=== PATIENT | female | born 1955 | race Caucasian/White ===

== ENCOUNTER → 2020-08-18 09:52 | Outpatient (BNVA) | payer MEDICARE, MEDICAID, OTHER, SELFPAY | PROVIDERS: PCP Internal Medicine; Referring Provider Internal Medicine; Visit Provider Internal Medicine Pulmonary Disease | DX: J45.50 Severe persistent asthma, uncomplicated (principal); J30.89 Other allergic rhinitis; Z79.899 Other long term (current) drug therapy | CPT/HCPCS: 99213; 99214 ==

== ENCOUNTER 2020-08-29 09:04 | Outpatient (REF) | payer MEDICARE, MEDICAID, SELFPAY ==
[2020-08-30 10:03] LABS: BV Int Neg Control Negative (Negative); BV Int Pos Control Positive (Positive)
== END 2020-08-29 09:05 | disposition home or self-care (01) ==
LOC: HO.LAB 09:04
PROVIDERS: PCP Internal Medicine; Visit Provider Advanced Practice Midwife
DX: Z12.4 Encounter for screening for malignant neoplasm of cervix (principal); L90.0 Lichen sclerosus et atrophicus; N95.2 Postmenopausal atrophic vaginitis; N64.9 Disorder of breast, unspecified
CPT/HCPCS: 87480; 87510; 87660; 99214

== ENCOUNTER 2020-09-05 07:42 | Outpatient (REF) | payer MEDICARE, MEDICAID, SELFPAY | END 2020-09-05 07:43 | disposition home or self-care (01) | LOC: HO.MDS 07:42 | PROVIDERS: PCP Internal Medicine; Visit Provider Internal Medicine Pulmonary Disease | DX: J45.909 Unspecified asthma, uncomplicated (principal) | CPT/HCPCS: 96372 ==

== ENCOUNTER 2020-11-15 10:37 | Emergency (ER) | payer MEDICARE, SELFPAY ==
[2020-11-15 10:47] VITALS: BP 171/80; PULSE 85; RESP 16; TEMP 36.9; O2SAT 97; BMI 29.2
--- NOTE | 2020-11-15 11:03 | XR_ITS ---
EXAMINATION: XR CHEST CLINICAL INFORMATION: Cough COMPARISON: Chest radiographs 09/07/2019, 06/26/2019 TECHNIQUE: Portable upright AP view of the chest was obtained. FINDINGS: The lungs are clear. There is no lobar or segmental airspace consolidation or groundglass opacity. The costophrenic sulci are well-defined. The heart is within normal size. The vascularity is normal. The hilar and mediastinal contours and bony structures are unremarkable. XR/XR chest 1V IMPRESSION: Unremarkable examination.
--- NOTE | 2020-11-15 11:06 | ED_ITS ---
HPI - URI/Sore Throat General Chief Complaint: Headache Stated Complaint: headache and coughing,dizzy,back pain Time Seen by Provider: 11/15/20 11:05 Source: patient Mode of arrival: ambulatory Limitations: no limitations History of Present Illness MD elicited complaint: fever, cough and other (body aches, wheezing) Pertinent past history: asthma Onset (ago): day(s) (3) Consistency: constant Severity: moderate Able to tolerate fluids by mouth: Yes Exacerbating factors: nothing Relieving factors: nothing Associated symptoms: chills, myalgias, nasal congestion, cough and shortness of breath Treatments prior to arrival: other (has been using her inhaler) Related Data Home Medications Medication Instructions Recorded Confirmed alprazolam 0.25 mg tablet [id number]? mg PO DAILY PRN 08/08/20 benralizumab 30 mg/mL subcutaneous mg SUBCUT 08/08/20 syringe fexofenadine 180 mg tablet 180 mg PO DAILY 08/08/20 lisinopril 10 mg tablet 10 mg PO DAILY 08/08/20 lisinopril 5 mg tablet 10 mg PO DAILY 08/08/20 rosuvastatin 10 mg tablet 10 mg PO BEDTIME 08/08/20 topiramate 25 mg tablet 25 mg PO DAILY 08/08/20 venlafaxine 75 mg capsule,extended 75 mg PO DAILY 08/08/20 release 24 hr Previous Rx's Medication Instructions Recorded clobetasol 0.05 % topical ointment 1 applic TOPICAL DAILY #30 g 08/29/20 amoxicillin-pot clavulanate 1 tab PO BID #14 tab 11/15/20 [Augmentin] prednisone 40 mg PO DAILY 5 Days #10 tab 11/15/20 Allergies Allergy/AdvReac Type Severity Reaction Status Date / Time pneumococcal vaccine Allergy Severe SWELLING, Verified 08/18/20 10:07 [PNEUMOCOCCAL VACCINE] rash atorvastatin [From LIPITOR] Allergy Intermediate LIP Verified 08/18/20 10:07 SWELLING, hives, lip swelling dupilumab [Dupixent] Allergy Unknown PUGH Verified 08/18/20 10:07 fluticasone [Advair Diskus] Allergy Unknown unknown Verified 08/18/20 10:07 Iodinated Contrast Media Allergy Unknown unknown Verified 08/18/20 10:07 metoprolol Allergy Unknown hives Verified 08/18/20 10:07 morphine Allergy Unknown RASH Verified 08/18/20 10:07 salmeterol [Advair Diskus] Allergy Unknown unknown Verified 08/18/20 10:07 verapamil Allergy Unknown Unknown Verified 08/18/20 10:07 Review of Systems 2 Review of Systems: Constitutional : No Fever, pos Chills ENT/Mouth : No sore throat, pos Rhinorrhea, No Swallowing Difficulty Eyes: No Eye Pain, No Swelling, No Redness Cardiovascular : No Chest Pain, positive SOB, No Orthopnea, no Edema Respiratory : pos Cough, No Sputum, pos Wheezing, positive dyspnea Gastrointestinal : No Nausea, No Vomiting, No Diarrhea, No abdominal Pain, No Hematochezia, No Melena Genitourinary : No Dysuria, No Urinary Frequency, No Hematuria Musculoskeletal : No joint pain, pos Myalgias Skin : No Skin Lesions, No rash Neuro : pos Weakness, No Numbness, No Dizziness, No Headache Psych : No Anxiety/Panic, No Depression Heme/Lymph: No Bruising, No Lymphadenopathy Endocrine : No Polyuria, No Polydipsia All other systems reviewed and are negative [facility] Past Medical History Attestation statement: The following information was validated with the patient. Medical History Lichen sclerosus Severe persistent allergic asthma Surgical History (Updated 08/08/20 @ 10:29 by Angely Saldaña) History of cardiac cath Family History Family History (Updated 08/29/20 @ 09:37 by Deonna Jaramillo CNM) Mother No problems noted. Sister No problems noted. Father No problems noted. Sister No problems noted. Social History Social History Smoking Status: Never smoker Advance Directives: No Advance Directives Information Provided: No Physical Exam Vital Signs: Vital Signs: Last Vital Signs Temp 98.4 F 11/15/20 10:47 Pulse 68 11/15/20 13:18 Resp 18 11/15/20 13:01 BP 165/73 H 11/15/20 13:01 Pulse Ox 99 11/15/20 13:01 Body Mass Index 29.2 Appearance: Alert. Oriented X3. No acute distress. Eyes: Pupils equal, round and reactive to light. ENT: Pharynx normal. Neck: Normal inspection. Neck supple. CVS: Normal heart rate and rhythm. Pulses normal. Respiratory: No respiratory distress. Breath sounds decreased with wheezes noted Abdomen: Soft and non-tender. Skin: Skin warm and dry. Normal skin color. Normal skin turgor. Extremities: No lower extremity edema. No calf ttp Neuro: Oriented X 3. No motor deficit. No sensory deficit. Course Course Course Narrative: patient feels better she is 100% on RA, wants to go home MDM - URI/Sore Throat MDM Narrative Medical decision making narrative: 65 yo female not toxic, no resp distress here with URI symptoms body aches at this time will need INH, CXR, COVID swab, start on oral steroids - dispo per results and improvement Lab Data Labs: Lab Results 11/15/20 Range/Units 11:14 Coronavirus (PCR) NEGATIVE (Negative) Influenza Type A (PCR) NEGATIVE (Negative) Influenza Type B (PCR) NEGATIVE (Negative) RSV RNA Qual (PCR) NEGATIVE (Negative) Discharge Plan Discharge Clinical Impression: Bronchitis Patient Disposition: Home, Self-Care Instructions: Acute Bronchitis (ED) Additional Instructions: return to ED for any worsening symptoms or concerns Prescriptions: New prednisone 20 mg tablet 40 mg PO DAILY 5 Days Qty: 10 RF: 0 amoxicillin-pot clavulanate [Augmentin] 875-125 mg tablet 1 tab PO BID Qty: 14 RF: 0 No Action clobetasol [Temovate] 0.05 % ointment 1 applic topical DAILY Qty: 30 RF: 1 Referrals: Po,Lakia Hurd MD [Primary Care Provider] - 2 days (if not better) Print Language: Tuvaluan
[2020-11-15] MEDS: predniSONE 20 MG TABLET 60 MG PO (11:15)
--- NOTE | 2020-11-15 11:20 | PC.NURSE ---
medicated and resp panel obtained and sent. no acute resp distress noted
[2020-11-15] MEDS: Albuterol Sulfate 90 MCG 8 GM INHALER 4 PUFF INHALE (11:39)
[2020-11-15 11:40] VITALS: PULSE 63; O2SAT 99
[2020-11-15 12:29] LABS: Influenza A PCR NEGATIVE (Negative); Influenza B PCR NEGATIVE (Negative); Resp Syncy Virus RNA Qual PCR NEGATIVE (Negative); SARS COV2 PCR INHOUSE NEGATIVE (Negative)
[2020-11-15 13:01] VITALS: BP 165/73; PULSE 63; RESP 18; O2SAT 99
[2020-11-15] MEDS: Albuterol Sulfate (0.083%) 2.5 MG/3 ML VIAL.NEB 5 MG INHALE (13:17)
[2020-11-15 13:18] VITALS: PULSE 68; O2SAT 99
== END 2020-11-15 14:14 | disposition home or self-care (01) ==
PROVIDERS: Emergency Provider Emergency Medicine; PCP Internal Medicine
DX: J20.9 Acute bronchitis, unspecified (principal); Z20.828 Contact with and (suspected) exposure to other viral communicable diseases
CPT/HCPCS: 0241U; 36415; 71045; 94640; 99283; 99284

== ENCOUNTER 2020-11-21 12:14 | Outpatient (REF) | payer MEDICARE, SELFPAY | END 2020-11-21 12:15 | disposition home or self-care (01) | LOC: HO.MDS 12:14 | PROVIDERS: PCP Internal Medicine; Visit Provider Internal Medicine Pulmonary Disease | DX: J45.50 Severe persistent asthma, uncomplicated (principal) | CPT/HCPCS: 96372; J0517 ==

== ENCOUNTER → 2020-11-23 12:37 | Outpatient (BNVA) | payer MEDICARE, MEDICAID, SELFPAY | PROVIDERS: PCP Internal Medicine; Visit Provider Internal Medicine Pulmonary Disease | DX: J45.50 Severe persistent asthma, uncomplicated (principal); J30.89 Other allergic rhinitis | CPT/HCPCS: 99212 ==

== ENCOUNTER → 2020-12-14 10:39 | Outpatient (BNVA) | payer MEDICARE, MEDICAID, SELFPAY | PROVIDERS: PCP Internal Medicine; Visit Provider Internal Medicine Pulmonary Disease | DX: J45.50 Severe persistent asthma, uncomplicated (principal); J30.89 Other allergic rhinitis | CPT/HCPCS: 99212 ==

== ENCOUNTER → 2021-01-02 14:33 | Outpatient (BNVA) | payer MEDICARE, SELFPAY | PROVIDERS: PCP Internal Medicine; Visit Provider Internal Medicine | DX: Z76.89 Persons encountering health services in other specified circumstances (principal) | CPT/HCPCS: Q3014 ==

== ENCOUNTER 2021-01-16 11:36 | Outpatient (REF) | payer MEDICARE, MEDICAID, SELFPAY | END 2021-01-16 11:37 | disposition home or self-care (01) | LOC: HO.MDS 11:36 | PROVIDERS: PCP Internal Medicine; Visit Provider Internal Medicine Pulmonary Disease | DX: J45.50 Severe persistent asthma, uncomplicated (principal) | CPT/HCPCS: 96372; J0517 ==

== ENCOUNTER → 2021-01-31 10:51 | Outpatient (BNVA) | payer MEDICARE, MEDICAID, SELFPAY | PROVIDERS: PCP Internal Medicine; Visit Provider Internal Medicine Pulmonary Disease | DX: J45.50 Severe persistent asthma, uncomplicated (principal); J30.89 Other allergic rhinitis; Z79.899 Other long term (current) drug therapy | CPT/HCPCS: 99212 ==

== ENCOUNTER 2021-03-03 11:02 | Outpatient (REF) | payer MEDICARE, MEDICAID, SELFPAY ==
[2021-03-03 11:33] LABS: COVID-19 Test Negative (Negative); IDNOW Serial# 55D5AD1C
== END 2021-03-03 11:03 | disposition home or self-care (01) ==
LOC: HO.LAB 11:02
PROVIDERS: Visit Provider Internal Medicine
DX: Z20.822 Contact with and (suspected) exposure to COVID-19 (principal)
CPT/HCPCS: 36415; 87635; C9803

== ENCOUNTER 2021-03-13 08:29 | Outpatient (REF) | payer MEDICARE, SELFPAY | END 2021-03-13 08:30 | disposition home or self-care (01) | LOC: HO.MDS 08:29 | PROVIDERS: PCP Internal Medicine; Visit Provider Internal Medicine Pulmonary Disease | DX: J45.50 Severe persistent asthma, uncomplicated (principal) | CPT/HCPCS: J0517 ==

== ENCOUNTER 2021-03-13 15:42 | Outpatient (REF) | payer MEDICARE, MEDICAID, SELFPAY ==
--- NOTE | ~2021-03-13 | US_ITS ---
EXAMINATION: US VENOUS ULTRASOUND WITH DOPPLER LOWER EXTREMITY, BILATERAL CLINICAL INFORMATION: Bilateral leg pain COMPARISON: Previous right lower extremity ultrasound September 2019 and left lower extremity venous ultrasound December 2018 TECHNIQUE: Ultrasound of the deep veins is performed from the hip to the calf with compression sonography and color and pulse Doppler assessment. Spectral analysis with color-flow imaging is performed. FINDINGS: RIGHT: There is normal venous compression and respiratory variation and augmented flow. The visualized common femoral vein, superficial femoral vein, profunda femoral vein, popliteal vein, and the trifurcation region shows no evidence of deep venous thrombosis. There is a small 2.7 x 0.5 x 1.6 cm right popliteal fossa cyst. This is similar to previous exam. LEFT: There is normal venous compression and respiratory variation and augmented flow. The visualized common femoral vein, superficial femoral vein, profunda femoral vein, popliteal vein, and the trifurcation region shows no evidence of deep venous thrombosis. There is no left popliteal fossa cyst. The left greater saphenous vein appears occluded in the proximal thigh. This extends 1.6 cm from the saphenofemoral junction. US/US venous duplex LE BI IMPRESSION: No evidence of DVT. Small right Smith's cyst.
== END 2021-03-13 15:43 | disposition home or self-care (01) ==
LOC: HO.US 15:42
PROVIDERS: PCP Internal Medicine; Visit Provider Internal Medicine
DX: M79.604 Pain in right leg (principal); M79.605 Pain in left leg; M79.89 Other specified soft tissue disorders
CPT/HCPCS: 93970; 96372

== ENCOUNTER → 2021-04-06 10:53 | Outpatient (BNVA) | payer MEDICARE, SELFPAY | PROVIDERS: PCP Internal Medicine; Visit Provider Internal Medicine Pulmonary Disease | DX: J45.50 Severe persistent asthma, uncomplicated (principal); J30.89 Other allergic rhinitis | CPT/HCPCS: 99212 ==

== ENCOUNTER 2021-05-08 08:47 | Outpatient (REF) | payer MEDICARE, MEDICAID, SELFPAY ==
--- NOTE | ~2021-05-08 | XR_ITS ---
EXAMINATION: XR KNEE, RIGHT CLINICAL INFORMATION: Right knee pain. COMPARISON: None TECHNIQUE: Four views of the right knee. FINDINGS: Mild medial femoral-tibial and patellofemoral degenerative joint changes are seen. There is no acute fracture or dislocation. No significant joint effusion is seen. The soft tissues are unremarkable. XR/XR knee RT 3V IMPRESSION: Mild degenerative joint changes suggesting osteoarthritis.
== END 2021-05-08 08:48 | disposition home or self-care (01) ==
LOC: HO.XRAY 08:47
PROVIDERS: PCP Internal Medicine; Referring Provider Physician Assistant; Visit Provider Internal Medicine Pulmonary Disease
DX: M17.11 Unilateral primary osteoarthritis, right knee (principal); J45.50 Severe persistent asthma, uncomplicated
CPT/HCPCS: 73562; 96372

== ENCOUNTER → 2021-06-01 12:53 | Outpatient (BNVA) | payer MEDICARE, MEDICAID, SELFPAY | PROVIDERS: PCP Internal Medicine; Visit Provider Orthopaedic Surgery | DX: M17.11 Unilateral primary osteoarthritis, right knee (principal); I10 Essential (primary) hypertension; E78.00 Pure hypercholesterolemia, unspecified; E55.9 Vitamin D deficiency, unspecified; M81.0 Age-related osteoporosis without current pathological fracture; Z88.7 Allergy status to serum and vaccine; Z88.8 Allergy status to other drugs, medicaments and biological substances; Z91.041 Radiographic dye allergy status | CPT/HCPCS: 20610; 99212; J1100 ==

== ENCOUNTER 2021-06-19 07:49 | Outpatient (REF) | payer MEDICARE, MEDICAID, SELFPAY ==
[2021-06-19 08:34] LABS: Alanine Aminotransferase 17 U/L (0-31); Albumin Level 4.2 g/dL (3.5-5.0); Alkaline Phosphatase 75 U/L (39-117); Anion Gap 11 (12-20); Aspartate Amino Transferase 18 U/L (5-31); Bilirubin Total 0.7 mg/dL (0.0-1.0); Blood Urea Nitrogen 18 mg/dL (9-16); Calcium 9.4 mg/dL (8.4-10.2); Carbon Dioxide 25 mmol/L (22-29); Chloride 108 mmol/L (96-108); Estimated Glomerular Filt Rate > 60; Glucose Fasting 92 mg/dL (60-99); Potassium 4.4 mmol/L (3.3-5.1); Sodium 140 mmol/L (135-145); Total Protein 7.5 g/dL (6.5-8.0)
== END 2021-06-19 07:50 | disposition home or self-care (01) ==
LOC: HO.LAB 07:49
PROVIDERS: Absent Provider Nurse Practitioner Family; PCP Internal Medicine; Visit Provider Internal Medicine
DX: Z13.1 Encounter for screening for diabetes mellitus (principal)
CPT/HCPCS: 36415; 80053

== ENCOUNTER 2021-06-30 11:35 | Outpatient (REF) | payer MEDICARE, MEDICAID, SELFPAY | END 2021-06-30 11:36 | disposition home or self-care (01) | LOC: HO.MDS 11:35 | PROVIDERS: PCP Internal Medicine; Visit Provider Internal Medicine Pulmonary Disease | DX: J45.50 Severe persistent asthma, uncomplicated (principal) | CPT/HCPCS: 96372; J0517 ==

== ENCOUNTER → 2021-07-11 08:54 | Outpatient (BNVA) | payer MEDICARE, MEDICAID, SELFPAY | PROVIDERS: PCP Internal Medicine; Visit Provider Internal Medicine Pulmonary Disease | DX: J45.50 Severe persistent asthma, uncomplicated (principal); J30.89 Other allergic rhinitis | CPT/HCPCS: 99212 ==

== ENCOUNTER 2021-07-13 10:39 | Outpatient (REF) | payer MEDICARE, MEDICAID, SELFPAY ==
--- NOTE | ~2021-07-13 | MM_ITS ---
EXAMINATION: MM SCREENING DIGITAL BREAST TOMOSYNTHESIS, BILATERAL CLINICAL INFORMATION: Screening. Asymptomatic. The lifetime risk of breast cancer based on the Tyrer-Cuzick Model is 8%. COMPARISON: Mammography: 07/12/2020, 09/12/2018, 07/27/2017 TECHNIQUE: Digital breast tomosynthesis is performed in both the craniocaudal and mediolateral oblique views along with computer-aided detection (CAD). Synthesized 2D images are generated from the tomosynthesis. FINDINGS: There are scattered areas of fibroglandular density (ACR BI-RADS breast composition Category b). There are no significant masses, abnormal calcifications, or other abnormalities. Parenchymal pattern is similar to prior studies. There is small stable nodular densities posterior medial left breast and posterior outer right breast similar to prior exams. No developing density. No significant changes. MM/MM tomosynthesis screening BI IMPRESSION: No mammographic evidence of malignancy. ASSESSMENT: BI-RADS 2: Benign RECOMMENDATION: Routine annual mammography screening. This patient's information was entered into a reminder system with a target due date for their next mammogram.
--- NOTE | ~2021-07-13 | MM_ITS ---
EXAMINATION: BONE DENSITOMETRY CLINICAL INDICATION: Asymptomatic menopausal state. COMPARISON: Previous BD dated 03/23/2019 and baseline BD dated 10/10/2007. TECHNIQUE: Using a [employer] DXA System (software version: 13.1) manufactured by [employer], dual-energy x-ray absorptiometry was performed of the lumbar spine and left hip. The images are of good technical quality. Summary results are attached. FINDINGS: AP SPINE L1-L4: Current: BMD 0.793 g/cm2, Z-score -1.9, T-score -3.2, osteoporosis, 8.9% decrease from previous, 4.7% decrease from baseline (<5% change is not significant). Prior: BMD 0.870 g/cm2. Baseline: BMD 0.832 g/cm2. LEFT FEMUR, NECK: Current: BMD 1.001 g/cm2, Z-score 1.1, T-score -0.3, normal. Prior: BMD 0.988 g/cm2. Baseline: BMD 1.028 g/cm2. LEFT FEMUR, TOTAL: Current: BMD 1.050 g/cm2, Z-score 1.4, T-score 0.3, normal, 2.7% decrease from previous, 2.3% decrease from baseline (<5% change is not significant). Prior: BMD 1.079 g/cm2. Baseline: BMD 1.075 g/cm2. IDENTIFIED RISK FACTORS: Osteoporosis, low calcium intake. Early menopause, secondary osteoporosis, glucocorticoids (chronic). HISTORY OF FRACTURE: None listed. MEDICATIONS: Calcium supplements or multivitamin, vitamin D. MM/XR DEXA axial skeleton IMPRESSION: 1. DIAGNOSIS: Osteoporosis based on the lowest T-score value of -3.2 in the lumbar spine applying World Health Organization criteria. 2. 10-YEAR FRACTURE RISK PREDICTION, FRAX: According to the guidelines, FRAX calculation should only be performed on patients in the osteopenia bone density category. Therefore, FRAX was not performed on this patient. 3. Treatment Recommendations: NOF guidelines recommend consideration for treatment in postmenopausal women and men age 50 and older presenting with the following: -A hip or vertebral (clinical or morphometric) fracture. -T-score less than or equal to -2.5 at the femoral neck or spine after appropriate evaluation to exclude secondary causes. -Low bone mass at the hip or spine and a 10-year fracture probability by FRAX of greater than or equal to 3% for hip fracture or greater than or equal to 20% for major osteoporotic fracture based on the [place] adapted WHO algorithm. 4. Other Recommendations: All treatment decisions require clinical judgment and consideration of individual patient factors, including patient preferences, comorbidities, previous drug use, risk factors not captured in the FRAX model (e.g. frailty, falls, vitamin D deficiency, increased bone turnover, interval significant decline in bone density) and possible under or overestimation of fracture risk by FRAX. Additional medical evaluation for secondary cause of low bone mineral density may be appropriate. FUTURE SCAN RECOMMENDATION: People with diagnosed cases of osteoporosis or at high risk for fracture should have regular bone mineral density tests. For patients eligible for Medicare, routine testing is allowed once every 2 years. The testing frequency can be increased to one year for patients who have rapidly progressing disease, those who are receiving or discontinuing medical therapy to restore bone mass, or have additional risk factors.
== END 2021-07-13 10:40 | disposition home or self-care (01) ==
LOC: HO.MAMMO 10:39
PROVIDERS: PCP Internal Medicine; Visit Provider Nurse Practitioner Family
DX: Z12.31 Encounter for screening mammogram for malignant neoplasm of breast (principal); Z13.820 Encounter for screening for osteoporosis; M81.0 Age-related osteoporosis without current pathological fracture; E27.49 Other adrenocortical insufficiency; Z78.0 Asymptomatic menopausal state; Z79.899 Other long term (current) drug therapy
CPT/HCPCS: 77063; 77067; 77080

== ENCOUNTER 2021-08-03 06:52 | Emergency (ER) | payer MEDICARE, MEDICAID, SELFPAY ==
--- NOTE | ~2021-08-03 | XR_ITS ---
EXAMINATION: XR CHEST CLINICAL INFORMATION: Dyspnea. COMPARISON: None TECHNIQUE: Frontal view of the chest was obtained. FINDINGS: No significant abnormality is noted involving the heart, lungs, mediastinum, bony thorax or soft tissues. XR/XR chest 1V IMPRESSION: Unremarkable chest examination.
[2021-08-03 07:12] VITALS: BP 166/95; PULSE 106; RESP 18; TEMP 36.9; O2SAT 97; BMI 29.4
--- NOTE | 2021-08-03 07:20 | ED_ITS ---
HPI - Asthma General Chief Complaint: Dyspnea Stated Complaint: ASTHMA DIFF BREATHING Time Seen by Provider: 08/03/21 07:18 Source: patient Mode of arrival: ambulatory Limitations: no limitations History of Present Illness MD complaint: asthma attack , shortness of breath and wheezing Onset (ago): day(s) (2) Severity: moderate Context: none known Associated symptoms: dry cough and other (sore throat) Asthma History: childhood onset Treatments Prior to Arrival: inhaled bronchodilator Related Data Current Asthma Therapy: inhaled bronchodilator Home Medications Medication Instructions Recorded Confirmed budesonide-formoterol HFA 160 INHALATION BID g 12/22/20 06/14/21 mcg-4.5 mcg/actuation aerosol inhaler ipratropium 0.5 mg-albuterol 3 mg 3 ml INHALATION Q6H PRN 12/22/20 06/14/21 (2.5 mg base)/3 mL nebulization soln Previous Rx's Medication Instructions Recorded benralizumab 30 mg/mL subcutaneous 30 mg SUBCUT Q8W #1 ml 01/09/21 syringe rosuvastatin 10 mg tablet 10 mg PO DAILY #90 tab 02/09/21 lisinopril 10 mg tablet 10 mg PO DAILY 90 Days #90 tab 03/23/21 diclofenac sodium 75 mg 75 mg PO BID 10 Days #20 tab 05/08/21 tablet,delayed release umeclidinium 62.5 mcg/actuation 1 inh INHALATION DAILY 30 Days #30 05/09/21 blister powder for inhalation ea (Incruse Ellipta) fexofenadine 180 mg tablet 180 mg PO DAILY #30 tab 07/21/21 azithromycin 250 mg tablet See Rx Instructions .ROUTE 08/03/21 .COMPLEX #6 tab benzonatate 100 mg capsule 100 mg PO BID PRN #10 cap 08/03/21 (Tessalon Perlarlene) prednisone 20 mg tablet 40 mg PO DAILY 5 Days #10 tab 08/03/21 Allergies Allergy/AdvReac Type Severity Reaction Status Date / Time pneumococcal vaccine Allergy Severe SWELLING, Verified 08/03/21 07:11 [PNEUMOCOCCAL VACCINE] rash atorvastatin [From LIPITOR] Allergy Intermediate LIP Verified 08/03/21 07:11 SWELLING, hives, lip swelling dupilumab [Dupixent] Allergy Unknown PUGH Verified 08/03/21 07:11 fluticasone [Advair Diskus] Allergy Unknown unknown Verified 08/03/21 07:11 Iodinated Contrast Media Allergy Unknown unknown Verified 08/03/21 07:11 metoprolol Allergy Unknown hives Verified 08/03/21 07:11 morphine Allergy Unknown RASH Verified 08/03/21 07:11 salmeterol [Advair Diskus] Allergy Unknown unknown Verified 08/03/21 07:11 verapamil Allergy Unknown Unknown Verified 08/03/21 07:11 Review of Systems Review of Systems: Constitutional : No Fever, No Chills ENT/Mouth : No Hoarseness, No sore throat, No Rhinorrhea Eyes: No Redness, No Discharge, No Vision Changes Cardiovascular : No Chest Pain, positive SOB, positive Dyspnea on Exertion, No Edema Respiratory : positive Cough, No Sputum, positive Wheezing, Gastrointestinal : No Nausea, No Vomiting, No Diarrhea, No abdominal Pain Genitourinary : No Dysuria, No Hematuria Musculoskeletal : No joint pain, No Myalgias Skin : No rash Neuro : No Weakness, No Numbness, No Headache Psych : No anxiety, depression Heme/Lymph: No Bruising, No Bleeding Endocrine : No Polyuria, No Polydipsia All other systems reviewed and are negative [facility] Past Medical History Attestation statement: The following information was validated with the patient. Medical History Allergic rhinitis Allergic rhinitis Anxiety Bronchitis Hypercholesterolemia Hypertension Lichen sclerosus Migraine Osteoarthritis, knee Osteoporosis Post-menopausal Screening for diabetes mellitus Severe persistent allergic asthma Urinary incontinence Vitamin D deficiency Surgical History History of cardiac cath Family History Family History Mother No problems noted. Sister No problems noted. Father No problems noted. Sister No problems noted. 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 Oriented X3. No acute distress. Eyes: Pupils equal, round and reactive to light. ENT: Pharynx normal. Neck: Normal inspection. Neck supple. CVS: Normal heart rate and rhythm. Pulses normal. Respiratory: No respiratory distress. Breath sounds diffuse expiratory wheezes Abdomen: Soft and nontender. Skin: Skin warm and dry. Normal skin color. Normal skin turgor. Extremities: No lower extremity edema. No calf ttp Neuro: Oriented X 3. No motor deficit. No sensory deficit. Course Course Course Narrative: no swelling in throat moderate erythema will DC home on steroids and antibiotics MDM - Asthma MDM Narrative Medical decision making narrative: 66 yo female with asthma, HTN, chronic bronchitis comes in with c/o wheezing and cough for 2 days - at this time labs, CXR< COVID swab, 5mg albuterol, IV steroids and IV magnesium - suspect asthma exacerbation. Dispo per results and improvement Lab Data Result diagrams: 08/03/21 08:36 08/03/21 08:36 Labs: Lab Results 08/03/21 08/03/21 08/03/21 Range/Units 07:27 07:27 08:36 WBC 10.2 (4.8-10.8) X10*3/uL RBC 4.78 (4.20-5.50) X10*6/uL Hgb 14.0 (12.0-16.0) g/dl Hct 42.6 (37-47) % MCV 89.1 (80-98) fL MCH 29.3 (27.0-33.0) pg MCHC 32.9 (31.0-35.0) g/dl RDW 13.2 (11.0-16.0) % Plt Count 239 (160-400) X10*3/uL MPV 11.0 (9.4-12.3) fL Immature Gran % (Auto) 0.2 (0.0-0.4) % Neut % (Auto) 72.5 (45-73) % Lymph % (Auto) 21.1 (20-40) % [place] % (Auto) 6.0 (2-11) % Eos % (Auto) 0.0 (0-4) % Baso % (Auto) 0.2 (0-2) % Lymph # (Auto) 2.2 (1.2-4.9) X10*3/uL [place] # (Auto) 0.6 (0.1-1.2) X10*3/uL Eos # (Auto) 0.0 (0.0-0.4) X10*3/uL Baso # (Auto) 0.0 (0.0-0.2) X10*3/uL Abs Immat Gran (auto) 0.02 (0.00-0.03) X10*3/uL Absolute Neuts (auto) 7.4 (2.0-8.3) X10*3/uL Absolute Nucleated RBC 0.000 (0.0-0.012) X10*3/uL Nucleated RBC % (auto) 0.0 (0.0-0.2) /100WBC Sodium (135-145) mmol/L Potassium (3.3-5.1) mmol/L Chloride (96-108) mmol/L Carbon Dioxide (22-29) mmol/L Anion Gap (12-20) BUN (9-16) mg/dL Creatinine (0.5-1.4) mg/dL Estim Creat Clear Calc Estimated GFR Random Glucose (60-115) mg/dL Calcium (8.4-10.2) mg/dL Total Bilirubin (0.0-1.0) mg/dL Direct Bilirubin (0.0-0.5) mg/dL AST (5-31) U/L ALT (0-31) U/L Alkaline Phosphatase (39-117) U/L Total Protein (6.5-8.0) g/dL Albumin (3.5-5.0) g/dL Lipase (8-78) U/L COVID-19 (CLAUDIO) Negative (Negative) COVID-19 Clin Com See Note S. pyogenes GrpA ANGELIQUE Negative (Negative) 08/03/21 Range/Units 08:36 WBC (4.8-10.8) X10*3/uL RBC (4.20-5.50) X10*6/uL Hgb (12.0-16.0) g/dl Hct (37-47) % MCV (80-98) fL MCH (27.0-33.0) pg MCHC (31.0-35.0) g/dl RDW (11.0-16.0) % Plt Count (160-400) X10*3/uL MPV (9.4-12.3) fL Immature Gran % (Auto) (0.0-0.4) % Neut % (Auto) (45-73) % Lymph % (Auto) (20-40) % [place] % (Auto) (2-11) % Eos % (Auto) (0-4) % Baso % (Auto) (0-2) % Lymph # (Auto) (1.2-4.9) X10*3/uL [place] # (Auto) (0.1-1.2) X10*3/uL Eos # (Auto) (0.0-0.4) X10*3/uL Baso # (Auto) (0.0-0.2) X10*3/uL Abs Immat Gran (auto) (0.00-0.03) X10*3/uL Absolute Neuts (auto) (2.0-8.3) X10*3/uL Absolute Nucleated RBC (0.0-0.012) X10*3/uL Nucleated RBC % (auto) (0.0-0.2) /100WBC Sodium 141 (135-145) mmol/L Potassium 4.3 (3.3-5.1) mmol/L Chloride 109 H (96-108) mmol/L Carbon Dioxide 25 (22-29) mmol/L Anion Gap 11 L (12-20) BUN 12 (9-16) mg/dL Creatinine 0.73 (0.5-1.4) mg/dL Estim Creat Clear Calc 70.9 Estimated GFR > 60 Random Glucose 100 (60-115) mg/dL Calcium 9.7 (8.4-10.2) mg/dL Total Bilirubin 0.5 (0.0-1.0) mg/dL Direct Bilirubin 0.2 (0.0-0.5) mg/dL AST 18 (5-31) U/L ALT 19 (0-31) U/L Alkaline Phosphatase 76 (39-117) U/L Total Protein 7.4 (6.5-8.0) g/dL Albumin 4.2 (3.5-5.0) g/dL Lipase 21 (8-78) U/L COVID-19 (CLAUDIO) (Negative) COVID-19 Clin Com S. pyogenes GrpA ANGELIQUE (Negative) Discharge Plan Discharge Clinical Impression: Bronchitis Asthma with exacerbation Qualifiers: Asthma severity: moderate Asthma persistence: persistent Qualified Code(s): J45.41 - Moderate persistent asthma with (acute) exacerbation Patient Disposition: Home, Self-Care Instructions: Asthma (ED), Acute Bronchitis (ED) Additional Instructions: return to ED for any worsening symptoms or concerns COVID AND STREP NEGATIVE Prescriptions: New prednisone 20 mg tablet 40 mg PO DAILY 5 Days Qty: 10 RF: 0 azithromycin 250 mg tablet See Rx Instructions .ROUTE .COMPLEX Qty: 6 RF: 0 benzonatate [Tessalon Perles] 100 mg capsule 100 mg PO BID PRN (Reason: cough) Qty: 10 RF: 0 No Action benralizumab 30 mg/mL syringe 30 mg subcut Q8W Qty: 1 RF: 12 rosuvastatin 10 mg tablet 10 mg PO DAILY Qty: 90 RF: 2 lisinopril 10 mg tablet 10 mg PO DAILY 90 Days Qty: 90 RF: 1 Incruse Ellipta 62.5 mcg/actuation blister with device 1 inh inhalation DAILY 30 Days Qty: 30 RF: 6 fexofenadine 180 mg tablet 180 mg PO DAILY Qty: 30 RF: 3 ipratropium-albuterol 0.5 mg-3 mg(2.5 mg base)/3 mL solution for nebulization 3 ml inhalation Q6H PRNRF: 0 diclofenac sodium 75 mg tablet,delayed release (DR/EC) 75 mg PO BID 10 Days Qty: 20 RF: 0 budesonide-formoterol 160-4.5 mcg/actuation HFA aerosol inhaler inhalation BID RF: 0 Referrals: Po,Lakia Hurd MD [Primary Care Provider] - 2 days (if not better)
[2021-08-03 07:50] LABS: IDNOW Serial# 9DD0AD1C; Strep A Nucleic Acid Negative (Negative)
[2021-08-03 07:58] LABS: COVID-19 Test Negative (Negative)
[2021-08-03] MEDS: Albuterol Sulfate (0.083%) 2.5 MG/3 ML VIAL.NEB 5 MG INHALE (08:21)
[2021-08-03 08:24] VITALS: PULSE 67; O2SAT 100
[2021-08-03 08:46] LABS: MANUAL DIFF FLAG NO
[2021-08-03 08:49] LABS: Basophils Percent Auto 0.2 % (0-2); Hematocrit 42.6 % (37-47); Imm Gran Abs Auto 0.02 X10*3/uL (0.00-0.03); Imm Gran Pct Auto 0.2 % (0.0-0.4); Lymphocytes Absolute Auto 2.2 X10*3/uL (1.2-4.9); Lymphocytes Percent Auto 21.1 % (20-40); Mean Corpuscular HGB Conc 32.9 g/dl (31.0-35.0); Mean Corpuscular Hemoglobin 29.3 pg (27.0-33.0); Mean Corpuscular Volume 89.1 fL (80-98); Monocytes Absolute Auto 0.6 X10*3/uL (0.1-1.2); Neutrophils Absolute Auto 7.4 X10*3/uL (2.0-8.3); Neutrophils Percent Auto 72.5 % (45-73); Platelet Count 239 X10*3/uL (160-400); Red Blood Count 4.78 X10*6/uL (4.20-5.50); Red Cell Distribution Width 13.2 % (11.0-16.0); White Blood Count 10.2 X10*3/uL (4.8-10.8)
[2021-08-03 09:03] LABS: Alanine Aminotransferase 19 U/L (0-31); Albumin Level 4.2 g/dL (3.5-5.0); Alkaline Phosphatase 76 U/L (39-117); Anion Gap 11 (12-20); Aspartate Amino Transferase 18 U/L (5-31); Bilirubin Direct 0.2 mg/dL (0.0-0.5); Bilirubin Total 0.5 mg/dL (0.0-1.0); Blood Urea Nitrogen 12 mg/dL (9-16); Calcium 9.7 mg/dL (8.4-10.2); Carbon Dioxide 25 mmol/L (22-29); Chloride 109 mmol/L (96-108); Creatinine Clr Calc Pharmacy 70.9; Estimated Glomerular Filt Rate > 60; Glucose Random 100 mg/dL (60-115); Lipase 21 U/L (8-78); Potassium 4.3 mmol/L (3.3-5.1); Sodium 141 mmol/L (135-145); Total Protein 7.4 g/dL (6.5-8.0)
[2021-08-03] MEDS: Benzonatate 100 MG CAPSULE 200 MG PO (09:05)
[2021-08-03] MEDS: methylPREDNISolone Sod Succ 125 MG/2 ML VIAL IVPUSH (09:06)
[2021-08-03] MEDS: Magnesium Sulfate/H2O 2 GM/50 ML PIGGYBACK IV (09:06)
[2021-08-03 09:36] VITALS: BP 165/78; PULSE 84; RESP 19; TEMP 36.2; O2SAT 95
[2021-08-03] MEDS: Albuterol Sulfate (0.083%) 2.5 MG/3 ML VIAL.NEB INHALE (10:15)
[2021-08-03 10:17] VITALS: PULSE 86; O2SAT 95
== END 2021-08-03 10:34 | disposition home or self-care (01) ==
PROVIDERS: Emergency Provider Emergency Medicine; PCP Internal Medicine
DX: J40 Bronchitis, not specified as acute or chronic (principal); J45.41 Moderate persistent asthma with (acute) exacerbation; R06.00 Dyspnea, unspecified; Z20.822 Contact with and (suspected) exposure to COVID-19; Z79.899 Other long term (current) drug therapy
CPT/HCPCS: 36415; 71045; 80048; 80076; 83690; 85025; 87635; 87651; 94640; 94644; 96365; 96366; 96375; 99284; J2930; J3475

== ENCOUNTER → 2021-08-24 08:51 | Outpatient (BNVA) | payer MEDICARE, MEDICAID, SELFPAY | PROVIDERS: PCP Internal Medicine; Visit Provider Internal Medicine Pulmonary Disease | DX: J45.50 Severe persistent asthma, uncomplicated (principal); J30.89 Other allergic rhinitis; J45.901 Unspecified asthma with (acute) exacerbation | CPT/HCPCS: 99212 ==

== ENCOUNTER 2021-08-28 13:08 | Outpatient (REF) | payer MEDICARE, OTHER, SELFPAY ==
[2021-08-30 18:16] LABS: HPV mRNA E6/E7 rflx Not Detected (Not Detected)
== END 2021-08-28 13:09 | disposition home or self-care (01) ==
LOC: HO.LAB 13:08
PROVIDERS: PCP Internal Medicine; Visit Provider Advanced Practice Midwife
DX: Z01.411 Encounter for gynecological examination (general) (routine) with abnormal findings (principal); Z11.51 Encounter for screening for human papillomavirus (HPV); L90.0 Lichen sclerosus et atrophicus; N95.2 Postmenopausal atrophic vaginitis
CPT/HCPCS: 87624; 88142

== ENCOUNTER 2021-09-20 07:38 | Outpatient (REF) | payer MEDICARE, OTHER, SELFPAY ==
[2021-09-20 08:23] LABS: MANUAL DIFF FLAG NO
[2021-09-20 08:29] LABS: Hematocrit 41.7 % (37.0-47.0); Hemoglobin 13.4 g/dl (12.0-16.0); Imm Gran Abs Auto 0.02 X10*3/uL (0.00-0.03); Imm Gran Pct Auto 0.3 % (0.0-0.4); Lymphocytes Absolute Auto 1.5 X10*3/uL (1.2-4.9); Lymphocytes Percent Auto 25.3 % (20-40); Mean Corpuscular HGB Conc 32.1 g/dl (31.0-35.0); Mean Corpuscular Hemoglobin 28.6 pg (27.0-33.0); Mean Corpuscular Volume 89.1 fL (80.0-98.0); Mean Platelet Volume 11.1 fL (9.4-12.3); Monocytes Absolute Auto 0.5 X10*3/uL (0.1-1.2); Monocytes Percent Auto 8.3 % (2-11); Neutrophils Absolute Auto 3.8 x10*3/uL (2.0-8.3); Neutrophils Percent Auto 66.1 % (45-73); Platelet Count 238 X10*3/uL (160-400); Red Blood Count 4.68 X10*6/uL (4.20-5.50); Red Cell Distribution Width 13.2 % (11.0-16.0); White Blood Count 5.8 X10*3/uL (4.8-10.8)
[2021-09-20 09:03] LABS: Alanine Aminotransferase 16 U/L (0-31); Albumin Level 3.9 g/dL (3.5-5.0); Alkaline Phosphatase 71 U/L (39-117); Anion Gap 9 (12-20); Aspartate Amino Transferase 17 U/L (5-31); Bilirubin Total 0.5 mg/dL (0.0-1.0); Blood Urea Nitrogen 14 mg/dL (9-16); Calcium 9.1 mg/dL (8.4-10.2); Carbon Dioxide 28 mmol/L (22-29); Chloride 107 mmol/L (96-108); Cholesterol 200 mg/dL; Estimated Glomerular Filt Rate > 60; Glucose Random 89 mg/dL (60-115); HDL Cholesterol 49 mg/dL; LDL Cholesterol Calculated 125 mg/dl; Potassium 4.3 mmol/L (3.3-5.1); Sodium 140 mmol/L (135-145); Total Protein 6.9 g/dL (6.5-8.0); Triglycerides 130 mg/dL
[2021-09-20 09:20] LABS: Free T4 (Free Thyroxine) 1.04 ng/dL (0.71-1.85); Thyroid Stimulating Hormone 1.55 uIU/mL (0.32-4.0); Vitamin D 25-OH Total 18.5 ng/mL (>30)
[2021-09-20 09:35] LABS: Folate 16.5 ng/mL (> or = 4.0); Vitamin B12 393 pg/mL (200-900)
== END 2021-09-20 07:39 | disposition home or self-care (01) ==
LOC: HO.LAB 07:38
PROVIDERS: PCP Internal Medicine; Visit Provider Internal Medicine
DX: E78.00 Pure hypercholesterolemia, unspecified (principal); I10 Essential (primary) hypertension
CPT/HCPCS: 36415; 80053; 80061; 82306; 82607; 82746; 84439; 84443; 85025

== ENCOUNTER → 2021-09-21 09:28 | Outpatient (BNVA) | payer MEDICARE, OTHER, SELFPAY | PROVIDERS: PCP Internal Medicine; Visit Provider Internal Medicine Pulmonary Disease | DX: J45.50 Severe persistent asthma, uncomplicated (principal); J30.89 Other allergic rhinitis; K21.9 Gastro-esophageal reflux disease without esophagitis | CPT/HCPCS: 99212 ==

== ENCOUNTER 2021-10-13 09:26 | Outpatient (REF) | payer MEDICARE, OTHER, SELFPAY | END 2021-10-13 09:27 | disposition home or self-care (01) | LOC: HO.MDS 09:26 | PROVIDERS: Visit Provider Internal Medicine Pulmonary Disease | DX: J45.50 Severe persistent asthma, uncomplicated (principal) | CPT/HCPCS: 96372; J0517 ==

== ENCOUNTER → 2021-10-25 10:31 | Outpatient (BNVA) | payer MEDICARE, OTHER, SELFPAY | PROVIDERS: PCP Internal Medicine; Visit Provider Internal Medicine Pulmonary Disease | DX: J45.50 Severe persistent asthma, uncomplicated (principal); J30.89 Other allergic rhinitis | CPT/HCPCS: 99212 ==

== ENCOUNTER 2021-12-08 08:51 | Outpatient (REF) | payer MEDICARE, OTHER, SELFPAY | END 2021-12-08 08:52 | disposition home or self-care (01) | LOC: HO.MDS 08:51 | PROVIDERS: Visit Provider Internal Medicine Pulmonary Disease | DX: J45.50 Severe persistent asthma, uncomplicated (principal) | CPT/HCPCS: 96372 ==

== ENCOUNTER 2022-02-02 09:33 | Outpatient (REF) | payer MEDICARE, OTHER, SELFPAY | END 2022-02-02 09:34 | disposition home or self-care (01) | LOC: HO.MDS 09:33 | PROVIDERS: Visit Provider Internal Medicine Pulmonary Disease | DX: J45.50 Severe persistent asthma, uncomplicated (principal) | CPT/HCPCS: 96372; J0517 ==

== ENCOUNTER 2022-02-05 08:33 | Emergency (ER) | payer MEDICARE, OTHER, SELFPAY ==
--- NOTE | ~2022-02-05 | XR_ITS ---
EXAMINATION: XR CHEST CLINICAL INFORMATION: Chest pain COMPARISON: None TECHNIQUE: Frontal view of the chest was obtained. FINDINGS: No significant abnormality is noted involving the heart, lungs, mediastinum, bony thorax or soft tissues. XR/XR chest 1V IMPRESSION: Unremarkable chest examination.
--- NOTE | 2022-02-05 08:44 | ECG_ITS ---
Test Reason : chest pain Blood Pressure : / mmHG Vent. Rate : 070 BPM Atrial Rate : 070 BPM P-R Int : 120 ms QRS Dur : 086 ms QT Int : 408 ms P-R-T Axes : 053 022 044 degrees QTc Int : 440 ms Normal sinus rhythm Normal EKG When compared with ECG of 07-SEP-2019 10:51, No significant change was found Referred By: Generic ED Physician Electronically Signed By:KAMILA OLIVARES
--- NOTE | 2022-02-05 08:54 | ED_ITS ---
HPI - Chest Pain General Chief Complaint: Chest Pain Stated Complaint: chest pain Time Seen by Provider: 02/05/22 08:54 Source: patient Mode of arrival: ambulatory Limitations: no limitations History of Present Illness MD complaint: chest pain Onset (ago): hour(s) (5 am ) Timing of current episode: now resolved and other (lasted 5 minutes) Prior episodes: Yes (last week happened) Onset: during rest Pain location: substernal Pain radiation: back and neck Severity: moderate Quality: sharp Relieving factors: nothing Exacerbating factors: nothing Context: recent illness (had allergic reaction to area on R knee - topical medications) Associated symptoms: dyspnea Treatment prior to arrival: none Related Data Home Medications Medication Instructions Recorded Confirmed ipratropium 0.5 mg-albuterol 3 mg 3 ml INHALATION Q6H PRN 01/29/22 01/29/22 (2.5 mg base)/3 mL nebulization soln Previous Rx's Medication Instructions Recorded rosuvastatin 10 mg tablet 10 mg PO DAILY #90 tab 02/09/21 lisinopril 10 mg tablet 10 mg PO DAILY 90 Days #90 tab 08/23/21 trazodone 50 mg tablet 50 mg PO BEDTIME PRN #90 tab 11/02/21 fexofenadine 180 mg tablet 180 mg PO DAILY #30 tab 11/21/21 omeprazole 40 mg capsule,delayed 40 mg PO DAILY 90 Days #90 cap 01/10/22 release Incruse Ellipta 62.5 mcg/actuation 1 inh INHALATION DAILY #30 ea NS 01/15/22 powder for inhalation (umeclidinium) benralizumab 30 mg/mL subcutaneous 30 mg SUBCUT Q8W #1 ml 01/19/22 syringe albuterol sulfate 90 mcg/actuation 2 puff INHALATION Q6H PRN #8.5 g 01/29/22 aerosol inhaler (ProAir HFA) amoxicillin 500 mg-potassium 1 tab PO BID 7 Days #14 tab 01/29/22 clavulanate 125 mg tablet (Augmentin) triamcinolone acetonide 0.5 % 1 appl TOPICAL BID 14 Days #45 g 01/30/22 topical cream lisinopril 10 mg tablet 15 mg PO DAILY #14 tab 02/05/22 Allergies Allergy/AdvReac Type Severity Reaction Status Date / Time pneumococcal vaccine Allergy Severe SWELLING, Verified 01/29/22 15:10 [PNEUMOCOCCAL VACCINE] rash atorvastatin [From LIPITOR] Allergy Intermediate LIP Verified 01/29/22 15:10 SWELLING, hives, lip swelling dupilumab [Dupixent] Allergy Unknown PUGH Verified 01/29/22 15:10 fluticasone [Advair Diskus] Allergy Unknown unknown Verified 01/29/22 15:10 Iodinated Contrast Media Allergy Unknown unknown Verified 01/29/22 15:10 metoprolol Allergy Unknown hives Verified 01/29/22 15:10 morphine Allergy Unknown RASH Verified 01/29/22 15:10 salmeterol [Advair Diskus] Allergy Unknown unknown Verified 01/29/22 15:10 verapamil Allergy Unknown Unknown Verified 01/29/22 15:10 Review of Systems Review of Systems: Constitutional : No Weight loss, No Fever, No Chills ENT/Mouth : No sore throat, No Rhinorrhea Eyes: No Eye Pain, No Swelling Cardiovascular : pos Chest Pain, pos SOB, no Dyspnea on Exertion, No Orthopnea, No Edema, No Palpitations Respiratory : No Cough, No Sputum Gastrointestinal : no Nausea, No Vomiting, No Diarrhea, No abdominal Pain, No Hematochezia, No Melena Genitourinary : No Dysuria, No Urinary Frequency Musculoskeletal : No joint pain, No Myalgias, No Joint Swelling Skin : No Skin Lesions, No rash Neuro : No Weakness, No Numbness, No Dizziness, No Headache Psych : No Anxiety/Panic, No Depression Heme/Lymph: No Bruising, No Lymphadenopathy Endocrine : No Polyuria, No Polydipsia All other systems reviewed and are negative [facility] Past Medical History Attestation statement: The following information was validated with the patient. Medical History Allergic rhinitis Allergic rhinitis Anxiety Bronchitis Hypercholesterolemia Hypertension Lichen sclerosus Migraine Osteoarthritis, knee Osteoporosis Post-menopausal Severe persistent allergic asthma Urinary incontinence Vitamin D deficiency Surgical History History of cardiac cath Family History Family History Mother No problems noted. Sister No problems noted. Father No problems noted. Sister No problems noted. 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 Oriented X3. No acute distress. Eyes: Pupils equal, round and reactive to light. ENT: Pharynx normal. Neck: Normal inspection. Neck supple. CVS: Normal heart rate and rhythm. Pulses normal. Respiratory: No respiratory distress. Breath sounds normal. Abdomen: Soft and non-tender. Skin: Skin warm and dry. Normal skin color. Normal skin turgor. area on R inner knee faint pink patch no warmth noted Extremities: No lower extremity edema. Neuro: Oriented X 3. No motor deficit. No sensory deficit. Course Course Course Narrative: BP up , repeat heart markers negative, nonischemic EKG anxious ativan PO ordered BP R arm 160/93 L arm 162/97 BP 157/82 notes dizziness when she wakes in the AM BP 150/160s mostly here I do not suspect HTN emergency can be DC but discussed checking BP in AM after waking (once out of bed if BP remains high > 150s) will start on additional low dose BP medications MDM - Chest Pain MDM Narrative Medical decision making narrative: 66 yo female with hx of HTN, HLD, anxiety, asthma comes in with c/o sharp chest pain with radiation to neck and back when getting ready for work this AM around 5. Lasted about 5 minutes. She had the same thing last week. She is a little anxious. Has normal distal pulses. Just treated for R knee allergic reaction - the leg is not swollen/no calf pain - hypoxia/tachycardia and the pain was not pleuritic low prob of PE will send off ddimer. She has normal distal pulses and pain has resolved dissection seems unlikely. Will obtain troponin x 2 - she is currently asymptomatic at this time. Lab Data Result diagrams: 02/05/22 09:26 02/05/22 10:05 Labs: Lab Results 02/05/22 02/05/22 02/05/22 Range/Units 09:26 09:26 09:26 WBC 5.5 (4.8-10.8) X10*3/uL RBC 4.87 (4.20-5.50) X10*6/uL Hgb 14.1 (12.0-16.0) g/dl Hct 41.6 (37.0-47.0) % MCV 85.4 (80.0-98.0) fL MCH 29.0 (27.0-33.0) pg MCHC 33.9 (31.0-35.0) g/dl RDW 12.8 (11.0-16.0) % Plt Count 222 (160-400) X10*3/uL MPV 11.1 (9.4-12.3) fL Immature Gran % (Auto) 0.2 (0.0-0.4) % Neut % (Auto) 63.0 (45-73) % Lymph % (Auto) 29.1 (20-40) % Chambers % (Auto) 7.5 (2-11) % Eos % (Auto) 0.0 (0-4) % Baso % (Auto) 0.2 (0-2) % Lymph # (Auto) 1.6 (1.2-4.9) X10*3/uL Chambers # (Auto) 0.4 (0.1-1.2) X10*3/uL Eos # (Auto) 0.0 (0.0-0.4) X10*3/uL Baso # (Auto) 0.0 (0.0-0.2) X10*3/uL Abs Immat Gran (auto) 0.01 (0.00-0.03) X10*3/uL Absolute Neuts (auto) 3.5 (2.0-8.3) x10*3/uL Absolute Nucleated RBC 0.000 (0.0-0.012) X10*3/uL Nucleated RBC % (auto) 0.0 (0.0-0.2) /100WBC D-Dimer High Sensitivty < 150 NG/ML Sodium (135-145) mmol/L Potassium (3.3-5.1) mmol/L Chloride (96-108) mmol/L Carbon Dioxide (22-29) mmol/L Anion Gap (12-20) BUN (9-16) mg/dL Creatinine (0.5-1.4) mg/dL Estim Creat Clear Calc Estimated GFR Random Glucose (60-115) mg/dL Calcium (8.4-10.2) mg/dL Magnesium (1.6-2.6) mg/dL Total Bilirubin (0.0-1.0) mg/dL Direct Bilirubin (0.0-0.5) mg/dL AST (5-31) U/L ALT (0-31) U/L Alkaline Phosphatase (39-117) U/L Troponin I High Sens 3.9 (<3.5-17.0) ng/L Total Protein (6.5-8.0) g/dL Albumin (3.5-5.0) g/dL Lipase (8-78) U/L 02/05/22 02/05/22 Range/Units 10:05 11:33 WBC (4.8-10.8) X10*3/uL RBC (4.20-5.50) X10*6/uL Hgb (12.0-16.0) g/dl Hct (37.0-47.0) % MCV (80.0-98.0) fL MCH (27.0-33.0) pg MCHC (31.0-35.0) g/dl RDW (11.0-16.0) % Plt Count (160-400) X10*3/uL MPV (9.4-12.3) fL Immature Gran % (Auto) (0.0-0.4) % Neut % (Auto) (45-73) % Lymph % (Auto) (20-40) % Chambers % (Auto) (2-11) % Eos % (Auto) (0-4) % Baso % (Auto) (0-2) % Lymph # (Auto) (1.2-4.9) X10*3/uL Chambers # (Auto) (0.1-1.2) X10*3/uL Eos # (Auto) (0.0-0.4) X10*3/uL Baso # (Auto) (0.0-0.2) X10*3/uL Abs Immat Gran (auto) (0.00-0.03) X10*3/uL Absolute Neuts (auto) (2.0-8.3) x10*3/uL Absolute Nucleated RBC (0.0-0.012) X10*3/uL Nucleated RBC % (auto) (0.0-0.2) /100WBC D-Dimer High Sensitivty NG/ML Sodium 141 (135-145) mmol/L Potassium 3.9 (3.3-5.1) mmol/L Chloride 108 (96-108) mmol/L Carbon Dioxide 27 (22-29) mmol/L Anion Gap 10 L (12-20) BUN 16 (9-16) mg/dL Creatinine 0.72 (0.5-1.4) mg/dL Estim Creat Clear Calc 73.9 Estimated GFR > 60 Random Glucose 92 (60-115) mg/dL Calcium 9.3 (8.4-10.2) mg/dL Magnesium 1.9 (1.6-2.6) mg/dL Total Bilirubin 0.6 (0.0-1.0) mg/dL Direct Bilirubin 0.2 (0.0-0.5) mg/dL AST 18 (5-31) U/L ALT 19 (0-31) U/L Alkaline Phosphatase 70 (39-117) U/L Troponin I High Sens 4.0 (<3.5-17.0) ng/L Total Protein 7.0 (6.5-8.0) g/dL Albumin 3.9 (3.5-5.0) g/dL Lipase 23 (8-78) U/L ECG Data ECG #1: Attestation: I personally reviewed and interpreted this ECG as follows: ECG interpretation date: 02/05/22 ECG interpretation time: 08:57 Interpretation: Rate: 70 Rhythm: NSR Dexter: normal Normal P waves. Normal SUREKHA. Normal QRS complex. ST T wave : normal no RADHA qTC: normal prior studies: no acute ischemia The study has been interpreted contemporaneously by me. Scores Heart Score History: -0- slightly suspicious ECG: -0- normal Age: -2- > or = 65 Risk factory: -1- 1 or 2 risk factors Troponin: -0- < or = normal limit Score: 3 Risk: 1.7% Discharge Plan Discharge Clinical Impression: Chest pain Qualifiers: Chest pain type: precordial pain Qualified Code(s): R07.2 - Precordial pain Hypertension Qualifiers: Hypertension type: unspecified Qualified Code(s): I10 - Essential (primary) hypertension Patient Disposition: Home, Self-Care Instructions: Chest Pain (ED), Hypertension (ED) Additional Instructions: return to ED for any worsening symptoms or concerns check blood pressure in morning prior to medications, check it after waking up and walking around please keep track. Take your blood pressure medication. RECHECK in the afternoon if your blood pressure readings remain high > 150/80 consistently for 3 days in the afternoon (2pm) and you have symptoms such as headache or dizziness. Start new blood pressure medication. Do not start BP medication unless your afternoon BP readings are high > 150/80 for 3 days. Prescriptions: New lisinopril 10 mg tablet 15 mg PO DAILY Qty: 14 0RF No Action rosuvastatin 10 mg tablet 10 mg PO DAILY Qty: 90 2RF lisinopril 10 mg tablet 10 mg PO DAILY 90 Days Qty: 90 2RF trazodone 50 mg tablet 50 mg PO BEDTIME PRN (Reason: for insomnia) Qty: 90 1RF fexofenadine 180 mg tablet 180 mg PO DAILY Qty: 30 3RF omeprazole 40 mg capsule,delayed release(DR/EC) 40 mg PO DAILY 90 Days Qty: 90 3RF Incruse Ellipta 62.5 mcg/actuation blister with device 1 inh inhalation DAILY Qty: 30 6RF benralizumab 30 mg/mL syringe 30 mg subcut Q8W Qty: 1 11RF triamcinolone acetonide 0.5 % cream 1 appl topical BID 14 Days Qty: 45 0RF amoxicillin-pot clavulanate [Augmentin] 500-125 mg tablet 1 tab PO BID 7 Days Qty: 14 0RF ipratropium-albuterol 0.5 mg-3 mg(2.5 mg base)/3 mL solution for nebulization 3 ml inhalation Q6H PRN0RF albuterol sulfate [ProAir HFA] 90 mcg/actuation HFA aerosol inhaler 2 puff inhalation Q6H PRN (Reason: shortness of breath or wheezing) Qty: 8.5 0RF Referrals: Po,Lorenver O, MD [Primary Care Provider] - 2 days (follow up with stress test as outpatient please speak to your doctor)
[2022-02-05 09:00] VITALS: BP 158/76; PULSE 74; RESP 16; TEMP 36.6; O2SAT 96; BMI 31.1
[2022-02-05 09:33] LABS: MANUAL DIFF FLAG NO
--- NOTE | 2022-02-05 09:33 | PC.NURSE ---
Pt comes in with c/o CP which began at 0530 this morning that radiated to jaw and LUE, pain was described as sharp and radiating. Pain has since subsided. Pt is A&Ox3, NSR on monitor, LCA, denies N/V/D SOB or fevers at this time, states her mouth feels weird at this time, face is slightly slushed and pt is HTN at this time which is new to her. IV established, labs drawn, EKG completed. Awaiting CXR at this time. Call rincon within reach. Will continue to monitor.
[2022-02-05 09:36] LABS: Basophils Percent Auto 0.2 % (0-2); Hematocrit 41.6 % (37.0-47.0); Hemoglobin 14.1 g/dl (12.0-16.0); Imm Gran Abs Auto 0.01 X10*3/uL (0.00-0.03); Imm Gran Pct Auto 0.2 % (0.0-0.4); Lymphocytes Absolute Auto 1.6 X10*3/uL (1.2-4.9); Lymphocytes Percent Auto 29.1 % (20-40); Mean Corpuscular HGB Conc 33.9 g/dl (31.0-35.0); Mean Corpuscular Volume 85.4 fL (80.0-98.0); Mean Platelet Volume 11.1 fL (9.4-12.3); Monocytes Absolute Auto 0.4 X10*3/uL (0.1-1.2); Monocytes Percent Auto 7.5 % (2-11); Neutrophils Absolute Auto 3.5 x10*3/uL (2.0-8.3); Platelet Count 222 X10*3/uL (160-400); Red Blood Count 4.87 X10*6/uL (4.20-5.50); Red Cell Distribution Width 12.8 % (11.0-16.0); White Blood Count 5.5 X10*3/uL (4.8-10.8)
[2022-02-05 09:43] LABS: D Dimer High Sensitivity < 150 NG/ML
[2022-02-05 09:58] LABS: Troponin-I High Sensitivity 3.9 ng/L (<3.5-17.0)
[2022-02-05 10:31] LABS: Alanine Aminotransferase 19 U/L (0-31); Albumin Level 3.9 g/dL (3.5-5.0); Alkaline Phosphatase 70 U/L (39-117); Anion Gap 10 (12-20); Aspartate Amino Transferase 18 U/L (5-31); Bilirubin Direct 0.2 mg/dL (0.0-0.5); Bilirubin Total 0.6 mg/dL (0.0-1.0); Blood Urea Nitrogen 16 mg/dL (9-16); Calcium 9.3 mg/dL (8.4-10.2); Chloride 108 mmol/L (96-108); Creatinine Clr Calc Pharmacy 73.9; Estimated Glomerular Filt Rate > 60; Glucose Random 92 mg/dL (60-115); Lipase 23 U/L (8-78); Magnesium 1.9 mg/dL (1.6-2.6); Potassium 3.9 mmol/L (3.3-5.1); Sodium 141 mmol/L (135-145)
[2022-02-05 10:32] LABS: Carbon Dioxide 27 mmol/L (22-29)
[2022-02-05 11:47] VITALS: BP 181/98; PULSE 64; RESP 16; O2SAT 100
[2022-02-05] MEDS: LORazepam 1 MG TABLET PO (12:39)
[2022-02-05 13:14] VITALS: BP 157/82
[2022-02-05 13:22] VITALS: BP 151/77; PULSE 76; RESP 18; O2SAT 99
[2022-02-05 13:42] VITALS: BP 147/77
== END 2022-02-05 13:44 | disposition home or self-care (01) ==
PROVIDERS: Emergency Provider Emergency Medicine; PCP Internal Medicine
DX: R07.2 Precordial pain (principal); I10 Essential (primary) hypertension; R06.02 Shortness of breath; E78.5 Hyperlipidemia, unspecified; Z79.02 Long term (current) use of antithrombotics/antiplatelets; Z79.899 Other long term (current) drug therapy
CPT/HCPCS: 36415; 71045; 80048; 80076; 83690; 83735; 84484; 85025; 85379; 93005; 99283; 99284; 99285

== ENCOUNTER → 2022-02-28 10:37 | Outpatient (BNVA) | payer MEDICARE, OTHER, SELFPAY | PROVIDERS: PCP Internal Medicine; Visit Provider Internal Medicine Pulmonary Disease | DX: J45.50 Severe persistent asthma, uncomplicated (principal); J30.89 Other allergic rhinitis | CPT/HCPCS: 99212 ==

== ENCOUNTER 2022-03-26 10:46 | Outpatient (REF) | payer MEDICARE, OTHER, SELFPAY ==
--- NOTE | ~2022-03-26 | US_ITS ---
EXAMINATION: US extremity nonvascular dial CLINICAL INFORMATION: Reason for Exam RUE POST/SUP area lumpy mass 5x3 cm ? lipoma COMPARISON: None. TECHNIQUE: Dynamic, real-time grayscale and color Doppler sonographic evaluation of the posterior right upper arm was performed FINDINGS: On the images submitted for review, there is a circumscribed, wider than tall, fat echotexture mass measuring at least 7.1 x 6.8 x 3.6 cm, however, it is difficult to precisely measure due to its large size and because it tends to blend into the surrounding tissues . No internal blood flow. US/US extremity nonvascular dial IMPRESSION: Palpable lump along the posterior right upper arm appears to correspond to a fatty mass, possibly a lipoma. Consider MRI without and with contrast to confirm.
== END 2022-03-26 10:47 | disposition home or self-care (01) ==
LOC: HO.HMGCX 10:46
PROVIDERS: PCP Internal Medicine; Visit Provider Internal Medicine
DX: R22.30 Localized swelling, mass and lump, unspecified upper limb (principal)
CPT/HCPCS: 76882

== ENCOUNTER 2022-03-30 08:33 | Outpatient (REF) | payer MEDICARE, OTHER, SELFPAY | END 2022-03-30 08:34 | disposition home or self-care (01) | LOC: HO.MDS 08:33 | PROVIDERS: Visit Provider Internal Medicine Pulmonary Disease | DX: J45.50 Severe persistent asthma, uncomplicated (principal) | CPT/HCPCS: 96372; J0517 ==

== ENCOUNTER 2022-05-25 08:20 | Outpatient (REF) | payer MEDICARE, OTHER, SELFPAY ==
[2022-05-25 08:52] LABS: COVID-19 Test Negative (Negative)
== END 2022-05-25 08:21 | disposition home or self-care (01) ==
LOC: HO.LAB 08:20
PROVIDERS: Visit Provider Internal Medicine
DX: Z20.822 Contact with and (suspected) exposure to COVID-19 (principal)
CPT/HCPCS: 87635; C9803

== ENCOUNTER → 2022-05-28 10:02 | Outpatient (BNVA) | payer MEDICARE, OTHER, SELFPAY | PROVIDERS: PCP Internal Medicine; Visit Provider Internal Medicine Pulmonary Disease | DX: J45.50 Severe persistent asthma, uncomplicated (principal); J30.89 Other allergic rhinitis; U07.1 COVID-19; Z79.899 Other long term (current) drug therapy | CPT/HCPCS: Q3014 ==

== ENCOUNTER 2022-06-18 15:28 | Outpatient (REF) | payer MEDICARE, OTHER, MEDICAID, SELFPAY | END 2022-06-18 15:29 | disposition home or self-care (01) | LOC: HO.MDS 15:28 | PROVIDERS: Visit Provider Internal Medicine Pulmonary Disease | DX: J45.50 Severe persistent asthma, uncomplicated (principal) | CPT/HCPCS: 96372; J0517 ==

== ENCOUNTER 2022-07-13 07:03 | Outpatient (REF) | payer MEDICARE, OTHER, SELFPAY ==
[2022-07-13 07:11] LABS: MANUAL DIFF FLAG NO
[2022-07-13 07:36] LABS: Hematocrit 43.2 % (37.0-47.0); Hemoglobin 14.1 g/dl (12.0-16.0); Imm Gran Abs Auto 0.02 X10*3/uL (0.00-0.03); Imm Gran Pct Auto 0.3 % (0.0-0.4); Lymphocytes Absolute Auto 2.3 X10*3/uL (1.2-4.9); Lymphocytes Percent Auto 32.9 % (20-40); Mean Corpuscular HGB Conc 32.6 g/dl (31.0-35.0); Mean Corpuscular Hemoglobin 28.3 pg (27.0-33.0); Mean Corpuscular Volume 86.6 fL (80.0-98.0); Mean Platelet Volume 11.3 fL (9.4-12.3); Monocytes Absolute Auto 0.7 X10*3/uL (0.1-1.2); Monocytes Percent Auto 9.5 % (2-11); Neutrophils Percent Auto 57.3 % (45-73); Platelet Count 262 X10*3/uL (160-400); Red Blood Count 4.99 X10*6/uL (4.20-5.50); Red Cell Distribution Width 13.3 % (11.0-16.0)
[2022-07-13 07:52] LABS: Alanine Aminotransferase 20 U/L (0-31); Albumin Level 4.1 g/dL (3.5-5.0); Alkaline Phosphatase 80 U/L (39-117); Anion Gap 15 (12-20); Aspartate Amino Transferase 20 U/L (5-31); Bilirubin Total 0.4 mg/dL (0.0-1.0); Blood Urea Nitrogen 20 mg/dL (9-16); Calcium 9.4 mg/dL (8.4-10.2); Carbon Dioxide 23 mmol/L (22-29); Chloride 105 mmol/L (96-108); Cholesterol 204 mg/dL; Estimated Glomerular Filt Rate > 60; Glucose Random 99 mg/dL (60-115); HDL Cholesterol 47 mg/dL; LDL Cholesterol Calculated 130 mg/dl; Potassium 4.4 mmol/L (3.3-5.1); Sodium 139 mmol/L (135-145); Total Protein 7.5 g/dL (6.5-8.0); Triglycerides 138 mg/dL
[2022-07-13 08:27] LABS: Folate 15.4 ng/mL (> or = 4.0); Vitamin B12 336 pg/mL (200-900)
[2022-07-13 08:50] LABS: Free T4 (Free Thyroxine) 0.99 ng/dL (0.71-1.85); Thyroid Stimulating Hormone 1.81 uIU/mL (0.32-4.0); Vitamin D 25-OH Total 29.9 ng/mL (>30)
== END 2022-07-13 07:04 | disposition home or self-care (01) ==
LOC: HO.LAB 07:03
PROVIDERS: PCP Internal Medicine; Visit Provider Internal Medicine
DX: E78.00 Pure hypercholesterolemia, unspecified (principal)
CPT/HCPCS: 36415; 80053; 80061; 82306; 82607; 82746; 84439; 84443; 85025

== ENCOUNTER 2022-08-13 09:15 | Outpatient (REF) | payer MEDICARE, OTHER, SELFPAY | END 2022-08-13 09:16 | disposition home or self-care (01) | LOC: HO.MDS 09:15 | PROVIDERS: Visit Provider Internal Medicine Pulmonary Disease | DX: J45.50 Severe persistent asthma, uncomplicated (principal) | CPT/HCPCS: 96372; J0517 ==

== ENCOUNTER 2022-08-18 07:29 | Outpatient (REF) | payer MEDICARE, OTHER, SELFPAY ==
--- NOTE | ~2022-08-18 | MM_ITS ---
EXAMINATION: MM SCREENING DIGITAL BREAST TOMOSYNTHESIS, BILATERAL CLINICAL INFORMATION: Screening. Asymptomatic. The lifetime risk of breast cancer based on the Tyrer-Cuzick Model is 3%. COMPARISON: Mammography: 07/13/2021, 07/12/2020, 09/12/2018 TECHNIQUE: Digital breast tomosynthesis is performed in both the craniocaudal and mediolateral oblique views along with computer-aided detection (CAD). Synthesized 2D images are generated from the tomosynthesis. FINDINGS: There are scattered areas of fibroglandular density (ACR BI-RADS breast composition Category b). Parenchymal pattern is similar to prior studies. No developing density or interval mass or architectural abnormality. No abnormal calcifications. Low right axillary tail nodes stable. The axilla and skin contours are unremarkable. MM/MM tomosynthesis screening BI IMPRESSION: No significant changes from prior exam. ASSESSMENT: BI-RADS 1: Negative RECOMMENDATION: Routine annual mammography screening. This patient's information was entered into a reminder system with a target due date for their next mammogram.
== END 2022-08-18 07:30 | disposition home or self-care (01) ==
LOC: HO.MAMMO 07:29
PROVIDERS: PCP Internal Medicine; Visit Provider Internal Medicine
DX: Z12.31 Encounter for screening mammogram for malignant neoplasm of breast (principal)
CPT/HCPCS: 77063; 77067

== ENCOUNTER → 2022-09-18 09:47 | Outpatient (BNVA) | payer MEDICARE, OTHER, SELFPAY | PROVIDERS: PCP Internal Medicine; Visit Provider Internal Medicine Pulmonary Disease | DX: J45.50 Severe persistent asthma, uncomplicated (principal); J30.89 Other allergic rhinitis | CPT/HCPCS: 99212 ==

== ENCOUNTER 2022-10-08 08:53 | Outpatient (REF) | payer MEDICARE, MEDICAID, SELFPAY | END 2022-10-08 08:54 | disposition home or self-care (01) | LOC: HO.MDS 08:53 | PROVIDERS: Visit Provider Internal Medicine Pulmonary Disease | DX: J45.50 Severe persistent asthma, uncomplicated (principal) | CPT/HCPCS: 96372 ==

== ENCOUNTER → 2022-11-16 09:47 | Outpatient (BNVA) | payer MEDICARE, MEDICAID, SELFPAY | PROVIDERS: PCP Internal Medicine; Visit Provider Advanced Practice Midwife | DX: Z13.89 Encounter for screening for other disorder (principal) ==

== ENCOUNTER 2022-12-03 08:51 | Outpatient (REF) | payer MEDICARE, OTHER, SELFPAY | END 2022-12-03 08:52 | disposition home or self-care (01) | LOC: HO.MDS 08:51 | PROVIDERS: Visit Provider Internal Medicine Pulmonary Disease | DX: J45.50 Severe persistent asthma, uncomplicated (principal) | CPT/HCPCS: 96372 ==

== ENCOUNTER 2022-12-10 10:26 | Outpatient (REF) | payer MEDICARE, OTHER, SELFPAY ==
--- NOTE | ~2022-12-10 | XR_ITS ---
EXAMINATION: XR RIBS, LEFT CLINICAL INFORMATION: Chest pain COMPARISON: None TECHNIQUE: 3 views of the left ribs were obtained. A marker is placed along the left lower lateral rib where patient has pain. Chest one view FINDINGS: CHEST: Lungs are clear. No consolidation, pneumothorax, or pleural effusion. The cardiomediastinal silhouette and pulmonary vasculature are normal. LEFT RIBS: Multiple views of left ribs reveal no visible acute fracture or bony abnormality. The soft tissues are normal. XR/XR ribs LT min 3V w CXR1V IMPRESSION: Unremarkable chest examination.
== END 2022-12-10 10:27 | disposition home or self-care (01) ==
LOC: HO.XRAY 10:26
PROVIDERS: PCP Internal Medicine; Visit Provider Internal Medicine
DX: R07.9 Chest pain, unspecified (principal)
CPT/HCPCS: 71101

== ENCOUNTER 2023-02-06 09:19 | Outpatient (REF) | payer MEDICARE, SELFPAY | END 2023-02-06 09:20 | disposition home or self-care (01) | LOC: HO.MDS 09:19 | PROVIDERS: Visit Provider Internal Medicine Pulmonary Disease | DX: J45.50 Severe persistent asthma, uncomplicated (principal) | CPT/HCPCS: 96372 ==

== ENCOUNTER → 2023-03-20 09:30 | Outpatient (BNVA) | payer MEDICARE, SELFPAY | PROVIDERS: PCP Internal Medicine; Visit Provider Internal Medicine Pulmonary Disease | DX: J45.50 Severe persistent asthma, uncomplicated (principal); J30.89 Other allergic rhinitis | CPT/HCPCS: 99212 ==

== ENCOUNTER 2023-04-23 09:06 | Outpatient (REF) | payer MEDICARE, SELFPAY | END 2023-04-23 09:07 | disposition home or self-care (01) | LOC: HO.MDS 09:06 | PROVIDERS: Visit Provider Internal Medicine Pulmonary Disease | DX: J45.50 Severe persistent asthma, uncomplicated (principal) | CPT/HCPCS: 96372 ==

== ENCOUNTER 2023-05-13 09:02 | Emergency (ER) | payer MEDICARE, OTHER, SELFPAY ==
[2023-05-13 09:10] VITALS: BP 179/87; PULSE 91; RESP 20; TEMP 36.9; O2SAT 97; BMI 30.5
--- NOTE | 2023-05-13 10:36 | PC.NURSE ---
PT IS A/O X 4 C/O SOB/COUGHING THIS AM. LUNGS VERY TIGHT WITH SLIGHT EXP/AUDIBLE WHEEZING. PT SPEAKS IN FULL SENTENCES.
[2023-05-13 10:46] VITALS: BP 155/93; PULSE 101; RESP 26; TEMP 37; O2SAT 96
[2023-05-13 10:48] VITALS: PULSE 82; RESP 18; O2SAT 97
--- NOTE | 2023-05-13 10:56 | ED.SOB ---
HPI - SOB/Dyspnea General Chief Complaint: Dyspnea Stated Complaint: Wheezing Etc Time Seen by Provider: 05/13/23 09:59 Source: patient Mode of arrival: ambulatory Limitations: no limitations History of Present Illness HPI Narrative: 67-year-old female who presents emergency department for evaluation of shortness of breath and dry cough. Patient states she has had a nonproductive cough for 2 days. The patient had pulmonary rehab therapy today. After that her pain she felt short of breath. She used her albuterol inhaler with only minimal relief for symptoms the 1st came to the emergency department. On presentation in the emergency department the patient he was found to dyspneic with significant wheezing and diminished breath sounds. Patient was brought back into a room and was evaluated by me. The patient's lung exam revealed diffuse wheezing with decreased breath sounds on the left compared to the right. She was ordered to get an albuterol nebulizer 2.5 mg and the DuoNeb nebulizer. He is also ordered to get Solu-Medrol 125 mg IV. She denied fever, chills, rhinorrhea, sore throat, nausea, vomiting, diarrhea, frequency, urgency or dysuria. Related Data Previous Rx's Medication Instructions Recorded epinephrine 0.3 mg/0.3 mL 0.3 mg (0.3 mL) IM Q4H PRN 05/08/22 injection, auto-injector (EpiPen anaphylaxis #2 ea 2-Masoud) lisinopril 10 mg tablet 10 mg PO DAILY 90 days #90 tabs 05/10/22 rosuvastatin 10 mg tablet 10 mg PO DAILY #90 tabs 05/11/22 ipratropium 0.5 mg-albuterol 3 mg 3 ml inhalation Q6H PRN shortness 05/28/22 (2.5 mg base)/3 mL nebulization of breath or wheezing 30 days #270 soln mL Incruse Ellipta 62.5 mcg/actuation 1 inh inhalation DAILY #30 ea 09/04/22 powder for inhalation (umeclidinium) mepolizumab 100 mg/mL subcutaneous 100 mg subcut Q4W #1 mL 03/26/23 syringe albuterol sulfate 90 mcg/actuation 2 puff inhalation Q6H PRN for 03/28/23 aerosol inhaler wheezing #17 ea cyclobenzaprine 10 mg tablet 10 mg PO TID PRN muscle spasm #30 04/15/23 tabs meloxicam 7.5 mg tablet 7.5 mg PO DAILY #20 tabs 04/15/23 fexofenadine 180 mg tablet 180 mg PO DAILY #90 tabs 04/30/23 benzonatate 100 mg capsule 200 mg PO TID PRN cough #20 caps 05/13/23 prednisone 20 mg tablet 60 mg PO DAILY 5 days #15 tabs 05/13/23 Allergies Allergy/AdvReac Type Severity Reaction Status Date / Time pneumococcal vaccine Allergy Severe SWELLING, Verified 04/10/23 15:12 [PNEUMOCOCCAL VACCINE] rash atorvastatin [From LIPITOR] Allergy Intermediate LIP Verified 04/10/23 15:12 SWELLING, hives, lip swelling dupilumab [Dupixent] Allergy Unknown PUGH Verified 04/10/23 15:12 fluticasone [Advair Diskus] Allergy Unknown unknown Verified 04/10/23 15:12 Iodinated Contrast Media Allergy Unknown unknown Verified 04/10/23 15:12 metoprolol Allergy Unknown hives Verified 04/10/23 15:12 morphine Allergy Unknown RASH Verified 04/10/23 15:12 salmeterol [Advair Diskus] Allergy Unknown unknown Verified 04/10/23 15:12 verapamil Allergy Unknown Unknown Verified 04/10/23 15:12 Review of Systems Review of Systems: Yes all other systems are reviewed and are negative [facility] Past Medical History [facility] Narrative: Social history: She denies tobacco, alcohol and drug use. Medical History Acute asthma exacerbation Adult general medical exam Allergic rhinitis Allergic rhinitis Anxiety Asthma exacerbation Atrophic vaginitis Back pain Bronchitis Cellulitis, leg Colon cancer screening Facial dermatitis Hypercholesterolemia Hypertension Lichen sclerosus Mass of arm Migraine Osteoarthritis, knee Osteoporosis Overweight (BMI 25.0-29.9) Post-menopausal Screening for diabetes mellitus Severe persistent allergic asthma Urinary incontinence Vitamin D deficiency Surgical History History of cardiac cath Family History Family History Mother No problems noted. Sister No problems noted. Father No problems noted. Sister No problems noted. Social History Social History Household Members: Spouse Housing: House Alcohol intake: never Patient Tobacco Use Status: Never used Tobacco Smoked in Last 30 Days: No e-Cigarette/Vaping Use: Never Used Second Hand Smoke Exposure: No Use of substances other than those prescribed or required for medical reasons: No Advance Directives: No Advance Directives Information Provided: No service: No Current occupational status: unemployed Current occupation: Lt handed Cognitive needs: No Hearing needs: No Vision needs: Yes Physical Exam Vital Signs: Vital Signs: Last Vital Signs Temp 98.2 F 05/13/23 12:34 Pulse 92 05/13/23 12:34 Resp 15 05/13/23 12:34 BP 143/92 H 05/13/23 12:34 Pulse Ox 98 05/13/23 12:34 O2 Del Method Room Air 05/13/23 12:34 BMI result Body Mass Index 30.5 Const: Other: Awake, alert, female patient, she appears to be dyspnea, she is speaking in 1-2 word sentences HEENT: Head: Yes normal to inspection, Yes normocephalic and Yes atraumatic Ears: external ears normal General nose exam: Normal external nose present Face and sinus: Yes normal facial exam Mouth: Normal oral and palatal mucosa present Throat: Yes posterior oropharynx normal Eyes: General: appearance normal, both eyes and all related structures Neck: Neck: Yes normal visual inspection, Yes no lymphadenopathy, Yes trachea midline and Yes supple Chest: Chest palpation & inspection: normal inspection of the chest and normal palpation of entire chest wall Resp: Other: Patient appears to be dyspnea, breath sounds are diminished at the bases left greater than right, she has diffuse wheezing and rhonchi with no rales Cardio: Rate: regular rate Rhythm: regular rhythm Heart sounds: S1 normal heart sound present, S2 normal heart sound present and no murmurs GI: Inspection: Yes normal to inspection Palpation (GI): Soft to palpation, nontender and no guarding Auscultation: normal bowel sounds : General: Yes no CVA tenderness Back/Spine/Pelvis: Back: no CVA tenderness Skin: General skin exam: no rashes or lesions noted Neuro: Cognition (Neuro): normal cognition Motor exam (neuro): 5/5 motor strength present throughout Extrem: General: Yes normal to inspection Psych: Appearance: grossly normal Speech and movement: Normal speech and movement present Affect: normal affect Attitude: cooperative Medications Administered Discontinued Medications Generic Name Dose Route Start Last Admin Trade Name Sofy PRN Reason Stop Dose Admin Albuterol Sulfate 2.5 mg 05/13/23 10:43 05/13/23 10:48 Albuterol Sulfate (0.083%) 2.5 Mg/3 Ml Vial.Neb INHALE 05/13/23 10:44 2.5 mg ONCE ONE Administration Albuterol/Ipratropium 3 ml 05/13/23 10:43 05/13/23 10:48 Albuterol/Iprat 2.5/0.5mg 3 Ml Ampul.Neb INHALE 05/13/23 10:44 3 ml ONCE ONE Administration Benzonatate 200 mg 05/13/23 11:37 05/13/23 11:45 Benzonatate 100 Mg Capsule PO 05/13/23 11:38 200 mg ONCE ONE Administration Methylprednisolone Sodium Succinate 125 mg 05/13/23 10:56 05/13/23 11:45 Methylprednisolone Sod Succ 125 Mg/2 Ml Vial IVPUSH 05/13/23 10:57 125 mg ONCE ONE Administration Medical Decision Making Medical Decision Making MDM Narrative: 67-year-old female with a history of asthma, GERD, anxiety, hypertension and hyperlipidemia who presents emergency department for evaluation of a non productive cough for 2 days and shortness of breath that developed after she had pulmonary therapy today. On presentation the patient appear to be dyspneic. Her lung exam revealed diminished breath sounds at the bases left greater than right and she had diffuse wheezing and rhonchi. Patient was ordered to get albuterol nebulizer 2.5 mg followed by a DuoNeb nebulizer. I also ordered Solu-Medrol 125 mg IV. The following tests were ordered: CBC, CMP, urinalysis, chest x-ray 1348: Patient's laboratory evaluation was unremarkable which is reassuring. Patient's chest x-ray revealed no evidence for pneumonia which is again reassuring. The patient feels significantly better after the above treatment. Re-evaluation of her lung exam reveals good inspiratory and expiratory flow with no wheezing or rhonchi. Patient was given a prescription for prednisone 60 mg once a day for 5 days and Tessalon Perles 200 mg, 1 pill 3 times a day as needed for cough. She was given printed and verbal instructions discharged home. Differential Diagnosis Differential Diagnoses: The differential diagnosis associated with the presentation includes Differential diagnosis includes but is not limited to asthma exacerbation, pneumonia, pneumothorax, URI, bronchitis Admission/Observation Consideration of admission/observation: Escalation of care including admission/observation considered Lab Data My interpretation of patient's laboratory evaluation is as follows: CBC and CMP were normal. COVID-19 was negative. Urinalysis was negative. 05/13/23 10:07 05/13/23 10:07 Labs: Lab Results 05/13/23 05/13/23 05/13/23 Range/Units 10:07 10:07 10:07 WBC 6.0 (4.8-10.8) X10*3/uL RBC 5.07 (4.20-5.50) X10*6/uL Hgb 14.2 (12.0-16.0) g/dl Hct 43.3 (37.0-47.0) % MCV 85.4 (80.0-98.0) fL MCH 28.0 (27.0-33.0) pg MCHC 32.8 (31.0-35.0) g/dl RDW 13.2 (11.0-16.0) % Plt Count 239 (160-400) X10*3/uL MPV 10.7 (9.4-12.3) fL Immature Gran % (Auto) (0.0-0.4) % Neut % (Auto) (45-73) % Lymph % (Auto) (20-40) % [place] % (Auto) (2-11) % Eos % (Auto) (0-4) % Baso % (Auto) (0-2) % Lymph # (Auto) (1.2-4.9) X10*3/uL [place] # (Auto) (0.1-1.2) X10*3/uL Eos # (Auto) (0.0-0.4) X10*3/uL Baso # (Auto) (0.0-0.2) X10*3/uL Abs Immat Gran (auto) (0.00-0.03) X10*3/uL Absolute Neuts (auto) (2.0-8.3) x10*3/uL Absolute Nucleated RBC 0.000 (0.0-0.012) X10*3/uL Nucleated RBC % (auto) 0.0 (0.0-0.2) /100WBC PT (10.0-13.1) SEC INR (0.9-1.1) APTT (26.0-36.4) SEC Sodium 139 (135-145) mmol/L Potassium 4.0 (3.3-5.1) mmol/L Chloride 107 (96-108) mmol/L Carbon Dioxide 23 (22-29) mmol/L Anion Gap 13 (12-20) BUN 15 (9-16) mg/dL Creatinine 0.77 (0.5-1.4) mg/dL Estim Creat Clear Calc 67.5 Estimated GFR > 60 Random Glucose 99 (60-115) mg/dL Calcium 10.0 D (8.4-10.2) mg/dL Total Bilirubin (0.0-1.0) mg/dL AST (5-31) U/L ALT (0-31) U/L Alkaline Phosphatase (39-117) U/L Total Protein (6.5-8.0) g/dL Albumin (3.5-5.0) g/dL Urine Color Urine Appearance Urine pH (5.0-9.0) Ur Specific Flora (1.005-1.025) Urine Protein (Neg-Trace) mg/dL Urine Glucose (UA) (Negative) mg/dL Urine Ketones (Negative) mg/dL Urine Blood (Negative) Urine Nitrite (Negative) Ur Leukocyte Esterase (Negative) Urine RBC (0-2) /HPF Urine WBC (0-5) /HPF Ur Squamous Epith Cells (0-2) /HPF Urine Bacteria (None Seen) Hyaline Casts (0-2) /LPF COVID-19 (CLAUDIO) (Negative) COVID-19 Clin Com Influenza Type A (PCR) NEGATIVE (Negative) Influenza Type B (PCR) NEGATIVE (Negative) RSV RNA Qual (PCR) NEGATIVE (Negative) SARS-CoV-2 RNA (RT-PCR) NEGATIVE (Negative) 05/13/23 05/13/23 05/13/23 Range/Units 11:34 11:34 11:34 WBC 7.8 (4.8-10.8) X10*3/uL RBC 5.14 (4.20-5.50) X10*6/uL Hgb 14.7 (12.0-16.0) g/dl Hct 44.4 (37.0-47.0) % MCV 86.4 (80.0-98.0) fL MCH 28.6 (27.0-33.0) pg MCHC 33.1 (31.0-35.0) g/dl RDW 13.2 (11.0-16.0) % Plt Count 234 (160-400) X10*3/uL MPV 11.0 (9.4-12.3) fL Immature Gran % (Auto) 0.5 H (0.0-0.4) % Neut % (Auto) 57.7 (45-73) % Lymph % (Auto) 35.2 (20-40) % [place] % (Auto) 6.5 (2-11) % Eos % (Auto) 0.0 (0-4) % Baso % (Auto) 0.1 (0-2) % Lymph # (Auto) 2.8 (1.2-4.9) X10*3/uL [place] # (Auto) 0.5 (0.1-1.2) X10*3/uL Eos # (Auto) 0.0 (0.0-0.4) X10*3/uL Baso # (Auto) 0.0 (0.0-0.2) X10*3/uL Abs Immat Gran (auto) 0.04 H (0.00-0.03) X10*3/uL Absolute Neuts (auto) 4.5 (2.0-8.3) x10*3/uL Absolute Nucleated RBC 0.000 (0.0-0.012) X10*3/uL Nucleated RBC % (auto) 0.0 (0.0-0.2) /100WBC PT 11.1 (10.0-13.1) SEC INR 1.0 (0.9-1.1) APTT 27.0 (26.0-36.4) SEC Sodium 141 (135-145) mmol/L Potassium 3.7 (3.3-5.1) mmol/L Chloride 106 (96-108) mmol/L Carbon Dioxide 24 (22-29) mmol/L Anion Gap 15 (12-20) BUN 15 (9-16) mg/dL Creatinine 0.78 (0.5-1.4) mg/dL Estim Creat Clear Calc 66.6 Estimated GFR > 60 Random Glucose 103 (60-115) mg/dL Calcium 9.8 (8.4-10.2) mg/dL Total Bilirubin 0.5 (0.0-1.0) mg/dL AST 23 (5-31) U/L ALT 29 (0-31) U/L Alkaline Phosphatase 75 (39-117) U/L Total Protein 8.1 H (6.5-8.0) g/dL Albumin 3.7 (3.5-5.0) g/dL Urine Color Urine Appearance Urine pH (5.0-9.0) Ur Specific Flora (1.005-1.025) Urine Protein (Neg-Trace) mg/dL Urine Glucose (UA) (Negative) mg/dL Urine Ketones (Negative) mg/dL Urine Blood (Negative) Urine Nitrite (Negative) Ur Leukocyte Esterase (Negative) Urine RBC (0-2) /HPF Urine WBC (0-5) /HPF Ur Squamous Epith Cells (0-2) /HPF Urine Bacteria (None Seen) Hyaline Casts (0-2) /LPF COVID-19 ([facility]) (Negative) COVID-19 Clin Com Influenza Type A (PCR) (Negative) Influenza Type B (PCR) (Negative) RSV RNA Qual (PCR) (Negative) SARS-CoV-2 RNA (RT-PCR) (Negative) 05/13/23 05/13/23 Range/Units 12:07 12:07 WBC (4.8-10.8) X10*3/uL RBC (4.20-5.50) X10*6/uL Hgb (12.0-16.0) g/dl Hct (37.0-47.0) % MCV (80.0-98.0) fL MCH (27.0-33.0) pg MCHC (31.0-35.0) g/dl RDW (11.0-16.0) % Plt Count (160-400) X10*3/uL MPV (9.4-12.3) fL Immature Gran % (Auto) (0.0-0.4) % Neut % (Auto) (45-73) % Lymph % (Auto) (20-40) % [place] % (Auto) (2-11) % Eos % (Auto) (0-4) % Baso % (Auto) (0-2) % Lymph # (Auto) (1.2-4.9) X10*3/uL [place] # (Auto) (0.1-1.2) X10*3/uL Eos # (Auto) (0.0-0.4) X10*3/uL Baso # (Auto) (0.0-0.2) X10*3/uL Abs Immat Gran (auto) (0.00-0.03) X10*3/uL Absolute Neuts (auto) (2.0-8.3) x10*3/uL Absolute Nucleated RBC (0.0-0.012) X10*3/uL Nucleated RBC % (auto) (0.0-0.2) /100WBC PT (10.0-13.1) SEC INR (0.9-1.1) APTT (26.0-36.4) SEC Sodium (135-145) mmol/L Potassium (3.3-5.1) mmol/L Chloride (96-108) mmol/L Carbon Dioxide (22-29) mmol/L Anion Gap (12-20) BUN (9-16) mg/dL Creatinine (0.5-1.4) mg/dL Estim Creat Clear Calc Estimated GFR Random Glucose (60-115) mg/dL Calcium (8.4-10.2) mg/dL Total Bilirubin (0.0-1.0) mg/dL AST (5-31) U/L ALT (0-31) U/L Alkaline Phosphatase (39-117) U/L Total Protein (6.5-8.0) g/dL Albumin (3.5-5.0) g/dL Urine Color Yellow Urine Appearance Clear Urine pH 5.5 (5.0-9.0) Ur Specific Flora <= 1.005 (1.005-1.025) Urine Protein Negative (Neg-Trace) mg/dL Urine Glucose (UA) Negative (Negative) mg/dL Urine Ketones Negative (Negative) mg/dL Urine Blood Negative (Negative) Urine Nitrite Negative (Negative) Ur Leukocyte Esterase Trace H (Negative) Urine RBC 0-2 (0-2) /HPF Urine WBC 0-5 (0-5) /HPF Ur Squamous Epith Cells 0-2 (0-2) /HPF Urine Bacteria None Seen (None Seen) Hyaline Casts 0-2 (0-2) /LPF COVID-19 ([facility]) Negative (Negative) COVID-19 Clin Com See Note Influenza Type A (PCR) (Negative) Influenza Type B (PCR) (Negative) RSV RNA Qual (PCR) (Negative) SARS-CoV-2 RNA (RT-PCR) (Negative) Radiology Impression Discussion of test interpretation with radiology: I have reviewed the radiologist's reading. Radiologist Impression: XR chest 1V IMPRESSION: No acute cardiopulmonary process. Dictated By:Nimesh Chavez MD Chronic Conditions Patient?s care impacted by: Diabetes, Hypertension and Other (Hyperlipidemia, asthma) Critical Care Time Critical Care Time Critical Care Time: Yes Total Critical Care Time: 30 Attestation: Critical Care: The patient was critically ill with a high probability of imminent or life threatening deterioration. I spent greater than 30 minutes of discontinuous time evaluating the patient,delivering critical care at the bedside, discussing and evaluating pertinent data with consultants. Critical care time does not include time spent performing separately billable procedures or teaching. Total time spent performing critical care was 30 minutes. Discharge Plan Discharge Clinical Impression: Asthma exacerbation Qualifiers: Asthma severity: moderate Asthma persistence: unspecified Qualified Code(s): J45.901 - Unspecified asthma with (acute) exacerbation Cough Qualifiers: Cough type: acute Qualified Code(s): R05.1 - Acute cough Patient Disposition: Home, Self-Care Instructions: Asthma (ED) Additional Instructions: Your laboratory evaluation was normal. Your urinalysis was negative, you do not have a urinary tract infection. The chest x-ray was normal with no evidence for pneumonia. Your symptoms are consistent with an asthma attack. Take prednisone 20 mg pills, 3 pills once a day for 5 days. While you are taking prednisone, do not take any NSAIDs (Motrin, Advil, ibuprofen, Aleve, naproxen). Use your albuterol inhaler 2 puffs every 4-6 hours as needed for shortness of breath and wheezing. Take Tessalon Perles, 200 mg pills, 1 pill every 6 hours as needed for cough. Follow-up with your doctor in 2 days. Please return to the emergency department if your symptoms get worse or if you develop any symptoms that are concerning to you. Prescriptions: New prednisone 20 mg tablet 60 mg PO DAILY 5 Days Qty: 15 0RF benzonatate 100 mg capsule 200 mg PO TID PRN (Reason: cough) Qty: 20 0RF No Action lisinopril 10 mg tablet 10 mg PO DAILY 90 Days Qty: 90 2RF rosuvastatin 10 mg tablet 10 mg PO DAILY Qty: 90 3RF Incruse Ellipta 62.5 mcg/actuation blister with device 1 inh inhalation DAILY Qty: 30 6RF mepolizumab 100 mg/mL syringe 100 mg subcut Q4W Qty: 1 11RF albuterol sulfate 90 mcg/actuation HFA aerosol inhaler 2 puff inhalation Q6H PRN (Reason: for wheezing) Qty: 17 0RF meloxicam 7.5 mg tablet 7.5 mg PO DAILY Qty: 20 0RF cyclobenzaprine 10 mg tablet 10 mg PO TID PRN (Reason: muscle spasm) Qty: 30 0RF fexofenadine 180 mg tablet 180 mg PO DAILY Qty: 90 1RF epinephrine [EpiPen 2-Masoud] 0.3 mg/0.3 mL auto-injector 0.3 mg IM Q4H PRN (Reason: anaphylaxis) Qty: 2 0RF ipratropium-albuterol 0.5 mg-3 mg(2.5 mg base)/3 mL solution for nebulization 3 ml inhalation Q6H PRN (Reason: shortness of breath or wheezing) 30 Days Qty: 270 6RF
[2023-05-13 12:01] LABS: Anion Gap 15 (12-20); Blood Urea Nitrogen 15 mg/dL (9-16); Carbon Dioxide 24 mmol/L (22-29); Chloride 106 mmol/L (96-108); Potassium 3.7 mmol/L (3.3-5.1); Sodium 141 mmol/L (135-145)
[2023-05-13 12:02] LABS: Alanine Aminotransferase 29 U/L (0-31); Albumin Level 3.7 g/dL (3.5-5.0); Alkaline Phosphatase 75 U/L (39-117); Aspartate Amino Transferase 23 U/L (5-31); Bilirubin Total 0.5 mg/dL (0.0-1.0); Calcium 9.8 mg/dL (8.4-10.2); Creatinine Clr Calc Pharmacy 66.6; Estimated Glomerular Filt Rate > 60; Glucose Random 103 mg/dL (60-115); Total Protein 8.1 g/dL (6.5-8.0)
[2023-05-13 12:34] VITALS: BP 143/92; PULSE 92; RESP 15; TEMP 36.8; O2SAT 98
== END 2023-05-13 13:53 | disposition home or self-care (01) ==
PROVIDERS: Emergency Provider Emergency Medicine Emergency Medical Services; PCP Internal Medicine
DX: J45.901 Unspecified asthma with (acute) exacerbation (principal); R05.1 Acute cough; R06.02 Shortness of breath; Z20.822 Contact with and (suspected) exposure to COVID-19; Z20.828 Contact with and (suspected) exposure to other viral communicable diseases
CPT/HCPCS: 0241U; 71045; 80048; 80053; 81001; 85025; 85027; 85610; 85730; 87635; 93005; 94640; 96374; 99284; 99285; J2930

== ENCOUNTER 2023-05-21 08:08 | Outpatient (AMB) | payer MEDICARE, SELFPAY ==
[2023-05-21 08:09] VITALS: BP 124/80; PULSE 79; O2SAT 98; BMI 31.0
--- NOTE | 2023-05-21 08:09 | A.OFFVIS_ITS ---
Intake Vital Signs 05/21/23 08:09 Height 5 ft 2 in Weight 169 lb 12.095 oz BMI 31.0 BP 124/80 Pulse 79 Pulse Oximetry (%) 98 Intake Visit Reasons: asthma Intake Note: pt is here to follow up after starting injections, she will be going for her second injections today Allergies pneumococcal vaccine [PNEUMOCOCCAL VACCINE] Allergy (Severe, Verified 05/21/23 08:11) SWELLING, rash atorvastatin [From LIPITOR] Allergy (Intermediate, Verified 05/21/23 08:11) LIP SWELLING, hives, lip swelling dupilumab [Dupixent] Allergy (Unknown, Verified 05/21/23 08:11) PUGH fluticasone [Advair Diskus] Allergy (Unknown, Verified 05/21/23 08:11) unknown Iodinated Contrast Media Allergy (Unknown, Verified 05/21/23 08:11) unknown metoprolol Allergy (Unknown, Verified 05/21/23 08:11) hives morphine Allergy (Unknown, Verified 05/21/23 08:11) RASH salmeterol [Advair Diskus] Allergy (Unknown, Verified 05/21/23 08:11) unknown verapamil Allergy (Unknown, Verified 05/21/23 08:11) Unknown HPI asthma HPI Details 67-year-old lady, lifetime nonsmoker, followed for severe persistent asthma with significant allergic component. Patient continues on her current regimen of Symbicort, Spiriva, Singulair, albuterol MDI, duo nebs, and Nucala. Patient with recent exacerbation evaluated emergency room, treated with a course of prednisone, now back to baseline. She has started in pulmonary rehab. Patient also complaining of difficulty with enunciating words and is interested in ENT evaluation. [facility] Medical History Acute asthma exacerbation Adult general medical exam Allergic rhinitis Allergic rhinitis Anxiety Asthma exacerbation Atrophic vaginitis Back pain Bronchitis Cellulitis, leg Colon cancer screening Facial dermatitis Hypercholesterolemia Hypertension Lichen sclerosus Mass of arm Migraine Osteoarthritis, knee Osteoporosis Overweight (BMI 25.0-29.9) Post-menopausal Screening for diabetes mellitus Severe persistent allergic asthma Urinary incontinence Vitamin D deficiency Surgical History History of cardiac cath Family History Mother No problems noted. Sister No problems noted. Father No problems noted. Sister No problems noted. Social History Household Members: Spouse Housing: House Alcohol intake: never Patient Tobacco Use Status: Never used Tobacco e-Cigarette/Vaping Use: Never Used Second Hand Smoke Exposure: No service: No Current occupational status: unemployed Current occupation: Lt handed Cognitive needs: No Hearing needs: No Vision needs: No Female Reproductive History Menstrual Age of Menarche: 13 Review of Systems Const Denies daytime sleepiness, Denies excessive sweating, Denies fatigue, Denies fever(s), Denies lethargy, Denies malaise, Denies night sweats, Denies snoring and Denies weight loss Eyes Denies blurry vision and Denies itchy eyes ENT Denies nasal congestion, Denies post nasal drip, Denies sinus pain, Denies sinus pressure and Denies other ( Thrush) Card Denies chest pain, Denies pedal edema, Denies dyspnea, Denies orthopnea and Denies paroxysmal nocturnal dyspnea Resp Denies cough, Denies hemoptysis, Denies excessive phlegm production, Denies dyspnea, Denies snoring and Denies wheezing GI Denies abdominal pain and Denies heartburn Musc Denies myalgias, Denies arthralgias and Denies joint swelling Skin/Breast Denies rash Neuro Denies memory loss and Denies seizure-like activity Psych Denies abnormal sleep pattern, Denies anxiety and Denies memory loss Endo Denies excessive sweating, Denies fatigue and Denies heat intolerance Jose G/Lymph Denies easy bruising Aller/Immun Denies itchy eyes, Denies seasonal rhinorrhea and Denies wheezing Physical Exam Vital Signs: Last Vital Signs Pulse 79 05/21/23 08:09 BP 124/80 05/21/23 08:09 Pulse Ox 98 05/21/23 08:09 BMI result Body Mass Index 31.0 Const General: no acute distress and alert Nutritional Appearance: not obese Orientation/consciousness: Other orientation findings ( oriented) HEENT Head: Yes atraumatic Eyes General: appearance normal, both eyes and all related structures Sclerae: sclerae normal EOM: EOMs intact bilaterally Neck Neck: Yes supple Lymphatic: no lymphadenopathy noted Resp Effort & Inspection: normal respiratory effort and no use of accessory muscles Auscultation: clear to auscultation bilaterally Cardio Rate: regular rate Rhythm: regular rhythm Heart sounds: no gallops, no murmurs and no rubs Skin General skin exam: other ( warm) Extrem General: No clubbing, No cyanosis and No edema Assessment & Plan Assessment & Plan (1) Severe persistent allergic asthma: Code(s): J45.50 - Severe persistent asthma, uncomplicated Plan: Baseline controlled on Nucala, Spiriva, Symbicort, nebs, and albuterol MDI. Continue current regimen. Continue pulmonary rehab. (2) Environmental and seasonal allergies: Code(s): J30.89 - Other allergic rhinitis Plan: Improved control Nucala. Continue current regimen. Medications: Refilled epinephrine (EpiPen 2-Masoud) 0.3 mg (0.3 mL) IM Q4H PRN 2 ea 1RF anaphylaxis Coding Level of Care Code Est Pt Level 4 (31236) Diagnoses Severe persistent allergic asthma J45.50 Environmental and seasonal allergies J30.89
== END 2023-05-21 08:45 | disposition home or self-care (01) ==
PROVIDERS: PCP Internal Medicine; Visit Provider Internal Medicine Pulmonary Disease
DX: J45.50 Severe persistent asthma, uncomplicated (principal)
CPT/HCPCS: 99214

== ENCOUNTER 2023-05-21 08:55 | Outpatient (REF) | payer MEDICARE, OTHER, SELFPAY | END 2023-05-21 08:56 | disposition home or self-care (01) | LOC: HO.MDS 08:55 | PROVIDERS: Visit Provider Internal Medicine Pulmonary Disease | DX: J45.50 Severe persistent asthma, uncomplicated (principal) | CPT/HCPCS: 96372; 99212 ==

== ENCOUNTER 2023-06-03 12:14 | Outpatient (AMB) | payer MEDICARE, SELFPAY ==
[2023-06-03 12:12] VITALS: BMI 30.3
--- NOTE | 2023-06-03 13:29 | MHC.OFFWIV ---
Intake Vital Signs 06/03/23 13:33 BP 122/80 Blood Pressure Location Lt brachial Position Sitting Pulse 76 Pulse Source Pulse Oximeter Temp 98.2 F Temp Source Oral Pulse Oximetry (%) 98 Oxygen Delivery Method Room Air Intake Visit Reasons: EP Chest pain/tightness sob/pain in back Intake Note: Pt is here today c/o chest tightness, SOB had to use neb twice last night started yesterday Patient Tobacco Use Status: Never used Tobacco Allergies pneumococcal vaccine [PNEUMOCOCCAL VACCINE] Allergy (Severe, Verified 06/03/23 13:30) SWELLING, rash atorvastatin [From LIPITOR] Allergy (Intermediate, Verified 06/03/23 13:30) LIP SWELLING, hives, lip swelling dupilumab [Dupixent] Allergy (Unknown, Verified 06/03/23 13:30) PUGH fluticasone [Advair Diskus] Allergy (Unknown, Verified 06/03/23 13:30) unknown Iodinated Contrast Media Allergy (Unknown, Verified 06/03/23 13:30) unknown metoprolol Allergy (Unknown, Verified 06/03/23 13:30) hives morphine Allergy (Unknown, Verified 06/03/23 13:30) RASH salmeterol [Advair Diskus] Allergy (Unknown, Verified 06/03/23 13:30) unknown verapamil Allergy (Unknown, Verified 06/03/23 13:30) Unknown HPI HPI Comments History of Present Illness Details 67-year-old female presents with left-sided chest pain that worsens with exertion. Stated that she was in the pool on Saturday, was walking around with a group of people for exercise class, and she had to be pulled out the of her chest pain, shortness of breath and diaphoresis. She states the chest pain is still there, and worsens with exertion. [facility] Medical History Acute asthma exacerbation Adult general medical exam Allergic rhinitis Allergic rhinitis Anxiety Asthma exacerbation Atrophic vaginitis Back pain Bronchitis Cellulitis, leg Colon cancer screening Facial dermatitis Hypercholesterolemia Hypertension Lichen sclerosus Mass of arm Migraine Osteoarthritis, knee Osteoporosis Overweight (BMI 25.0-29.9) Post-menopausal Screening for diabetes mellitus Severe persistent allergic asthma Urinary incontinence Vitamin D deficiency Surgical History History of cardiac cath Family History Mother No problems noted. Sister No problems noted. Father No problems noted. Sister No problems noted. Social History Household Members: Spouse Housing: House Alcohol intake: never Patient Tobacco Use Status: Never used Tobacco e-Cigarette/Vaping Use: Never Used Second Hand Smoke Exposure: No service: No Current occupational status: unemployed Current occupation: Lt handed Cognitive needs: No Hearing needs: No Vision needs: No Female Reproductive History Menstrual Age of Menarche: 13 Review of Systems Const Details: Constitutional: No Fever, No Chills Cardiovascular: Positive left-sided Chest Pain, positive SOB Respiratory: No Cough, No Dyspnea Gastrointestinal: No Nausea, No Vomiting, No Diarrhea, No abdominal Pain Genitourinary: No Dysuria, No Hematuria Musculoskeletal: No joint pain, No Myalgias, No Joint Swelling Skin: No Skin lacerations, No rash Neuro: No Weakness, No Numbness, No Paresthesias, No Loss of Consciousness, No Dizziness, No Headache Psych: Positive Anxiety/Panic, No Depression All systems reviewed & are unremarkable except as noted in HPI and below Physical Exam Vital Signs: Last Vital Signs Temp 98.2 F 06/03/23 13:33 Pulse 76 06/03/23 13:33 BP 122/80 06/03/23 13:33 Pulse Ox 98 06/03/23 13:33 Oxygen Delivery Method Room Air 06/03/23 13:33 Appearance: Alert. Oriented X3. No acute distress. Eyes: Pupils equal, round and reactive to light. Neck: Normal inspection. Neck supple. CVS: Normal heart rate and rhythm. Pulses normal. Respiratory: No respiratory distress. Breath sounds normal. Skin: Skin warm and dry. Normal skin color. Normal skin turgor. Extremities: No lower extremity edema. Gait balance to coordinated. Neuro: No motor deficit. No sensory deficit. Cranial nerves 2-12 intact. Assessment & Plan Assessment & Plan (1) Left-sided chest pain: Code(s): R07.9 - Chest pain, unspecified Plan 67-year-old female presents with left-sided chest pain that started several days ago, stated that she was in the pool doing activities yesterday, was walking, had shortness of breath, chest pain and diaphoresis need to be pulled out pool. Considering patient's symptoms have been ongoing for the past few days, they are highly suspicious and need an ACS workup. Detailed discussion with patient regarding need for high level of care, patient would like to present to the emergency department. She requested [facility], this BEER [employer]ER called provider to provider report to the ED triage provider. Patient verbalized understanding of discharge instructions. Verbalized understandings of signs and symptoms indicating need for emergent intervention. Patient Instructions: You presented to urgent care for left-sided chest pain. Please present to the emergency department for evaluation. Coding Level of Care Code Est Pt Level 3 (22773) Diagnoses Left-sided chest pain R07.9
[2023-06-03 13:33] VITALS: BP 122/80; PULSE 76; TEMP 36.8; O2SAT 98
== END 2023-06-03 13:50 | disposition home or self-care (01) ==
PROVIDERS: PCP Internal Medicine; Visit Provider Nurse Practitioner Family
DX: R07.9 Chest pain, unspecified (principal)
CPT/HCPCS: 99213

== ENCOUNTER 2023-06-03 14:07 | Emergency (ER) | payer MEDICARE, OTHER, SELFPAY ==
--- NOTE | ~2023-06-03 | XR_ITS ---
EXAMINATION: XR CHEST CLINICAL INFORMATION: Pain COMPARISON: Portable chest [id number] TECHNIQUE: 2 views of the chest were obtained. FINDINGS: The is a horizontal discontinuous linear, perhaps tubular focus, projects over the left chest. The lungs are well expanded and clear. No focal consolidation, interstitial pulmonary edema or pneumothorax. There is mild enlargement of the cardiac silhouette. No pleural effusion. No acute osseous abnormality. XR/XR chest 2V IMPRESSION: 1. No acute pulmonary disease. 2. Mild enlargement of the cardiac silhouette.
[2023-06-03 12:12] VITALS: BMI 30.3
--- NOTE | 2023-06-03 14:09 | ECG_ITS ---
Test Reason : PAIN Blood Pressure : / mmHG Vent. Rate : 073 BPM Atrial Rate : 073 BPM P-R Int : 134 ms QRS Dur : 090 ms QT Int : 376 ms P-R-T Axes : 049 022 032 degrees QTc Int : 414 ms Normal sinus rhythm Possible Left atrial enlargement Borderline ECG When compared with ECG of 13-MAY-2023 09:48, No significant change was found Referred By: Dillan Villanueva Electronically Signed By:JOSE EDUARDO GUERRERO MD
[2023-06-03 14:26] VITALS: BP 156/90; PULSE 86; RESP 18; TEMP 36.2; O2SAT 96; BMI 31.1
--- NOTE | 2023-06-03 14:27 | ED.GENADULT ---
HPI - General Adult General Chief complaint: Chest Pain Stated complaint: Chest pain/Back pain Related Data Previous Rx's Medication Instructions Recorded lisinopril 10 mg tablet 10 mg PO DAILY 90 days #90 tabs 05/10/22 ipratropium 0.5 mg-albuterol 3 mg 3 ml inhalation Q6H PRN shortness 05/28/22 (2.5 mg base)/3 mL nebulization of breath or wheezing 30 days #270 soln mL Incruse Ellipta 62.5 mcg/actuation 1 inh inhalation DAILY #30 ea 09/04/22 powder for inhalation (umeclidinium) mepolizumab 100 mg/mL subcutaneous 100 mg subcut Q4W #1 mL 03/26/23 syringe albuterol sulfate 90 mcg/actuation 2 puff inhalation Q6H PRN for 03/28/23 aerosol inhaler wheezing #17 ea fexofenadine 180 mg tablet 180 mg PO DAILY #90 tabs 04/30/23 epinephrine 0.3 mg/0.3 mL 0.3 mg (0.3 mL) IM Q4H PRN 05/21/23 injection, auto-injector (EpiPen anaphylaxis #2 ea 2-Masoud) rosuvastatin 10 mg tablet 10 mg PO DAILY #90 tabs 05/22/23 meloxicam 7.5 mg tablet 7.5 mg PO DAILY #30 tabs 07/16/23 nitrofurantoin 100 mg PO BID UTI 5 days #10 caps 07/30/23 monohydrate/macrocrystals 100 mg capsule (Macrobid) Allergies Allergy/AdvReac Type Severity Reaction Status Date / Time pneumococcal vaccine Allergy Severe SWELLING, Verified 07/30/23 08:00 [PNEUMOCOCCAL VACCINE] rash atorvastatin [From LIPITOR] Allergy Intermediate LIP Verified 07/30/23 08:00 SWELLING, hives, lip swelling dupilumab [Dupixent] Allergy Unknown PUGH Verified 07/30/23 08:00 fluticasone [Advair Diskus] Allergy Unknown unknown Verified 07/30/23 08:00 Iodinated Contrast Media Allergy Unknown unknown Verified 07/30/23 08:00 metoprolol Allergy Unknown hives Verified 07/30/23 08:00 morphine Allergy Unknown RASH Verified 07/30/23 08:00 salmeterol [Advair Diskus] Allergy Unknown unknown Verified 07/30/23 08:00 verapamil Allergy Unknown Unknown Verified 07/30/23 08:00 [facility] Past Medical History Medical History (Updated 08/10/23 @ 12:08 by Dillan Villanueva) Dysuria Asthma exacerbation Back pain Colon cancer screening Facial dermatitis Mass of arm Cellulitis, leg Overweight (BMI 25.0-29.9) Acute asthma exacerbation Adult general medical exam Post-menopausal Screening for diabetes mellitus Bronchitis Allergic rhinitis Allergic rhinitis Hypercholesterolemia Hypertension Urinary incontinence Vitamin D deficiency Migraine Anxiety Osteoporosis Osteoarthritis, knee Lichen sclerosus Atrophic vaginitis Severe persistent allergic asthma Surgical History History of cardiac cath Family History Family History Mother No problems noted. Sister No problems noted. Father No problems noted. Sister No problems noted. Social History Social History (Updated 07/16/23 @ 09:27 by Lakia Whalen MD) Household Members: Spouse Housing: House Alcohol intake: never Patient Tobacco Use Status: Never used Tobacco e-Cigarette/Vaping Use: Never Used Second Hand Smoke Exposure: No service: No Current occupational status: unemployed Current occupation: Lt handed Cognitive needs: No Hearing needs: No Vision needs: No Physical Exam ED Vital Signs: BMI result Body Mass Index 31.1 Course Course Course Narrative: RME- 67-year-old female with past medical history significant for anxiety, obesity, there, hyperlipidemia hypertension presents for evaluation of chest pain. His symptoms started yesterday while she was walking around in a shallow end of a pool. EKG was done already. Plan for labs, chest x-ray Medical Decision Making Lab Data 06/03/23 14:46 06/03/23 14:46 Labs: Lab Results 06/03/23 Range/Units 14:46 WBC 6.0 (4.8-10.8) X10*3/uL RBC 4.98 (4.20-5.50) X10*6/uL Hgb 14.1 (12.0-16.0) g/dl Hct 43.0 (37.0-47.0) % MCV 86.3 (80.0-98.0) fL MCH 28.3 (27.0-33.0) pg MCHC 32.8 (31.0-35.0) g/dl RDW 13.4 (11.0-16.0) % Plt Count 240 (160-400) X10*3/uL MPV 11.0 (9.4-12.3) fL Immature Gran % (Auto) 0.2 (0.0-0.4) % Neut % (Auto) 65.7 (45-73) % Lymph % (Auto) 26.9 (20-40) % Green % (Auto) 7.2 (2-11) % Eos % (Auto) 0.0 (0-4) % Baso % (Auto) 0.0 (0-2) % Lymph # (Auto) 1.6 (1.2-4.9) X10*3/uL Green # (Auto) 0.4 (0.1-1.2) X10*3/uL Eos # (Auto) 0.0 (0.0-0.4) X10*3/uL Baso # (Auto) 0.0 (0.0-0.2) X10*3/uL Abs Immat Gran (auto) 0.01 (0.00-0.03) X10*3/uL Absolute Neuts (auto) 3.9 (2.0-8.3) x10*3/uL Absolute Nucleated RBC 0.000 (0.0-0.012) X10*3/uL Nucleated RBC % (auto) 0.0 (0.0-0.2) /100WBC Sodium 141 (135-145) mmol/L Potassium 3.9 (3.3-5.1) mmol/L Chloride 108 (96-108) mmol/L Carbon Dioxide 28 (22-29) mmol/L Anion Gap 9 L (12-20) BUN 16 (9-16) mg/dL Creatinine 0.81 (0.5-1.4) mg/dL Estim Creat Clear Calc 64.8 Estimated GFR > 60 Random Glucose 91 (60-115) mg/dL Calcium 10.3 H (8.4-10.2) mg/dL Total Bilirubin 0.6 (0.0-1.0) mg/dL AST 18 (5-31) U/L ALT 19 (0-31) U/L Alkaline Phosphatase 70 (39-117) U/L Troponin I High Sens 2.8 (<3.5-17.0) ng/L B-Natriuretic Peptide < 10 (<100) pg/mL Total Protein 7.9 (6.5-8.0) g/dL Albumin 4.4 (3.5-5.0) g/dL Lipase 19 (8-78) U/L Discharge Plan Discharge Clinical Impression: Chest pain Patient Disposition: Elopement Prescriptions: No Action lisinopril 10 mg tablet 10 mg PO DAILY 90 Days Qty: 90 2RF Incruse Ellipta 62.5 mcg/actuation blister with device 1 inh inhalation DAILY Qty: 30 6RF mepolizumab 100 mg/mL syringe 100 mg subcut Q4W Qty: 1 11RF albuterol sulfate 90 mcg/actuation HFA aerosol inhaler 2 puff inhalation Q6H PRN (Reason: for wheezing) Qty: 17 0RF fexofenadine 180 mg tablet 180 mg PO DAILY Qty: 90 1RF rosuvastatin 10 mg tablet 10 mg PO DAILY Qty: 90 3RF meloxicam 7.5 mg tablet 7.5 mg PO DAILY Qty: 30 0RF ipratropium-albuterol 0.5 mg-3 mg(2.5 mg base)/3 mL solution for nebulization 3 ml inhalation Q6H PRN (Reason: shortness of breath or wheezing) 30 Days Qty: 270 6RF nitrofurantoin monohyd/m-cryst [Macrobid] 100 mg capsule 100 mg PO BID 5 Days Qty: 10 0RF Rx Instructions: must administer with a meal/food epinephrine [EpiPen 2-Masoud] 0.3 mg/0.3 mL auto-injector 0.3 mg IM Q4H PRN (Reason: anaphylaxis) Qty: 2 1RF Interventions: ED Discharge Assessment Last Done: 06/03/23 19:28 Discharge Date/Time: 06/03/23 19:28
[2023-06-03 14:51] LABS: Hemoglobin 14.1 g/dl (12.0-16.0); Imm Gran Abs Auto 0.01 X10*3/uL (0.00-0.03); Imm Gran Pct Auto 0.2 % (0.0-0.4); Lymphocytes Absolute Auto 1.6 X10*3/uL (1.2-4.9); Lymphocytes Percent Auto 26.9 % (20-40); MANUAL DIFF FLAG NO; Mean Corpuscular HGB Conc 32.8 g/dl (31.0-35.0); Mean Corpuscular Hemoglobin 28.3 pg (27.0-33.0); Mean Corpuscular Volume 86.3 fL (80.0-98.0); Monocytes Absolute Auto 0.4 X10*3/uL (0.1-1.2); Monocytes Percent Auto 7.2 % (2-11); Neutrophils Absolute Auto 3.9 x10*3/uL (2.0-8.3); Neutrophils Percent Auto 65.7 % (45-73); Platelet Count 240 X10*3/uL (160-400); Red Blood Count 4.98 X10*6/uL (4.20-5.50); Red Cell Distribution Width 13.4 % (11.0-16.0)
[2023-06-03 15:07] LABS: Alanine Aminotransferase 19 U/L (0-31); Albumin Level 4.4 g/dL (3.5-5.0); Alkaline Phosphatase 70 U/L (39-117); Anion Gap 9 (12-20); Aspartate Amino Transferase 18 U/L (5-31); Bilirubin Total 0.6 mg/dL (0.0-1.0); Blood Urea Nitrogen 16 mg/dL (9-16); Calcium 10.3 mg/dL (8.4-10.2); Carbon Dioxide 28 mmol/L (22-29); Chloride 108 mmol/L (96-108); Creatinine Clr Calc Pharmacy 64.8; Estimated Glomerular Filt Rate > 60; Glucose Random 91 mg/dL (60-115); Lipase 19 U/L (8-78); Potassium 3.9 mmol/L (3.3-5.1); Sodium 141 mmol/L (135-145); Total Protein 7.9 g/dL (6.5-8.0)
[2023-06-03 15:15] LABS: Troponin-I High Sensitivity 2.8 ng/L (<3.5-17.0)
[2023-06-03 17:22] LABS: B Type Natriuretic Peptide < 10 pg/mL (<100)
== END 2023-06-03 19:28 | disposition left against medical advice (07) ==
LOC: HO.ED 19:21
PROVIDERS: Physician Assistant; Emergency Provider Emergency Medicine; PCP Internal Medicine
DX: R07.9 Chest pain, unspecified (principal); I10 Essential (primary) hypertension; E78.00 Pure hypercholesterolemia, unspecified; Z79.899 Other long term (current) drug therapy
CPT/HCPCS: 36415; 71046; 80053; 83690; 83880; 84484; 85025; 93005; 99283

== ENCOUNTER → 2023-06-03 14:09 | Outpatient (BNV) | payer MEDICARE, SELFPAY ==
[2023-06-03 12:12] VITALS: BMI 30.3
== END ==
PROVIDERS: PCP Internal Medicine; Visit Provider Internal Medicine Cardiovascular Disease
DX: R52 Pain, unspecified (principal)
CPT/HCPCS: 93010

== ENCOUNTER 2023-06-17 10:15 | Outpatient (REF) | payer MEDICARE, OTHER, SELFPAY | END 2023-06-17 10:16 | disposition home or self-care (01) | LOC: HO.MDS 10:15 | PROVIDERS: Visit Provider Internal Medicine Pulmonary Disease | DX: J45.50 Severe persistent asthma, uncomplicated (principal) | CPT/HCPCS: 96372; J2182 ==

== ENCOUNTER 2023-07-13 07:27 | Outpatient (REF) | payer MEDICARE, SELFPAY ==
[2023-07-13 07:53] LABS: MANUAL DIFF FLAG NO
[2023-07-13 08:28] LABS: Basophils Percent Auto 0.5 % (0-2); Eosinophils Percent Auto 0.5 % (0-4); Hematocrit 42.3 % (37.0-47.0); Hemoglobin 13.7 g/dl (12.0-16.0); Imm Gran Abs Auto 0.02 X10*3/uL (0.00-0.03); Imm Gran Pct Auto 0.4 % (0.0-0.4); Lymphocytes Absolute Auto 1.6 X10*3/uL (1.2-4.9); Lymphocytes Percent Auto 28.7 % (20-40); Mean Corpuscular HGB Conc 32.4 g/dl (31.0-35.0); Mean Corpuscular Hemoglobin 28.7 pg (27.0-33.0); Mean Corpuscular Volume 88.7 fL (80.0-98.0); Mean Platelet Volume 11.7 fL (9.4-12.3); Monocytes Absolute Auto 0.4 X10*3/uL (0.1-1.2); Monocytes Percent Auto 6.7 % (2-11); Neutrophils Absolute Auto 3.6 x10*3/uL (2.0-8.3); Neutrophils Percent Auto 63.2 % (45-73); Platelet Count 242 X10*3/uL (160-400); Red Blood Count 4.77 X10*6/uL (4.20-5.50); Red Cell Distribution Width 13.2 % (11.0-16.0); White Blood Count 5.7 X10*3/uL (4.8-10.8)
[2023-07-13 09:13] LABS: Alanine Aminotransferase 16 U/L (0-31); Alkaline Phosphatase 70 U/L (39-117); Anion Gap 13 (12-20); Aspartate Amino Transferase 17 U/L (5-31); Bilirubin Total 0.5 mg/dL (0.0-1.0); Blood Urea Nitrogen 16 mg/dL (9-16); Calcium 9.7 mg/dL (8.4-10.2); Carbon Dioxide 23 mmol/L (22-29); Chloride 106 mmol/L (96-108); Cholesterol 213 mg/dL (<200); Estimated Glomerular Filt Rate > 60; Glucose Random 92 mg/dL (60-115); HDL Cholesterol 46 mg/dL (>40); LDL Cholesterol Calculated 136 mg/dL (<100); Potassium 4.3 mmol/L (3.3-5.1); Sodium 138 mmol/L (135-145); Total Protein 7.2 g/dL (6.5-8.0); Triglycerides 155 mg/dL (<150)
[2023-07-13 09:43] LABS: Vitamin B12 421 pg/mL (200-900)
[2023-07-13 10:38] LABS: Vitamin D 25-OH Total 39.9 ng/mL (>30)
[2023-07-13 14:02] LABS: Free T4 (Free Thyroxine) 0.93 ng/dL (0.71-1.85)
== END 2023-07-13 07:28 | disposition home or self-care (01) ==
LOC: HO.LAB 07:27
PROVIDERS: Nurse Practitioner Family; PCP Internal Medicine; Visit Provider Internal Medicine
DX: Z13.0 Encounter for screening for diseases of the blood and blood-forming organs and certain disorders involving the immune mechanism (principal); E78.00 Pure hypercholesterolemia, unspecified; M81.0 Age-related osteoporosis without current pathological fracture
CPT/HCPCS: 36415; 80053; 80061; 82306; 82607; 82746; 84439; 84443; 85025

== ENCOUNTER 2023-07-16 08:49 | Outpatient (AMB) | payer MEDICARE, MEDICAID, SELFPAY ==
[2023-07-16 09:01] VITALS: BP 164/88; PULSE 78; O2SAT 98; BMI 30.5
--- NOTE | 2023-07-16 09:01 | MHC.PC.OV ---
Vital Signs 07/16/23 09:01 Height 5 ft 2 in Weight 167 lb BMI 30.5 BP 164/88 H Blood Pressure Location Lt brachial Position Sitting Pulse 78 Pulse Source Pulse Oximeter Pulse Oximetry (%) 98 Oxygen Delivery Method Room Air Intake Visit Reasons: PE Allergies pneumococcal vaccine [PNEUMOCOCCAL VACCINE] Allergy (Severe, Verified 07/16/23 09:01) SWELLING, rash atorvastatin [From LIPITOR] Allergy (Intermediate, Verified 07/16/23 09:01) LIP SWELLING, hives, lip swelling dupilumab [Dupixent] Allergy (Unknown, Verified 07/16/23 09:01) PUGH fluticasone [Advair Diskus] Allergy (Unknown, Verified 07/16/23 09:01) unknown Iodinated Contrast Media Allergy (Unknown, Verified 07/16/23 09:01) unknown metoprolol Allergy (Unknown, Verified 07/16/23 09:01) hives morphine Allergy (Unknown, Verified 07/16/23 09:01) RASH salmeterol [Advair Diskus] Allergy (Unknown, Verified 07/16/23 09:01) unknown verapamil Allergy (Unknown, Verified 07/16/23 09:01) Unknown Medication List - Last Reconciled 07/16/23 by Lakia Whalen MD albuterol sulfate 90 mcg/actuation 2 puffs inhalation Q6H PRN epinephrine (EpiPen 2-Masoud) 0.3 mg (0.3 mL) IM Q4H PRN fexofenadine 180 mg PO DAILY Incruse Ellipta 62.5 mcg/actuation (umeclidinium) 1 inh inhalation DAILY NS ipratropium-albuterol 0.5 mg-3 mg(2.5 mg base)/3 mL 3 mL inhalation Q6H PRN 30 days lisinopril 10 mg PO DAILY 90 days mepolizumab 100 mg subcut Q4W rosuvastatin 10 mg PO DAILY Tobacco use date assessed: 12/10/22 Fall risk assessment: No Falls in past year Last assessed Fall Risk: 07/16/23 Dental Screening Dental Screen Date: 07/16/23 Did you have a dental visit in the last 12 months?: Yes Did you have a dental problem in the last 6 months where you did not have access to dental care?: No Was dental information given to patient?: Patient has dentist HPI PE HPI Details 68-year-old obese female with severe persistent allergic asthma following up with pulmonary hypertension hypercholesterolemia generalized anxiety disorder GERD last seen in March 2023 and blood work was requested. Cologuard is up-to-date, mammogram and do next month bone density due . Patient was in the emergency room a May 2023 for chest pain no actions done. Continue to follow-up with Pulmonary placed on Nucala. Review of the notes in early May was in the hospital also because of him occult positive test patient was referred to Gastroenterology. Blood work done July 2023 no anemia. Patient is here for physical exam. BP high hered but states good BP at home [facility] Medical History Acute asthma exacerbation Adult general medical exam Allergic rhinitis Allergic rhinitis Anxiety Asthma exacerbation Atrophic vaginitis Back pain Bronchitis Cellulitis, leg Colon cancer screening Facial dermatitis Hypercholesterolemia Hypertension Lichen sclerosus Mass of arm Migraine Osteoarthritis, knee Osteoporosis Overweight (BMI 25.0-29.9) Post-menopausal Screening for diabetes mellitus Severe persistent allergic asthma Urinary incontinence Vitamin D deficiency Surgical History History of cardiac cath Family History Mother No problems noted. Sister No problems noted. Father No problems noted. Sister No problems noted. Social History (Updated 07/16/23 @ 09:27 by Lakia Whalen MD) Household Members: Spouse Housing: House Alcohol intake: current Alcohol intake frequency: holidays/special occasions only Patient Tobacco Use Status: Never used Tobacco e-Cigarette/Vaping Use: Never Used Second Hand Smoke Exposure: No service: No Current occupational status: unemployed Current occupation: Lt handed Cognitive needs: No Hearing needs: No Vision needs: No Female Reproductive History Menstrual Age of Menarche: 13 Questionnaire PHQ-9 Over the last 2 weeks, how often have you been bothered by any of the following problems? 1. Little interest or pleasure in doing things: not at all 2. Feeling down, depressed, or hopeless: not at all 3. Trouble falling or staying asleep, or sleeping too much: not at all 4. Feeling tired or having little energy: not at all 5. Poor appetite or overeating: not at all 6. Feeling bad about yourself - or that you are a failure or have let yourself or your family down: not at all 7. Trouble concentrating on things, such as reading the newspaper or watching television: not at all 8. Moving or speaking so slowly that other people could have noticed. Or the opposite - being so fidgety or restless that you have been moving around a lot more than usual: not at all 9. Thoughts that you would be better off or of hurting yourself in some way: not at all Total score: 0 Depression Screening Interpretation: Negative Source: Developed by Drs. Spike Hernandez, Clint Ng and colleagues, with an educational andrés from [employer]. Thrive Questionnaire Date Thrive assessed: 12/10/22 AUDIT C Alcohol Use Questionnaire (AUDIT-C) 1. How often do you have a drink containing alcohol?: Monthly or less 2. How many drinks containing alcohol do you have on a typical day when you are drinking?: 1 or 2 3. How often do you have six or more drinks on one occasion?: Never Total Score: 1 Score Reviewed/Action Taken: Yes AJAY-7 AMB Questionnaire AJAY-7 Date AJAY - 7 assessed: 12/10/22 Source: Developed by Drs. Spike Hernandez, Ruth Ortega, Clint Esteves and colleagues, with an educational andrés from [employer]. Review of Systems Const Denies poor appetite and Denies weakness Eyes Denies no additional complaints ENT Reports Normal hearing present, Denies dizziness, Denies nasal congestion, Denies tinnitus and Denies sore throat Card Denies chest pain, Denies syncope, Denies rapid heart rate and Denies dyspnea Resp Denies cough and Denies dyspnea GI Denies change in stool character, Reports constipation, Denies diarrhea, Denies nausea and Denies vomiting Denies urinary frequency, Denies difficulty voiding and Denies dysuria Neuro Reports Normal hearing present, Denies confusion, Denies dizziness, Denies syncope and Denies weakness Psych Denies confusion Physical exam (Primary Care) Vital Signs: Last Vital Signs Pulse 78 07/16/23 09:01 BP 164/88 H 07/16/23 09:01 Pulse Ox 98 07/16/23 09:01 Oxygen Delivery Method Room Air 07/16/23 09:01 Care Plan Goal for BP management: guaiac negative stools tender on the knee and leg, no redness, no swelling BMI result Body Mass Index 30.5 Tobacco/Smoking Status: Tobacco use Status Tobacco use date assessed 12/10/22 07/16/23 09:05 Patient Tobacco Use Status Never used Tobacco 07/16/23 09:05 e-Cigarette/Vaping Use Never Used 07/16/23 09:05 PHQ-9: PHQ-9 Score PHQ-9: Total score 0 07/16/23 09:05 Depression Screening Interpretation: Negative Thrive Assessment: Date of Thrive Assessment Date Thrive assessed 12/10/22 07/16/23 09:05 Const General: No confusion Orientation/consciousness: No confusion HENMT Head: Yes normocephalic Ears: external ears normal and TM's normal bilaterally Face and sinus: Yes normal facial exam Mouth: moist mucous membranes Throat: Yes tonsils normal Eyes Conjunctivae: conjunctivae normal Pupils: Equal, round and reactive pupils present and Pupil accommodation reflex normal Direct Ophthalmoscopy: normal light reflex Neck Neck: No lymphadenopathy Thyroid: Thyroid normal Chest Chest palpation & inspection: normal inspection of the chest Resp Effort & Inspection: normal respiratory effort and no audible wheezes Auscultation: clear to auscultation bilaterally, no crackles, no wheezes and lung sounds not diminished Cardio Rate: regular rate Rhythm: regular rhythm Peripheral pulses: radial pulses present and dorsalis pedis present GI Palpation (GI): no masses Auscultation: normal bowel sounds and normoactive bowel sounds Rectal Exam - Female: deferred Skin General skin exam: no rashes or lesions noted Rashes: no rashes Neuro General: No confusion Cranial nerves: Yes Equal, round and reactive pupils present and Yes Normal hearing present Cognition (Neuro): normal cognition Gait exam (Neuro): Normal gait present Motor exam (neuro): 5/5 motor strength present throughout Deep tendon reflexes (DTR's): Right brachioradialis reflex intensity grade: 2+, Left brachioradialis reflex intensity grade: 2+, Right patellar reflex intensity grade: 2+ and Left patellar reflex intensity grade: 2+ Extrem General: No edema Assessment and Plan Assessment & Plan (1) Annual physical exam: Code(s): Z00.00 - Encounter for general adult medical examination without abnormal findings (2) Severe persistent allergic asthma: Code(s): J45.50 - Severe persistent asthma, uncomplicated Plan: Patient continues to follow-up with Pulmonary is on pulmonary rehab placed on Nucala and continue with inhalers (3) Hypertension: Comment: Cardiac catheterization July 2014 minimal coronary artery disease Code(s): I10 - Essential (primary) hypertension Qualifiers: Hypertension type: unspecified Qualified Code(s): I10 - Essential (primary) hypertension Plan: Continue with blood pressure medication. Decrease salt intake and exercise patient takes lisinopril 10 mg once a day (4) Hypercholesterolemia: Code(s): E78.00 - Pure hypercholesterolemia, unspecified Plan: Avoid fried foods, chicken skin, eggs, butter margarine, pastries and meat. Be it pork or beef they have a lot of cholesterol LDL goal of less than 130 and triglyceride of less than 150. Patient is on rosuvastatin 10 mg once a day (5) Generalized anxiety disorder: Code(s): F41.1 - Generalized anxiety disorder (6) GERD (gastroesophageal reflux disease): Code(s): K21.9 - Gastro-esophageal reflux disease without esophagitis Plan: Avoid the foods that causes that usually spicy foods, tomato products, juices, coffee, soda and foods that your sensitive to. After eating do not lie down, allow 3-4 hours before in lie down. And keep the head of bed above 30 degrees to avoid the acid from going up. (7) Obesity (BMI 30.0-34.9): Code(s): E66.9 - Obesity, unspecified Plan: Diet and exercise (8) Osteoporosis: Comment: July 2021 bone density Code(s): M81.0 - Age-related osteoporosis without current pathological fracture Plan: Due for bone density this month (9) Occult blood positive stool: Comment: cologuard negative 2021 Code(s): R19.5 - Other fecal abnormalities Plan: Patient has been referred to Gastroenterology. Blood work is negative. decline seeing GI (10) Chest pain: Code(s): R07.9 - Chest pain, unspecified (11) Bilateral leg pain: Code(s): M79.604 - Pain in right leg; M79.605 - Pain in left leg Orders: Orders XR DEXA axial skeleton 1 Month M81.0 - Age-related osteoporosis without current pathological fracture Referrals Cardiology Referral R07.9 - Chest pain, unspecified Medications: New meloxicam 7.5 mg PO DAILY 30 tabs 0RF M79.604 - Pain in right leg, M79.605 - Pain in left leg Coding Level of Care Code Est Pt Prev Care >65y(05984) Diagnoses Annual physical exam Z00.00 Severe persistent allergic asthma J45.50 Hypertension I10 Hypertension type: unspecified Hypercholesterolemia E78.00 Generalized anxiety disorder F41.1 GERD (gastroesophageal reflux disease) K21.9 Obesity (BMI 30.0-34.9) E66.9 Osteoporosis M81.0 Occult blood positive stool R19.5 Chest pain R07.9 Bilateral leg pain M79.604; M79.605 Additional Codes PHQ-9 - 12169 - PHQ-9 Billing: Y ([id number])
== END 2023-07-16 09:51 | disposition home or self-care (01) ==
PROVIDERS: PCP Internal Medicine; Visit Provider Internal Medicine
DX: Z00.00 Encounter for general adult medical examination without abnormal findings (principal); J45.50 Severe persistent asthma, uncomplicated; I10 Essential (primary) hypertension; K21.9 Gastro-esophageal reflux disease without esophagitis; Z68.30 Body mass index [BMI] 30.0-30.9, adult; E78.00 Pure hypercholesterolemia, unspecified; E66.9 Obesity, unspecified; F41.1 Generalized anxiety disorder; M81.0 Age-related osteoporosis without current pathological fracture; M79.604 Pain in right leg; R07.9 Chest pain, unspecified; M79.605 Pain in left leg
CPT/HCPCS: 99397

== ENCOUNTER 2023-07-16 10:00 | Outpatient (REF) | payer MEDICARE, OTHER, SELFPAY | END 2023-07-16 10:01 | disposition home or self-care (01) | LOC: HO.MDS 10:00 | PROVIDERS: Visit Provider Internal Medicine Pulmonary Disease | DX: J45.50 Severe persistent asthma, uncomplicated (principal) | CPT/HCPCS: 96372 ==

== ENCOUNTER 2023-07-30 07:56 | Outpatient (REF) | payer MEDICARE, SELFPAY | END 2023-07-30 07:57 | disposition home or self-care (01) | LOC: HO.LAB 07:56 | PROVIDERS: PCP Internal Medicine; Visit Provider Advanced Practice Midwife | DX: R30.0 Dysuria (principal); R82.90 Unspecified abnormal findings in urine; N39.0 Urinary tract infection, site not specified | CPT/HCPCS: 81003; 87086; 87088; 87186; 99212 ==

== ENCOUNTER 2023-07-30 07:56 | Outpatient (AMB) | payer MEDICARE, MEDICAID, SELFPAY ==
[2023-07-30 08:00] VITALS: BP 132/86; BMI 30.4
--- NOTE | 2023-07-30 08:00 | A.OFFVIS_ITS ---
Intake Vital Signs 07/30/23 08:00 Height 5 ft 2 in Weight 166 lb BMI 30.4 BP 132/86 Intake Visit Reasons: possible BV/yeast Intake Note: The patient agreed to use of a medical information specialist during this encounter. Scribed for CARROL Engel by Cathi Barillas, medical information specialist, on 07/30/2023 at 8:10 am EST. 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 Machinist: Tool Room Machinist Present (Namita) Allergies pneumococcal vaccine [PNEUMOCOCCAL VACCINE] Allergy (Severe, Verified 07/30/23 08:00) SWELLING, rash atorvastatin [From LIPITOR] Allergy (Intermediate, Verified 07/30/23 08:00) LIP SWELLING, hives, lip swelling dupilumab [Dupixent] Allergy (Unknown, Verified 07/30/23 08:00) PUGH fluticasone [Advair Diskus] Allergy (Unknown, Verified 07/30/23 08:00) unknown Iodinated Contrast Media Allergy (Unknown, Verified 07/30/23 08:00) unknown metoprolol Allergy (Unknown, Verified 07/30/23 08:00) hives morphine Allergy (Unknown, Verified 07/30/23 08:00) RASH salmeterol [Advair Diskus] Allergy (Unknown, Verified 07/30/23 08:00) unknown verapamil Allergy (Unknown, Verified 07/30/23 08:00) Unknown HPI HPI Comments History of Present Illness Details States she is experiencing low back pain, odorous urine and bladder symptoms despite drinking 3-4 cups of water a day. Denies fever, flu-like symptoms, vaginal itching/discharge or new sexual partner. PFS Medical History (Updated 07/30/23 @ 08:18 by Cathi Barillas) Dysuria Asthma exacerbation Back pain Colon cancer screening Facial dermatitis Mass of arm Cellulitis, leg Overweight (BMI 25.0-29.9) Acute asthma exacerbation Adult general medical exam Post-menopausal Screening for diabetes mellitus Bronchitis Allergic rhinitis Allergic rhinitis Hypercholesterolemia Hypertension Urinary incontinence Vitamin D deficiency Migraine Anxiety Osteoporosis Osteoarthritis, knee Lichen sclerosus Atrophic vaginitis Severe persistent allergic asthma Surgical History History of cardiac cath Family History Mother No problems noted. Sister No problems noted. Father No problems noted. Sister No problems noted. Social History (Updated 07/16/23 @ 09:27 by Lakia Whalen MD) Household Members: Spouse Housing: House Alcohol intake: never Patient Tobacco Use Status: Never used Tobacco e-Cigarette/Vaping Use: Never Used Second Hand Smoke Exposure: No service: No Current occupational status: unemployed Current occupation: Lt handed Cognitive needs: No Hearing needs: No Vision needs: No Female Reproductive History Menstrual Age of Menarche: 13 Physical Exam Vital Signs: Last Vital Signs BP 132/86 07/30/23 08:00 BMI result Body Mass Index 30.4 Const General: cooperative, healthy appearing, comfortable, no acute distress, well developed, alert and awake Other: lichen sclerosis changes; hypopigmentation on labia majora anterior surface General: Yes bladder normal to palpation External Female Exam: normal external appearance and normal appearance of the urethra Speculum Exam - Vagina: normal appearance of the vagina, normal palpation and vagina atrophic Speculum Exam - Cervix: normal appearance of the cervix and normal palpation Bimanual exam- vagina & uterus: normal bimanual exam, normal palpation, bladder normal to palpation and normal palpation Bimanual Exam- Adnexa, other: normal adnexae and no masses Results AMB Urinalysis, Automated UA Leukoctes 3 José Miguel/uL Last Edit by CASANDRA Ferreira on 07/30/23 08:11 UA Nitrite Positive Last Edit by CASANDRA Ferreira on 07/30/23 08:11 UA Urobilinogen 0 mg/dL Last Edit by CASANDRA Ferreira on 07/30/23 08:1 1 UA Protein 0 mg/dL Last Edit by CASANDRA Ferreira on 07/30/23 08:11 UA pH 6.0 Last Edit by CASANDRA Ferreira on 07/30/23 08:11 UA Blood 0.5 Curly/uL Last Edit by CASANDRA Ferreira on 07/30/23 08:11 UA Specific [place] 1.015 Last Edit by CASANDRA Ferreira on 07/30/23 08:11 UA Ketone Negative Last Edit by CASANDRA Ferreira on 07/30/23 08:11 UA Bilirubin 0 mg/dL Last Edit by CASANDRA Ferreira on 07/30/23 08:11 UA Glucose 0 mg/dL Last Edit by CASANDRA Ferreira on 07/30/23 08:11 Results Reviewed Results Reviewed: Laboratory Last Values Urine pH (Auto) 6.0 07/30/23 08:05 Specific [place] (Auto) 1.015 07/30/23 08:05 Urine Protein (Auto) 0 mg/dL 07/30/23 08:05 Glucose (UA)(Auto) 0 mg/dL 07/30/23 08:05 Urine Ketones (Auto) Negative 07/30/23 08:05 Urine Blood (Auto) 0.5 Cul[place]/uL 07/30/23 08:05 Urine Nitrite (Auto) Positive 07/30/23 08:05 Urine Bilirubin (Auto) 0 mg/dL 07/30/23 08:05 Urine Urobilinogen (Auto) 0 mg/dL 07/30/23 08:05 Leukocyte Esterase (Auto) 3 José Miguel/uL 07/30/23 08:05 Assessment & Plan Assessment & Plan (1) Bad odor of urine: Code(s): R82.90 - Unspecified abnormal findings in urine Plan: Discussed: Strongly encouraged to increase water intake of 8-10 glasses of water a day. Rx sent to pharmacy. All of her questions and concerns were addressed to the best of my ability and shared decision making. She is agreeable to plan of care. (2) UTI (urinary tract infection): Code(s): N39.0 - Urinary tract infection, site not specified (3) Dysuria: Code(s): R30.0 - Dysuria Orders: Orders AMB Urinalysis Automated Today R30.0 - Dysuria Urine Culture Today R30.0 - Dysuria Medications: New nitrofurantoin monohyd/m-cryst 100 mg (Macrobid) must administer with a meal/food 100 mg PO BID 10 caps 0RF UTI 5 days Coding Level of Care Code Est Pt Level 3 (05972) Diagnoses Bad odor of urine R82.90 UTI (urinary tract infection) N39.0 Dysuria R30.0
== END 2023-07-30 08:56 | disposition home or self-care (01) ==
PROVIDERS: PCP Internal Medicine; Visit Provider Advanced Practice Midwife
DX: R82.90 Unspecified abnormal findings in urine (principal); N39.0 Urinary tract infection, site not specified; R30.0 Dysuria
CPT/HCPCS: 99213

== ENCOUNTER 2023-08-12 08:30 | Outpatient (RCR) | payer MEDICARE, OTHER, SELFPAY ==
[2023-05-03 09:59] VITALS: BP 140/70; PULSE 88
--- NOTE | 2023-05-03 11:41 | MHC.PR.IN ---
[address] [phone] F: [phone] Pulmonary Rehabilitation Individual Treatment Plan Tita Morris is a 67 year old (F) who was referred to the Pulmonary Rehabilitation program by Lakia Whalen. This patient who has a primary diagnosis of Severe persistant asthma will begin pulmonary rehabilitation with monitored exercise and education to optimize both physical and social performance, autonomy, increase strength and endurance, and control dypsnea. The following information was gathered from the patient: Smoking History Current smoking status: Never Smoked Years smoked: Last time smoked: Quit Date: Assistance with quitting needed: Past Medical History Medical History: Hypertension Chest Pain COPD Asthma Depression Vision Problems Surgeries: Past Pulmonary Hospitalizations # of hospitalizations in the past year: 1 month ago for asthma # of ER vists due to breathing troubles in the past year: 1 month ago for asthma Current Pulmonary Medications Ipatropium [employer]/Albutero 0.5 mg prn Albuterol HFA PRN Rosuvastatin calcium 10 mg tablet once daily IC lisinopril 10 mg daily fexofenadine HCL 180 mg daily Icmeloxicam 7.5 mg daily iccyclobenzaprin 10 mg 3X daily Allergy History Allergies: Contrast dye/atorvastatin/dupilumab/fluticasone/metoprolol/morphine/ Current Oxygen Use Supplemental Oxygen Device Used: Liter flow: How often: N/A Pulmonary History Cough: Yes: coughing fits 2-3x daily Sputum: Yes: dry cough Sleep device: Other pulmonary devices: Peak flow meter: No: will educate on peak flow Nebulizer: Yes: currently uses 3x daily Suction: No Ventilator: No Secretion clearance: PEP: No Influenza vaccine: Yes: continued allergies: pnuomococcal vax/salmeterol/verapamil Pneumonia vaccine: No Patient Questionaire Scores MRC Dyspnea Scale (mRC): 4 CAT Score: PHQ-9 Score: 3 Pulmonary Function Test and Vital Signs Pulmonary Function Test Date of PFT FVC Actual % FVC Predicted % FEV1 Actual % FEV1 Predicted % FEV1/FVC Actual % FEV1/FVC Predicted % DLCO Vital Signs Heart Rate 88 Blood Pressure 140/70 SpO2 98% Respiratory Rate 16 Six Minute Walk Test Supplemental Oxygen O2 L/min: room air FiO2: Resting Vitals SpO2: 98% BP: 140/70mmHg HR: 88 bpm Total Distance 1200 Number/ Time of Rests (sec) 0 0 JANINA 3 METS 2.6 SpO2 97 HR (bpm) 114 MPH 2.26 Meters/Minute 2.1 Post-walk Vitals SpO2: 99 BP: 135/70 HR: 103 Performance Observations Pt walked unassisted for 6 minutes. Pt did not take any rests. No resp distress noted at this time. Pt states no pain, no SOB, no dizziness. Pulmonary Rehabilitation Plan Topic Problem Goal Plan Comment Education Knowledge deficit of disease self management strategies Ineffective control of dyspnea Verbalize adequate disease self-management skills Effective control of dyspnea Disease overview Exacerbation prevention and management Home exercise program Respiratory medication Pt instructed and educated on asthma education. Pt shown anatomy and physiology between a good lung and asthmatic lung. Pt instructed on diaphragmatic breathing techniques. Pt educated with demonstration and teach back of peak flow meter /spacer teaching. Peak flow 83% predicted. Hypoxia N/A, no s/s of hypoxemia Psychosocial N/A, PHQ-9 score <5 Activities of Daily Living Fear of severe dyspnea ADL management and control of dyspnea ADL performance with pacing and pursed lip breathing Educate on pursed lip breathing and pacing with stairs and activity PT states her fear of sob while alone at home and coughing fits that cause her anxiety and pain. Spacer teaching/education reviewed with patient. Goal is to become more independent with daily activities and control her cough and breathing. Nutrition & Weight Management BMI 19 to 30 Education re ongoing weight monitoring Pt at normal weight at this time. Pt states slight weight gain due to the steroids prescribed to her. Goal to monitor weight and address any fluctuations. Tobacco Managment NA Pt never smoked. Medication N/A, pt reports compliance w/ prescribed medications Adherence to prescribed medications Medications purpose Medication side-effects Education and review of current med, their purpose and side effects. Goal is to continue proper medication use, and add checking her peak flow daily. Inhaled Medication Incorrect inhaled prescription use Purpose, side effects and technique needs review Correct technique/timing and care of inhaled medications Demo of MDI with spacer device DPI MDI with spacer device Nebulizer Education reviewed on spacer teaching and peak flow meter. Pt instructed to use peak flow daily and record any changes for provider. Continuous education will be reviewed throughout our sessions. Secretion Management Ineffective airway clearance Patient demonstrates effective cough and airway clearance Patient demonstrates effective cough and airway clearance Pt states she has recurrent coughing fits. Will continue to monitor and assess throughout session time. Goal is to use medications properly/as prescribed to minimize pt's coughing. Exercise & Fitness Decreased strength & endurance Knowledge deficit of exercise guidelines & safety No regular exercise Pulmonary Rehab 2-3x/week Aerobic Exercise: 30-60mins x 9 weeks Review benefits & core components of exercise program Review how to measure and monitor dyspnea level Review exercise safety guidelines Review frequency and duration of exercise JANINA RPD 3-4/10 Review home exercise guidelines recumbent bike 10 min L1.2/P8 stepperL1.0 /P11 5 min UBE 6 min L1.2/P3 Pt commits to pulmonary rehab 3X weekly MWF 0830. Plan to complete 8-12 weeks session with minimum 31 minutes exercise. Diabetes Management Does patient have DM?: No Diabetes Type: Current Blood Glucose Level: Current A1C Level: Self Check: Pt is not diabetic Patient's Goals and Concerns In patients own words to get better. I would like my y asthma controlled so I can move around better Internal Audit Manager Review I have reviewed the outcome assessment, treatment plan, goals, and problem list. The treatment plan and goals support the patient's needs and abilities, and thereby recommend that the exercise plan be completed as documented. Special precautions or modifications to the treatment plan include:
[2023-05-06 10:55] VITALS: BP 122/60; BP 130/52
[2023-05-08 08:20] VITALS: BP 120/60; BP 132/80
[2023-05-10 08:20] VITALS: BP 110/78; BP 122/88
[2023-05-13 12:19] VITALS: BP 140/100; BP 142/96
[2023-05-22 11:21] VITALS: BP 134/78; BP 144/80
[2023-05-24 11:22] VITALS: BP 118/64; BP 128/70
[2023-05-29 13:54] VITALS: BP 108/72; BP 118/72
[2023-05-31 12:27] VITALS: BP 132/70; BP 132/82
[2023-05-31 12:31] VITALS: BMI 30.3
--- NOTE | 2023-05-31 12:42 | MHC.PR.RE ---
[address] [phone] F: [phone] Pulmonary Rehabilitation Reassessment Tita Morris is a 67 year old (F) who was referred to the Pulmonary Rehabilitation program by Lakia Whalen. This patient who has a primary diagnosis of Persistent Asthma has completed 9 sessions of the pulmonary rehabilitation program thus far with monitored exercise and education to optimize both physical and social performance, autonomy, increase strength and endurance, and control dypsnea. They were evaluated on 05/31/23. Reassessment Type: 30-day reassessment Topic Education/ Progress Progress Comments Education Demonstrates disease self-management strategies Using medications as directed Mobilizes secretions successfully Demonstrates strategies for anxiety and depression management Educated on Asthma lungs and A&P of the lung. Hypoxia Current oxygen Use: Room air Pt does not use supplemental o2 at this time. Psychosocial PHQ-9 Score: 2 Pt educated during group sessions on how to handle worry. Group discussion Activities of Daily Living Management of ADL with Control of Dyspnea Progressing Pt states she feels so much better since coming to pulmonary rehab. Pt reports having more energy and less fear of being active. Nutrition & Weight Management Current weight: 170.94 BMI: 30.3 Weight change: Weight Gain Pt has been able to eat more since becoming more active. Progressing Tobacco Stages of Change: Tobacco Use: Cigerettes/Day: Any nicotine replacement: Any cessation medication: Smoking quit date: Smokeless tobacco use and amount: pt is a non smoker Medication Met, taking 100% of time Ipatropium [place]/Albutero 0.5 mg prn Albuterol HFA PRN Rosuvastatin calcium 10 mg tablet once daily IC lisinopril 10 mg daily fexofenadine HCL 180 mg daily Icmeloxicam 7.5 mg daily iccyclobenzaprin 10 mg 3X daily Pt actively checks peak flow's daily and documents. Pt uses spacer with albuterol 100% of the time. Inhaled Medication Patient verbalizes correct technique of: MDI: Yes DPI: SMI: NEBULIZER: Yes Secretion Management Patient provides adequate return demonstration of: Controlled cough: Yes Locke cough: Acapella/ PEP Device: CPT: Sputum management: Pt cough has been less persistent. Exercise & Fitness Aerobic Exercise Frequency: 3X weekly Target heart range: 96-128 Heart rate range: 96-128 SpO2 Range: >92% JANINA RPD: 3-4 Time (minutes): 65 O2 use with exercise: RA Current HEP: Nustep L1.4 3X weekly 20 min Treadmill L2.4 3X weekly 20 min Recumbent bike L1.4 3X weekly 20 min Rower 15 min 3X weekly Pt has great effort. Pt goal for the next month is to increase levels on machines. Department Chairperson Review I have reviewed the outcome re-assessment and treatment plan. The treatment plan and goals support the patient's needs and abilities, and thereby recommend that the exercise plan be completed as documented. Special precautions or modifications to the treatment plan include:
--- NOTE | 2023-05-31 12:44 | MHC.PR.RE ---
[address] [phone] F: [phone] Pulmonary Rehabilitation Reassessment Tita Morris is a 67 year old (F) who was referred to the Pulmonary Rehabilitation program by Lakia Whalen. This patient who has a primary diagnosis of Persistent Asthma has completed 9 sessions of the pulmonary rehabilitation program thus far with monitored exercise and education to optimize both physical and social performance, autonomy, increase strength and endurance, and control dypsnea. They were evaluated on 05/31/23. Reassessment Type: 30-day reassessment Topic Education/ Progress Progress Comments Education Demonstrates disease self-management strategies Using medications as directed Mobilizes secretions successfully Demonstrates strategies for anxiety and depression management Educated on Asthma lungs and A&P of the lung. Hypoxia Current oxygen Use: Room air Pt does not use supplemental o2 at this time. Psychosocial PHQ-9 Score: 2 Pt educated during group sessions on how to handle worry. Group discussion Activities of Daily Living Management of ADL with Control of Dyspnea Progressing Pt states she feels so much better since coming to pulmonary rehab. Pt reports having more energy and less fear of being active. Nutrition & Weight Management Current weight: 170.94 BMI: 30.3 Weight change: Weight Gain Pt has been able to eat more since becoming more active. Progressing Tobacco Stages of Change: Tobacco Use: Cigerettes/Day: Any nicotine replacement: Any cessation medication: Smoking quit date: Smokeless tobacco use and amount: pt is a non smoker Medication Met, taking 100% of time Ipatropium [place]/Albutero 0.5 mg prn Albuterol HFA PRN Rosuvastatin calcium 10 mg tablet once daily IC lisinopril 10 mg daily fexofenadine HCL 180 mg daily Icmeloxicam 7.5 mg daily iccyclobenzaprin 10 mg 3X daily Pt actively checks peak flow's daily and documents. Pt uses spacer with albuterol 100% of the time. Inhaled Medication Patient verbalizes correct technique of: MDI: Yes DPI: SMI: NEBULIZER: Yes Secretion Management Patient provides adequate return demonstration of: Controlled cough: Yes Locke cough: Acapella/ PEP Device: CPT: Sputum management: Pt cough has been less persistant. Exercise & Fitness Aerobic Exercise Frequency: 3X weekly Target heart range: 96-128 Heart rate range: 96-128 SpO2 Range: >92% JANINA RPD: 3-4 Time (minutes): 65 O2 use with exercise: RA Current HEP: Nustep L1.4 3X weekly 20 min Treadmill L2.4 3X weekly 20 min Recumbent bike L1.4 3X weekly 20 min Rower 15 min 3X weekly Pt has great effort. Pt goal for the next month is to increase levels on machines. Global Marketing Operations Manager Review I have reviewed the outcome re-assessment and treatment plan. The treatment plan and goals support the patient's needs and abilities, and thereby recommend that the exercise plan be completed as documented. Special precautions or modifications to the treatment plan include:
[2023-06-03 09:43] VITALS: BP 110/72; BP 97/82
[2023-06-06 10:28] VITALS: BP 112/78
[2023-06-07 08:30] VITALS: BP 116/82; BP 122/82
[2023-06-10 09:49] VITALS: BP 152/82
[2023-06-13 09:30] VITALS: BP 112/62
[2023-06-14 11:52] VITALS: BP 128/82; BP 138/62
[2023-06-17 08:30] VITALS: BP 129/62; BP 136/72
[2023-06-20 10:43] VITALS: BP 132/72; BP 140/78
[2023-06-21 10:16] VITALS: BP 108/62; BP 124/71
[2023-06-24 10:39] VITALS: BP 112/74; BP 132/72
[2023-06-27 11:38] VITALS: BP 122/64; BP 124/70
[2023-07-01 07:25] VITALS: BMI 30.3
--- NOTE | 2023-07-01 07:29 | MHC.PR.RE ---
[address] [phone] F: [phone] Pulmonary Rehabilitation Reassessment Tita Morris is a 68 year old (F) who was referred to the Pulmonary Rehabilitation program by Lakia Whalen. This patient who has a primary diagnosis of Persistent Asthma has completed 20 sessions of the pulmonary rehabilitation program thus far with monitored exercise and education to optimize both physical and social performance, autonomy, increase strength and endurance, and control dypsnea. They were evaluated on 07/01/23. Reassessment Type: 60-day reassessment Topic Education/ Progress Progress Comments Education Demonstrates disease self-management strategies Using medications as directed Mobilizes secretions successfully Demonstrates strategies for anxiety and depression management PT continues to perform peak flow's daily. Hypoxia Current oxygen Use: Room Air Pt does not use supplemental o2 at this time. Psychosocial PHQ-9 Score: 2 Pt re-educated during group sessions on how to handle worry. Group discussion on coping techniques, and ways to manage stress. Activities of Daily Living Management of ADL with Control of Dyspnea Progressing Pt states she feels so much better since coming to pulmonary rehab. Pt reports having more energy and less fear of being active. Nutrition & Weight Management Current weight: 170.94 BMI: 30.3 Weight change: Weight Stable Pt has been able to eat more since becoming more active. Progressing Tobacco Stages of Change: Tobacco Use: Cigerettes/Day: Any nicotine replacement: Any cessation medication: Smoking quit date: Smokeless tobacco use and amount: pt is a non smoker Medication Met, taking 100% of time Ipatropium [place]/Albutero 0.5 mg prn Albuterol HFA PRN Rosuvastatin calcium 10 mg tablet once daily IC lisinopril 10 mg daily fexofenadine HCL 180 mg daily Icmeloxicam 7.5 mg daily iccyclobenzaprin 10 mg 3X daily Pt actively checks peak flow's daily and documents. Pt uses spacer with albuterol 100% of the time. Inhaled Medication Patient verbalizes correct technique of: MDI: Yes DPI: SMI: NEBULIZER: Yes Secretion Management Patient provides adequate return demonstration of: Controlled cough: Yes Locke cough: Acapella/ PEP Device: CPT: Sputum management: Pt cough has been less persistant. Exercise & Fitness Aerobic Exercise Frequency: 3X weekly Target heart range: 96-128 Heart rate range: 96-128 SpO2 Range: >92% JANINA RPD: 3-4 Time (minutes): 65 O2 use with exercise: RA Current HEP: Nustep L1.4 3X weekly 20 min Treadmill L2.5 3X weekly 20 min Recumbent bike L1.4 3X weekly 20 min Rower 15 min 3X weekly Pt has great effort. Pt goal for the next month is to increase levels on machines. Yard Inspector Review I have reviewed the outcome re-assessment and treatment plan. The treatment plan and goals support the patient's needs and abilities, and thereby recommend that the exercise plan be completed as documented. Special precautions or modifications to the treatment plan include:
[2023-07-01 13:23] VITALS: BP 118/80; BP 132/80
[2023-07-04 11:54] VITALS: BP 110/64; BP 120/62
[2023-07-05 12:00] VITALS: BP 102/68; BP 130/72
[2023-07-11 13:39] VITALS: BP 124/64; BP 128/54
[2023-07-12 15:06] VITALS: BP 100/62; BP 142/72
[2023-07-18 15:12] VITALS: BP 108/72; BP 124/64
[2023-07-19 09:46] VITALS: BP 112/68; BP 132/70
[2023-07-22 09:53] VITALS: BP 100/64; BP 128/80
[2023-07-25 08:20] VITALS: BP 112/78; BP 122/76
[2023-07-29 14:38] VITALS: BMI 30.3
[2023-07-29 14:40] VITALS: BP 132/62; BP 152/62
--- NOTE | 2023-07-29 14:40 | MHC.PR.RE ---
[address] [phone] F: [phone] Pulmonary Rehabilitation Reassessment Tita Morris is a 68 year old (F) who was referred to the Pulmonary Rehabilitation program by Lakia Whalen. This patient who has a primary diagnosis of Persistent Asthma has completed 29 sessions of the pulmonary rehabilitation program thus far with monitored exercise and education to optimize both physical and social performance, autonomy, increase strength and endurance, and control dypsnea. They were evaluated on 07/29/23. Reassessment Type: 90-day reassessment Topic Education/ Progress Progress Comments Education Demonstrates disease self-management strategies Using medications as directed Mobilizes secretions successfully Demonstrates strategies for anxiety and depression management Met Hypoxia Current oxygen Use: RA Pt does not use supplemental o2 at this time. Psychosocial PHQ-9 Score: 2 Met Activities of Daily Living Management of ADL with Control of Dyspnea Progressing Met. Pt states she feels so much better since coming to pulmonary rehab. Pt reports having more energy and less fear of being active. Nutrition & Weight Management Current weight: 170.94 BMI: 30.3 Weight change: Weight Stable Pt has been able to eat more since becoming more active. Progressing Tobacco Stages of Change: Tobacco Use: Cigerettes/Day: Any nicotine replacement: Any cessation medication: Smoking quit date: Smokeless tobacco use and amount: pt is a non smoker Medication Met, taking 100% of time Ipatropium [place]/Albutero 0.5 mg prn Albuterol HFA PRN Rosuvastatin calcium 10 mg tablet once daily IC lisinopril 10 mg daily fexofenadine HCL 180 mg daily Icmeloxicam 7.5 mg daily iccyclobenzaprin 10 mg 3X daily Pt actively checks peak flow's daily and documents. Pt uses spacer with albuterol 100% of the time. Inhaled Medication Patient verbalizes correct technique of: MDI: Yes DPI: SMI: NEBULIZER: Yes Secretion Management Patient provides adequate return demonstration of: Controlled cough: Yes Locke cough: Acapella/ PEP Device: CPT: Sputum management: Pt cough has been less persistant. Exercise & Fitness Aerobic Exercise Frequency: 3X weekly Target heart range: 96-128 Heart rate range: 96-128 SpO2 Range: >92% JANINA RPD: 3-4 Time (minutes): 65 O2 use with exercise: RA Current HEP: Nustep L1.4 3X weekly 20 min Treadmill L2.5 3X weekly 20 min Recumbent bike L1.4 3X weekly 20 min Rower 15 min 3X weekly Pt has great effort. 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 The treatment plan and goals support the patient's needs and abilities, and thereby recommend that the exercise plan be completed as documented. Special precautions or modifications to the treatment plan include:
[2023-07-31 09:51] VITALS: BP 108/72; BP 122/68
[2023-09-02 07:49] VITALS: BMI 30.3
--- NOTE | 2023-09-02 07:57 | MHC.PR.DC ---
[address] [phone] F: [phone] Pulmonary Rehabilitation Discharge Tita Morris is a 68 year old (F) who was referred to the Pulmonary Rehabilitation program by Lakia Whalen. This patient who has a primary diagnosis of Persistent Asthma has completed 36 sessions of the pulmonary rehabilitation program with monitored exercise and education to optimize both physical and social performance, autonomy, increase strength and endurance, and control dypsnea. They were evaluated on 07/29/23. Discharge summary and tests are below. Initial MRC Score: 4 Discharge MRC Score: Six Minute Walk Test Initial 6MWT Discharge 6MWT Supplemental Oxygen O2 L/min: room air FiO2: O2 L/min: FiO2: Room Air Resting Vitals SpO2: 98% BP: 140/70mmHg HR: 88 bpm SpO2: 95% BP: 112/78mmHg HR: 101 bpm Total Distance (ft) 1200 610 Number/ Time of Rests (sec) 0 0 5 JANINA 3 2 Walk Vitals SpO2: 97 HR: 114 SpO2: 94 HR: 110 Post-Walk Vitals SpO2: 99 BP: 135/70 HR: 103 SpO2: 95 BP: HR: 73 Performance Observations Pt walked unassisted for 6 minutes. Pt did not take any rests. No resp distress noted at this time. Pt states no pain, no SOB, no dizziness. Pt walked at a moderate pace unassisted. She took multiple 10 second breaks due to a persistent wheezing cough. She restarted each break without prompting. Pt reports vascular leg pain in left knee 06/20. Pt self administered 2 puffs of her albuterol mdi after 6mwt Exercise Assessment on Treadmill: Pre-exercise Post-exercise SpO2 96 97 Heart Rate 107 89 JANINA 3 3 METS 4.23 3.6 Exercise Assessment on Stepper: Pre-exercise Post-exercise SpO2 97 97 Heart Rate 96 84 JANINA 3 3 METS 3.3 3.6 Exercise Assessment on UBE: Pre-exercise Post-exercise SpO2 98 97 Heart Rate 107 84 JANINA 3 3 METS 3.0 3.6 Topic Education/Progress Progress Comments Education Demonstrates disease self-management strategies Using medications as directed Mobilizes secretions successfully Demonstrates strategies for anxiety and depression management Met Hypoxia Current oxygen Use: RA Pt does not use supplemental o2 at this time. Psychosocial PHQ-9 Score: 2 Met Activities of Daily Living Management of ADL with Control of Dyspnea Progressing Met. Pt states she feels so much better since coming to pulmonary rehab. Pt reports having more energy and less fear of being active. Nutrition and Weight Managment Current weight: 170.94 BMI: 30.3 Weight change: Weight Stable Pt has been able to eat more since becoming more active. Progressing Tobacco Stages of Change: Tobacco Use: Cigerettes/Day: Any nicotine replacement: Any cessation medication: Smoking quit date: Smokeless tobacco use and amount: pt is a non smoker Medications Met, taking 100% of time Pt actively checks peak flow's daily and documents. Pt uses spacer with albuterol 100% of the time. Inhaled Medications Patient verbalizes correct technique of: MDI: Yes DPI: SMI: NEBULIZER: Yes Secretion Management Patient provides adequate return demonstration of: Controlled cough: Yes Locke cough: Acapella/ PEP Device: CPT: Sputum management: Pt cough has been less persistant. Exercise and Fitness Aerobic Exercise Frequency: 3X weekly Target heart range: 96-128 Heart rate range: 96-128 SpO2 Range: >92% JANINA RPD: 3-4 Time (minutes): 65 O2 use with exercise: RA Current HEP: Nustep L1.4 3X weekly 20 min Treadmill L2.5 3X weekly 20 min Recumbent bike L1.4 3X weekly 20 min Rower 15 min 3X weekly Pt has great effort. 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 Discharge Assessment: Discharge Reason: Pt completed pulmonary rehab Discharge Recommendation: :
== END 2023-09-11 07:17 | disposition home or self-care (01) ==
LOC: HO.PR 08:30
PROVIDERS: PCP Internal Medicine; Visit Provider Internal Medicine
DX: J45.50 Severe persistent asthma, uncomplicated (principal)
CPT/HCPCS: 94625

== ENCOUNTER 2023-08-13 09:22 | Outpatient (AMB) | payer MEDICARE, MEDICAID, SELFPAY ==
[2023-07-29 14:38] VITALS: BMI 30.3
--- NOTE | 2023-08-13 09:30 | MHC.OFFVIS ---
Intake Vital Signs 08/13/23 09:32 Height 5 ft 2 in Weight 169 lb 12.095 oz BMI 31.0 BP 142/87 H Blood Pressure Location Rt brachial Position Sitting Pulse 71 Pulse Source Doppler Pulse Oximetry (%) 98 Oxygen Delivery Method Room Air Intake Visit Reasons: asthma Allergies pneumococcal vaccine [PNEUMOCOCCAL VACCINE] Allergy (Severe, Verified 07/30/23 08:00) SWELLING, rash atorvastatin [From LIPITOR] Allergy (Intermediate, Verified 07/30/23 08:00) LIP SWELLING, hives, lip swelling dupilumab [Dupixent] Allergy (Unknown, Verified 07/30/23 08:00) PUGH fluticasone [Advair Diskus] Allergy (Unknown, Verified 07/30/23 08:00) unknown Iodinated Contrast Media Allergy (Unknown, Verified 07/30/23 08:00) unknown metoprolol Allergy (Unknown, Verified 07/30/23 08:00) hives morphine Allergy (Unknown, Verified 07/30/23 08:00) RASH salmeterol [Advair Diskus] Allergy (Unknown, Verified 07/30/23 08:00) unknown verapamil Allergy (Unknown, Verified 07/30/23 08:00) Unknown HPI asthma HPI Details 68-year-old lady, lifetime nonsmoker, followed for severe persistent asthma with significant allergic component. Patient continues on her current regimen of Symbicort, Spiriva, Singulair, albuterol MDI, duo nebs, and Nucala. She denies any recent exacerbations. She has almost finished her pulmonary rehab sessions and she derives significant benefit from it. [facility] Medical History (Updated 08/10/23 @ 12:08 by Dillan Villanueva) Dysuria Asthma exacerbation Back pain Colon cancer screening Facial dermatitis Mass of arm Cellulitis, leg Overweight (BMI 25.0-29.9) Acute asthma exacerbation Adult general medical exam Post-menopausal Screening for diabetes mellitus Bronchitis Allergic rhinitis Allergic rhinitis Hypercholesterolemia Hypertension Urinary incontinence Vitamin D deficiency Migraine Anxiety Osteoporosis Osteoarthritis, knee Lichen sclerosus Atrophic vaginitis Severe persistent allergic asthma Surgical History History of cardiac cath Family History Mother No problems noted. Sister No problems noted. Father No problems noted. Sister No problems noted. Social History Household Members: Spouse Housing: House Alcohol intake: never Patient Tobacco Use Status: Never used Tobacco e-Cigarette/Vaping Use: Never Used Second Hand Smoke Exposure: No service: No Current occupational status: unemployed Current occupation: Lt handed Cognitive needs: No Hearing needs: No Vision needs: No Female Reproductive History Menstrual Age of Menarche: 13 Review of Systems Const Denies daytime sleepiness, Denies excessive sweating, Denies fatigue, Denies fever(s), Denies lethargy, Denies malaise, Denies night sweats, Denies snoring and Denies weight loss Eyes Denies blurry vision and Denies itchy eyes ENT Denies nasal congestion, Denies post nasal drip, Denies sinus pain, Denies sinus pressure and Denies other ( Thrush) Card Denies chest pain, Denies pedal edema, Denies dyspnea, Denies orthopnea and Denies paroxysmal nocturnal dyspnea Resp Denies cough, Denies hemoptysis, Denies excessive phlegm production, Denies dyspnea, Denies snoring and Denies wheezing GI Denies abdominal pain and Denies heartburn Musc Denies myalgias, Denies arthralgias and Denies joint swelling Skin/Breast Denies rash Neuro Denies memory loss and Denies seizure-like activity Psych Denies abnormal sleep pattern, Denies anxiety and Denies memory loss Endo Denies excessive sweating, Denies fatigue and Denies heat intolerance Jose G/Lymph Denies easy bruising Aller/Immun Denies itchy eyes, Denies seasonal rhinorrhea and Denies wheezing Physical Exam Vital Signs: Last Vital Signs Pulse 71 08/13/23 09:32 BP 142/87 H 08/13/23 09:32 Pulse Ox 98 08/13/23 09:32 Oxygen Delivery Method Room Air 08/13/23 09:32 BMI result Body Mass Index 31.0 Const General: no acute distress and alert Nutritional Appearance: not obese Orientation/consciousness: Other orientation findings ( oriented) HEENT Head: Yes atraumatic Eyes General: appearance normal, both eyes and all related structures Sclerae: sclerae normal EOM: EOMs intact bilaterally Neck Neck: Yes supple Lymphatic: no lymphadenopathy noted Resp Effort & Inspection: normal respiratory effort and no use of accessory muscles Auscultation: clear to auscultation bilaterally Cardio Rate: regular rate Rhythm: regular rhythm Heart sounds: no gallops, no murmurs and no rubs Skin General skin exam: other ( warm) Extrem General: No clubbing, No cyanosis and No edema Assessment & Plan Assessment & Plan (1) Severe persistent allergic asthma: Code(s): J45.50 - Severe persistent asthma, uncomplicated Plan: Well controlled on Nucala, Incruse, Symbicort, duo nebs, and albuterol MDI. Continue current regimen. Continue pulmonary rehab. (2) Environmental and seasonal allergies: Code(s): J30.89 - Other allergic rhinitis Plan: Well controlled on Nucala. Continue current regimen. Coding Level of Care Code Est Pt Level 4 (83101) Diagnoses Severe persistent allergic asthma J45.50 Environmental and seasonal allergies J30.89
[2023-08-13 09:32] VITALS: BP 142/87; PULSE 71; O2SAT 98; BMI 31.0
== END 2023-08-13 09:54 | disposition home or self-care (01) ==
PROVIDERS: PCP Internal Medicine; Visit Provider Internal Medicine Pulmonary Disease
DX: J45.50 Severe persistent asthma, uncomplicated (principal); J30.89 Other allergic rhinitis
CPT/HCPCS: 99214

== ENCOUNTER → 2023-08-13 09:22 | Outpatient (BNVA) | payer MEDICARE, SELFPAY ==
[2023-07-29 14:38] VITALS: BMI 30.3
== END ==
PROVIDERS: PCP Internal Medicine; Visit Provider Internal Medicine Pulmonary Disease
DX: J45.50 Severe persistent asthma, uncomplicated (principal); J30.89 Other allergic rhinitis; Z79.899 Other long term (current) drug therapy
CPT/HCPCS: 99212

== ENCOUNTER 2023-08-14 08:37 | Outpatient (REF) | payer MEDICARE, MEDICAID, SELFPAY ==
[2023-07-29 14:38] VITALS: BMI 30.3
== END 2023-08-14 08:38 | disposition home or self-care (01) ==
LOC: HO.MDS 08:37
PROVIDERS: Visit Provider Internal Medicine Pulmonary Disease
DX: J45.50 Severe persistent asthma, uncomplicated (principal)
CPT/HCPCS: 96372; J2182

== ENCOUNTER 2023-08-20 08:08 | Outpatient (REF) | payer MEDICARE, SELFPAY | END 2023-08-20 08:09 | disposition home or self-care (01) | LOC: HO.MAMMO 08:08 | PROVIDERS: PCP Internal Medicine; Visit Provider Internal Medicine | DX: Z13.820 Encounter for screening for osteoporosis (principal); Z78.0 Asymptomatic menopausal state; M81.0 Age-related osteoporosis without current pathological fracture | CPT/HCPCS: 77080 ==

== ENCOUNTER 2023-08-24 07:19 | Outpatient (REF) | payer MEDICARE, SELFPAY ==
--- NOTE | ~2023-08-24 | MM_ITS ---
EXAMINATION: MM SCREENING DIGITAL BREAST TOMOSYNTHESIS, BILATERAL CLINICAL INFORMATION: Screening. Asymptomatic. COMPARISON: Mammography: This study is compared with prior exams dating back to 2017. TECHNIQUE: Digital breast tomosynthesis is performed in both the craniocaudal and mediolateral oblique views along with computer-aided detection (CAD). Synthesized 2D images are generated from the tomosynthesis. FINDINGS: The breasts are almost entirely fatty (ACR BI-RADS breast composition Category a). There are no significant masses, abnormal calcifications, or other abnormalities. MM/MM tomosynthesis screening BI IMPRESSION: No mammographic evidence of malignancy. ASSESSMENT: BI-RADS BI-RADS 1 - Negative RECOMMENDATION: Routine annual mammography screening. 1 year F/U This examination should not preclude the clinical evaluation of a suspicious palpable abnormality. This patient's information was entered into a reminder system with a target due date for their next mammogram.
== END 2023-08-24 07:20 | disposition home or self-care (01) ==
LOC: HO.MAMMO 07:19
PROVIDERS: PCP Internal Medicine; Visit Provider Internal Medicine
DX: Z12.31 Encounter for screening mammogram for malignant neoplasm of breast (principal)
CPT/HCPCS: 77063; 77067

== ENCOUNTER → 2023-08-24 07:45 | Outpatient (BNV) | payer MEDICARE, SELFPAY ==
[2023-07-29 14:38] VITALS: BMI 30.3
== END ==
PROVIDERS: PCP Internal Medicine; Visit Provider Radiology Diagnostic Radiology
DX: Z12.31 Encounter for screening mammogram for malignant neoplasm of breast (principal)
CPT/HCPCS: 77063; 77067

== ENCOUNTER 2023-09-10 15:09 | Outpatient (AMB) | payer MEDICARE, SELFPAY ==
[2023-07-29 14:38] VITALS: BMI 30.3
[2023-09-10 15:30] VITALS: BP 152/92; PULSE 77; RESP 17; O2SAT 97; BMI 30.5
--- NOTE | 2023-09-10 15:30 | A.OFFPC_ITS ---
Vital Signs 09/10/23 15:30 Height 5 ft 2 in Weight 167 lb BMI 30.5 BP 152/92 H Blood Pressure Location Lt brachial Position Sitting Respiration 17 Pulse 77 Pulse Source Pulse Oximeter Pulse Oximetry (%) 97 Oxygen Delivery Method Room Air Intake Visit Reasons: Bilateral leg pain, urgent msg has been placed Intake Note: The patient has come in with bilateral leg pain persisting for about a week. Since last Saturday, the pain in the left leg has been worsening, accompanied by swelling in the lower extremities and a sense of stiffness, which is making walking challenging Demand Generation Manager Required: No Accompanied by: Self / Same As Patient Allergies pneumococcal vaccine [PNEUMOCOCCAL VACCINE] Allergy (Severe, Verified 09/10/23 15:41) SWELLING, rash atorvastatin [From LIPITOR] Allergy (Intermediate, Verified 09/10/23 15:41) LIP SWELLING, hives, lip swelling dupilumab [Dupixent] Allergy (Unknown, Verified 09/10/23 15:41) PUGH fluticasone [Advair Diskus] Allergy (Unknown, Verified 09/10/23 15:41) unknown Iodinated Contrast Media Allergy (Unknown, Verified 09/10/23 15:41) unknown metoprolol Allergy (Unknown, Verified 09/10/23 15:41) hives morphine Allergy (Unknown, Verified 09/10/23 15:41) RASH salmeterol [Advair Diskus] Allergy (Unknown, Verified 09/10/23 15:41) unknown verapamil Allergy (Unknown, Verified 09/10/23 15:41) Unknown Tobacco use date assessed: 12/10/22 Fall risk assessment: No Falls in past year Last assessed Fall Risk: 09/10/23 Dental Screening Dental Screen Date: 09/10/23 Did you have a dental visit in the last 12 months?: Yes Did you have a dental problem in the last 6 months where you did not have access to dental care?: No Was dental information given to patient?: Patient has dentist HPI Bilateral leg pain, urgent msg has been placed HPI Details Patient is 68-year-old female here today for problem visit. She reports 2 week history of bilateral lower extremity pain to which she has been using NSAIDs and Tylenol for without much relief. ' She reports she has been difficulty with walking is the pain in her left lower extremities bad. She does report having arthritis in her knees. She denies any falls or any trauma to her left lower extremity. Physical exam without any evidence of significant swelling. She is concerned that perhaps her cholesterol medications causing her pain and her muscles. -- Have also noted her blood pressure to be elevated as of late. She does not monitor blood pressure regularly at home. Wondering if she can increase her lisinopril 20 mg. --- She is also wondering if she can get the new RSV vaccine due to her age and moderate persistent asthma diagnosis. [facility] Medical History (Updated 09/10/23 @ 16:05 by Johnny Darnell PA-C) Dysuria Asthma exacerbation Back pain Colon cancer screening Facial dermatitis Mass of arm Cellulitis, leg Overweight (BMI 25.0-29.9) Acute asthma exacerbation Adult general medical exam Post-menopausal Screening for diabetes mellitus Bronchitis Allergic rhinitis Allergic rhinitis Hypercholesterolemia Hypertension Urinary incontinence Vitamin D deficiency Migraine Anxiety Osteoporosis Osteoarthritis, knee Lichen sclerosus Atrophic vaginitis Severe persistent allergic asthma Surgical History History of cardiac cath Family History Mother No problems noted. Sister No problems noted. Father No problems noted. Sister No problems noted. Social History Household Members: Spouse Housing: House Alcohol intake: never Patient Tobacco Use Status: Never used Tobacco e-Cigarette/Vaping Use: Never Used Second Hand Smoke Exposure: No service: No Current occupational status: unemployed Current occupation: Lt handed Cognitive needs: No Hearing needs: No Vision needs: No Female Reproductive History Menstrual Age of Menarche: 13 Questionnaire Thrive Questionnaire Date Thrive assessed: 12/10/22 AJAY-7 AMB Questionnaire AJAY-7 Date AJAY - 7 assessed: 12/10/22 Source: Developed by Drs. Spike Hernandez, Ruth Ortega, Clint Esteves and colleagues, with an educational andrés from [employer]. Review of Systems Const Denies headache(s) Eyes Denies loss of vision ENT Denies vertigo, Denies dizziness, Denies headache(s) and Denies sore throat Card Denies chest pain, Denies leg edema and Denies lightheadedness Resp Denies cough, Denies hemoptysis and Denies wheezing GI Denies abdominal pain, Denies melena, Denies constipation, Denies diarrhea and Denies vomiting Denies urinary frequency, Denies dysuria and Denies urinary urgency Musc Denies arthralgias, Denies joint swelling, Denies numbness and Denies tingling Neuro Denies Abnormal speech present, Denies behavioral changes, Denies vertigo, Denies dizziness, Denies headache(s), Denies loss of vision, Denies memory loss, Denies numbness and Denies tingling Psych Denies anxiety, Denies behavioral changes, Denies depression, Denies memory loss and Denies panic attacks Jose G/Lymph Denies easy bleeding and Denies easy bruising Aller/Immun Denies wheezing Physical exam (Primary Care) Vital Signs: Last Vital Signs Pulse 77 09/10/23 15:30 Resp 17 09/10/23 15:30 BP 152/92 H 09/10/23 15:30 Pulse Ox 97 09/10/23 15:30 Oxygen Delivery Method Room Air 09/10/23 15:30 BMI result Body Mass Index 30.5 Tobacco/Smoking Status: Tobacco use Status Tobacco use date assessed 12/10/22 09/10/23 15:42 Patient Tobacco Use Status Never used Tobacco 09/10/23 15:42 e-Cigarette/Vaping Use Never Used 09/10/23 15:42 Thrive Assessment: Date of Thrive Assessment Date Thrive assessed 12/10/22 09/10/23 15:42 Const General: healthy appearing, no acute distress, alert and awake Nutritional Appearance: well nourished Orientation/consciousness: oriented to person, oriented to place and oriented to time HENMT Ears: TM's normal bilaterally General nose exam: Normal nasal mucous membranes and turbinates present Eyes Conjunctivae: conjunctivae normal Sclerae: sclerae normal Pupils: Equal, round and reactive pupils present Neck Neck: Yes no lymphadenopathy and Yes no JVD Thyroid: Thyroid normal Carotids: no bruits Resp Effort & Inspection: normal respiratory effort and not tachypneic Auscultation: no crackles, no rales, no rhonchi and no wheezes Cardio Rate: regular rate Rhythm: regular rhythm Heart sounds: no murmurs and normal S1 and S2 GI Palpation (GI): Soft to palpation, nontender, no hepatomegaly and no splenomegaly Auscultation: normal bowel sounds Skin General skin exam: no rashes or lesions noted and dry skin Neuro General: oriented to person, oriented to place and oriented to time Cranial nerves: Yes Equal, round and reactive pupils present Speech: No Abnormal speech present Gait exam (Neuro): Normal gait present Motor exam (neuro): no tremor noted Extrem Other: LEFT LOWER EXTREMITY: NOTED MINIMAL VARICOSE VEINS. NO NOTABLE SWELLING OR ERYTHEMA WITH EXCEPTION OF SMALL LOCALIZED SWELLING AROUND THE LEFT KNEE. PATIENT AMBULATING WITH AN ANTALGIC GAIT Right upper extremity: full ROM Left upper extremity: full ROM Right lower extremity: full ROM; no edema Left lower extremity: full ROM and knee; no edema Psych Mental Status: mental status grossly normal Speech and movement: Normal speech and movement present Affect: normal affect Attitude: cooperative Thought process: Normal thought process present Assessment and Plan Assessment & Plan (1) Left leg pain: Code(s): M79.605 - Pain in left leg Plan: Unclear etiology to patient's 2 week history of left leg pain causing difficulty with ambulation. Physical exam without any significant edema. She does have varicose veins noted though likely a chronic finding. Low likelyhood had for DVT. Will get x-ray of left knee and lumbar spine to evaluate for any significant arthritis or disc height loss in the lumbar spine. (2) Myalgia: Code(s): M79.10 - Myalgia, unspecified site Plan: Patient's pain is more located in the large muscle groups of the left lower extremity. Could be side effect of statin therapy. Advised to discontinue statin at this time and see if her pain gets better. Will supply patient with prednisone taper. Will send for basic metabolic panel and creatinine kinase (3) Hypertension: Comment: Cardiac catheterization July 2014 minimal coronary artery disease Code(s): I10 - Essential (primary) hypertension Qualifiers: Hypertension type: unspecified Qualified Code(s): I10 - Essential (primary) hypertension Plan: Noted elevated blood pressure today in office. ? Due to pain. She does not generally check her blood pressure at home. Continues on lisinopril 10 mg. Considering increasing her lisinopril to 20 mg though reach out to PCP for okay and has. Goal blood pressures to be below 140/90 Orders: Orders Basic Metabolic Panel 09/10/23 M79.10 - Myalgia, unspecified site XR lumbar spine 2-3V 09/10/23 M54.50 - Low back pain, unspecified Creatine Kinase Total 09/10/23 M79.10 - Myalgia, unspecified site XR knee LT 3V 09/10/23 M79.605 - Pain in left leg Medications: New prednisone see taper instructions 10 mg PO DIRECTED 6 days 12 tabs 0RF M79.10 - Myalgia, unspecified site miscellaneous medical supply (Blood Pressure Cuff) Testing once a day 1 ea 0RF I10 - Essential (primary) hypertension cane As directed 1 ea 0RF R26.81 - Unsteadiness on feet Coding Level of Care Code Est Pt Level 4 (66157) Diagnoses Left leg pain M79.605 Myalgia M79.10 Essential hypertension I10 Hypertension type: unspecified
== END 2023-09-10 16:51 | disposition home or self-care (01) ==
PROVIDERS: PCP Internal Medicine; Visit Provider Physician Assistant
DX: M79.605 Pain in left leg (principal); M79.10 Myalgia, unspecified site; I10 Essential (primary) hypertension
CPT/HCPCS: 99214

== ENCOUNTER 2023-09-10 16:19 | Outpatient (REF) | payer MEDICARE, MEDICAID, SELFPAY ==
[2023-07-29 14:38] VITALS: BMI 30.3
--- NOTE | ~2023-09-10 | XR_ITS ---
EXAMINATION: XR LUMBOSACRAL SPINE CLINICAL INFORMATION: Low back pain COMPARISON: None available. TECHNIQUE: Three views of the lumbosacral spine. FINDINGS: 5 nonrib-bearing lumbar-type vertebral bodies. No acute visible fracture or dislocation. Mild dextro curvature of the lower lumbar spine. Mild multilevel degenerative changes with osteophyte formation and lower lumbar spine facet arthropathy. Vertebral body heights and disc spaces are otherwise maintained. Posterior elements are intact. Paraspinal soft tissues unremarkable. Visualized bowel gas is unremarkable. XR/XR lumbar spine 2-3V IMPRESSION: 1. No acute visible fracture or dislocation. 2. Mild multilevel degenerative changes with mild dextro curvature of the lower lumbar spine.
--- NOTE | ~2023-09-10 | XR_ITS ---
EXAMINATION: XR KNEE, LEFT CLINICAL INFORMATION: Pain COMPARISON: Bilateral knee standing radiograph from 01/02/2016 TECHNIQUE: Three views of the left knee. FINDINGS: No acute visible fracture or dislocation. Mild narrowing of the medial femorotibial compartment. Mild narrowing of the medial and lateral patellofemoral compartment. Periarticular osteophytes involving the patella. Joint space alignment are otherwise maintained. No large knee joint effusion. Soft tissues are unremarkable. XR/XR knee LT 3V IMPRESSION: 1. No acute visible fracture or dislocation. 2. Mild multicompartment degenerative changes.
== END 2023-09-10 16:20 | disposition home or self-care (01) ==
LOC: HO.XRAY 16:19
PROVIDERS: PCP Internal Medicine; Visit Provider Physician Assistant
DX: M54.50 Low back pain, unspecified (principal); M79.605 Pain in left leg
CPT/HCPCS: 72100; 73562

== ENCOUNTER 2023-10-29 08:50 | Outpatient (AMB) | payer MEDICARE, MEDICAID, SELFPAY ==
[2023-10-29 09:10] VITALS: BP 174/116; PULSE 75; O2SAT 96; BMI 30.8
--- NOTE | 2023-10-29 09:10 | A.OFFPC_ITS ---
Vital Signs 10/29/23 09:10 10/29/23 10:10 Height 5 ft 2 in Weight 168 lb 6 oz BMI 30.8 BP 174/116 H 150/90 H Blood Pressure Location Rt femoral Lt brachial Position Sitting Sitting Pulse 75 Pulse Source Pulse Oximeter Pulse Oximetry (%) 96 Oxygen Delivery Method Room Air Intake Visit Reasons: asthma, osteoporosis Transit Planner Required: No Accompanied by: Self / Same As Patient Allergies pneumococcal vaccine [PNEUMOCOCCAL VACCINE] Allergy (Severe, Verified 10/29/23 09:11) SWELLING, rash atorvastatin [From LIPITOR] Allergy (Intermediate, Verified 10/29/23 09:11) LIP SWELLING, hives, lip swelling dupilumab [Dupixent] Allergy (Unknown, Verified 10/29/23 09:11) PUGH fluticasone [Advair Diskus] Allergy (Unknown, Verified 10/29/23 09:11) unknown Iodinated Contrast Media Allergy (Unknown, Verified 10/29/23 09:11) unknown metoprolol Allergy (Unknown, Verified 10/29/23 09:11) hives morphine Allergy (Unknown, Verified 10/29/23 09:11) RASH salmeterol [Advair Diskus] Allergy (Unknown, Verified 10/29/23 09:11) unknown verapamil Allergy (Unknown, Verified 10/29/23 09:11) Unknown Medication List - Last Reconciled 10/29/23 by Lakia Whalen MD albuterol sulfate 90 mcg/actuation 2 puffs inhalation Q6H PRN cane As directed epinephrine (EpiPen 2-Masoud) 0.3 mg (0.3 mL) IM Q4H PRN fexofenadine 180 mg PO DAILY Incruse Ellipta 62.5 mcg/actuation (umeclidinium) 1 inh inhalation DAILY NS ipratropium-albuterol 0.5 mg-3 mg(2.5 mg base)/3 mL 3 mL inhalation Q6H PRN 30 days lisinopril 20 mg PO DAILY 90 days meloxicam 7.5 mg PO DAILY mepolizumab 100 mg subcut Q4W miscellaneous medical supply (Blood Pressure Cuff) Testing once a day nitrofurantoin monohyd/m-cryst 100 mg (Macrobid) 100 mg PO BID 5 days prednisone 10 mg PO DIRECTED 6 days rosuvastatin 10 mg PO DAILY Tobacco use date assessed: 12/10/22 Fall risk assessment: No Falls in past year Last assessed Fall Risk: 10/29/23 Dental Screening Dental Screen Date: 10/29/23 Did you have a dental visit in the last 12 months?: Yes Did you have a dental problem in the last 6 months where you did not have access to dental care?: No Was dental information given to patient?: Patient has dentist HPI asthma, osteoporosis HPI Details 68-year-old obese female with severe per sistent allergic asthma hypertension hypercholesterolemia GERD generalized anxiety disorder osteoporosis coming in for follow-up. Last seen in July 2023. Patient has colonoscopy is up-to-date mammogram up-to-date Pap smear is up-to-date bone density August 2023. Patient had some recent x-rays lower back showing mild multilevel degenerative changes as well as the knee having mild multi compartment degenerative changes. As for the asthma patient follows up with Pulmonary placed on pulmonary rehab. [facility] Medical History (Updated 10/29/23 @ 10:08 by Lakia Whalen MD) Dysuria Asthma exacerbation Back pain Colon cancer screening Facial dermatitis Mass of arm Cellulitis, leg Overweight (BMI 25.0-29.9) Acute asthma exacerbation Adult general medical exam Post-menopausal Screening for diabetes mellitus Bronchitis Allergic rhinitis Allergic rhinitis Hypercholesterolemia Hypertension Urinary incontinence Vitamin D deficiency Migraine Anxiety Osteoporosis Osteoarthritis, knee Lichen sclerosus Atrophic vaginitis Severe persistent allergic asthma Surgical History History of cardiac cath Family History Mother No problems noted. Sister No problems noted. Father No problems noted. Sister No problems noted. Social History Household Members: Spouse Housing: House Alcohol intake: never Patient Tobacco Use Status: Never used Tobacco e-Cigarette/Vaping Use: Never Used Second Hand Smoke Exposure: No service: No Current occupational status: unemployed Current occupation: Lt handed Cognitive needs: No Hearing needs: No Vision needs: No Female Reproductive History Menstrual Age of Menarche: 13 Questionnaire Thrive Questionnaire Date Thrive assessed: 12/10/22 AJAY-7 AMB Questionnaire AJAY-7 Date AJAY - 7 assessed: 12/10/22 Source: Developed by Drs. Spike L. DavidRuth odell, Clint Esteves and colleagues, with an educational andrés from [employer]. Physical exam (Primary Care) Vital Signs: Last Vital Signs Pulse 75 10/29/23 09:10 BP 174/116 H 10/29/23 09:10 Pulse Ox 96 10/29/23 09:10 Oxygen Delivery Method Room Air 10/29/23 09:10 BMI result Body Mass Index 30.8 Tobacco/Smoking Status: Tobacco use Status Tobacco use date assessed 12/10/22 10/29/23 09:12 Patient Tobacco Use Status Never used Tobacco 10/29/23 09:12 e-Cigarette/Vaping Use Never Used 10/29/23 09:12 Thrive Assessment: Date of Thrive Assessment Date Thrive assessed 12/10/22 10/29/23 09:12 Const General: alert; No acute distress Eyes Conjunctivae: conjunctivae normal Resp Auscultation: clear to auscultation bilaterally Cardio Rate: regular rate Rhythm: regular rhythm GI Inspection: Yes normal to inspection Extrem General: Yes normal to inspection and No edema Assessment and Plan Assessment & Plan (1) Severe persistent allergic asthma: Code(s): J45.50 - Severe persistent asthma, uncomplicated Plan: Patient follows up with Pulmonary on pulmonary rehab as well as on mepolizumab (2) Hypertension: Comment: Cardiac catheterization July 2014 minimal coronary artery disease Code(s): I10 - Essential (primary) hypertension Qualifiers: Hypertension type: unspecified Qualified Code(s): I10 - Essential (primary) hypertension Plan: Continue with blood pressure medication. Decrease salt intake and exercise takes lisinopril 20 mg once a day BP on the watch advised not to follow but advised to check at home and record (3) Hypercholesterolemia: Code(s): E78.00 - Pure hypercholesterolemia, unspecified Plan: Avoid fried foods, chicken skin, eggs, butter margarine, pastries and meat. Be it pork or beef they have a lot of cholesterol LDL goal of less than 130 and triglyceride of less than 150 presently on rosuvastatin 10 mg once a day (4) Generalized anxiety disorder: Code(s): F41.1 - Generalized anxiety disorder Plan: Will continue to monitor (5) GERD (gastroesophageal reflux disease): Code(s): K21.9 - Gastro-esophageal reflux disease without esophagitis Plan: Avoid the foods that causes that usually spicy foods, tomato products, juices, coffee, soda and foods that your sensitive to. After eating do not lie down, allow 3-4 hours before in lie down. And keep the head of bed above 30 degrees to avoid the acid from going up. (6) Obesity (BMI 30.0-34.9): Code(s): E66.9 - Obesity, unspecified Plan: Diet and exercise (7) Osteoporosis: Comment: July 2021 bone density, August 2023 Code(s): M81.0 - Age-related osteoporosis without current pathological fracture Plan: Discussion about treatment of bone density (8) Osteoarthritis of knees, bilateral: Code(s): M17.0 - Bilateral primary osteoarthritis of knee Plan: Keep active lose the weight (9) Lumbar degenerative disc disease: Code(s): M51.36 - Other intervertebral disc degeneration, lumbar region Plan: Keep active and lose the weight Orders: Orders Comprehensive Met. Panel 3 Months E78.00 - Pure hypercholesterolemia, unspecified Hemoglobin A1c 3 Months E78.00 - Pure hypercholesterolemia, unspecified Lipid Panel 3 Months E78.00 - Pure hypercholesterolemia, unspecified Medications: New ezetimibe (Zetia) 10 mg PO DAILY 30 tabs 3RF E78.00 - Pure hypercholesterolemia, unspecified Changed From meloxicam 7.5 mg PO DAILY 90 tabs 0RF M79.604 - Pain in right leg, M79.605 - Pain in left leg To meloxicam 15 mg PO DAILY 30 tabs 1RF M79.604 - Pain in right leg, M79.605 - Pain in left leg Refilled lisinopril 20 mg PO DAILY 90 days 90 tabs 2RF E78.00 - Pure hypercholesterolemia, unspecified Coding Level of Care Code Est Pt Level 4 (44913) Diagnoses Severe persistent allergic asthma J45.50 Essential hypertension I10 Hypertension type: unspecified Hypercholesterolemia E78.00 Generalized anxiety disorder F41.1 GERD (gastroesophageal reflux disease) K21.9 Obesity (BMI 30.0-34.9) E66.9 Osteoporosis M81.0 Osteoarthritis of knees, bilateral M17.0 Lumbar degenerative disc disease M51.36
[2023-10-29 10:10] VITALS: BP 150/90
== END 2023-10-29 10:25 | disposition home or self-care (01) ==
PROVIDERS: PCP Internal Medicine; Visit Provider Internal Medicine
DX: J45.50 Severe persistent asthma, uncomplicated (principal); E66.9 Obesity, unspecified; I10 Essential (primary) hypertension; Z68.30 Body mass index [BMI] 30.0-30.9, adult; E78.00 Pure hypercholesterolemia, unspecified; F41.1 Generalized anxiety disorder; K21.9 Gastro-esophageal reflux disease without esophagitis; M81.0 Age-related osteoporosis without current pathological fracture; M17.0 Bilateral primary osteoarthritis of knee; M51.36 Other intervertebral disc degeneration, lumbar region
CPT/HCPCS: 99214

== ENCOUNTER 2023-10-30 12:55 | Outpatient (AMB) | payer MEDICARE, MEDICAID, SELFPAY ==
--- NOTE | 2023-10-30 13:11 | MHC.OFFVIS ---
Intake Vital Signs 10/30/23 13:12 Height 5 ft 2 in Weight 170 lb 13.732 oz BMI 31.2 BP 132/82 Blood Pressure Location Rt brachial Position Sitting Pulse 80 Pulse Source Doppler Pulse Oximetry (%) 98 Oxygen Delivery Method Room Air Intake Visit Reasons: persistent cough/congestion Allergies pneumococcal vaccine [PNEUMOCOCCAL VACCINE] Allergy (Severe, Verified 10/30/23 13:13) SWELLING, rash atorvastatin [From LIPITOR] Allergy (Intermediate, Verified 10/30/23 13:13) LIP SWELLING, hives, lip swelling dupilumab [Dupixent] Allergy (Unknown, Verified 10/30/23 13:13) PUGH fluticasone [Advair Diskus] Allergy (Unknown, Verified 10/30/23 13:13) unknown Iodinated Contrast Media Allergy (Unknown, Verified 10/30/23 13:13) unknown metoprolol Allergy (Unknown, Verified 10/30/23 13:13) hives morphine Allergy (Unknown, Verified 10/30/23 13:13) RASH salmeterol [Advair Diskus] Allergy (Unknown, Verified 10/30/23 13:13) unknown verapamil Allergy (Unknown, Verified 10/30/23 13:13) Unknown HPI persistent cough/congestion HPI Details 68-year-old lady, lifetime nonsmoker, followed for severe persistent asthma with significant allergic component. Patient continues on her current regimen of Symbicort, Spiriva, Singulair, albuterol MDI, duo nebs, and Nucala. She does complain of an acute bronchitic exacerbation symptomatic with significant wheezing and chest tightness. [facility] Medical History (Updated 10/29/23 @ 10:08 by Lakia Whalen MD) Dysuria Asthma exacerbation Back pain Colon cancer screening Facial dermatitis Mass of arm Cellulitis, leg Overweight (BMI 25.0-29.9) Acute asthma exacerbation Adult general medical exam Post-menopausal Screening for diabetes mellitus Bronchitis Allergic rhinitis Allergic rhinitis Hypercholesterolemia Hypertension Urinary incontinence Vitamin D deficiency Migraine Anxiety Osteoporosis Osteoarthritis, knee Lichen sclerosus Atrophic vaginitis Severe persistent allergic asthma Surgical History History of cardiac cath Family History Mother No problems noted. Sister No problems noted. Father No problems noted. Sister No problems noted. Social History Household Members: Spouse Housing: House Alcohol intake: never Patient Tobacco Use Status: Never used Tobacco e-Cigarette/Vaping Use: Never Used Second Hand Smoke Exposure: No service: No Current occupational status: unemployed Current occupation: Lt handed Cognitive needs: No Hearing needs: No Vision needs: No Female Reproductive History Menstrual Age of Menarche: 13 Review of Systems Const Denies daytime sleepiness, Denies excessive sweating, Denies fatigue, Denies fever(s), Denies lethargy, Denies malaise, Denies night sweats, Denies snoring and Denies weight loss Eyes Denies blurry vision and Denies itchy eyes ENT Denies nasal congestion, Denies post nasal drip, Denies sinus pain, Denies sinus pressure and Denies other ( Thrush) Card Denies chest pain, Denies pedal edema, Denies dyspnea, Reports dyspnea on exertion, Denies orthopnea and Denies paroxysmal nocturnal dyspnea Resp Denies cough, Denies hemoptysis, Denies excessive phlegm production, Denies dyspnea, Reports dyspnea on exertion, Denies snoring and Reports wheezing GI Denies abdominal pain and Denies heartburn Musc Denies myalgias, Denies arthralgias and Denies joint swelling Skin/Breast Denies rash Neuro Denies memory loss and Denies seizure-like activity Psych Denies abnormal sleep pattern, Denies anxiety and Denies memory loss Endo Denies excessive sweating, Denies fatigue and Denies heat intolerance Jose G/Lymph Denies easy bruising Aller/Immun Denies itchy eyes, Denies seasonal rhinorrhea and Reports wheezing Physical Exam Vital Signs: Last Vital Signs Pulse 80 10/30/23 13:12 BP 132/82 10/30/23 13:12 Pulse Ox 98 10/30/23 13:12 Oxygen Delivery Method Room Air 10/30/23 13:12 BMI result Body Mass Index 31.2 Const General: no acute distress and alert Nutritional Appearance: not obese Orientation/consciousness: Other orientation findings ( oriented) HEENT Head: Yes atraumatic Eyes General: appearance normal, both eyes and all related structures Sclerae: sclerae normal EOM: EOMs intact bilaterally Neck Neck: Yes supple Lymphatic: no lymphadenopathy noted Resp Effort & Inspection: normal respiratory effort and no use of accessory muscles Auscultation: wheezes expiratory wheezes Cardio Rate: regular rate Rhythm: regular rhythm Heart sounds: no gallops, no murmurs and no rubs Skin General skin exam: other ( warm) Extrem General: No clubbing, No cyanosis and No edema Assessment & Plan Assessment & Plan (1) Severe persistent allergic asthma: Code(s): J45.50 - Severe persistent asthma, uncomplicated Plan: Baseline well controlled on Nucala, Incruse, Symbicort, duo nebs, and albuterol MDI. Continue current regimen. Now with bronchitic exacerbation, will treat with a course of prednisone. (2) Environmental and seasonal allergies: Code(s): J30.89 - Other allergic rhinitis Plan: Well controlled on Nucala. Continue current regimen. Medications: New prednisone Take four tabs daily for 5 days, then go down by 1 tab every 5 days 10 mg PO DIRECTED 50 tabs 0RF Discontinued prednisone see taper instructions Discontinued Reason: Doctor's Order 10 mg PO DIRECTED 6 days 12 tabs 0RF M79.10 - Myalgia, unspecified site Coding Level of Care Code Est Pt Level 4 (06381) Diagnoses Severe persistent allergic asthma J45.50 Environmental and seasonal allergies J30.89
[2023-10-30 13:12] VITALS: BP 132/82; PULSE 80; O2SAT 98; BMI 31.2
== END 2023-10-30 13:57 | disposition home or self-care (01) ==
PROVIDERS: PCP Internal Medicine; Visit Provider Internal Medicine Pulmonary Disease
DX: J45.50 Severe persistent asthma, uncomplicated (principal); J30.89 Other allergic rhinitis
CPT/HCPCS: 99214

== ENCOUNTER → 2023-10-30 12:55 | Outpatient (BNVA) | payer MEDICARE, SELFPAY | PROVIDERS: PCP Internal Medicine; Visit Provider Internal Medicine Pulmonary Disease | DX: J45.50 Severe persistent asthma, uncomplicated (principal); J30.89 Other allergic rhinitis | CPT/HCPCS: 94640; 96372; 99212; J2930 ==

== ENCOUNTER 2023-11-12 12:37 | Outpatient (AMB) | payer MEDICARE, SELFPAY ==
[2023-07-29 14:38] VITALS: BMI 30.3
[2023-11-12 12:55] VITALS: BP 140/76; PULSE 83; BMI 31.2
--- NOTE | 2023-11-12 12:55 | MHC.OFFVIS ---
Intake Vital Signs 11/12/23 12:55 Height 5 ft 2 in Weight 170 lb 10.205 oz BMI 31.2 BP 140/76 H Blood Pressure Location Lt brachial Position Sitting Pulse 83 Intake Visit Reasons: NPV/Chest Pain/Po Intake Note: NPV Hvac Installation Technician Required: No Accompanied by: Self / Same As Patient Allergies pneumococcal vaccine [PNEUMOCOCCAL VACCINE] Allergy (Severe, Verified 11/12/23 12:56) SWELLING, rash atorvastatin [From LIPITOR] Allergy (Intermediate, Verified 11/12/23 12:56) LIP SWELLING, hives, lip swelling dupilumab [Dupixent] Allergy (Unknown, Verified 11/12/23 12:56) PUGH fluticasone [Advair Diskus] Allergy (Unknown, Verified 11/12/23 12:56) unknown Iodinated Contrast Media Allergy (Unknown, Verified 11/12/23 12:56) unknown metoprolol Allergy (Unknown, Verified 11/12/23 12:56) hives morphine Allergy (Unknown, Verified 11/12/23 12:56) RASH salmeterol [Advair Diskus] Allergy (Unknown, Verified 11/12/23 12:56) unknown verapamil Allergy (Unknown, Verified 11/12/23 12:56) Unknown Medication List - Last Reconciled 11/12/23 by Devan Barber MD albuterol sulfate 90 mcg/actuation 2 puffs inhalation Q6H PRN cane As directed epinephrine (EpiPen 2-Masoud) 0.3 mg (0.3 mL) IM Q4H PRN ezetimibe (Zetia) 10 mg PO DAILY fexofenadine 180 mg PO DAILY Incruse Ellipta 62.5 mcg/actuation (umeclidinium) 1 inh inhalation DAILY NS ipratropium-albuterol 0.5 mg-3 mg(2.5 mg base)/3 mL 3 mL inhalation Q6H PRN 30 days lisinopril 20 mg PO DAILY 90 days meloxicam 15 mg PO DAILY mepolizumab 100 mg subcut Q4W miscellaneous medical supply (Blood Pressure Cuff) Testing once a day nitrofurantoin monohyd/m-cryst 100 mg (Macrobid) 100 mg PO BID 5 days prednisone 10 mg PO DIRECTED rosuvastatin 10 mg PO DAILY HPI HPI Comments History of Present Illness Details Tita is here for consultation regarding chest pains. She states that she has had a few episodes of chest pain that feels like some sharp sensations in the left side of chest. On one occasion, she states that she felt so pale and could not do anything for a while. Difficult to say if it is exertional or not, but apparently happened once when she was doing some water exercises. No known coronary disease myocardial infarction. Cardiovascular risk factors including hypertension and dyslipidemia. [facility] Medical History (Updated 11/12/23 @ 13:04 by Devan Babrer MD) Dysuria Asthma exacerbation Back pain Colon cancer screening Facial dermatitis Mass of arm Cellulitis, leg Overweight (BMI 25.0-29.9) Acute asthma exacerbation Adult general medical exam Post-menopausal Screening for diabetes mellitus Bronchitis Allergic rhinitis Allergic rhinitis Hypercholesterolemia Hypertension Urinary incontinence Vitamin D deficiency Migraine Anxiety Osteoporosis Osteoarthritis, knee Lichen sclerosus Atrophic vaginitis Severe persistent allergic asthma Surgical History History of cardiac cath Family History Mother No problems noted. Sister No problems noted. Father No problems noted. Sister No problems noted. Social History Household Members: Spouse Housing: House Alcohol intake: never Patient Tobacco Use Status: Never used Tobacco e-Cigarette/Vaping Use: Never Used Second Hand Smoke Exposure: No service: No Current occupational status: unemployed Current occupation: Lt handed Cognitive needs: No Hearing needs: No Vision needs: No Female Reproductive History Menstrual Age of Menarche: 13 Review of Systems Const Denies chills, Denies daytime sleepiness, Denies fatigue, Denies fever(s), Denies frequent falls, Denies night sweats, Denies snoring, Denies weakness, Denies weight gain and Denies weight loss Eyes Denies loss of vision ENT Denies dizziness and Denies hearing loss Card Denies syncope, Denies rapid heart rate, Denies edema, Denies claudication, Denies leg edema, Denies lightheadedness, Denies palpitations and Denies orthopnea Resp Denies cough, Denies excessive phlegm production, Denies snoring and Denies wheezing GI Denies abdominal pain, Denies hematochezia, Denies change in bowel habits, Denies change in stool character, Denies heartburn, Denies nausea and Denies vomiting Denies hematuria, Denies urinary frequency and Denies dysuria Musc Denies arthralgias, Denies muscle weakness, Denies numbness and Denies tingling Skin/Breast Denies nail changes and Denies rash Neuro Denies Abnormal speech present, Denies dizziness, Denies syncope, Denies frequent falls, Denies loss of vision, Denies memory loss, Denies numbness, Denies tingling and Denies weakness Psych Denies depression and Denies memory loss Endo Denies fatigue and Denies palpitations Aller/Immun Denies wheezing Physical Exam Vital Signs: Last Vital Signs Pulse 83 11/12/23 12:55 BP 140/76 H 11/12/23 12:55 BMI result Body Mass Index 31.2 Const General: comfortable and no acute distress Orientation/consciousness: patient oriented x3 HEENT Other: Unremarkable Head: Yes normal to inspection Neck Neck: Yes normal visual inspection Chest Chest palpation & inspection: normal inspection of the chest Resp Auscultation: clear to auscultation bilaterally Cardio Palpation: normal PMI Heart sounds: S1 normal heart sound present, S2 normal heart sound present, no gallops, no murmurs and no rubs GI Palpation (GI): Soft to palpation Back/Spine/Pelvis Other: unremarkable Skin General skin exam: no rashes or lesions noted Neuro General: patient oriented x3 Speech: No Abnormal speech present Extrem General: Yes normal to inspection Psych Mental Status: mental status grossly normal Assessment & Plan Assessment & Plan (1) Precordial chest pain: Code(s): R07.2 - Precordial pain Plan EKG with sinus, 73/Min; no significant ST-T changes and otherwise unremarkable. Normal ND and corrected QT. High sensitivity troponins are within normal limits. Somewhat atypical symptoms but has risk factors. We can get echocardiogram and stress test and then based on the findings can plan further care. Orders: Orders CA echo transthoracic complete Today R07.2 - Precordial pain CA echo stress exercise Today R07.2 - Precordial pain Coding Level of Care Code New Pt Level 3 (15411) Diagnoses Precordial chest pain R07.2
== END 2023-11-12 13:21 | disposition home or self-care (01) ==
PROVIDERS: PCP Internal Medicine; Visit Provider Internal Medicine
DX: R07.2 Precordial pain (principal)
CPT/HCPCS: 99203

== ENCOUNTER → 2023-11-12 12:37 | Outpatient (BNVA) | payer MEDICARE, SELFPAY | PROVIDERS: PCP Internal Medicine; Visit Provider Internal Medicine | DX: R07.2 Precordial pain (principal) | CPT/HCPCS: 99202 ==

== ENCOUNTER 2023-11-28 | Outpatient (REF) | payer OTHER, SELFPAY | END 2023-11-28 00:01 | LOC: HO.MDS | PROVIDERS: Visit Provider Internal Medicine Pulmonary Disease | DX: J45.50 Severe persistent asthma, uncomplicated (principal) ==

== ENCOUNTER → 2023-12-02 10:12 | Outpatient (REF) | payer OTHER, SELFPAY ==
--- NOTE | 2023-12-02 10:15 | CA_ITS ---
Transthoracic Echocardiogram Patient (Last, First, Middle): Tita Morris, Gender: Female Date of : 1955 Age: 68 Procedure Date: 12/02/2023 Procedure Type: Transthoracic Echocardiogram Location: OP Height: 160.02 cm Weight: 77.11 kg BSA: 1.80 m2 Heart Rate: bpm BP: 140 / 80 mmHg Electromagnet Crane Operator: OSKAR Referring MD: Devan Barber MD Symptoms: R07.2 - Precordial pain Study Quality: Adequate ECG Rhythm: Sinus Conclusions: - The left ventricular systolic function is normal. The visually estimated ejection fraction is between 60-65%. - No obvious valvular pathology seen on this study. Findings Left Ventricle Normal left ventricular cavity size. There is normal left ventricular wall thickness. The left ventricular systolic function is normal. The visually estimated ejection fraction is between 60-65%. There is no evidence of regional wall motion abnormalities. Evidence suggests grade I (mild) diastolic dysfunction. LV peak GLS -19.6%. Right Ventricle Normal right ventricular cavity size and systolic function. Atria Both atria are normal in size. Aortic Valve There is a normal trileaflet aortic valve. There is mild calcification of the aortic valve. There is no aortic valve stenosis. There is trace (trivial) aortic valve regurgitation. Mitral Valve The mitral valve appears normal. There is trace mitral valve regurgitation. There is no mitral valve stenosis. Pulmonic Valve The pulmonic valve is likely normal. Tricuspid Valve Normal tricuspid valve structure. There is mild tricuspid valve regurgitation. There is no evidence of pulmonary hypertension. Great Vessels The asc aorta is normal in size. Venous The inferior vena cava is normal in size and collapses greater than 50% with inspiration. Pericardium/Pleural There is no evidence of pericardial effusion. Prior Study Comparison Changes noted compared to prior study dated: 07/28/2002. RVSP lower. Recommendations, Care & Conclusions No obvious valvular pathology seen on this study. Measurements 2D Linear Measurements IVSd: 1.01 0.6-0.9/0.6-1.0 cm LVIDd: 4.18 3.9-5.3/4.2-5.9 cm LVIDd Index: 2.32 2.4-3.2/2.2-3.1 cm/m2 LVIDs: 3.06 2.0-3.6 cm LVPWd: 0.88 0.7-1.1 cm LA Diam: 2.70 2.7-3.8/3.0-4.0 cm LAIDs Index: 1.50 1.5-2.3 cm/m2 LV Mass: 156.75 67-162/88-224 g LV Mass Index: 87.09 43-95/49-115 g/m2 LVOT Diam: 1.80 3.0+(-)1.3 cm 2D Systolic Function EF 4C: 66.90 >55% EF 2C: 69.20 >55% EF BiP: 66.40 >55% Mitral Valve MV Pk E: 0.73 MV PK A: 1.07 MV Decel Time: 222.00 E/A: 0.70 E'Lateral: 5.22 E'Medial: 4.57 E/E' Med: 16.00 E/E' Lat: 14.00 PHT: 65.00 MVA PHT: 3.38 Decel Mclennan: 3.30 Aortic Valve AoV Pk Lele: 1.41 AoV Mn Lele: 0.86 AoV VTI: 0.32 AoV Pk Grad: 8.00 Aov Mn Grad: 3.00 KASI Cont.VTI: 2.20 LVOT LVOT Pk Lele: 1.06 LVOT Mn Lele: 0.75 LVOT VTI: 0.28 LVOT Pk Grad: 4.00 LVOT Mn Grad: 3.00 LVOT Diam: 1.80 LVOT Area: 2.54 Diastolic Function MV Pk E: 0.73 MV Pk A: 1.07 E/A: 0.70 E'Medial: 4.57 E/E' Med: 16.00 E' Laterial: 5.22 E/E' Lat: 14.00 Right Ventricle TAPSE (mm): 21.30 TVS' Lele: 13.10 Tricuspid Valve TR Pk Lele: 2.86 TR Pk Grad: 33.00 RA Press: 3.00 RVSP: 36.00 Great Vessels Aorta Sinus of Valsalva: 3.69 2.0-3.[address] Ridge: 2.53 1.7-3.4 cm Ao Asc: 3.60 2.1-3.4 cm Updated in Other Vendor System with Status of Final Devan Barber MD electronically signed on 12/03/2023 3:03:25 PM with status of Final
== END ==
LOC: HO.CARD 10:12
PROVIDERS: PCP Internal Medicine; Visit Provider Internal Medicine
DX: R07.2 Precordial pain (principal)
CPT/HCPCS: 93306; 93356

== ENCOUNTER → 2023-12-02 10:15 | Outpatient (BNV) | payer OTHER, SELFPAY | PROVIDERS: PCP Internal Medicine; Visit Provider Internal Medicine | DX: I36.1 Nonrheumatic tricuspid (valve) insufficiency (principal); I35.8 Other nonrheumatic aortic valve disorders | CPT/HCPCS: 93306 ==

== ENCOUNTER 2023-12-04 08:48 | Outpatient (REF) | payer OTHER, SELFPAY | END 2023-12-04 08:49 | disposition home or self-care (01) | LOC: HO.MDS 08:48 | PROVIDERS: Visit Provider Internal Medicine Pulmonary Disease | DX: J45.50 Severe persistent asthma, uncomplicated (principal) | CPT/HCPCS: 96372 ==

== ENCOUNTER → 2023-12-10 10:39 | Outpatient (REF) | payer OTHER, SELFPAY ==
--- NOTE | 2023-12-10 10:41 | CA_ITS ---
Acquisition Time: 2023-12-10 11:16:14 Total Exercise Time: 00:05:23 Test Indications: Chest Pain Medications: SEE H Protocol: JACY Max HR: 148 BPM 97% of Pred: 152 BPM Max BP: 150/084 mmHG Max Work Load: 7.0 METS Exercise stress test exercise 5 min 23 sec of Jacy protocol achieving 94% MPHR, with mild to moderate SOB, no chest discomfort, without arrhythmais, with resting HTN, lowest BP 112/78 in 3 min recovery and returned to baseline, without EKG changes. Echo images obtained by tech at rest and immedaitely post peak exercise. Definity contrast used. Test reviewed with Dr. Brown Report of chills during exercise which resolved in recovery. Referred By: Devan Barber Overread By: America Carlos
== END ==
LOC: HO.CARD 10:39
PROVIDERS: PCP Internal Medicine; Visit Provider Internal Medicine
DX: R07.2 Precordial pain (principal)
CPT/HCPCS: 93350; Q9957

== ENCOUNTER → 2023-12-10 10:41 | Outpatient (BNV) | payer OTHER, SELFPAY | PROVIDERS: PCP Internal Medicine; Visit Provider Nurse Practitioner | DX: R07.2 Precordial pain (principal); R06.02 Shortness of breath | CPT/HCPCS: 93016; 93018; 93350; 93352 ==

== ENCOUNTER 2023-12-17 16:17 | Outpatient (AMB) | payer OTHER, SELFPAY ==
--- NOTE | 2023-12-17 16:17 | MHC.PC.OV ---
Intake Visit Reasons: COVID Pos. Intake Note: pt states sore throat, cough, congestion and chest tightness. pt tested pos for COVID Allergies pneumococcal vaccine [PNEUMOCOCCAL VACCINE] Allergy (Severe, Verified 12/17/23 16:19) SWELLING, rash atorvastatin [From LIPITOR] Allergy (Intermediate, Verified 12/17/23 16:19) LIP SWELLING, hives, lip swelling dupilumab [Dupixent] Allergy (Unknown, Verified 12/17/23 16:19) PUGH fluticasone [Advair Diskus] Allergy (Unknown, Verified 12/17/23 16:19) unknown Iodinated Contrast Media Allergy (Unknown, Verified 12/17/23 16:19) unknown metoprolol Allergy (Unknown, Verified 12/17/23 16:19) hives morphine Allergy (Unknown, Verified 12/17/23 16:19) RASH salmeterol [Advair Diskus] Allergy (Unknown, Verified 12/17/23 16:19) unknown verapamil Allergy (Unknown, Verified 12/17/23 16:19) Unknown Tobacco use date assessed: 12/17/23 Fall risk assessment: No Falls in past year Last assessed Fall Risk: 12/17/23 HPI COVID Pos. HPI Details 68-year-old obese female with a history of severe persistent allergic asthma hypertension hypercholesterolemia generalized anxiety disorder GERD osteoporosis lumbar degenerative disc disease coming in for an acute problem. Patient tested positive covid 12/10/2022 called Pulmonary but was rx steroids , presently congestion , chills , blowing nose, states a lot of mucus- pain on swallowing, [facility] Medical History (Updated 12/17/23 @ 16:41 by Lakia Whalen MD) Dysuria Asthma exacerbation Back pain Colon cancer screening Facial dermatitis Mass of arm Cellulitis, leg Overweight (BMI 25.0-29.9) Acute asthma exacerbation Adult general medical exam Post-menopausal Screening for diabetes mellitus Bronchitis Allergic rhinitis Allergic rhinitis Hypercholesterolemia Hypertension Urinary incontinence Vitamin D deficiency Migraine Anxiety Osteoporosis Osteoarthritis, knee Lichen sclerosus Atrophic vaginitis Severe persistent allergic asthma Surgical History History of cardiac cath Family History Mother No problems noted. Sister No problems noted. Father No problems noted. Sister No problems noted. Social History Household Members: Spouse Housing: House Alcohol intake: never Patient Tobacco Use Status: Never used Tobacco e-Cigarette/Vaping Use: Never Used Second Hand Smoke Exposure: No service: No Current occupational status: unemployed Current occupation: Lt handed Cognitive needs: No Hearing needs: No Vision needs: No Female Reproductive History Menstrual Age of Menarche: 13 Questionnaire Thrive Questionnaire Date Thrive assessed: 12/10/22 AJAY-7 AMB Questionnaire AJAY-7 Date AJAY - 7 assessed: 12/10/22 Source: Developed by Drs. Spike Hernandez, Ruth Ortega, Clint Esteves and colleagues, with an educational andrés from [employer]. Physical exam (Primary Care) Tobacco/Smoking Status: Tobacco use Status Tobacco use date assessed 12/17/23 12/17/23 16:19 Patient Tobacco Use Status Never used Tobacco 12/17/23 16:19 e-Cigarette/Vaping Use Never Used 12/17/23 16:19 Thrive Assessment: Date of Thrive Assessment Date Thrive assessed 12/10/22 12/17/23 16:19 Telehealth Telehealth Location of provider rendering services: practice address Location of patient: address on file Patient Identification confirmed using: Name, : Yes Telehealth method: video ([phone] iphone ) Patient verbally consented to treatment: Yes Patient verbally consented to billing insurance company: Yes Patient informed of any privacy concerns related to visit: Yes Assessment and Plan Assessment & Plan (1) COVID-19 virus infection: Comment: 12/10/2023 Code(s): U07.1 - COVID-19 Plan: Patient has been 6 days past and so the antiviral is not really recommended anymore. Patient was advised Cepacol lozenges to help with the pain of the sore throat Mucinex to help bring up the phlegm and nasal spray to help with congestion. Medications: New benzocaine-menthol 15-3.6 mg (Cepacol Sore Throat (benzocaine-menthol)) 1 brandon mucous membrane Q2-4H PRN 16 ea 1RF sore throat mometasone 50 mcg/actuation (Nasonex 24hr Allergy) administer into each nostril 2 sprays intranasal DAILY PRN 17 grams 0RF nasal congestion guaifenesin ER (Mucinex) 600 mg PO Q12H PRN 20 tabs 1RF congestion U07.1 - COVID-19 Coding Level of Care Code Est Pt Level 3 (62319) Diagnoses COVID-19 virus infection U07.1
== END 2023-12-17 17:24 | disposition home or self-care (01) ==
LOC: HO.HMGH 16:17
PROVIDERS: PCP Internal Medicine; Visit Provider Internal Medicine
DX: U07.1 COVID-19 (principal)
CPT/HCPCS: 99213

== ENCOUNTER 2024-01-01 08:17 | Outpatient (REF) | payer OTHER, SELFPAY | END 2024-01-01 08:18 | disposition home or self-care (01) | LOC: HO.MDS 08:17 | PROVIDERS: Visit Provider Internal Medicine Pulmonary Disease | DX: J45.50 Severe persistent asthma, uncomplicated (principal) | CPT/HCPCS: 96372 ==

== ENCOUNTER 2024-01-02 09:02 | Outpatient (AMB) | payer MEDICARE, SELFPAY ==
[2024-01-02 09:05] VITALS: BP 140/82; PULSE 75; BMI 30.6
--- NOTE | 2024-01-02 09:05 | A.OFFVIS_ITS ---
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 Allergies pneumococcal vaccine [PNEUMOCOCCAL VACCINE] Allergy (Severe, Verified 01/02/24 09:07) SWELLING, rash atorvastatin [From LIPITOR] Allergy (Intermediate, Verified 01/02/24 09:07) LIP SWELLING, hives, lip swelling dupilumab [Dupixent] Allergy (Unknown, Verified 01/02/24 09:07) PUGH fluticasone [Advair Diskus] Allergy (Unknown, Verified 01/02/24 09:07) unknown Iodinated Contrast Media Allergy (Unknown, Verified 01/02/24 09:07) unknown metoprolol Allergy (Unknown, Verified 01/02/24 09:07) hives morphine Allergy (Unknown, Verified 01/02/24 09:07) RASH salmeterol [Advair Diskus] Allergy (Unknown, Verified 01/02/24 09:07) unknown verapamil Allergy (Unknown, Verified 01/02/24 09:07) Unknown Medication List - Last Reconciled 01/02/24 by Kayla Jensen, PHOTOGRAPHIC RESTORER-C albuterol sulfate 90 mcg/actuation 2 puffs inhalation Q6H PRN benzocaine-menthol 15-3.6 mg (Cepacol Sore Throat (benzocaine-menthol)) 1 brandon mucous membrane Q2-4H PRN cane As directed epinephrine (EpiPen 2-Masoud) 0.3 mg (0.3 mL) IM Q4H PRN ezetimibe (Zetia) 10 mg PO DAILY fexofenadine 180 mg PO DAILY guaifenesin ER (Mucinex) 600 mg PO Q12H PRN Incruse Ellipta 62.5 mcg/actuation (umeclidinium) 1 inh inhalation DAILY NS ipratropium-albuterol 0.5 mg-3 mg(2.5 mg base)/3 mL 3 mL inhalation Q6H PRN 30 days lisinopril 20 mg PO DAILY 90 days meloxicam 15 mg PO DAILY mepolizumab 100 mg subcut Q4W miscellaneous medical supply (Blood Pressure Cuff) Testing once a day mometasone 50 mcg/actuation (Nasonex 24hr Allergy) 2 sprays intranasal DAILY PRN nitrofurantoin monohyd/m-cryst 100 mg (Macrobid) 100 mg PO BID 5 days prednisone 10 mg PO DIRECTED rosuvastatin 10 mg PO DAILY [shower hand rails. As directed] HPI f/up stress echo HS 2 HPI Details Laurence is a 68-year-old female with past medical history of hypertension, hyperlipidemia who was being evaluated for chest discomfort. She recently underwent an echocardiogram and stress test and now presents for follow-up. Today she reports that she does have some left-sided chest discomfort that is worse with coughing and palpation of the area. She describes having COPD which makes her cough frequently. She reports muscle soreness in other areas of her chest wall as well. She has no clear discomfort brought on by walking or stair climbing. No heart palpitations, lightheadedness, presyncope, syncope, PND, orthopnea or edema. She has chronic shortness of breath with exertion with no recent change. Takes meds as directed. [facility] Medical History Dysuria Asthma exacerbation Back pain Colon cancer screening Facial dermatitis Mass of arm Cellulitis, leg Overweight (BMI 25.0-29.9) Acute asthma exacerbation Adult general medical exam Post-menopausal Screening for diabetes mellitus Bronchitis Allergic rhinitis Allergic rhinitis Hypercholesterolemia Hypertension Urinary incontinence Vitamin D deficiency Migraine Anxiety Osteoporosis Osteoarthritis, knee Lichen sclerosus Atrophic vaginitis Severe persistent allergic asthma Surgical History History of cardiac cath Family History Mother No problems noted. Sister No problems noted. Father No problems noted. Sister No problems noted. Social History Household Members: Spouse Housing: House Alcohol intake: never Patient Tobacco Use Status: Never used Tobacco e-Cigarette/Vaping Use: Never Used Second Hand Smoke Exposure: No service: No Current occupational status: unemployed Current occupation: Lt handed Cognitive needs: No Hearing needs: No Vision needs: No Female Reproductive History Menstrual Age of Menarche: 13 Review of Systems Const All systems reviewed & are unremarkable except as noted in HPI and below ENT Denies dizziness Card Details: left chest pain with cough and palpation Reports chest pain, Denies chest pain at rest, Denies chest pain with activity, Denies rapid heart rate, Denies pedal edema, Denies edema, Denies leg edema, Denies lightheadedness, Denies palpitations, Denies dyspnea, Denies dyspnea on exertion and Denies orthopnea Resp Denies cough, Denies dyspnea and Denies dyspnea on exertion GI Denies hematochezia and Denies change in stool character Musc Denies no additional complaints, Denies abnormal gait, Denies limited range of motion, Denies muscle cramps, Denies muscle weakness, Denies numbness, Denies radiating pain into limb, Denies stiffness and Denies tingling Neuro Denies abnormal gait, Denies dizziness, Denies numbness and Denies tingling Endo Denies palpitations Physical Exam Vital Signs: Last Vital Signs Pulse 75 01/02/24 09:05 BP 140/82 H 01/02/24 09:05 BMI result Body Mass Index 30.6 Const General: cooperative, healthy appearing, comfortable and no acute distress Orientation/consciousness: patient oriented x3 Neck Neck: Yes normal visual inspection and Yes no JVD Resp Effort & Inspection: normal respiratory effort Auscultation: clear to auscultation bilaterally, no crackles, no rales, no rhonchi and no wheezes Cardio Other: facial grimace to palpation of left anterior chest wall Jugular venous distension: no JVD Rate: regular rate Rhythm: regular rhythm Heart sounds: S1 normal heart sound present, S2 normal heart sound present, no murmurs and no rubs Neuro General: patient oriented x3 Extrem General: Yes normal to inspection, No no pedal edema and No calf tenderness Psych Appearance: grossly normal Mental Status: mental status grossly normal Speech and movement: Normal speech and movement present Assessment & Plan Assessment & Plan (1) Precordial chest pain: Code(s): R07.2 - Precordial pain Plan: Atypical sounding left-sided chest discomfort. Worse with cough, palpation. Seems more musculoskeletal/chest wall in nature. She has a history of cardiac catheterization in 2013 showing only minimal luminal irregularities. An echocardiogram done 12/02/2023 showed EF 60-65%, no valve abnormalities, no regional wall motion abnormalities and grade 1 diastolic dysfunction. An exercise stress echo done 12/10/2023 showed exercise over 5 minutes with shortness of breath, no EKG or echo evidence of ischemia. Test results reviewed with her in detail. Offered reassurance that her current discomfort seems most like chest wall discomfort. She states understanding. Cardiac risk factor modification reviewed including need for good blood pressure and cholesterol control. Continue physical activity as tolerated. Cardiology follow-up as needed. (2) Hypertension: Comment: Cardiac catheterization July 2014 minimal coronary artery disease Code(s): I10 - Essential (primary) hypertension Qualifiers: Hypertension type: unspecified Qualified Code(s): I10 - Essential (primary) hypertension Plan: Initially mildly elevated at 1 4082, recheck done by me 124/82. Continue lisinopril without change. Plan Time spent on chart review, documentation, interview and assessment Coding Level of Care Code Est Pt Level 3 (72307) Diagnoses Precordial chest pain R07.2 Essential hypertension I10 Hypertension type: unspecified Time Spent (min) 22
== END 2024-01-02 09:26 | disposition home or self-care (01) ==
PROVIDERS: PCP Internal Medicine; Visit Provider Nurse Practitioner Family
DX: R07.2 Precordial pain (principal); I10 Essential (primary) hypertension
CPT/HCPCS: 99213

== ENCOUNTER → 2024-01-02 09:02 | Outpatient (BNVA) | payer MEDICARE, SELFPAY | PROVIDERS: PCP Internal Medicine; Visit Provider Nurse Practitioner Family | DX: J45.50 Severe persistent asthma, uncomplicated (principal); J30.89 Other allergic rhinitis; R07.2 Precordial pain; I10 Essential (primary) hypertension | CPT/HCPCS: 99212 ==

== ENCOUNTER 2024-01-02 14:20 | Outpatient (AMB) | payer MEDICARE, SELFPAY ==
[2024-01-02 14:28] VITALS: BP 110/77; PULSE 80; O2SAT 96; BMI 30.8
--- NOTE | 2024-01-02 14:28 | MHC.OFFVIS ---
Intake Vital Signs 01/02/24 14:28 Height 5 ft 2 in Weight 168 lb 10.458 oz BMI 30.8 BP 110/77 Blood Pressure Location Lt brachial Position Sitting Pulse 80 Pulse Source Doppler Pulse Oximetry (%) 96 Oxygen Delivery Method Room Air Intake Visit Reasons: cough Allergies pneumococcal vaccine [PNEUMOCOCCAL VACCINE] Allergy (Severe, Verified 01/02/24 14:30) SWELLING, rash atorvastatin [From LIPITOR] Allergy (Intermediate, Verified 01/02/24 14:30) LIP SWELLING, hives, lip swelling dupilumab [Dupixent] Allergy (Unknown, Verified 01/02/24 14:30) PUGH fluticasone [Advair Diskus] Allergy (Unknown, Verified 01/02/24 14:30) unknown Iodinated Contrast Media Allergy (Unknown, Verified 01/02/24 14:30) unknown metoprolol Allergy (Unknown, Verified 01/02/24 14:30) hives morphine Allergy (Unknown, Verified 01/02/24 14:30) RASH salmeterol [Advair Diskus] Allergy (Unknown, Verified 01/02/24 14:30) unknown verapamil Allergy (Unknown, Verified 01/02/24 14:30) Unknown HPI cough HPI Details 68-year-old lady, lifetime nonsmoker, followed for severe persistent asthma with significant allergic component. Patient continues on her current regimen of Symbicort, Spiriva, Singulair, albuterol MDI, duo nebs, and Nucala with good baseline control of her symptoms. Patient did have recent COVID-19 approximately 2 weeks prior and now complains of persistent bronchitic symptoms. [facility] Medical History Dysuria Asthma exacerbation Back pain Colon cancer screening Facial dermatitis Mass of arm Cellulitis, leg Overweight (BMI 25.0-29.9) Acute asthma exacerbation Adult general medical exam Post-menopausal Screening for diabetes mellitus Bronchitis Allergic rhinitis Allergic rhinitis Hypercholesterolemia Hypertension Urinary incontinence Vitamin D deficiency Migraine Anxiety Osteoporosis Osteoarthritis, knee Lichen sclerosus Atrophic vaginitis Severe persistent allergic asthma Surgical History History of cardiac cath Family History Mother No problems noted. Sister No problems noted. Father No problems noted. Sister No problems noted. Social History Household Members: Spouse Housing: House Alcohol intake: never Patient Tobacco Use Status: Never used Tobacco e-Cigarette/Vaping Use: Never Used Second Hand Smoke Exposure: No service: No Current occupational status: unemployed Current occupation: Lt handed Cognitive needs: No Hearing needs: No Vision needs: No Female Reproductive History Menstrual Age of Menarche: 13 Review of Systems Const Denies daytime sleepiness, Denies excessive sweating, Denies fatigue, Denies fever(s), Denies lethargy, Denies malaise, Denies night sweats, Denies snoring and Denies weight loss Eyes Denies blurry vision and Denies itchy eyes ENT Denies nasal congestion, Denies post nasal drip, Denies sinus pain, Denies sinus pressure and Denies other ( Thrush) Card Denies chest pain, Denies pedal edema, Denies dyspnea, Denies orthopnea and Denies paroxysmal nocturnal dyspnea Resp Reports cough, Denies hemoptysis, Reports excessive phlegm production, Denies dyspnea, Denies snoring and Denies wheezing GI Denies abdominal pain and Denies heartburn Musc Denies myalgias, Denies arthralgias and Denies joint swelling Skin/Breast Denies rash Neuro Denies memory loss and Denies seizure-like activity Psych Denies abnormal sleep pattern, Denies anxiety and Denies memory loss Endo Denies excessive sweating, Denies fatigue and Denies heat intolerance Jose G/Lymph Denies easy bruising Aller/Immun Denies itchy eyes, Denies seasonal rhinorrhea and Denies wheezing Physical Exam Vital Signs: Last Vital Signs Pulse 80 01/02/24 14:28 BP 110/77 01/02/24 14:28 Pulse Ox 96 01/02/24 14:28 Oxygen Delivery Method Room Air 01/02/24 14:28 BMI result Body Mass Index 30.8 Const General: no acute distress and alert Nutritional Appearance: not obese Orientation/consciousness: Other orientation findings ( oriented) HEENT Head: Yes atraumatic Eyes General: appearance normal, both eyes and all related structures Sclerae: sclerae normal EOM: EOMs intact bilaterally Neck Neck: Yes supple Lymphatic: no lymphadenopathy noted Resp Effort & Inspection: normal respiratory effort and no use of accessory muscles Auscultation: clear to auscultation bilaterally Cardio Rate: regular rate Rhythm: regular rhythm Heart sounds: no gallops, no murmurs and no rubs Skin General skin exam: other ( warm) Extrem General: No clubbing, No cyanosis and No edema Assessment & Plan Assessment & Plan (1) Severe persistent allergic asthma: Code(s): J45.50 - Severe persistent asthma, uncomplicated Plan: Baseline controlled on Symbicort, Spiriva, Nucala, DuoNebs, and albuterol MDI. Continue current regimen. Now with post COVID bronchitic symptoms, will treat with a course of Levaquin. (2) Environmental and seasonal allergies: Code(s): J30.89 - Other allergic rhinitis Plan: Well controlled on Nucala. Continue current regimen. Medications: New levofloxacin 750 mg PO DAILY 7 tabs 0RF Discontinued nitrofurantoin monohyd/m-cryst 100 mg (Macrobid) must administer with a meal/food Discontinued Reason: Doctor's Order 100 mg PO BID 10 caps 0RF UTI 5 days Coding Level of Care Code Est Pt Level 4 (03248) Diagnoses Severe persistent allergic asthma J45.50 Environmental and seasonal allergies J30.89
== END 2024-01-02 14:55 | disposition home or self-care (01) ==
PROVIDERS: PCP Internal Medicine; Visit Provider Internal Medicine Pulmonary Disease
DX: J45.50 Severe persistent asthma, uncomplicated (principal); J30.89 Other allergic rhinitis
CPT/HCPCS: 99214

== ENCOUNTER 2024-01-29 08:40 | Outpatient (REF) | payer MEDICARE, SELFPAY ==
[2024-01-29 08:45] VITALS: BP 116/71; PULSE 75; RESP 18; TEMP 36.7; O2SAT 97; BMI 30.7
[2024-01-29] MEDS: Mepolizumab 100 MG/ML AUTO.INJCT SUBCUT (08:52)
== END 2024-01-29 08:41 | disposition home or self-care (01) ==
LOC: HO.MDS 08:40
PROVIDERS: Visit Provider Internal Medicine Pulmonary Disease
DX: J45.50 Severe persistent asthma, uncomplicated (principal)
CPT/HCPCS: 96372

== ENCOUNTER 2024-01-30 08:46 | Outpatient (AMB) | payer MEDICARE, SELFPAY ==
[2024-01-30 08:48] VITALS: BP 114/70; PULSE 68; O2SAT 100; BMI 30.4
--- NOTE | 2024-01-30 08:48 | MHC.PC.OV ---
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 Allergies pneumococcal vaccine [PNEUMOCOCCAL VACCINE] Allergy (Severe, Verified 01/30/24 08:49) SWELLING, rash atorvastatin [From LIPITOR] Allergy (Intermediate, Verified 01/30/24 08:49) LIP SWELLING, hives, lip swelling dupilumab [Dupixent] Allergy (Unknown, Verified 01/30/24 08:49) PUGH fluticasone [Advair Diskus] Allergy (Unknown, Verified 01/30/24 08:49) unknown Iodinated Contrast Media Allergy (Unknown, Verified 01/30/24 08:49) unknown metoprolol Allergy (Unknown, Verified 01/30/24 08:49) hives morphine Allergy (Unknown, Verified 01/30/24 08:49) RASH salmeterol [Advair Diskus] Allergy (Unknown, Verified 01/30/24 08:49) unknown verapamil Allergy (Unknown, Verified 01/30/24 08:49) Unknown Medication List - Last Reconciled 01/30/24 by Lakia Whalen MD albuterol sulfate 90 mcg/actuation 2 puffs inhalation Q6H PRN benzocaine-menthol 15-3.6 mg (Cepacol Sore Throat (benzocaine-menthol)) 1 brandon mucous membrane Q2-4H PRN cane As directed epinephrine (EpiPen 2-Masoud) 0.3 mg (0.3 mL) IM Q4H PRN ezetimibe (Zetia) 10 mg PO DAILY fexofenadine 180 mg PO DAILY guaifenesin ER (Mucinex) 600 mg PO Q12H PRN Incruse Ellipta 62.5 mcg/actuation (umeclidinium) 1 inh inhalation DAILY NS ipratropium-albuterol 0.5 mg-3 mg(2.5 mg base)/3 mL 3 mL inhalation Q6H PRN 30 days lisinopril 20 mg PO DAILY 90 days meloxicam 15 mg PO DAILY mepolizumab 100 mg subcut Q4W miscellaneous medical supply (Blood Pressure Cuff) Testing once a day mometasone 50 mcg/actuation (Nasonex 24hr Allergy) 2 sprays intranasal DAILY PRN [shower hand rails. As directed] Tobacco use date assessed: 01/30/24 Fall risk assessment: No Falls in past year Last assessed Fall Risk: 01/30/24 Dental Screening Dental Screen Date: 01/30/24 HPI cholesterol, asthma HPI Details 68-year-old obese female with severe persistent allergic asthma hypertension hypercholesterolemia generalized anxiety disorder GERD osteoporosis lumbar degenerative disc disease coming in for follow-up. Last spoken with in December having COVID infection. Patient's Cologuard is negative March 2019 in July 2022 mammogram is up-to-date bone density up-to-date August 2023. Patient follows up with Pulmonary December 2023 on Symbicort Spiriva Singulair albuterol Nucala advise treatment with levofloxacin 750 mg for 7 days. Patient also follows up with Cardiology cardiac catheterization 2014 minimal irregularities. Echocardiogram November 2023 EF 60-65% no valvular abnormalities grade 1 diastolic dysfunction. Stress echo 12/10/2023 no evidence of ischemia. [facility] Medical History Dysuria Asthma exacerbation Back pain Colon cancer screening Facial dermatitis Mass of arm Cellulitis, leg Overweight (BMI 25.0-29.9) Acute asthma exacerbation Adult general medical exam Post-menopausal Screening for diabetes mellitus Bronchitis Allergic rhinitis Allergic rhinitis Hypercholesterolemia Hypertension Urinary incontinence Vitamin D deficiency Migraine Anxiety Osteoporosis Osteoarthritis, knee Lichen sclerosus Atrophic vaginitis Severe persistent allergic asthma Surgical History History of cardiac cath Family History Mother No problems noted. Sister No problems noted. Father No problems noted. Sister No problems noted. Social History Household Members: Spouse Housing: House Alcohol intake: never Patient Tobacco Use Status: Never used Tobacco e-Cigarette/Vaping Use: Never Used Second Hand Smoke Exposure: No service: No Current occupational status: unemployed Current occupation: Lt handed Cognitive needs: No Hearing needs: No Vision needs: No Female Reproductive History Menstrual Age of Menarche: 13 Questionnaire Thrive Questionnaire Date Thrive assessed: 12/10/22 I am a: Patient What is your living situation today?: I have a steady place to live Within the past 12 months, did the food you bought not last and you didn't have the money to get more?: Never true Within the past 12 months, did you worry whether your food would run out before you got money to buy more?: Never true Do you have trouble paying for medicines?: No Do you have trouble getting transportation to medical appointments?: No Do you have trouble paying your heating and electricity bill?: No Do you have trouble taking care of your child, family member or friend?: No Do you have trouble with day-to-day activities such as bathing, preparing meals, shopping, managing finances, etc.?: No Are you currently unemployed and looking for a job?: No Are you interested in more education?: No Please select the resources that you would like help with: None THRIVE Score: 0 AUDIT C Alcohol Use Questionnaire (AUDIT-C) 1. How often do you have a drink containing alcohol?: Monthly or less 2. How many drinks containing alcohol do you have on a typical day when you are drinking?: 1 or 2 3. How often do you have six or more drinks on one occasion?: Never Total Score: 1 Score Reviewed/Action Taken: Yes AJAY-7 AMB Questionnaire AJAY-7 Date AJAY - 7 assessed: 01/30/24 Source: Developed by Drs. Spike Hernandez, Ruth Ortega, Clint Esteves and colleagues, with an educational andrés from [employer]. Physical exam (Primary Care) Vital Signs: Last Vital Signs Pulse 68 01/30/24 08:48 BP 114/70 01/30/24 08:48 Pulse Ox 100 01/30/24 08:48 Oxygen Delivery Method Room Air 01/30/24 08:48 BMI result Body Mass Index 30.4 Tobacco/Smoking Status: Tobacco use Status Tobacco use date assessed 01/30/24 01/30/24 08:51 Patient Tobacco Use Status Never used Tobacco 01/30/24 08:51 e-Cigarette/Vaping Use Never Used 01/30/24 08:51 Thrive Assessment: Date of Thrive Assessment Date Thrive assessed 12/10/22 01/30/24 08:51 Const General: alert; No acute distress Eyes Conjunctivae: conjunctivae normal Resp Auscultation: clear to auscultation bilaterally Cardio Rate: regular rate Rhythm: regular rhythm GI Inspection: Yes normal to inspection Extrem General: Yes normal to inspection and No edema Assessment and Plan Assessment & Plan (1) Obesity (BMI 30.0-34.9): Code(s): E66.9 - Obesity, unspecified Plan: Diet and exercise (2) Severe persistent allergic asthma: Code(s): J45.50 - Severe persistent asthma, uncomplicated Plan: Patient is being followed up by Pulmonary on albuterol Symbicort Nucala Incruse (3) Hypertension: Comment: Cardiac catheterization July 2014 minimal coronary artery disease Code(s): I10 - Essential (primary) hypertension Qualifiers: Hypertension type: unspecified Qualified Code(s): I10 - Essential (primary) hypertension (4) Hypercholesterolemia: Code(s): E78.00 - Pure hypercholesterolemia, unspecified Plan: Avoid fried foods, chicken skin, eggs, butter margarine, pastries and meat. Be it pork or beef they have a lot of cholesterol LDL goal of less than 130 and triglyceride of less than 150 patient on Zetia 10 mg once a day statin intolerant (5) Generalized anxiety disorder: Code(s): F41.1 - Generalized anxiety disorder Plan: Continue with present medication (6) GERD (gastroesophageal reflux disease): Code(s): K21.9 - Gastro-esophageal reflux disease without esophagitis Plan: Avoid the foods that causes that usually spicy foods, tomato products, juices, coffee, soda and foods that your sensitive to. After eating do not lie down, allow 3-4 hours before in lie down. And keep the head of bed above 30 degrees to avoid the acid from going up. (7) Osteoporosis: Comment: July 2021 bone density, August 2023 Code(s): M81.0 - Age-related osteoporosis without current pathological fracture Plan: Patient is up-to-date with bone density Medications: Refilled fexofenadine 180 mg PO DAILY 90 tabs 1RF Coding Level of Care Code Est Pt Level 4 (89075) Diagnoses Obesity (BMI 30.0-34.9) E66.9 Severe persistent allergic asthma J45.50 Essential hypertension I10 Hypertension type: unspecified Hypercholesterolemia E78.00 Generalized anxiety disorder F41.1 GERD (gastroesophageal reflux disease) K21.9 Osteoporosis M81.0
== END 2024-01-30 09:54 | disposition home or self-care (01) ==
PROVIDERS: PCP Internal Medicine; Visit Provider Internal Medicine
DX: J45.50 Severe persistent asthma, uncomplicated (principal); E66.9 Obesity, unspecified; I10 Essential (primary) hypertension; Z68.30 Body mass index [BMI] 30.0-30.9, adult; E78.00 Pure hypercholesterolemia, unspecified; F41.1 Generalized anxiety disorder; K21.9 Gastro-esophageal reflux disease without esophagitis; M81.0 Age-related osteoporosis without current pathological fracture
CPT/HCPCS: 99214

== ENCOUNTER 2024-01-31 07:37 | Outpatient (REF) | payer MEDICARE, SELFPAY ==
[2024-01-31 07:54] LABS: MANUAL DIFF FLAG NO
[2024-01-31 08:15] LABS: Basophils Percent Auto 0.3 % (0-2); Eosinophils Percent Auto 0.5 % (0-4); Hematocrit 44.5 % (37.0-47.0); Hemoglobin 14.7 g/dl (12.0-16.0); Imm Gran Abs Auto 0.03 X10*3/uL (0.00-0.03); Imm Gran Pct Auto 0.5 % (0.0-0.4); Lymphocytes Percent Auto 31.9 % (20-40); Mean Corpuscular Hemoglobin 28.9 pg (27.0-33.0); Mean Corpuscular Volume 87.4 fL (80.0-98.0); Mean Platelet Volume 11.2 fL (9.4-12.3); Monocytes Absolute Auto 0.4 X10*3/uL (0.1-1.2); Monocytes Percent Auto 7.1 % (2-11); Neutrophils Absolute Auto 3.7 x10*3/uL (2.0-8.3); Neutrophils Percent Auto 59.7 % (45-73); Platelet Count 278 X10*3/uL (160-400); Red Blood Count 5.09 X10*6/uL (4.20-5.50); Red Cell Distribution Width 13.2 % (11.0-16.0); White Blood Count 6.2 X10*3/uL (4.8-10.8)
[2024-01-31 08:24] LABS: Estimated Average Glucose 100 mg/dL; Hemoglobin A1c % 5.1 % (<6.0)
[2024-01-31 08:49] LABS: Alanine Aminotransferase 21 U/L (0-31); Albumin Level 4.1 g/dL (3.5-5.0); Alkaline Phosphatase 66 U/L (39-117); Anion Gap 12 (12-20); Aspartate Amino Transferase 19 U/L (5-31); Bilirubin Total 0.5 mg/dL (0.0-1.0); Blood Urea Nitrogen 19 mg/dL (9-16); Calcium 9.6 mg/dL (8.4-10.2); Carbon Dioxide 24 mmol/L (22-29); Chloride 106 mmol/L (96-108); Cholesterol 233 mg/dL (<200); Estimated Glomerular Filt Rate > 60; Glucose Random 91 mg/dL (60-115); HDL Cholesterol 48 mg/dL (>40); LDL Cholesterol Calculated 157 mg/dL (<100); Potassium 4.1 mmol/L (3.3-5.1); Sodium 138 mmol/L (135-145); Total Protein 7.6 g/dL (6.5-8.0); Triglycerides 141 mg/dL (<150)
== END 2024-01-31 07:38 | disposition home or self-care (01) ==
LOC: HO.LAB 07:37
PROVIDERS: PCP Internal Medicine; Visit Provider Internal Medicine
DX: E78.00 Pure hypercholesterolemia, unspecified (principal)
CPT/HCPCS: 36415; 80053; 80061; 83036; 85025

== ENCOUNTER 2024-02-05 08:38 | Outpatient (AMB) | payer MEDICARE, SELFPAY ==
--- NOTE | 2024-02-05 08:45 | MHC.OFFVIS ---
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 Air Analyst Required: No Dosimetrist: Dosimetrist Present (Namita) Allergies pneumococcal vaccine [PNEUMOCOCCAL VACCINE] Allergy (Severe, Verified 02/05/24 08:47) SWELLING, rash atorvastatin [From LIPITOR] Allergy (Intermediate, Verified 02/05/24 08:47) LIP SWELLING, hives, lip swelling dupilumab [Dupixent] Allergy (Unknown, Verified 02/05/24 08:47) PUGH fluticasone [Advair Diskus] Allergy (Unknown, Verified 02/05/24 08:47) unknown Iodinated Contrast Media Allergy (Unknown, Verified 02/05/24 08:47) unknown metoprolol Allergy (Unknown, Verified 02/05/24 08:47) hives morphine Allergy (Unknown, Verified 02/05/24 08:47) RASH salmeterol [Advair Diskus] Allergy (Unknown, Verified 02/05/24 08:47) unknown verapamil Allergy (Unknown, Verified 02/05/24 08:47) Unknown Post menopausal: Yes HPI HPI Comments History of Present Illness Details 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 She is doing well with no concerns. Patient request a refill on her med for LS treatment. She uses it intermittently for symptoms. She reports some incontinence and wears and extenal w/her pad due to coughing with her COPD. Attempting to eat a healthy diet with calcium and vitamin D and stays active with exercise. Currently rarely sexually active. Denies any vaginal dryness or irritation. Last pap smear; 2020. Last mammogram; 2022. Colonoscopy is UTD. Denies any family history of breast, ovarian or colon cancer. [facility] Medical History Dysuria Asthma exacerbation Back pain Colon cancer screening Facial dermatitis Mass of arm Cellulitis, leg Overweight (BMI 25.0-29.9) Acute asthma exacerbation Adult general medical exam Post-menopausal Screening for diabetes mellitus Bronchitis Allergic rhinitis Allergic rhinitis Hypercholesterolemia Hypertension Urinary incontinence Vitamin D deficiency Migraine Anxiety Osteoporosis Osteoarthritis, knee Lichen sclerosus Atrophic vaginitis Severe persistent allergic asthma Surgical History History of cardiac cath Family History Mother No problems noted. Sister No problems noted. Father No problems noted. Sister No problems noted. Social History Household Members: Spouse Housing: House Alcohol intake: never Patient Tobacco Use Status: Never used Tobacco e-Cigarette/Vaping Use: Never Used Second Hand Smoke Exposure: No service: No Current occupational status: unemployed Current occupation: Lt handed Cognitive needs: No Hearing needs: No Vision needs: No Female Reproductive History Menstrual Age of Menarche: 13 Total pregnancies: 2 Full term: 2 Number of Living Children: 2 Date of last pap smear: 08/28/21 (neg pap and hpv) Date of Mammogram: 08/24/23 (Birad 1) Review of Systems Const All systems reviewed & are unremarkable except as noted in HPI and below Reports as per HPI Eyes Reports no additional complaints ENT Reports no additional complaints Card Reports no additional complaints Resp Reports no additional complaints GI Reports as per HPI and Reports no additional complaints Reports as per HPI Musc Reports no additional complaints Skin/Breast Reports as per HPI Neuro Reports no additional complaints Psych Reports no additional complaints Endo Reports no additional complaints Jose G/Lymph Reports no additional complaints Aller/Immun Reports no additional complaints Physical Exam Vital Signs: Last Vital Signs BP 114/78 02/05/24 08:47 BMI result Body Mass Index 30.7 Const General: cooperative, healthy appearing, no acute distress, well developed and alert Orientation/consciousness: patient oriented x3 HEENT Head: Yes normal to inspection Eyes General: appearance normal, both eyes and all related structures Neck Neck: Yes normal visual inspection Thyroid: Thyroid normal Chest Chest palpation & inspection: normal inspection of the chest and other (no puckering, dimpling, peau de orange, retraction, discharge, masses) Breast/axilla inspection: normal inspection of the breasts Breast/axilla palpation: normal palpation of the breasts Resp Effort & Inspection: normal respiratory effort GI Inspection: Yes normal to inspection Palpation (GI): Soft to palpation Rectal Exam - Female: deferred Other: LS changes of bilateral labia, no lesions or excoriations General: Yes bladder normal to palpation External Female Exam: normal external appearance and normal appearance of the urethra Speculum Exam - Vagina: normal appearance of the vagina, normal palpation, normal vaginal discharge and vagina atrophic Speculum Exam - Cervix: normal appearance of the cervix and normal palpation Bimanual exam- vagina & uterus: normal bimanual exam, normal palpation, uterine size normal, bladder normal to palpation, normal palpation and non-tender Bimanual Exam- Adnexa, other: no masses Skin General skin exam: no rashes or lesions noted Rashes: no rashes Neuro General: patient oriented x3 Cognition (Neuro): normal cognition Extrem General: Yes normal to inspection Psych Attitude: cooperative Thought process: Normal thought process present Assessment & Plan Assessment & Plan (1) Encounter for well woman exam with routine gynecological exam: Code(s): Z01.419 - Encounter for gynecological examination (general) (routine) without abnormal findings (2) Lichen sclerosus: Code(s): L90.0 - Lichen sclerosus et atrophicus Plan Discussed: Current recommendations for pap smears per ASCCP guidelines. Breast awareness, periodic self breast exams and yearly mammogram. Maintain a healthy lifestyle, well balanced diet including Calcium 1,200 mg and Vitamin D 600 IU daily, and routine exercise. LS treatment, use of medication. Avoiding irritants, always pads. Use of Replens moisturizer internally. Contact the office with any postmenopausal bleeding. Patient verbalizes understanding and agrees to the plan of care. She was given opportunity to ask questions and all questions were answered to the best of my ability. 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 This note is constructed using voice recognition software. While every effort has been made to ensure accuracy, machine shop worker errors may have been included. Medications: New betamethasone, augmented 0.05 % apply to the area at bedtime a thin coat, twice a week 1 appl topical BEDTIME PRN 45 grams 1RF allergic reaction Coding Level of Care Code Est Pt Prev Care >65y(12391) Diagnoses Encounter for well woman exam with routine gynecological exam Z01.419 Lichen sclerosus L90.0
[2024-02-05 08:47] VITALS: BP 114/78; BMI 30.7
== END 2024-02-05 09:37 | disposition home or self-care (01) ==
LOC: HO.HWS 08:38
PROVIDERS: PCP Internal Medicine; Visit Provider Advanced Practice Midwife
DX: Z01.419 Encounter for gynecological examination (general) (routine) without abnormal findings (principal); L90.0 Lichen sclerosus et atrophicus
CPT/HCPCS: 99397

== ENCOUNTER → 2024-02-05 08:38 | Outpatient (BNVA) | payer MEDICARE, SELFPAY | PROVIDERS: PCP Internal Medicine; Visit Provider Advanced Practice Midwife ==

== ENCOUNTER 2024-04-22 08:55 | Outpatient (AMB) | payer OTHER, SELFPAY ==
[2023-07-29 14:38] VITALS: BMI 30.3
[2024-04-22 08:57] VITALS: BP 122/82; PULSE 67; O2SAT 100; BMI 31.0
--- NOTE | 2024-04-22 08:57 | MHC.OFFVIS ---
Vital Signs 04/22/24 08:57 Height 5 ft 2 in Weight 169 lb 12.095 oz BMI 31.0 BP 122/82 Blood Pressure Location Rt brachial Position Sitting Pulse 67 Pulse Source Doppler Pulse Oximetry (%) 100 Oxygen Delivery Method Room Air Intake Visit Reasons: asthma Allergies pneumococcal vaccine [PNEUMOCOCCAL VACCINE] Allergy (Severe, Verified 02/05/24 08:47) SWELLING, rash atorvastatin [From LIPITOR] Allergy (Intermediate, Verified 02/05/24 08:47) LIP SWELLING, hives, lip swelling dupilumab [Dupixent] Allergy (Unknown, Verified 02/05/24 08:47) PUGH fluticasone [Advair Diskus] Allergy (Unknown, Verified 02/05/24 08:47) unknown Iodinated Contrast Media Allergy (Unknown, Verified 02/05/24 08:47) unknown metoprolol Allergy (Unknown, Verified 02/05/24 08:47) hives morphine Allergy (Unknown, Verified 02/05/24 08:47) RASH salmeterol [Advair Diskus] Allergy (Unknown, Verified 02/05/24 08:47) unknown verapamil Allergy (Unknown, Verified 02/05/24 08:47) Unknown HPI HPI asthma: Details: 68-year-old lady, lifetime nonsmoker, followed for severe persistent asthma with significant allergic component. Patient continues on her current regimen of Symbicort, Spiriva, Singulair, albuterol MDI, duo nebs, and Nucala with good baseline control of her symptoms. after the last office visit she was treated with a course of Levaquin with resolution of productive component to her cough, however she still has nonproductive cough. [facility] Medical History Dysuria Asthma exacerbation Back pain Colon cancer screening Facial dermatitis Mass of arm Cellulitis, leg Overweight (BMI 25.0-29.9) Acute asthma exacerbation Adult general medical exam Post-menopausal Screening for diabetes mellitus Bronchitis Allergic rhinitis Allergic rhinitis Hypercholesterolemia Hypertension Urinary incontinence Vitamin D deficiency Migraine Anxiety Osteoporosis Osteoarthritis, knee Lichen sclerosus Atrophic vaginitis Severe persistent allergic asthma Surgical History History of cardiac cath Family History Mother No problems noted. Sister No problems noted. Father No problems noted. Sister No problems noted. Social History Household Members: Spouse Housing: House Alcohol intake: never Patient Tobacco Use Status: Never used Tobacco e-Cigarette/Vaping Use: Never Used Second Hand Smoke Exposure: No service: No Current occupational status: unemployed Current occupation: Lt handed Cognitive needs: No Hearing needs: No Vision needs: No Female Reproductive History Menstrual Age of Menarche: 13 Review of Systems Const Denies daytime sleepiness, Denies excessive sweating, Denies fatigue, Denies fever(s), Denies lethargy, Denies malaise, Denies night sweats, Denies snoring and Denies weight loss Eyes Denies blurry vision and Denies itchy eyes ENT Denies nasal congestion, Denies post nasal drip, Denies sinus pain, Denies sinus pressure and Denies other ( Thrush) Card Denies chest pain, Denies pedal edema, Denies dyspnea, Denies orthopnea and Denies paroxysmal nocturnal dyspnea Resp Reports cough, Denies hemoptysis, Denies excessive phlegm production, Denies dyspnea, Denies snoring and Denies wheezing GI Denies abdominal pain and Denies heartburn Musc Denies myalgias, Denies arthralgias and Denies joint swelling Skin/Breast Denies rash Neuro Denies memory loss and Denies seizure-like activity Psych Denies abnormal sleep pattern, Denies anxiety and Denies memory loss Endo Denies excessive sweating, Denies fatigue and Denies heat intolerance Jose G/Lymph Denies easy bruising Aller/Immun Denies itchy eyes, Denies seasonal rhinorrhea and Denies wheezing Physical Exam Vital Signs: Last Vital Signs Pulse 67 04/22/24 08:57 BP 122/82 04/22/24 08:57 Pulse Ox 100 04/22/24 08:57 Oxygen Delivery Method Room Air 04/22/24 08:57 BMI result Body Mass Index 31.0 Const General: no acute distress and alert Nutritional Appearance: not obese Orientation/consciousness: Other orientation findings ( oriented) HEENT Head: Yes atraumatic Eyes General: appearance normal, both eyes and all related structures Sclerae: sclerae normal EOM: EOMs intact bilaterally Neck Neck: Yes supple Lymphatic: no lymphadenopathy noted Resp Effort & Inspection: normal respiratory effort and no use of accessory muscles Auscultation: clear to auscultation bilaterally Cardio Rate: regular rate Rhythm: regular rhythm Heart sounds: no gallops, no murmurs and no rubs Skin General skin exam: other ( warm) Extrem General: No clubbing, No cyanosis and No edema Assessment & Plan Assessment & Plan (1) Severe persistent allergic asthma: Code(s): J45.50 - Severe persistent asthma, uncomplicated Category: Medical Plan: baseline well controlled on Nucala, Incruse, Symbicort, duo nebs, and albuterol MDI. Continue current regimen. (2) Environmental and seasonal allergies: Code(s): J30.89 - Other allergic rhinitis Category: Medical Plan: Well controlled on Nucala. Continue current regimen. (3) Chronic cough: Code(s): R05.3 - Chronic cough Category: Medical Plan: Chronic cough, will start on codeine syrup for symptomatic relief. Medications: New codeine-guaifenesin 10-100 mg/5 mL 10 mL PO Q4-6H 14 days PRN 473 mL 0RF flu symptoms Coding Level of Care Code Est Pt Level 4 (38022) Diagnoses Severe persistent allergic asthma J45.50 Environmental and seasonal allergies J30.89 Chronic cough R05.3
== END 2024-04-22 09:15 | disposition home or self-care (01) ==
PROVIDERS: PCP Internal Medicine; Visit Provider Internal Medicine Pulmonary Disease
DX: J45.50 Severe persistent asthma, uncomplicated (principal); J30.89 Other allergic rhinitis; R05.3 Chronic cough
CPT/HCPCS: 99214

== ENCOUNTER → 2024-04-22 08:55 | Outpatient (BNVA) | payer OTHER, SELFPAY | PROVIDERS: PCP Internal Medicine; Visit Provider Internal Medicine Pulmonary Disease | DX: J45.50 Severe persistent asthma, uncomplicated (principal); J30.89 Other allergic rhinitis; R05.3 Chronic cough | CPT/HCPCS: 99212 ==

== ENCOUNTER 2024-05-28 09:08 | Outpatient (AMB) | payer MEDICARE, SELFPAY ==
--- NOTE | 2024-05-28 09:21 | MHC.PC.OV ---
Vital Signs 05/28/24 09:22 Height 5 ft 2 in Weight 168 lb BMI 30.7 BP 138/70 Blood Pressure Location Lt brachial Position Sitting Pulse 58 Pulse Source Pulse Oximeter Pulse Oximetry (%) 98 Oxygen Delivery Method Room Air Intake Visit Reasons: cholesterol , asthma Allergies pneumococcal vaccine [PNEUMOCOCCAL VACCINE] Allergy (Severe, Verified 05/28/24 09:22) SWELLING, rash atorvastatin [From LIPITOR] Allergy (Intermediate, Verified 05/28/24 09:22) LIP SWELLING, hives, lip swelling dupilumab [Dupixent] Allergy (Unknown, Verified 05/28/24 09:22) PUGH fluticasone [Advair Diskus] Allergy (Unknown, Verified 05/28/24 09:22) unknown Iodinated Contrast Media Allergy (Unknown, Verified 05/28/24 09:22) unknown metoprolol Allergy (Unknown, Verified 05/28/24 09:22) hives morphine Allergy (Unknown, Verified 05/28/24 09:22) RASH salmeterol [Advair Diskus] Allergy (Unknown, Verified 05/28/24 09:22) unknown verapamil Allergy (Unknown, Verified 05/28/24 09:22) Unknown Tobacco use date assessed: 01/30/24 Fall risk assessment: No Falls in past year Last assessed Fall Risk: 05/28/24 Dental Screening Dental Screen Date: 01/30/24 HPI cholesterol , asthma HPI Details 68-year-old obese female with severe persistent allergic asthma hypertension hypercholesterolemia generalized anxiety disorder and osteoporosis last seen in January 2024 bone density is up-to-date 08/30/2023 colonoscopy up-to-date 07/31/2022 mammogram is up-to-date 08/30/2023. Patient is follow-up with Pulmonary seen in April 22 on Nucala, Incruse Symbicort DuoNebs and albuterol. January 2024 last blood work everything is good except for an elevated cholesterol. PAtient is presently using codeine prep for cough. ASCVD risk is 12.9 % discussed my concern on cholesterol treatment [facility] Medical History (Updated 05/28/24 @ 09:36 by Lakia Whalen MD) Post-menopausal COVID-19 Chest pain Occult blood positive stool Left-sided chest pain Bilateral leg pain UTI (urinary tract infection) Bad odor of urine Dysuria Left leg pain Myalgia Lumbar spine pain Unsteady gait COVID-19 virus infection Chronic cough Asthma exacerbation Back pain Colon cancer screening Facial dermatitis Mass of arm Cellulitis, leg Overweight (BMI 25.0-29.9) Acute asthma exacerbation Adult general medical exam Screening for diabetes mellitus Bronchitis Allergic rhinitis Allergic rhinitis Hypercholesterolemia Hypertension Urinary incontinence Vitamin D deficiency Migraine Anxiety Osteoporosis Osteoarthritis, knee Lichen sclerosus Atrophic vaginitis Severe persistent allergic asthma Surgical History History of cardiac cath Family History Mother No problems noted. Sister No problems noted. Father No problems noted. Sister No problems noted. Social History Household Members: Spouse Housing: House Alcohol intake: never Patient Tobacco Use Status: Never used Tobacco e-Cigarette/Vaping Use: Never Used Second Hand Smoke Exposure: No service: No Current occupational status: unemployed Current occupation: Lt handed Cognitive needs: No Hearing needs: No Vision needs: No Female Reproductive History Menstrual Age of Menarche: 13 Questionnaire PHQ-9 Over the last 2 weeks, how often have you been bothered by any of the following problems? 1. Little interest or pleasure in doing things: not at all 2. Feeling down, depressed, or hopeless: not at all 3. Trouble falling or staying asleep, or sleeping too much: not at all 4. Feeling tired or having little energy: not at all 5. Poor appetite or overeating: not at all 6. Feeling bad about yourself - or that you are a failure or have let yourself or your family down: not at all 7. Trouble concentrating on things, such as reading the newspaper or watching television: not at all 8. Moving or speaking so slowly that other people could have noticed. Or the opposite - being so fidgety or restless that you have been moving around a lot more than usual: not at all 9. Thoughts that you would be better off or of hurting yourself in some way: not at all Total score: 0 Depression Screening Interpretation: Negative Depression Screening Done: Yes Source: Developed by Drs. Spike Hernandez, Ruth Ortega, Clint Esteves and colleagues, with an educational andrés from [employer]. Thrive Questionnaire Date Thrive assessed: 05/28/24 I am a: Patient What is your living situation today?: I have a steady place to live Within the past 12 months, did the food you bought not last and you didn't have the money to get more?: Never true Within the past 12 months, did you worry whether your food would run out before you got money to buy more?: Never true Do you have trouble paying for medicines?: No Do you have trouble getting transportation to medical appointments?: No Do you have trouble paying your heating and electricity bill?: No Do you have trouble taking care of your child, family member or friend?: No Do you have trouble with day-to-day activities such as bathing, preparing meals, shopping, managing finances, etc.?: No Are you currently unemployed and looking for a job?: No Are you interested in more education?: No Please select the resources that you would like help with: None Currently or been in a relationship where the following occur: No concerns reported THRIVE Score: 0 AUDIT C Alcohol Use Questionnaire (AUDIT-C) 1. How often do you have a drink containing alcohol?: Monthly or less 2. How many drinks containing alcohol do you have on a typical day when you are drinking?: 1 or 2 3. How often do you have six or more drinks on one occasion?: Never Total Score: 1 Score Reviewed/Action Taken: Yes AJAY-7 AMB Questionnaire AJAY-7 Date AJAY - 7 assessed: 01/30/24 Source: Developed by Drs. Spike Hernandez, Clint Ng and colleagues, with an educational andrés from [employer]. Physical exam (Primary Care) Vital Signs: Last Vital Signs Pulse 58 05/28/24 09:22 BP 138/70 05/28/24 09:22 Pulse Ox 98 05/28/24 09:22 Oxygen Delivery Method Room Air 05/28/24 09:22 BMI result Body Mass Index 30.7 Tobacco/Smoking Status: Tobacco use Status Tobacco use date assessed 01/30/24 05/28/24 09:28 Patient Tobacco Use Status Never used Tobacco 05/28/24 09:28 e-Cigarette/Vaping Use Never Used 05/28/24 09:28 PHQ-9: PHQ-9 Score PHQ-9: Total score 0 05/28/24 09:28 Depression Screening Interpretation: Negative Thrive Assessment: Date of Thrive Assessment Date Thrive assessed 05/28/24 05/28/24 09:28 Currently or been in a relationship where the following occur: No concerns reported Const General: alert; No acute distress Eyes Conjunctivae: conjunctivae normal Resp Auscultation: clear to auscultation bilaterally Cardio Rate: regular rate Rhythm: regular rhythm GI Inspection: Yes normal to inspection Extrem General: Yes normal to inspection and No edema Assessment and Plan Assessment & Plan (1) Obesity (BMI 30.0-34.9): Code(s): E66.9 - Obesity, unspecified Plan: Diet and exercise (2) GERD (gastroesophageal reflux disease): Code(s): K21.9 - Gastro-esophageal reflux disease without esophagitis Plan: Avoid the foods that causes that usually spicy foods, tomato products, juices, coffee, soda and foods that your sensitive to. After eating do not lie down, allow 3-4 hours before in lie down. And keep the head of bed above 30 degrees to avoid the acid from going up. (3) Generalized anxiety disorder: Code(s): F41.1 - Generalized anxiety disorder Plan: Stable (4) Hypercholesterolemia: Code(s): E78.00 - Pure hypercholesterolemia, unspecified Plan: Avoid fried foods, chicken skin, eggs, butter margarine, pastries and meat. Be it pork or beef they have a lot of cholesterol LDL goal of less than 130 and triglyceride of less than 150 patient is statin intolerant on Zetia 10 mg once a day ASCVD risk is high. retest and try another statin (5) Hypertension: Comment: Cardiac catheterization July 2014 minimal coronary artery disease Code(s): I10 - Essential (primary) hypertension Qualifiers: Hypertension type: unspecified Qualified Code(s): I10 - Essential (primary) hypertension Plan: Continue with blood pressure medication. Decrease salt intake and exercise on lisinopril 20 mg once a day January 2024 last blood work (6) Severe persistent allergic asthma: Code(s): J45.50 - Severe persistent asthma, uncomplicated Plan: Patient continues to follow-up with Pulmonary on Nucala Symbicort DuoNeb Incruse Orders: Orders Complete Blood Count Auto Diff 3 Months E78.00 - Pure hypercholesterolemia, unspecified Free T4 (Free Thyroxine) 3 Months E78.00 - Pure hypercholesterolemia, unspecified Comprehensive Met. Panel 3 Months E78.00 - Pure hypercholesterolemia, unspecified Thyroid Stimulating Hormone 3 Months E78.00 - Pure hypercholesterolemia, unspecified Lipid Panel 3 Months E78.00 - Pure hypercholesterolemia, unspecified Coding Level of Care Code Est Pt Level 4 (92683) Diagnoses Obesity (BMI 30.0-34.9) E66.9 GERD (gastroesophageal reflux disease) K21.9 Generalized anxiety disorder F41.1 Hypercholesterolemia E78.00 Essential hypertension I10 Hypertension type: unspecified Severe persistent allergic asthma J45.50 Additional Codes PHQ-9 - 21531 - PHQ-9 Billing: ([id number])
[2024-05-28 09:22] VITALS: BP 138/70; PULSE 58; O2SAT 98; BMI 30.7
== END 2024-05-28 09:57 | disposition home or self-care (01) ==
PROVIDERS: PCP Internal Medicine; Visit Provider Internal Medicine
DX: J45.50 Severe persistent asthma, uncomplicated (principal); E66.9 Obesity, unspecified; Z68.30 Body mass index [BMI] 30.0-30.9, adult; K21.9 Gastro-esophageal reflux disease without esophagitis; F41.1 Generalized anxiety disorder; E78.00 Pure hypercholesterolemia, unspecified; I10 Essential (primary) hypertension
CPT/HCPCS: 99214

== ENCOUNTER 2024-07-29 08:46 | Outpatient (AMB) | payer OTHER, SELFPAY ==
[2024-07-29 09:05] VITALS: BP 126/72; PULSE 68; O2SAT 97; BMI 30.6
--- NOTE | 2024-07-29 09:05 | A.OFFVIS_ITS ---
Vital Signs 07/29/24 09:05 Height 5 ft 2 in Weight 167 lb 8.821 oz BMI 30.6 BP 126/72 Blood Pressure Location Rt brachial Position Sitting Pulse 68 Pulse Source Doppler Pulse Oximetry (%) 97 Oxygen Delivery Method Room Air Intake Visit Reasons: Asthma Allergies pneumococcal vaccine [PNEUMOCOCCAL VACCINE] Allergy (Severe, Verified 05/28/24 09:22) SWELLING, rash atorvastatin [From LIPITOR] Allergy (Intermediate, Verified 05/28/24 09:22) LIP SWELLING, hives, lip swelling dupilumab [Dupixent] Allergy (Unknown, Verified 05/28/24 09:22) PUGH fluticasone [Advair Diskus] Allergy (Unknown, Verified 05/28/24 09:22) unknown Iodinated Contrast Media Allergy (Unknown, Verified 05/28/24:22) unknown metoprolol Allergy (Unknown, Verified 05/28/24 09:22) hives morphine Allergy (Unknown, Verified 05/28/24 09:22) RASH salmeterol [Advair Diskus] Allergy (Unknown, Verified 05/28/24 09:22) unknown verapamil Allergy (Unknown, Verified 05/28/24 09:22) Unknown HPI HPI Asthma: Details: 69-year-old lady, lifetime nonsmoker, followed for severe persistent asthma with significant allergic component. Patient continues on her current regimen of Symbicort, Spiriva, Singulair, albuterol MDI, duo nebs, and Nucala with good baseline control of her symptoms. She denies any recent exacerbations. She does complain of significant back pain and is interested in evaluation by pain management. [facility] Medical History (Updated 07/29/24 @ 09:24 by Jonathan Stewart MD) Back pain Post-menopausal COVID-19 Chest pain Occult blood positive stool Left-sided chest pain Bilateral leg pain UTI (urinary tract infection) Bad odor of urine Dysuria Left leg pain Myalgia Lumbar spine pain Unsteady gait COVID-19 virus infection Chronic cough Asthma exacerbation Colon cancer screening Facial dermatitis Mass of arm Cellulitis, leg Overweight (BMI 25.0-29.9) Acute asthma exacerbation Adult general medical exam Screening for diabetes mellitus Bronchitis Allergic rhinitis Allergic rhinitis Hypercholesterolemia Hypertension Urinary incontinence Vitamin D deficiency Migraine Anxiety Osteoporosis Osteoarthritis, knee Lichen sclerosus Atrophic vaginitis Severe persistent allergic asthma Surgical History History of cardiac cath Family History Mother No problems noted. Sister No problems noted. Father No problems noted. Sister No problems noted. Social History Household Members: Spouse Housing: House Alcohol intake: never Patient Tobacco Use Status: Never used Tobacco e-Cigarette/Vaping Use: Never Used Second Hand Smoke Exposure: No service: No Current occupational status: unemployed Current occupation: Lt handed Cognitive needs: No Hearing needs: No Vision needs: No Female Reproductive History Menstrual Age of Menarche: 13 Review of Systems Const Denies daytime sleepiness, Denies excessive sweating, Denies fatigue, Denies fever(s), Denies lethargy, Denies malaise, Denies night sweats, Denies snoring and Denies weight loss Eyes Denies blurry vision and Denies itchy eyes ENT Denies nasal congestion, Denies post nasal drip, Denies sinus pain, Denies sinus pressure and Denies other ( Thrush) Card Denies chest pain, Denies pedal edema, Denies dyspnea, Denies orthopnea and Denies paroxysmal nocturnal dyspnea Resp Denies cough, Denies hemoptysis, Denies excessive phlegm production, Denies dyspnea, Denies snoring and Denies wheezing GI Denies abdominal pain and Denies heartburn Musc Reports back pain, Denies myalgias, Denies arthralgias and Denies joint swelling Skin/Breast Denies rash Neuro Denies memory loss and Denies seizure-like activity Psych Denies abnormal sleep pattern, Denies anxiety and Denies memory loss Endo Denies excessive sweating, Denies fatigue and Denies heat intolerance Jose G/Lymph Denies easy bruising Aller/Immun Denies itchy eyes, Denies seasonal rhinorrhea and Denies wheezing Physical Exam Vital Signs: Last Vital Signs Pulse 68 07/29/24 09:05 BP 126/72 07/29/24 09:05 Pulse Ox 97 07/29/24 09:05 Oxygen Delivery Method Room Air 07/29/24 09:05 BMI result Body Mass Index 30.6 Const General: no acute distress and alert Nutritional Appearance: not obese Orientation/consciousness: Other orientation findings ( oriented) HEENT Head: Yes atraumatic Eyes General: appearance normal, both eyes and all related structures Sclerae: sclerae normal EOM: EOMs intact bilaterally Neck Neck: Yes supple Lymphatic: no lymphadenopathy noted Resp Effort & Inspection: normal respiratory effort and no use of accessory muscles Auscultation: clear to auscultation bilaterally Cardio Rate: regular rate Rhythm: regular rhythm Heart sounds: no gallops, no murmurs and no rubs Skin General skin exam: other ( warm) Extrem General: No clubbing, No cyanosis and No edema Assessment & Plan Assessment & Plan (1) Severe persistent allergic asthma: Code(s): J45.50 - Severe persistent asthma, uncomplicated Category: Medical Plan: Good control on current regimen of Nucala, Incruse, duo nebs, and albuterol MDI. Continue current regimen. (2) Environmental and seasonal allergies: Code(s): J30.89 - Other allergic rhinitis Category: Medical Plan: Well controlled on Nucala. Continue current regimen. (3) Back pain: Code(s): M54.9 - Dorsalgia, unspecified Category: Medical Plan: Will refer to pain management for further evaluation Coding Level of Care Code Est Pt Level 4 (20096) Diagnoses Severe persistent allergic asthma J45.50 Environmental and seasonal allergies J30.89 Back pain M54.9
== END 2024-07-29 09:23 | disposition home or self-care (01) ==
PROVIDERS: PCP Internal Medicine; Visit Provider Internal Medicine Pulmonary Disease
DX: J45.50 Severe persistent asthma, uncomplicated (principal); J30.89 Other allergic rhinitis; M54.9 Dorsalgia, unspecified
CPT/HCPCS: 99214

== ENCOUNTER → 2024-07-29 08:46 | Outpatient (BNVA) | payer OTHER, SELFPAY | PROVIDERS: PCP Internal Medicine; Visit Provider Internal Medicine Pulmonary Disease | DX: J45.50 Severe persistent asthma, uncomplicated (principal); J30.89 Other allergic rhinitis; M54.9 Dorsalgia, unspecified | CPT/HCPCS: 99212 ==

== ENCOUNTER 2024-08-07 08:31 | Outpatient (REF) | payer OTHER, SELFPAY ==
[2024-07-29 13:22] VITALS: BMI 30.3
--- NOTE | ~2024-08-07 | XR_ITS ---
EXAMINATION: XR THORACIC SPINE CLINICAL INFORMATION: M54.9 - Dorsalgia, unspecified COMPARISON: None available. TECHNIQUE: 3 views of the thoracic spine were obtained. FINDINGS: Mild osteopenia. There is a very gentle levoconvex scoliosis, apex at T10. Normal kyphosis. Alignment is normal. No fracture, dislocation, or suspicious bone lesion. No compression deformity. Mild to moderate multilevel disc degeneration. Mild multilevel facet degeneration. Imaged soft tissues appear normal. XR/XR thoracic spine 3V IMPRESSION: 1. No acute findings thoracic spine. 2. Mild levoconvex scoliosis apex at T10. 3. Degenerative spondylosis, mild to moderate in severity. Electronically signed by: Guillermo Carlos MD 10/16/2024 12:59 PM [facility]
--- NOTE | ~2024-08-07 | XR_ITS ---
EXAMINATION: XR LUMBOSACRAL SPINE CLINICAL INFORMATION: M54.9 - Dorsalgia, unspecified COMPARISON: 09/10/2023. TECHNIQUE: AP, lateral, coned-down lateral, and both oblique views of the lumbosacral spine. FINDINGS: There is a mild right convex scoliosis. There is a normal lordosis. No fractures, compression deformities, or suspicious bone lesions. Alignment is anatomic without subluxations. Moderate disc degeneration evident L1-2, L2-3, L4-5. and L5-S1. Mild degenerative disc changes evident at L3-4. Facets are normally aligned. There are no pars defects evident. There are degenerative facet changes and mild to moderate degree most significant at L4-5 and L5-S1. Soft tissues demonstrate vascular calcifications but are otherwise normal. XR/XR lumbar spine 4V min IMPRESSION: 1. No acute findings lumbar spine. 2. Mild dextroconvex scoliosis, and mild to moderate multilevel lumbar spondylosis. Moderate disc degeneration diffusely with sparing of L3-4. Electronically signed by: Guillermo Carlos MD 10/16/2024 12:47 PM LARISA
== END 2024-08-07 08:32 | disposition home or self-care (01) ==
LOC: HO.XRAY 08:31
PROVIDERS: PCP Internal Medicine; Referring Provider Internal Medicine Pulmonary Disease; Visit Provider Registered Nurse Emergency
DX: M51.36 Other intervertebral disc degeneration, lumbar region (principal); M47.816 Spondylosis without myelopathy or radiculopathy, lumbar region; M62.830 Muscle spasm of back
CPT/HCPCS: 72072; 72110; 99202

== ENCOUNTER 2024-08-07 08:31 | Outpatient (AMB) | payer OTHER, SELFPAY ==
[2024-07-29 13:22] VITALS: BMI 30.3
[2024-08-07 08:41] VITALS: BP 146/71; PULSE 93; O2SAT 98; BMI 30.5
--- NOTE | 2024-08-07 08:41 | A.OFFVIS_ITS ---
Vital Signs 08/07/24 08:41 Height 5 ft 2 in Weight 167 lb BMI 30.5 BP 146/71 H Blood Pressure Location Rt brachial Position Sitting Pulse 93 Pulse Source Pulse Oximeter Pulse Oximetry (%) 98 Oxygen Delivery Method Room Air Intake Visit Reasons: Dorsalgia Allergies pneumococcal vaccine [PNEUMOCOCCAL VACCINE] Allergy (Severe, Verified 08/07/24 08:42) SWELLING, rash atorvastatin [From LIPITOR] Allergy (Intermediate, Verified 08/07/24 08:42) LIP SWELLING, hives, lip swelling dupilumab [Dupixent] Allergy (Unknown, Verified 08/07/24 08:42) PUGH fluticasone [Advair Diskus] Allergy (Unknown, Verified 08/07/24 08:42) unknown Iodinated Contrast Media Allergy (Unknown, Verified 08/07/24 08:42) unknown metoprolol Allergy (Unknown, Verified 08/07/24 08:42) hives morphine Allergy (Unknown, Verified 08/07/24 08:42) RASH salmeterol [Advair Diskus] Allergy (Unknown, Verified 08/07/24 08:42) unknown verapamil Allergy (Unknown, Verified 08/07/24 08:42) Unknown Medication List - Last Reconciled 08/07/24 by Lisandra Simth albuterol sulfate 90 mcg/actuation 2 puffs inhalation Q6H PRN betamethasone, augmented 0.05 % 1 appl topical BEDTIME PRN cane As directed codeine-guaifenesin 10-100 mg/5 mL 10 mL PO Q4-6H PRN 14 days epinephrine (EpiPen 2-Masoud) 0.3 mg (0.3 mL) IM Q4H PRN ezetimibe 10 mg PO DAILY fexofenadine 180 mg PO DAILY Incruse Ellipta 62.5 mcg/actuation (umeclidinium) 1 inh inhalation DAILY NS ipratropium-albuterol 0.5 mg-3 mg(2.5 mg base)/3 mL 3 mL inhalation Q6H PRN 30 days lisinopril 20 mg PO DAILY 90 days meloxicam 15 mg PO DAILY mepolizumab 100 mg subcut Q4W miscellaneous medical supply (Blood Pressure Cuff) Testing once a day mometasone 50 mcg/actuation (Nasonex 24hr Allergy) 2 sprays intranasal DAILY PRN [shower hand rails. As directed] HPI Comments Details: Tita is a very pleasant 69-year-old female who presents the office today for evaluation management of her lower back pain Recently evaluated by pulmonology was referred here for back pain She states this pain has been ongoing for over 2 weeks. Started after she had been coughing excessively due to asthma. She does have a history of lower back pain, told by her primary care doctor arthritis. Has been controlled up until 2 weeks ago when this episode started Denies any recent imaging, physical therapy, acupuncture, chiropractor, massage She has been using the lumbar support brace with some improvement Taking meloxicam as prescribed by her PCP with minimal improvement only using sparingly though as she was advised not to take routinely Has been applying heat and ice and patches with temporary minimal improvement Denies radiation of the pain down either lower extremity. Denies weakness, numbness, tingling of either lower extremity Pain today is rated as a 9/10, constant and worse in the morning and at night. Exacerbated by movements, coughing In terms of muscle damage condition is described as pulsing, throbbing, pounding, dull, sore, hurting, aching, stabbing, sharp, tight, squeezing Pain is negatively impacting patient's enjoyment of life, general activity, sleep, ability to perform activities of daily living Denies current use of anticoagulants Denies implantable devices, pacemaker or defibrillator Denies current use of nicotine, tobacco, alcohol or illicit substances [facility] Medical History (Updated 08/07/24 @ 09:16 by Yana Sanchez, DRAFTING TECHNICIAN, CORRECTIONAL FACILITY NURSE) Back pain Post-menopausal COVID-19 Chest pain Occult blood positive stool Left-sided chest pain Bilateral leg pain UTI (urinary tract infection) Bad odor of urine Dysuria Left leg pain Myalgia Lumbar spine pain Unsteady gait COVID-19 virus infection Chronic cough Asthma exacerbation Colon cancer screening Facial dermatitis Mass of arm Cellulitis, leg Overweight (BMI 25.0-29.9) Acute asthma exacerbation Adult general medical exam Screening for diabetes mellitus Bronchitis Allergic rhinitis Allergic rhinitis Hypercholesterolemia Hypertension Urinary incontinence Vitamin D deficiency Migraine Anxiety Osteoporosis Osteoarthritis, knee Lichen sclerosus Atrophic vaginitis Severe persistent allergic asthma Surgical History History of cardiac cath Family History Mother No problems noted. Sister No problems noted. Father No problems noted. Sister No problems noted. Social History Household Members: Spouse Housing: House Alcohol intake: never Patient Tobacco Use Status: Never used Tobacco e-Cigarette/Vaping Use: Never Used Second Hand Smoke Exposure: No service: No Current occupational status: unemployed Current occupation: Lt handed Cognitive needs: No Hearing needs: No Vision needs: No Female Reproductive History Menstrual Age of Menarche: 13 Review of Systems Const All systems reviewed & are unremarkable except as noted in HPI and below Physical Exam Vital Signs: Last Vital Signs Pulse 93 08/07/24 08:41 BP 146/71 H 08/07/24 08:41 Pulse Ox 98 08/07/24 08:41 Oxygen Delivery Method Room Air 08/07/24 08:41 BMI result Body Mass Index 30.5 General: awake, alert, oriented. Answers questions appropriately. Fully engaged in examination. Skin: warm, dry, intact HEENT: Normocephalic. Hearing intact. Cardiac: External chest normal in appearance. Respiratory: No cough, audible wheezing or stridor. Abdomen: without gross distension. MS: No obvious swelling or deformities. Able to stand on bilateral tiptoes and bilateral heels.? Able to transition from sit to stand unassisted. Ambulates with bilaterally normal heel strike and toe off Decreased lumbar range of motion, pain with flexion and extension SLR negative bilaterally Nontender over bilateral PSIS Tenderness to midline lumbar vertebrae and lumbar paraspinal muscles Tenderness to lumbar musculature Facet loading positive Neurological: Oriented to person, place, time and situation. Thought process intact. No gait abnormalities appreciated. Psychiatric: Appropriate mood and affect. Good judgment and insight. Results Reviewed Results Reviewed: 09/10/2023 XR/XR lumbar spine 2-3V FINDINGS: 5 nonrib-bearing lumbar-type vertebral bodies. No acute visible fracture or dislocation. Mild dextro curvature of the lower lumbar spine. Mild multilevel degenerative changes with osteophyte formation and lower lumbar spine facet arthropathy. Vertebral body heights and disc spaces are otherwise maintained. Posterior elements are intact. Paraspinal soft tissues unremarkable. Visualized bowel gas is unremarkable. IMPRESSION: 1. No acute visible fracture or dislocation. 2. Mild multilevel degenerative changes with mild dextro curvature of the lower lumbar spine. Assessment & Plan Assessment & Plan (1) Back pain: Code(s): M54.9 - Dorsalgia, unspecified Category: Medical (2) Lumbar degenerative disc disease: Code(s): M51.36 - Other intervertebral disc degeneration, lumbar region Category: Medical (3) Lumbar spondylosis: Code(s): M47.816 - Spondylosis without myelopathy or radiculopathy, lumbar region Category: Medical (4) Lumbar paraspinal muscle spasm: Code(s): M62.830 - Muscle spasm of back Category: Medical Plan X-rays ordered for evaluation Order placed for PT eval and treat Methocarbamol 500 mg twice daily as needed. Patient advised on cautions for use. Do not take this with your cough syrup with codeine, she states that she has completed her course of that medication and is unsure if she will be getting a refill. Continue with meloxicam daily as prescribed by PCP All questions and concerns were answered, patient agrees with plan. Follow up after physical therapy, sooner if needed Orders: Orders XR thoracic spine 3V Today M54.9 - Dorsalgia, unspecified XR lumbar spine 4V min Today M54.9 - Dorsalgia, unspecified PT Evaluation and Treatment Today M54.9 - Dorsalgia, unspecified Medications: New methocarbamol Do not take with the cough syrup with codeine. No driving while taking this medication. Do no take with alcohol or other ROLL PLUGGER MACHINE OPERATOR Depressants 500 mg PO BID PRN 60 tabs 0RF muscle spasm Coding Level of Care Code New Pt Level 4 (85876) Complex EM visit Add On G2211 Diagnoses Back pain M54.9 Lumbar degenerative disc disease M51.36 Lumbar spondylosis M47.816 Lumbar paraspinal muscle spasm M62.830
== END 2024-08-07 09:13 | disposition home or self-care (01) ==
PROVIDERS: PCP Internal Medicine; Referring Provider Internal Medicine Pulmonary Disease; Visit Provider Registered Nurse Emergency
DX: M54.9 Dorsalgia, unspecified (principal); M51.36 Other intervertebral disc degeneration, lumbar region; M47.816 Spondylosis without myelopathy or radiculopathy, lumbar region; M62.830 Muscle spasm of back
CPT/HCPCS: 99204; G2211

== ENCOUNTER → 2024-08-07 09:21 | Outpatient (BNV) | payer OTHER, SELFPAY ==
[2024-07-29 13:22] VITALS: BMI 30.3
== END ==
PROVIDERS: PCP Internal Medicine; Referring Provider Internal Medicine Pulmonary Disease; Visit Provider Radiology Diagnostic Radiology
DX: M54.9 Dorsalgia, unspecified (principal)
CPT/HCPCS: 72072; 72110

== ENCOUNTER 2024-08-29 07:18 | Outpatient (REF) | payer OTHER, SELFPAY ==
[2023-07-29 14:38] VITALS: BMI 30.3
[2024-07-29 13:22] VITALS: BMI 30.3
--- NOTE | ~2024-08-29 | MM_ITS ---
EXAMINATION: MM SCREENING DIGITAL BREAST TOMOSYNTHESIS, BILATERAL CLINICAL INFORMATION: Screening. Asymptomatic. COMPARISON: Mammography: Comparison is made with available priors TECHNIQUE: Digital breast mammography with tomosynthesis is performed in both the craniocaudal and mediolateral oblique views along with computer-aided detection (CAD). FINDINGS: There are scattered areas of fibroglandular density (ACR BI-RADS breast composition Category b). There are no significant masses, abnormal calcifications, or other abnormalities. MM/MM tomosynthesis screening BI IMPRESSION: No mammographic evidence of malignancy. ASSESSMENT: BI-RADS BI-RADS 1 - Negative RECOMMENDATION: Routine annual mammography screening. 1 year F/U This examination should not preclude the clinical evaluation of a suspicious palpable abnormality. This patient's information was entered into a reminder system with a target due date for their next mammogram. Electronically signed by: Ashlie Jaramillo DO 09/11/2024 10:08 AM MELLO
== END 2024-08-29 07:19 | disposition home or self-care (01) ==
LOC: HO.MAMMO 07:18
PROVIDERS: PCP Internal Medicine; Visit Provider Internal Medicine
DX: Z12.31 Encounter for screening mammogram for malignant neoplasm of breast (principal)
CPT/HCPCS: 77063; 77067

== ENCOUNTER → 2024-08-29 07:45 | Outpatient (BNV) | payer OTHER, SELFPAY ==
[2024-07-29 13:22] VITALS: BMI 30.3
== END ==
PROVIDERS: PCP Internal Medicine; Visit Provider Internal Medicine
DX: Z12.31 Encounter for screening mammogram for malignant neoplasm of breast (principal)
CPT/HCPCS: 77063; 77067

== ENCOUNTER 2024-09-05 07:30 | Outpatient (REF) | payer OTHER, SELFPAY ==
[2024-07-29 13:22] VITALS: BMI 30.3
[2024-09-05 07:56] LABS: MANUAL DIFF FLAG NO
[2024-09-05 08:17] LABS: Appearance Urine Clear; Color Urine Yellow; Glucose Urine UA Negative (Negative); Leukocyte Esterase Urine Moderate (2+) (Negative); Nitrite Urine Negative (Negative); PH 5.5 (5.0-9.0); Specific Gravity - Urine 1.025 (1.005-1.025); UMIC TRIGGER UACC YES; Urine Blood Trace (Negative); Urine Ketones Negative (Negative); Urine Protein Negative (Neg-Trace)
[2024-09-05 08:18] LABS: Basophils Percent Auto 0.6 % (0-2); Eosinophils Absolute Auto 0.1 X10*3/uL (0.0-0.4); Eosinophils Percent Auto 0.8 % (0-4); Imm Gran Abs Auto 0.03 X10*3/uL (0.00-0.03); Imm Gran Pct Auto 0.5 % (0.0-0.4); Lymphocytes Percent Auto 30.6 % (20-40); Mean Corpuscular HGB Conc 32.6 g/dl (31.0-35.0); Mean Corpuscular Hemoglobin 28.7 pg (27.0-33.0); Mean Corpuscular Volume 88.3 fL (80.0-98.0); Mean Platelet Volume 11.1 fL (9.4-12.3); Monocytes Absolute Auto 0.4 X10*3/uL (0.1-1.2); Monocytes Percent Auto 6.6 % (2-11); Neutrophils Absolute Auto 4.1 x10*3/uL (2.0-8.3); Neutrophils Percent Auto 60.9 % (45-73); Platelet Count 261 X10*3/uL (160-400); Red Blood Count 4.87 X10*6/uL (4.20-5.50); Red Cell Distribution Width 13.2 % (11.0-16.0); White Blood Count 6.7 X10*3/uL (4.8-10.8)
[2024-09-05 08:22] LABS: Bacteria Urine None Seen (None Seen); Hyaline Casts Urine 0-2 /LPF (0-2); RBC Urine 0-2 /HPF (0-2); Squamous Epithelial Cell Urine 0-2 /HPF (0-2); UACC Culture Trigger YES; WBC Urine >50 /HPF (0-5)
[2024-09-05 08:58] LABS: Alanine Aminotransferase 18 U/L (0-31); Albumin Level 4.1 g/dL (3.5-5.0); Alkaline Phosphatase 68 U/L (39-117); Anion Gap 9 (12-20); Aspartate Amino Transferase 24 U/L (5-31); Bilirubin Total 0.4 mg/dL (0.0-1.0); Blood Urea Nitrogen 17 mg/dL (9-16); Calcium 9.5 mg/dL (8.4-10.2); Carbon Dioxide 27 mmol/L (22-29); Chloride 107 mmol/L (96-108); Cholesterol 229 mg/dL (<200); Estimated Glomerular Filt Rate > 60; Glucose Random 94 mg/dL (60-115); HDL Cholesterol 47 mg/dL (>40); LDL Cholesterol Calculated 151 mg/dL (<100); Potassium 4.4 mmol/L (3.3-5.1); Sodium 139 mmol/L (135-145); Total Protein 7.5 g/dL (6.5-8.0); Triglycerides 157 mg/dL (<150)
[2024-09-05 09:13] LABS: Free T4 (Free Thyroxine) 1.03 ng/dL (0.71-1.85); Thyroid Stimulating Hormone 1.04 uIU/mL (0.32-4.0)
== END 2024-09-05 07:31 | disposition home or self-care (01) ==
LOC: HO.LAB 07:30
PROVIDERS: PCP Internal Medicine; Visit Provider Internal Medicine
DX: E78.00 Pure hypercholesterolemia, unspecified (principal); R30.0 Dysuria; M54.9 Dorsalgia, unspecified
CPT/HCPCS: 36415; 80053; 80061; 81001; 84439; 84443; 85025; 87086; 87088; 87186

== ENCOUNTER 2024-09-28 08:53 | Outpatient (RCR) | payer OTHER, SELFPAY ==
[2024-07-29 13:22] VITALS: BMI 30.3
--- NOTE | 2024-08-27 13:01 | MHC.PT.EP ---
[facility] [place] Office [place] Office [place] Office [address] Karen Castillo [address] [phone] F: [phone] F: [phone] F: [phone] F: [phone] Physical Therapy Plan of Care Date of Evaluation: 08/27/24 Date of Surgery: Diagnosis: dorsalgia Assessment: 69 y/o female referred to PT with dorsalgia. Of note, pt with significant asthma/ bronchitis flare-ups resulting in a lot of coughing which contributes to her back pain. Currently reports pain and difficulty with sitting, coughing, deep breathing, walking, and chores. Examination shows significantly limited lumbar AROM, lateral shift, increased pain and tenderness lumbar/thoracic paraspinals, decreased core/hip strength, normal reflexes, and impaired gait pattern. Recommend PT 2x/week for 5 weeks to address impairments, implement HEP, and optimize functional mobility. Frequency and Duration: The patient will be seen 2x/weeks for 5 weeks Short Term Goals: 3 weeks I with hEP Pt will improve lumbar ROM to 50% throughout with pain < 3/10 Circus Agent Goals: 5 weeks I wth HEP and self management of sx Pt will be able to walk >20 minute with pain < 3/10 Pt will reports 50% decrease in pain (IT ranges 2-10) Treatment Plan: Modalities to reduce pain, spasms and effusion. Manual therapy to restore motion and function. Therapeutic exercise to improve strength and flexibility. Neuromuscular re-education for posture and balance. Therapeutic activities to return to functional activities of daily living. Electronically signed by: Lissy Johnson PT Please sign and return to therapist. Thank you for your referral.
--- NOTE | 2024-10-29 08:52 | MHC.PT.DC ---
[facility] [place] Office [place] Office [place] Office [address] Karen Castillo [address] [phone] F: [phone] F: [phone] F: [phone] F: [phone] Physical Therapy Discharge Report Diagnosis: dorsalgia Date of Surgery: Date of Evaluation: 08/27/24 Date of Discharge: 10/29/24 Treatments to Date: 8 Cancellations to Date: 2 No Shows to Date: 0 Discharge Status: Improved Function Independent with HEP Discharge Summary: Pt made improvements with decreased pain, improved posture, and strength. Her medications had also been changed and she was having less coughing. At this time, d/c to I HEP Electronically signed by: Lissy Johnson PT Please sign and return to therapist. Thank you for your referral.
== END 2024-10-29 08:53 | disposition home or self-care (01) ==
LOC: HO.PT 08:53
PROVIDERS: PCP Internal Medicine; Visit Provider Registered Nurse Emergency
DX: M54.9 Dorsalgia, unspecified (principal)
CPT/HCPCS: 97110; 97162

== ENCOUNTER 2024-10-02 08:46 | Outpatient (AMB) | payer OTHER, SELFPAY ==
[2024-07-29 13:22] VITALS: BMI 30.3
--- NOTE | 2024-10-02 08:49 | A.OFFPC_ITS ---
Vital Signs 10/02/24 08:50 Height 5 ft 2 in Weight 167 lb BMI 30.5 BP 124/78 Blood Pressure Location Lt brachial Position Sitting Pulse 76 Pulse Source Pulse Oximeter Pulse Oximetry (%) 94 Oxygen Delivery Method Room Air Intake Visit Reasons: cholesterol, Asthma Allergies pneumococcal vaccine [PNEUMOCOCCAL VACCINE] Allergy (Severe, Verified 10/02/24 08:50) SWELLING, rash atorvastatin [From LIPITOR] Allergy (Intermediate, Verified 10/02/24 08:50) LIP SWELLING, hives, lip swelling dupilumab [Dupixent] Allergy (Unknown, Verified 10/02/24 08:50) PUGH fluticasone [Advair Diskus] Allergy (Unknown, Verified 10/02/24 08:50) unknown Iodinated Contrast Media Allergy (Unknown, Verified 10/02/24 08:50) unknown metoprolol Allergy (Unknown, Verified 10/02/24 08:50) hives morphine Allergy (Unknown, Verified 10/02/24 08:50) RASH salmeterol [Advair Diskus] Allergy (Unknown, Verified 10/02/24 08:50) unknown verapamil Allergy (Unknown, Verified 10/02/24 08:50) Unknown Tobacco use date assessed: 01/30/24 Fall risk assessment: No Falls in past year Last assessed Fall Risk: 10/02/24 Dental Screening Dental Screen Date: 01/30/24 HPI cholesterol, Asthma HPI Details 69-year-old obese female with severe per sistent allergic asthma hypertension hypercholesterolemia generalized anxiety disorder and GERD last seen in May 2024. Patient's last colonoscopy was done in 2021, mammogram is up-to-date bone density is up-to-date. Patient receives mepolizumab under Pulmonary. Review of the notes has been seeing pain management also for the back pain lower x-ray showing mild multilevel degenerative changes with mild dextrocurvature of the lower lumbar spine. Advised physical therapy and was given muscle relaxant. Pulmonary follow-up was in July 29 on Symbicort, Spiriva, Singulair, albuterol, DuoNebs.. PT just done. need proair script. PAtient states cholesterol is familial [facility] Medical History (Updated 10/02/24 @ 09:15 by Lakia Whalen MD) Back pain Post-menopausal COVID-19 Chest pain Occult blood positive stool Left-sided chest pain Bilateral leg pain UTI (urinary tract infection) Bad odor of urine Dysuria Left leg pain Myalgia Lumbar spine pain Unsteady gait COVID-19 virus infection Chronic cough Asthma exacerbation Colon cancer screening Facial dermatitis Mass of arm Cellulitis, leg Overweight (BMI 25.0-29.9) Acute asthma exacerbation Adult general medical exam Screening for diabetes mellitus Bronchitis Allergic rhinitis Allergic rhinitis Hypercholesterolemia Hypertension Urinary incontinence Vitamin D deficiency Migraine Anxiety Osteoporosis Osteoarthritis, knee Lichen sclerosus Atrophic vaginitis Severe persistent allergic asthma Surgical History History of cardiac cath Family History Mother No problems noted. Sister No problems noted. Father No problems noted. Sister No problems noted. Social History Household Members: Spouse Housing: House Alcohol intake: never Patient Tobacco Use Status: Never used Tobacco e-Cigarette/Vaping Use: Never Used Second Hand Smoke Exposure: No service: No Current occupational status: unemployed Current occupation: Lt handed Cognitive needs: No Hearing needs: No Vision needs: Yes Female Reproductive History Menstrual Age of Menarche: 13 Questionnaire PHQ-9 Over the last 2 weeks, how often have you been bothered by any of the following problems? 1. Little interest or pleasure in doing things: not at all 2. Feeling down, depressed, or hopeless: not at all 3. Trouble falling or staying asleep, or sleeping too much: not at all 4. Feeling tired or having little energy: not at all 5. Poor appetite or overeating: not at all 6. Feeling bad about yourself - or that you are a failure or have let yourself or your family down: not at all 7. Trouble concentrating on things, such as reading the newspaper or watching television: not at all 8. Moving or speaking so slowly that other people could have noticed. Or the opposite - being so fidgety or restless that you have been moving around a lot more than usual: not at all 9. Thoughts that you would be better off or of hurting yourself in some way: not at all Total score: 0 Depression Screening Interpretation: Negative Depression Screening Done: Yes Source: Developed by Drs. Spike Hernandez, Ruth Ortega, Clint Esteves and colleagues, with an educational andrés from [employer]. Thrive Questionnaire Date Thrive assessed: 05/28/24 AUDIT C Alcohol Use Questionnaire (AUDIT-C) 1. How often do you have a drink containing alcohol?: Monthly or less 2. How many drinks containing alcohol do you have on a typical day when you are drinking?: 1 or 2 3. How often do you have six or more drinks on one occasion?: Never Total Score: 1 Score Reviewed/Action Taken: Yes AJAY-7 AMB Questionnaire AJAY-7 Date AJAY - 7 assessed: 01/30/24 Source: Developed by Drs. Spike Hernandez, Ruth Ortega, Clint Esteves and colleagues, with an educational andrés from [employer]. Physical exam (Primary Care) Vital Signs: Last Vital Signs Pulse 76 10/02/24 08:50 BP 124/78 10/02/24 08:50 Pulse Ox 94 10/02/24 08:50 Oxygen Delivery Method Room Air 10/02/24 08:50 BMI result Body Mass Index 30.5 Tobacco/Smoking Status: Tobacco use Status Tobacco use date assessed 01/30/24 10/02/24 08:54 Patient Tobacco Use Status Never used Tobacco 10/02/24 08:54 e-Cigarette/Vaping Use Never Used 10/02/24 08:54 PHQ-9: PHQ-9 Score PHQ-9: Total score 0 10/02/24 09:16 Depression Screening Interpretation: Negative Thrive Assessment: Date of Thrive Assessment Date Thrive assessed 05/28/24 10/02/24 08:54 Const General: alert; No acute distress Eyes Conjunctivae: conjunctivae normal Resp Auscultation: clear to auscultation bilaterally Cardio Rate: regular rate Rhythm: regular rhythm GI Inspection: Yes normal to inspection Extrem General: Yes normal to inspection and No edema Coding Level of Care Code Est Pt Level 4 (83087) Diagnoses Lumbar paraspinal muscle spasm M62.830 Obesity (BMI 30.0-34.9) E66.9 Severe persistent allergic asthma J45.50 Essential hypertension I10 Hypertension type: unspecified Hypercholesterolemia E78.00 Generalized anxiety disorder F41.1 Gastroesophageal reflux disease without esophagitis K21.9 Esophagitis presence: without esophagitis Assessment & Plan Assessment & Plan (1) Lumbar paraspinal muscle spasm: Code(s): M62.830 - Muscle spasm of back Category: Medical Plan: Patient was seen by pain management and was advised muscle relaxant as well as physical therapy (2) Obesity (BMI 30.0-34.9): Code(s): E66.9 - Obesity, unspecified Category: Medical Plan: Diet and exercise (3) Severe persistent allergic asthma: Code(s): J45.50 - Severe persistent asthma, uncomplicated Category: Medical Plan: Continue to follow-up with Pulmonary patient on albuterol/DuoNeb/Incruse/Nucala/ Symbicort (4) Hypertension: Comment: Cardiac catheterization July 2014 minimal coronary artery disease Code(s): I10 - Essential (primary) hypertension Category: Medical Qualifiers: Hypertension type: unspecified Qualified Code(s): I10 - Essential (primary) hypertension Plan: Continue with blood pressure medication. Decrease salt intake and exercise presently on lisinopril 20 mg once a day (5) Hypercholesterolemia: Code(s): E78.00 - Pure hypercholesterolemia, unspecified Category: Medical Plan: Avoid fried foods, chicken skin, eggs, butter margarine, pastries and meat. Be it pork or beef they have a lot of cholesterol LDL goal of less than 130 and triglyceride of less than 150 on Zetia 10 mg once a day since patient had problems with atorvastatin. (6) Generalized anxiety disorder: Code(s): F41.1 - Generalized anxiety disorder Category: Medical Plan: Continue with present management (7) GERD (gastroesophageal reflux disease): Code(s): K21.9 - Gastro-esophageal reflux disease without esophagitis Category: Medical Qualifiers: Esophagitis presence: without esophagitis Qualified Code(s): K21.9 - Gastro-esophageal reflux disease without esophagitis Plan: Avoid the foods that causes that usually spicy foods, tomato products, juices, coffee, soda and foods that your sensitive to. After eating do not lie down, allow 3-4 hours before in lie down. And keep the head of bed above 30 degrees to avoid the acid from going up. Medications: Refilled albuterol sulfate 90 mcg/actuation 2 puffs inhalation Q6H PRN 17 ea 0RF for wheezing J45.50 - Severe persistent asthma, uncomplicated
[2024-10-02 08:50] VITALS: BP 124/78; PULSE 76; O2SAT 94; BMI 30.5
== END 2024-10-02 09:26 | disposition home or self-care (01) ==
PROVIDERS: PCP Internal Medicine; Visit Provider Internal Medicine
DX: J45.50 Severe persistent asthma, uncomplicated (principal); M62.830 Muscle spasm of back; E66.9 Obesity, unspecified; Z68.30 Body mass index [BMI] 30.0-30.9, adult; I10 Essential (primary) hypertension; E78.00 Pure hypercholesterolemia, unspecified; F41.1 Generalized anxiety disorder; K21.9 Gastro-esophageal reflux disease without esophagitis

== ENCOUNTER → 2024-10-02 08:46 | Outpatient (BNVA) | payer OTHER, SELFPAY ==
[2024-07-29 13:22] VITALS: BMI 30.3
== END ==
PROVIDERS: PCP Internal Medicine; Visit Provider Internal Medicine
DX: M62.830 Muscle spasm of back (principal); E66.9 Obesity, unspecified; J45.50 Severe persistent asthma, uncomplicated; I10 Essential (primary) hypertension; E78.00 Pure hypercholesterolemia, unspecified; F41.1 Generalized anxiety disorder; K21.9 Gastro-esophageal reflux disease without esophagitis
CPT/HCPCS: 96127; 99212

== ENCOUNTER 2024-10-07 13:34 | Outpatient (AMB) | payer OTHER, SELFPAY ==
[2024-07-29 13:22] VITALS: BMI 30.3
--- NOTE | 2024-10-07 12:50 | MHC.PC.OV ---
Vital Signs 10/07/24 13:35 Height 5 ft 2 in Weight 166 lb BMI 30.4 BP 112/72 Blood Pressure Location Lt brachial Position Sitting Pulse 78 Pulse Source Pulse Oximeter Pulse Oximetry (%) 98 Oxygen Delivery Method Room Air Intake Visit Reasons: cataract surgery [facility] 10/19 rt & 11/23 left Intake Note: Patient is here for a Pre-op for cataract surgery scheduled with [facility] on 10/19 RIGHT and 11/23 LEFT Allergies pneumococcal vaccine [PNEUMOCOCCAL VACCINE] Allergy (Severe, Verified 10/07/24 14:06) SWELLING, rash atorvastatin [From LIPITOR] Allergy (Intermediate, Verified 10/07/24 14:06) LIP SWELLING, hives, lip swelling dupilumab [Dupixent] Allergy (Unknown, Verified 10/07/24 14:06) PUGH fluticasone [Advair Diskus] Allergy (Unknown, Verified 10/07/24 14:06) unknown Iodinated Contrast Media Allergy (Unknown, Verified 10/07/24 14:06) unknown metoprolol Allergy (Unknown, Verified 10/07/24 14:06) hives morphine Allergy (Unknown, Verified 10/07/24 14:06) RASH salmeterol [Advair Diskus] Allergy (Unknown, Verified 10/07/24 14:06) unknown verapamil Allergy (Unknown, Verified 10/07/24 14:06) Unknown Medication List - Last Reconciled 10/07/24 by Angella Lua PA-C albuterol sulfate 90 mcg/actuation 2 puffs inhalation Q6H PRN betamethasone, augmented 0.05 % 1 appl topical BEDTIME PRN cane As directed codeine-guaifenesin 10-100 mg/5 mL 10 mL PO Q4-6H PRN 14 days epinephrine (EpiPen 2-Masoud) 0.3 mg (0.3 mL) IM Q4H PRN ezetimibe 10 mg PO DAILY fexofenadine 180 mg PO DAILY Incruse Ellipta 62.5 mcg/actuation (umeclidinium) 1 inh inhalation DAILY NS ipratropium-albuterol 0.5 mg-3 mg(2.5 mg base)/3 mL 3 mL inhalation Q6H PRN 30 days lisinopril 20 mg PO DAILY 90 days meloxicam 15 mg PO DAILY mepolizumab 100 mg subcut Q4W methocarbamol 500 mg PO BID PRN miscellaneous medical supply (Blood Pressure Cuff) Testing once a day mometasone 50 mcg/actuation (Nasonex 24hr Allergy) 2 sprays intranasal DAILY PRN [shower hand rails. As directed] Tobacco use date assessed: 01/30/24 Fall risk assessment: No Falls in past year Last assessed Fall Risk: 10/07/24 Dental Screening Dental Screen Date: 01/30/24 HPI cataract surgery [facility] 10/19 rt & 11/23 left HPI Details 69-year-old obese female with severe persistent allergic asthma hypertension hypercholesterolemia generalized anxiety disorder and GERD last seen September 2024 coming in for pre op exam. Patient is scheduled to have cataract surgery with [facility] 10/19/2024 for the right eye and 11/23/2024 for the left eye. Hypertension: Blood pressure today 112/72 presently on lisinopril 20 mg Patient has no history of UT, CVA or diabetes mellitus. Has had surgery in the past without complication. REPLACED BY [facility] Medical History Back pain Post-menopausal COVID-19 Chest pain Occult blood positive stool Left-sided chest pain Bilateral leg pain UTI (urinary tract infection) Bad odor of urine Dysuria Left leg pain Myalgia Lumbar spine pain Unsteady gait COVID-19 virus infection Chronic cough Asthma exacerbation Colon cancer screening Facial dermatitis Mass of arm Cellulitis, leg Overweight (BMI 25.0-29.9) Acute asthma exacerbation Adult general medical exam Screening for diabetes mellitus Bronchitis Allergic rhinitis Allergic rhinitis Hypercholesterolemia Hypertension Urinary incontinence Vitamin D deficiency Migraine Anxiety Osteoporosis Osteoarthritis, knee Lichen sclerosus Atrophic vaginitis Severe persistent allergic asthma Surgical History History of cardiac cath Family History Mother No problems noted. Sister No problems noted. Father No problems noted. Sister No problems noted. Social History Household Members: Spouse Housing: House Alcohol intake: never Patient Tobacco Use Status: Never used Tobacco e-Cigarette/Vaping Use: Never Used Second Hand Smoke Exposure: No service: No Current occupational status: unemployed Current occupation: Lt handed Cognitive needs: No Hearing needs: No Vision needs: Yes Female Reproductive History Menstrual Age of Menarche: 13 Questionnaire Thrive Questionnaire Date Thrive assessed: 05/28/24 AUDIT C Alcohol Use Questionnaire (AUDIT-C) 1. How often do you have a drink containing alcohol?: Monthly or less 2. How many drinks containing alcohol do you have on a typical day when you are drinking?: 1 or 2 3. How often do you have six or more drinks on one occasion?: Never Total Score: 1 Score Reviewed/Action Taken: Yes AJAY-7 AMB Questionnaire AJAY-7 Date AJAY - 7 assessed: 01/30/24 Source: Developed by Drs. Spike Hernandez, Ruth Ortega, Clint Esteves and colleagues, with an educational andrés from [employer]. Review of Systems Const Denies body aches, Denies chills, Denies fever(s), Denies headache(s) and Denies poor appetite Eyes Reports no additional complaints ENT Denies dizziness and Denies headache(s) Card Denies chest pain, Denies syncope, Denies edema, Denies irregular heart rhythm, Denies lightheadedness and Denies dyspnea Resp Denies cough and Denies dyspnea GI Denies abdominal pain, Denies diarrhea, Denies nausea and Denies vomiting Reports no additional complaints Musc Reports no additional complaints and Denies abnormal gait Skin/Breast Reports system reviewed and no additional complaints, except as documented Neuro Denies abnormal gait, Denies dizziness, Denies syncope and Denies headache(s) Psych Reports no additional complaints Physical exam (Primary Care) Vital Signs: Last Vital Signs Pulse 78 10/07/24 13:35 BP 112/72 10/07/24 13:35 Pulse Ox 98 10/07/24 13:35 Oxygen Delivery Method Room Air 10/07/24 13:35 BMI result Body Mass Index 30.4 Tobacco/Smoking Status: Tobacco use Status Tobacco use date assessed 01/30/24 10/07/24 12:51 Patient Tobacco Use Status Never used Tobacco 10/07/24 12:51 e-Cigarette/Vaping Use Never Used 10/07/24 12:51 Thrive Assessment: Date of Thrive Assessment Date Thrive assessed 05/28/24 10/07/24 12:51 Const General: cooperative, healthy appearing, comfortable and no acute distress Orientation/consciousness: patient oriented x3 HENMT Head: Yes normocephalic Ears: hearing grossly normal bilaterally General nose exam: Normal external nose present Eyes General: appearance normal, both eyes and all related structures Conjunctivae: conjunctivae normal Neck Neck: Yes full ROM and Yes no lymphadenopathy Resp Effort & Inspection: normal respiratory effort Auscultation: clear to auscultation bilaterally, no crackles, no rales, no rhonchi and no wheezes Cardio Rate: regular rate Rhythm: regular rhythm Skin General skin exam: no rashes or lesions noted Neuro General: patient oriented x3 Gait exam (Neuro): Normal gait present Extrem General: Yes normal to inspection, Yes full ROM and No edema Psych Affect: normal affect Attitude: cooperative Insight: Good insight present (Psych) Judgement: Good judgement present (Psych) Coding Level of Care Code Est Pt Level 3 (68049) Diagnoses Pre-op exam Z01.818 Assessment & Plan Assessment & Plan (1) Pre-op exam: Code(s): Z01.818 - Encounter for other preprocedural examination Category: Medical Plan: Regarding preop clearance, the patient is at low-moderate risk for proposed surgery due to age and history of hypertension which is well controlled at this time. Reviewed with the patient that no surgery is completely free of risk and that this examination is to assist the surgeon in reviewing informed consent. No further workup needed at this time and may proceed with the contemplated procedure. Thank you very much for letting me participate in the care of this patient Plan This note was constructed using voice recognition software. While every effort has been made to ensure accuracy and picture engraver, still areas may have been included sometimes these areas may affect the content or meeting of the given symptoms. Total time spent caring for the patient today was 20 minutes. This includes time spent before the visit reviewing the chart, time spent during the visit, and time spent after the visit and documentation.
[2024-10-07 13:35] VITALS: BP 112/72; PULSE 78; O2SAT 98; BMI 30.4
== END 2024-10-07 14:21 | disposition home or self-care (01) ==
PROVIDERS: PCP Internal Medicine
DX: Z01.818 Encounter for other preprocedural examination (principal)

== ENCOUNTER → 2024-10-07 13:34 | Outpatient (BNVA) | payer OTHER, SELFPAY ==
[2024-07-29 13:22] VITALS: BMI 30.3
== END ==
PROVIDERS: PCP Internal Medicine
DX: Z01.818 Encounter for other preprocedural examination (principal); I10 Essential (primary) hypertension; J45.909 Unspecified asthma, uncomplicated
CPT/HCPCS: 99212

== ENCOUNTER 2024-10-30 09:48 | Outpatient (AMB) | payer OTHER, SELFPAY ==
[2024-07-29 13:22] VITALS: BMI 30.3
--- NOTE | 2024-10-30 09:49 | A.OFFVIS_ITS ---
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 Allergies pneumococcal vaccine [PNEUMOCOCCAL VACCINE] Allergy (Severe, Verified 10/30/24 09:49) SWELLING, rash atorvastatin [From LIPITOR] Allergy (Intermediate, Verified 10/30/24 09:49) LIP SWELLING, hives, lip swelling dupilumab [Dupixent] Allergy (Unknown, Verified 10/30/24 09:49) PUGH fluticasone [Advair Diskus] Allergy (Unknown, Verified 10/30/24 09:49) unknown Iodinated Contrast Media Allergy (Unknown, Verified 10/30/24 09:49) unknown metoprolol Allergy (Unknown, Verified 10/30/24 09:49) hives morphine Allergy (Unknown, Verified 10/30/24 09:49) RASH salmeterol [Advair Diskus] Allergy (Unknown, Verified 10/30/24 09:49) unknown verapamil Allergy (Unknown, Verified 10/30/24 09:49) Unknown HPI Comments Details: Telephone visit for follow-up, review of recent x-rays X-rays reviewed, results as per below Patient just finished physical therapy, she says that this improved her pain. She is now using muscle relaxers sparingly and only as needed when the pain is severe. But most days pain is tolerable. She is preparing for cataract surgery, the 2nd I will be done next month. She would like to follow up in our office to discuss next steps after she recovers from these procedures. Prior: Tita is a very pleasant 69-year-old female who presents the office today for evaluation management of her lower back pain Recently evaluated by pulmonology was referred here for back pain She states this pain has been ongoing for over 2 weeks. Started after she had been coughing excessively due to asthma. She does have a history of lower back pain, told by her primary care doctor arthritis. Has been controlled up until 2 weeks ago when this episode started Denies any recent imaging, physical therapy, acupuncture, chiropractor, massage She has been using the lumbar support brace with some improvement Taking meloxicam as prescribed by her PCP with minimal improvement only using sparingly though as she was advised not to take routinely Has been applying heat and ice and patches with temporary minimal improvement Denies radiation of the pain down either lower extremity. Denies weakness, numbness, tingling of either lower extremity Pain today is rated as a 9/10, constant and worse in the morning and at night. Exacerbated by movements, coughing In terms of muscle damage condition is described as pulsing, throbbing, pounding, dull, sore, hurting, aching, stabbing, sharp, tight, squeezing Pain is negatively impacting patient's enjoyment of life, general activity, sleep, ability to perform activities of daily living Denies current use of anticoagulants Denies implantable devices, pacemaker or defibrillator Denies current use of nicotine, tobacco, alcohol or illicit substances [facility] Medical History Back pain Post-menopausal COVID-19 Chest pain Occult blood positive stool Left-sided chest pain Bilateral leg pain UTI (urinary tract infection) Bad odor of urine Dysuria Left leg pain Myalgia Lumbar spine pain Unsteady gait COVID-19 virus infection Chronic cough Asthma exacerbation Colon cancer screening Facial dermatitis Mass of arm Cellulitis, leg Overweight (BMI 25.0-29.9) Acute asthma exacerbation Adult general medical exam Screening for diabetes mellitus Bronchitis Allergic rhinitis Allergic rhinitis Hypercholesterolemia Hypertension Urinary incontinence Vitamin D deficiency Migraine Anxiety Osteoporosis Osteoarthritis, knee Lichen sclerosus Atrophic vaginitis Severe persistent allergic asthma Surgical History History of cardiac cath Family History Mother No problems noted. Sister No problems noted. Father No problems noted. Sister No problems noted. Social History Household Members: Spouse Housing: House Alcohol intake: never Patient Tobacco Use Status: Never used Tobacco e-Cigarette/Vaping Use: Never Used Second Hand Smoke Exposure: No service: No Current occupational status: unemployed Current occupation: Lt handed Cognitive needs: No Hearing needs: No Vision needs: Yes Female Reproductive History Menstrual Age of Menarche: 13 Review of Systems Const All systems reviewed & are unremarkable except as noted in HPI and below Physical Exam Telephone visit only, vital signs and physical exam deferred Telehealth Telehealth Telehealth Platform: Telephone Location of provider rendering services: practice address Location of patient: address on file Patient Identification confirmed using: Name, : Yes Telehealth method: voice only Patient verbally consented to treatment: Yes Patient verbally consented to billing insurance company: Yes Patient informed of any privacy concerns related to visit: Yes Minutes spent on Phone/Video with Pt.: 7 Results Reviewed Results Reviewed: 08/07/24 XR/XR thoracic spine 3V FINDINGS: Mild osteopenia. There is a very gentle levoconvex scoliosis, apex at T10. Normal kyphosis. Alignment is normal. No fracture, dislocation, or suspicious bone lesion. No compression deformity. Mild to moderate multilevel disc degeneration. Mild multilevel facet degeneration. Imaged soft tissues appear normal. IMPRESSION: 1. No acute findings thoracic spine. 2. Mild levoconvex scoliosis apex at T10. 3. Degenerative spondylosis, mild to moderate in severity. 08/07/24 XR/XR lumbar spine 4V min FINDINGS: There is a mild right convex scoliosis. There is a normal lordosis. No fractures, compression deformities, or suspicious bone lesions. Alignment is anatomic without subluxations. Moderate disc degeneration evident L1-2, L2-3, L4-5. and L5-S1. Mild degenerative disc changes evident at L3-4. Facets are normally aligned. There are no pars defects evident. There are degenerative facet changes and mild to moderate degree most significant at L4-5 and L5-S1. Soft tissues demonstrate vascular calcifications but are otherwise normal. IMPRESSION: 1. No acute findings lumbar spine. 2. Mild dextroconvex scoliosis, and mild to moderate multilevel lumbar spondylosis. Moderate disc degeneration diffusely with sparing of L3-4. 09/10/2023 XR/XR lumbar spine 2-3V FINDINGS: 5 nonrib-bearing lumbar-type vertebral bodies. No acute visible fracture or dislocation. Mild dextro curvature of the lower lumbar spine. Mild multilevel degenerative changes with osteophyte formation and lower lumbar spine facet arthropathy. Vertebral body heights and disc spaces are otherwise maintained. Posterior elements are intact. Paraspinal soft tissues unremarkable. Visualized bowel gas is unremarkable. IMPRESSION: 1. No acute visible fracture or dislocation. 2. Mild multilevel degenerative changes with mild dextro curvature of the lower lumbar spine. Assessment & Plan Assessment & Plan (1) Back pain: Code(s): M54.9 - Dorsalgia, unspecified Category: Medical (2) Lumbar degenerative disc disease: Code(s): M51.36 - Other intervertebral disc degeneration, lumbar region Category: Medical (3) Lumbar spondylosis: Code(s): M47.816 - Spondylosis without myelopathy or radiculopathy, lumbar region Category: Medical (4) Lumbar paraspinal muscle spasm: Code(s): M62.830 - Muscle spasm of back Category: Medical Plan X-rays reviewed, results as per above Continue with methocarbamol as needed Continue with meloxicam daily as prescribed by PCP All questions and concerns were answered, patient agrees with plan. Follow up after eye surgery, sooner if needed Coding Level of Care Code Tele Est Pt Level 3 (13059) Complex EM visit Add On G2211 Diagnoses Back pain M54.9 Lumbar degenerative disc disease M51.36 Lumbar spondylosis M47.816 Lumbar paraspinal muscle spasm M62.830
--- OUTSIDE RECORDS SUMMARY | 2024-10-30 09:51 | XMS_ITS | Data Portability ---
Author Organization [employer] [facility] [employer] Address [address] [place] [address] Assessment Encounter Date Assessment Date Assessment LastModified by Organization Details LastModified Time 09/06/2023 09/06/2023 Ms. Tita mooney is a 68yoF w/ a Pmhx of COPD, HTN who is seen today for further evaluation of leg pain. Ms. Morris reports that she has had leg pain over the past few months that she describes as achiness during the day. She states that the achiness is most notable during rest and improves with walking around. She takes tylenol for pain occasionally. She does note that she has muscle cramping in her b/l legs that occurs throughout the night and makes it difficult for her to sleep. She denies trauma, edema, or any new medications. 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 Leg soreness unclear but history and exam not c/w DVT. Suspect varicose veins causing discomfort vs. nocturnal leg cramping with residual daytime soreness. Electrolytes checked and wnl. Encouraged OTC medication and PCP follow up to discuss cramping. She will try home therapies of topical medications, oral magnesium, tonic water. Primary team, Ms Morris would benefit from follow up in the next week or two to discuss the etiology of her leg pain. [email or web address] Not available 09/06/2023 11:17:27 Plan of Treatment Reminders Order Date Submit Date Provider Last Modified By Organization Details Last Modified Time Details Appointments None record ed. Lab None record ed. Referral None record ed. Procedures None record ed. Surgeries None record ed. Imaging None record ed. Medication Orders None record ed. Patient TargetsNo targets recorded. Patient InstructionsNo instructions recorded. Reason for Referral None Reported. Medical Equipment None Reported. Medications Name Sig Start Date Stop Date Status Note LastModified by Organization Details LastModified Time cyclobenzapr ine 10 mg tablet TAKE 1 TABLET BY MOUTH THREE TIMES A DAY NEEDED FOR MUSCLE SPASM active Not Available Not Available No t Available prednisone 10 mg tablet TAKE 4 TABLETS BY MOUTH EVERY DAY FOR 5 DAYS active Not Available Not Available No t Available ipratropium 0.5 mg-albuterol 3 mg (2.5 mg base)/3 mL nebulization soln TAKE 3 ML INHALED EVERY 6 HOURS NEEDED FOR SHORTNESS OF BREATH OR WHEEZING FOR 30 DAYS active Not Available Not Available Not Available azithromycin 250 mg tablet TAKE 1 TABLET BY MOUTH EVERY DAY FOR 3 DAYS active Not Available Not Available No t Available benzonatate 200 mg capsule TAKE 1 CAPSULE BY MOUTH AT BEDTIME NEEDED FOR COUGH active Not Available Not Available No t Available prednisone 20 mg tablet TAKE 3 TABLETS BY MOUTH EVERY DAY FOR 5 DAYS active Not Available Not Available No t Available fexofenadine 180 mg tablet TAKE 1 TABLET BY MOUTH EVERY DAY active Not Available Not Available No t Available omeprazole 40 mg capsule,lauren yed release TAKE 1 CAPSULE BY MOUTH EVERY DAY active Not Available Not Available No t Available meloxicam 7.5 mg tablet TAKE 1 TABLET BY MOUTH EVERY DAY active Not Available Not Available No t Available benzonatate 100 mg capsule TAKE 2 CAPSULES BY MOUTH 3 TIMES A DAY NEEDED FOR COUGH active Not Available Not Available No t Available lisinopril 10 mg tablet TAKE 1 TABLET BY MOUTH EVERY DAY active Not Available Not Available No t Available epinephrine 0.3 mg/0.3 mL injection, auto-injecto r INJECT 0.3 ML INTRAMUSCUL JOSE EVERY 4 HOURS NEEDED FOR ANAPHYLAXIS active Not Available Not Available Not Available albuterol sulfate HFA 90 mcg/actuatio n aerosol inhaler INHALE 2 PUFFS EVERY 6 HOURS NEEDED FOR SHORTNESS OF BREATH OR WHEEZING active Not Available Not Available Not Available rosuvastatin 10 mg tablet TAKE 1 TABLET BY MOUTH DAILY active Not Available Not Available Not Available nitrofuranto in monohydrate/ macrocrystal s 100 mg capsule TAKE 1 CAPSULE ORALLY 2 TIMES A DAY FOR UTI FOR 5 DAYS. MUST ADMINISTER WITH A MEAL/FOOD active Not Available Not Available No t Available Incruse Ellipta 62.5 mcg/actuatio n powder for inhalation INHALE 1 PUFF BY MOUTH EVERY DAY active Not Available Not Available No t Available Fasenra 30 mg/mL subcutaneous syringe active Not Available Not Available Not Available Nucala 100 mg/mL subcutaneous syringe active Not Available Not Available Not Available Flowflex COVID-19 Antigen Home Test kit USE DIRECTED active Not Available Not Available No t Available Vitals Date Recorded Oxygen saturation Oxygen saturation in Arterial blood by Pulse oximetry Body weight Body temperature Heart rate Respiratory rate Systolic blood pressure Diastolic blood pressure Provider Name and Address Organization Details Last Updated DateTime 3 99 % 99 % 49898.6 g 98 [degF] 65 /min 16 /min 183 mm[Hg] 118 mm[Hg] Not Available [facility] - production 3 10:56:48 Social History None recorded. Functional Status None recorded. Mental Status None recorded. Family History Nothing Reported. Medical History No medical history recorded. Gynecological HistoryNo gynecological history recorded. Obstetrics History GPAL:G 0 P 0 0 0 0 Past Encounters Encounter ID Performer Location Encounter Start Date Encounter Closed Date Diagnosis/Indication Diagnosis SNOMED-CT Code Diagnosis ICD10 Code [id number] Maddy Padilla MD [facility] [address] [place] [id number] 09/06/2023 10:56:03 09/09/2023 12:47:11 Cramp in lower limb 616054830 R25.2 Health Concerns Section Related Observation LastModified by Organization Detai ls LastModified Time None Recorded Concern Status LastModified by Organization Details LastModified Time None Recorded Advance Directives Directive None Recorded Payers Encounter Date Sequence Insurance Name Policy Number Policy Akbar Covered Member ID Akbar Member ID Guarantor Name 09/06/2023 1 [facility] - DOS ON OR AFTER 2023 - MEDICARE [place]VANTAGE [place] (MEDICARE REPLACEMENT/ADV ANTAGE - PPO) Tita Morris [id number] Tita Morris Notes Date Note Type Note Provider Name and Address Organization Details Recorded Time 09/06/2023 text/html HPI: Member states that she has been having leg pain on and off for a while. Experiencing left leg pain worsening over the past two weeks from her knee to her foot. Pain described as aching bone pain. Endorses slight swelling and spider veins. Member denies redness and numbness to that leg. Member states that she is able to bear weight on the LLE but it hurts to walk. Member states she has used heat and ice without relief. Member had a bone density test done recently and has not received the results. PMH: limited in members file, osteoporosis per member .................. .................. .................. .................. .................. .................. .................. ............... [facility] Nursing Assessment: Comments: Reviewed. No additional information needed to process. Lucien Buitrago RN .................. .................. .................. .................. .................. .................. .................. ............... Warehouse Unloader Note From Douglas Zhou: Pt CO LLL PO X2 weeks. Pt states the Po is constant, dull to sharp, defuse Po, radiates from foot to hip. Pt has been taking her R medication as normal. Pt added magnesium to help with the cramping . Pt states Po is worse at night/bedtime. When she is moving Pa decreases, increases at rest. Pt states that tylenol does help somewhat with the Pa. Pt denies chest o/SOB/fevers/NVD. POs TTP to left leg, defuse, non-specific area. Pos distal pulses, normal cap refill, full ROM. BMP normal values, 12 lead NSR. Normal reflexes. Pt instructed to call PCP for F/U, will put in note to Pt care team. Discusses red flags with Pt. Educated Pt on supportive care. Pt understood all instructions. .................. .................. .................. .................. .................. .................. .................. ............... Disposition: Fulfilled Maddy Padilla MD [address] [facility],[address], [place], [phone], [facility] [place], [facility] 09/06/2023 14:56:33 OBGyn Episode No OBEpisode recorded.
== END 2024-10-30 09:51 | disposition home or self-care (01) ==
LOC: HO.PMC 09:48
PROVIDERS: PCP Internal Medicine; Visit Provider Registered Nurse Emergency
DX: M54.9 Dorsalgia, unspecified (principal); M51.369 Other intervertebral disc degeneration, lumbar region without mention of lumbar back pain or lower extremity pain; M47.816 Spondylosis without myelopathy or radiculopathy, lumbar region; M62.830 Muscle spasm of back
CPT/HCPCS: 99441

== ENCOUNTER → 2024-10-30 09:48 | Outpatient (BNVA) | payer OTHER, SELFPAY ==
[2024-07-29 13:22] VITALS: BMI 30.3
== END ==
PROVIDERS: PCP Internal Medicine; Visit Provider Registered Nurse Emergency

== ENCOUNTER 2025-01-11 14:09 | Emergency (ER) | payer OTHER, SELFPAY ==
[2024-07-29 13:22] VITALS: BMI 30.3
--- NOTE | ~2025-01-11 | XR_ITS ---
EXAMINATION: XR CHEST CLINICAL INFORMATION: Shortness of breath. COMPARISON: Chest x-ray 06/03/2023 TECHNIQUE: 2 views of the chest were obtained. FINDINGS: No significant abnormality is noted involving the heart, lungs, mediastinum, bony thorax or soft tissues. XR/XR chest 2V IMPRESSION: Unremarkable chest examination. Electronically signed by: Judd Blankenship MD 01/11/2025 05:39 PM [facility]
[2025-01-11 15:37] VITALS: BP 152/98; PULSE 99; RESP 22; TEMP 37.1; O2SAT 98; BMI 29.6
--- NOTE | 2025-01-11 15:37 | ED_ITS ---
HPI - General Adult General Chief complaint: Upper Respiratory Symptoms Stated complaint: asthma, diff breathing Time Seen by Provider: 01/11/25 21:51 Source: patient Mode of arrival: ambulatory Limitations: no limitations History of Present Illness ED Provider: Natalia Lowe NP HPI narrative: Patient is a 69-year-old female with past medical history of asthma, allergic rhinitis, anxiety, hypercholesterolemia, hypertension, migraine, osteoarthritis, osteoporosis who presents emergency department for evaluation of shortness of breath/ asthma over the past 4 days. She states that she has had excessive coughing with clear white phlegm, sneezing/rhinorrhea, chest tightness. She states that despite taking Robitussin with codeine she continues to cough, tightness throughout her chest is exacerbated with cough. She denies known sick contacts. has been taking inhalers at home with minimal relief. Denies trauma, fevers, chills, sore throat, difficulty swallowing, neck pain, chest pain, palpitations, cough, nausea, vomiting, abdominal pain, numbness or tingling of the extremities, recent lower extremity pain or swelling. Related Data Home Medications ?Medication ?Instructions ?Recorded ?Confirmed ketorolac 0.5 % eye drops drp ophthalmic (eye) 10/30/24 Previous Rx's ?Medication ?Instructions ?Recorded epinephrine 0.3 mg/0.3 mL 0.3 mg (0.3 mL) IM Q4H PRN 05/21/23 injection, auto-injector (EpiPen anaphylaxis #2 ea 2-Masoud) miscellaneous medical supply #1 ea 09/10/23 (Blood Pressure Cuff) cane #1 ea 09/17/23 shower hand rails. #1 ea 12/10/23 betamethasone, augmented 0.05 % 1 appl topical BEDTIME PRN 02/05/24 topical ointment allergic reaction #45 grams mepolizumab 100 mg/mL subcutaneous 100 mg subcut Q4W #1 mL 03/04/24 syringe ipratropium 0.5 mg-albuterol 3 mg 3 ml inhalation Q6H PRN shortness 04/03/24 (2.5 mg base)/3 mL nebulization of breath or wheezing 30 days #270 soln mL ezetimibe 10 mg tablet 10 mg PO DAILY #90 tabs 08/17/24 fexofenadine 180 mg tablet 180 mg PO DAILY #90 tabs 08/17/24 lisinopril 20 mg tablet 20 mg PO DAILY 90 days #90 tabs 08/17/24 mometasone 50 mcg/actuation nasal 2 spray intranasal DAILY PRN nasal 08/17/24 spray (Nasonex 24hr Allergy) congestion #17 grams methocarbamol 500 mg tablet 500 mg PO BID PRN muscle spasm #60 08/19/24 tabs codeine 10 mg-guaifenesin 100 mg/5 10 ml PO Q4-6H PRN flu symptoms 14 10/13/24 mL oral liquid days #473 mL Incruse Ellipta 62.5 mcg/actuation 1 inh inhalation DAILY #30 ea 11/20/24 powder for inhalation (umeclidinium) meloxicam 15 mg tablet 15 mg PO DAILY #30 tabs 11/20/24 albuterol sulfate 90 mcg/actuation 2 puff inhalation Q6H PRN for 12/02/24 aerosol inhaler wheezing #17 ea benzonatate 200 mg capsule 200 mg PO TID PRN cough #20 caps 01/11/25 prednisone 20 mg tablet 40 mg (2 x 20 mg) PO DAILY #10 tabs 01/11/25 Allergies Allergy/AdvReac Type Severity Reaction Status Date / Time pneumococcal vaccine Allergy Severe SWELLING, Verified 01/11/25 15:39 [PNEUMOCOCCAL VACCINE] rash atorvastatin [From LIPITOR] Allergy Intermediate LIP Verified 01/11/25 15:39 SWELLING, hives, lip swelling dupilumab [Dupixent] Allergy Unknown PUGH Verified 01/11/25 15:39 fluticasone [Advair Diskus] Allergy Unknown unknown Verified 01/11/25 15:39 Iodinated Contrast Media Allergy Unknown unknown Verified 01/11/25 15:39 metoprolol Allergy Unknown hives Verified 01/11/25 15:39 morphine Allergy Unknown RASH Verified 01/11/25 15:39 salmeterol [Advair Diskus] Allergy Unknown unknown Verified 01/11/25 15:39 verapamil Allergy Unknown Unknown Verified 01/11/25 15:39 Review of Systems 2 Review of Systems: Yes all other systems are reviewed and are negative [facility] Past Medical History Attestation statement: The following information was validated with the patient. Source: old records reviewed Medical History Back pain Post-menopausal COVID-19 Chest pain Occult blood positive stool Left-sided chest pain Bilateral leg pain UTI (urinary tract infection) Bad odor of urine Dysuria Left leg pain Myalgia Lumbar spine pain Unsteady gait COVID-19 virus infection Chronic cough Asthma exacerbation Colon cancer screening Facial dermatitis Mass of arm Cellulitis, leg Overweight (BMI 25.0-29.9) Acute asthma exacerbation Adult general medical exam Screening for diabetes mellitus Bronchitis Allergic rhinitis Allergic rhinitis Hypercholesterolemia Hypertension Urinary incontinence Vitamin D deficiency Migraine Anxiety Osteoporosis Osteoarthritis, knee Lichen sclerosus Atrophic vaginitis Severe persistent allergic asthma Surgical History History of cardiac cath Family History Family History Mother No problems noted. Sister No problems noted. Father No problems noted. Sister No problems noted. 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 No acute distress.?Normal affect. Eyes: Pupils equal, round and reactive to light.? ENT: Pharynx normal.?? Neck: Normal inspection.? Neck supple.?? CVS: Heart sounds normal. tachycardia. Pulses normal.?? Respiratory: Mild tachypnea. Inspiratory and expiratory wheezing Abdomen: Soft and non-tender. Normoactive bowel sounds. Skin: Skin warm and dry.? Normal skin color.? Extremities: No lower extremity edema.? No calf ttp? Neuro: Moves all extremities spontaneously. Sensation intact bilaterally. No focal neuro deficits. Ambulates with normal steady gait. Course Course Course Narrative: RME performed by Cherry Tran PA-C. Patient is a 69 year old assigned female at presenting to the emergency department with shortness of breath. Patient states that she has been having shortness of breath and diarrhea. Detailed physical exam and review of systems are deferred to the plastic dolls mold filler. EKG, labs, imaging, and swabs ordered. Patient placed back in the waiting room pending room availability and results. Reevaluation(s) Reevaluation #1: patient is feeling much improved after receiving nebulizer treatment Solu- Medrol, requesting discharge home which I feel is reasonable at this time, discharge home med acute bronchitis, asthma exacerbation, prescription for prednisone and benzonatate sent to pharmacy, strict return precautions discussed. Medications Administered Discontinued Medications Generic Name Dose Route Start Last Admin Trade Name Sofy PRN Reason Stop Dose Admin Benzonatate 200 mg 01/11/25 22:13 01/11/25 22:22 Benzonatate 100 Mg Capsule PO 01/11/25 22:14 200 mg ONCE ONE Administration Albuterol Sulfate 5 mg/ 0 mg 01/11/25 19:58 01/11/25 20:02 Albuterol/Ipratropium 3 ml INHALE 01/11/25 19:59 1 each ONCE ONE Administration Guaifenesin/Codeine Phosphate 10 ml 01/11/25 22:15 01/11/25 22:22 Guaifen/Codeine Sf 200/20/10ml 10 Ml Liquid PO 01/11/25 22:16 10 ml ONCE ONE Administration Methylprednisolone Sodium Succinate 125 mg 01/11/25 22:03 01/11/25 22:13 Methylprednisolone Sod Succ 125 Mg/2 Ml Vial IVPUSH 01/11/25 22:04 125 mg ONCE ONE Administration Medical Decision Making Medical Decision Making MDM Narrative: Patient is a 69-year-old female with past medical history of asthma, allergic rhinitis, anxiety, hypercholesterolemia, hypertension, migraine, osteoarthritis, osteoporosis who presents emergency department for evaluation of shortness breath cough and chest tightness as per HPI. Pain in chest is reproducible to cough and deep inspiration as well as palpation of the chest wall. She is dyspneic on evaluation, has inspiratory and expiratory wheezing, received albuterol 7.5 mg nebulizer treatment prior to my evaluation at 22:00 about 1.5 hours prior, will order for her to additionally received Solu-Medrol 125 mg IV in addition to benzonatate. On evaluation of workup thus far prior to my assumption of care CBC is without leukocytosis anemia or thrombocytopenia. No significant electrolyte derangement. No JORGE. LFTs unremarkable. High sensitive troponin below detectable limits, EKG revealing normal sinus rhythm with ventricular rate of 94, QTC of 440, no ST elevation, no ST depression, no acute ischemia, lower suspicion for ACS given duration of symptoms. CXR is without consolidation or infiltrate to suggest pneumonia. No lower extremity redness pain or swelling, history of VTE/ malignancy to suggest ACS. Clinically does not appear volume overloaded and no history of CHF, no pulmonary congestion on CXR. Symptoms most consistent with asthma exacerbation at this time, pain likely musculoskeletal/ costochondritis from cough. Differential Diagnosis Differential Diagnoses: The differential diagnosis associated with the presentation includes ( See narrative above) Admission/Observation Consideration of admission/observation: Escalation of care including admission/observation considered Lab Data MDM Lab Attestation statement: I reviewed the patient's lab results. ( see narrative above) 01/11/25 16:00 01/11/25 16:00 Labs: Lab Results 01/11/25 Range/Units 16:00 WBC 8.9 (4.8-10.8) X10*3/uL RBC 4.96 (4.20-5.50) X10*6/uL Hgb 14.6 (12.0-16.0) g/dl Hct 42.8 (37.0-47.0) % MCV 86.3 (80.0-98.0) fL MCH 29.4 (27.0-33.0) pg MCHC 34.1 (31.0-35.0) g/dl RDW 13.1 (11.0-16.0) % Plt Count 296 (160-400) X10*3/uL MPV 10.9 (9.4-12.3) fL Immature Gran % (Auto) 0.4 (0.0-0.4) % Neut % (Auto) 73.3 H (45-73) % Lymph % (Auto) 18.9 L (20-40) % [place] % (Auto) 6.4 (2-11) % Eos % (Auto) 0.6 (0-4) % Baso % (Auto) 0.4 (0-2) % Lymph # (Auto) 1.7 (1.2-4.9) X10*3/uL [place] # (Auto) 0.6 (0.1-1.2) X10*3/uL Eos # (Auto) 0.1 (0.0-0.4) X10*3/uL Baso # (Auto) 0.0 (0.0-0.2) X10*3/uL Abs Immat Gran (auto) 0.04 H (0.00-0.03) X10*3/uL Absolute Neuts (auto) 6.5 (2.0-8.3) x10*3/uL Absolute Nucleated RBC 0.000 (0.0-0.012) X10*3/uL Nucleated RBC % (auto) 0.0 (0.0-0.2) /100WBC PT 11.7 (10.9-12.4) SEC INR 1.0 (0.9-1.1) APTT 31.7 (26.0-36.8) SEC Sodium 140 (135-145) mmol/L Potassium 3.8 (3.3-5.1) mmol/L Chloride 110 H (96-108) mmol/L Carbon Dioxide 21 L (22-29) mmol/L Anion Gap 13 (12-20) BUN 16 (9-16) mg/dL Creatinine 0.75 (0.5-1.4) mg/dL Estim Creat Clear Calc 66.4 Estimated GFR > 60 Random Glucose 97 (60-115) mg/dL Calcium 9.3 (8.4-10.2) mg/dL Magnesium 2.1 (1.6-2.6) mg/dL Total Bilirubin 0.3 (0.0-1.0) mg/dL AST 22 (5-31) U/L ALT 17 (0-31) U/L Alkaline Phosphatase 74 (39-117) U/L Troponin I High Sens < 2.7 (<3.5-17.0) ng/L Total Protein 8.4 H (6.5-8.0) g/dL Albumin 4.1 (3.5-5.0) g/dL Influenza Type A (PCR) NEGATIVE (Negative) Influenza Type B (PCR) NEGATIVE (Negative) RSV RNA Qual (PCR) NEGATIVE (Negative) SARS-CoV-2 RNA (RT-PCR) NEGATIVE (Negative) Independent Interpretation I performed an independent interpretation of an: Plain X-Ray ( see narrative above) Radiology Impression Discussion of test interpretation with radiology: I have reviewed the radiologist's reading. Radiologist Impression: XR/XR chest 2V IMPRESSION: Unremarkable chest examination. External Record Review External record reviewed: Outpatient record Prescription Management I considered prescription management with: Other ( antitussive, corticosteroids) Chronic Conditions Patient?s care impacted by: Other ( see narrative above) Discharge Plan Discharge Clinical Impression: Asthma exacerbation, Bronchitis Patient Disposition: Home, Self-Care Instructions: Asthma (ED), Acute Bronchitis (ED) Prescriptions: New prednisone 20 mg tablet 40 mg PO DAILY Qty: 10 0RF benzonatate 200 mg capsule 200 mg PO TID PRN (Reason: cough) Qty: 20 0RF No Action (DME) cane Device See Rx Instructions .Route Qty: 1 0RF Rx Instructions: As directed (DME) shower hand rails. See Rx Instructions .Route .MEDSUPPLY Qty: 1 0RF Rx Instructions: As directed mepolizumab 100 mg/mL syringe 100 mg subcut Q4W Qty: 1 12RF ipratropium-albuterol 0.5 mg-3 mg(2.5 mg base)/3 mL solution for nebulization 3 ml inhalation Q6H PRN (Reason: shortness of breath or wheezing) 30 Days Qty: 270 6RF ezetimibe 10 mg tablet 10 mg PO DAILY Qty: 90 1RF lisinopril 20 mg tablet 20 mg PO DAILY 90 Days Qty: 90 2RF mometasone [Nasonex 24hr Allergy] 50 mcg/actuation spray,non-aerosol 2 spray intranasal DAILY PRN (Reason: nasal congestion) Qty: 17 3RF Rx Instructions: administer into each nostril fexofenadine 180 mg tablet 180 mg PO DAILY Qty: 90 2RF methocarbamol 500 mg tablet 500 mg PO BID PRN (Reason: muscle spasm) Qty: 60 0RF Rx Instructions: Do not take with the cough syrup with codeine. No driving while taking this medication. Do no take with alcohol or other A R SPECIALIST Depressants codeine-guaifenesin 10-100 mg/5 mL liquid 10 ml PO Q4-6H PRN (Reason: flu symptoms) 14 Days Qty: 473 0RF Incruse Ellipta 62.5 mcg/actuation blister with device 1 inh inhalation DAILY Qty: 30 6RF meloxicam 15 mg tablet 15 mg PO DAILY Qty: 30 1RF albuterol sulfate 90 mcg/actuation HFA aerosol inhaler 2 puff inhalation Q6H PRN (Reason: for wheezing) Qty: 17 0RF (DME) Blood Pressure Cuff Misc See Rx Instructions .ROUTE .MEDSUPPLY Qty: 1 0RF Rx Instructions: Testing once a day ketorolac 0.5 % drops ophthalmic (eye) epinephrine [EpiPen 2-Masoud] 0.3 mg/0.3 mL auto-injector 0.3 mg IM Q4H PRN (Reason: anaphylaxis) Qty: 2 1RF betamethasone, augmented 0.05 % ointment 1 appl topical BEDTIME PRN (Reason: allergic reaction) Qty: 45 1RF Rx Instructions: apply to the area at bedtime a thin coat, twice a week Referrals: Lakia Whalen MD [Primary Care Provider] - Print Language: Nauruan
--- NOTE | 2025-01-11 15:38 | ECG_ITS ---
Test Reason : cp Blood Pressure : */* mmHG Vent. Rate : 94 BPM Atrial Rate : 94 BPM P-R Int : 126 ms QRS Dur : 82 ms QT Int : 352 ms P-R-T Axes : 68 32 37 degrees QTcB Int : 440 ms Normal sinus rhythm Normal ECG When compared with ECG of 03-Jun-2023 14:23, No significant change was found Referred By: Cherry Tran Electronically Signed By: JOSE EDUARDO GUERRERO MD
[2025-01-11 16:09] LABS: MANUAL DIFF FLAG NO
[2025-01-11 16:10] LABS: Basophils Percent Auto 0.4 % (0-2); Eosinophils Absolute Auto 0.1 X10*3/uL (0.0-0.4); Eosinophils Percent Auto 0.6 % (0-4); Hematocrit 42.8 % (37.0-47.0); Hemoglobin 14.6 g/dl (12.0-16.0); Imm Gran Abs Auto 0.04 X10*3/uL (0.00-0.03); Imm Gran Pct Auto 0.4 % (0.0-0.4); Lymphocytes Absolute Auto 1.7 X10*3/uL (1.2-4.9); Lymphocytes Percent Auto 18.9 % (20-40); Mean Corpuscular HGB Conc 34.1 g/dl (31.0-35.0); Mean Corpuscular Hemoglobin 29.4 pg (27.0-33.0); Mean Corpuscular Volume 86.3 fL (80.0-98.0); Mean Platelet Volume 10.9 fL (9.4-12.3); Monocytes Absolute Auto 0.6 X10*3/uL (0.1-1.2); Monocytes Percent Auto 6.4 % (2-11); Neutrophils Absolute Auto 6.5 x10*3/uL (2.0-8.3); Neutrophils Percent Auto 73.3 % (45-73); Platelet Count 296 X10*3/uL (160-400); Red Blood Count 4.96 X10*6/uL (4.20-5.50); Red Cell Distribution Width 13.1 % (11.0-16.0); White Blood Count 8.9 X10*3/uL (4.8-10.8)
[2025-01-11 16:25] LABS: Alanine Aminotransferase 17 U/L (0-31); Albumin Level 4.1 g/dL (3.5-5.0); Alkaline Phosphatase 74 U/L (39-117); Anion Gap 13 (12-20); Aspartate Amino Transferase 22 U/L (5-31); Bilirubin Total 0.3 mg/dL (0.0-1.0); Blood Urea Nitrogen 16 mg/dL (9-16); Calcium 9.3 mg/dL (8.4-10.2); Carbon Dioxide 21 mmol/L (22-29); Chloride 110 mmol/L (96-108); Creatinine Clr Calc Pharmacy 66.4; Estimated Glomerular Filt Rate > 60; Glucose Random 97 mg/dL (60-115); Magnesium 2.1 mg/dL (1.6-2.6); Potassium 3.8 mmol/L (3.3-5.1); Sodium 140 mmol/L (135-145); Total Protein 8.4 g/dL (6.5-8.0)
[2025-01-11 16:33] LABS: Prothrombin Time 11.7 SEC (10.9-12.4)
[2025-01-11 16:35] LABS: Partial Thromboplastin Time 31.7 SEC (26.0-36.8)
[2025-01-11 16:39] LABS: Troponin-I High Sensitivity < 2.7 ng/L (<3.5-17.0)
[2025-01-11 16:49] LABS: Influenza A PCR NEGATIVE (Negative); Influenza B PCR NEGATIVE (Negative); Resp Syncy Virus RNA Qual PCR NEGATIVE (Negative); SARS COV2 PCR INHOUSE NEGATIVE (Negative)
[2025-01-11] MEDS: Albuterol Sulfate 5 MG, Albuterol/Iprat 2.5/0.5MG 3 ML 3 ML INHALE (20:02)
[2025-01-11 20:03] VITALS: PULSE 103; RESP 26; O2SAT 98
[2025-01-11 21:43] VITALS: BP 181/113; PULSE 115; RESP 24; TEMP 36.8; O2SAT 98
--- OUTSIDE RECORDS SUMMARY | 2025-01-11 22:07 | XMS_ITS | Data Portability ---
Author Organization [employer] Address [address] [place] [address] Assessment Encounter Date Assessment Date Assessment LastModified [...] trauma, edema, or any new medications. VSS. Gold Letterer on site reports neurovascularly intact to b/l [...] Updated DateTime 3 99 % 99 % 75573.6 g 98 [degF] 65 /min 16 /min [...] Diagnosis/Indication Diagnosis SNOMED-CT Code Diagnosis ICD10 Code Diagnosis Note [id number] Maddy Padilla MD Main - [facility] [address] [place] [phone] 09/06/2023 10:56:03 09/09/2023 12:47:11 Cramp in lower limb [id number] R25.2 Health Concerns Section Related Observation LastModified by Organization Detai ls LastModified Time None Recorded Concern Status LastModified by Organization Details LastModified Time None Recorded Advance Directives Directive None Recorded Payers Encounter Date Sequence Insurance Name Policy Number Policy Akbar Covered Member ID Akbar Member ID Guarantor Name 09/06/2023 1 [facility] - DOS ON OR AFTER 2023 - MEDICARE [place]VANTAGE [place]MED[place]ARE REPLACEMENT/ADV ANTAGE - PPO) Tita Morris [id number] Tita Morris Notes Date Note Type Note [...] .................. .................. .................. .................. .................. .................. ............... Gold Letterer Note From Douglas Zhou: Pt CO LLL [...] ............... Disposition: Fulfilled Maddy Padilla MD [address] [facility],[address] [facility], [place], [id number], [employer] 09/06/2023 14:56:33 OBGyn Episode No OBEpisode recorded.
[2025-01-11] MEDS: methylPREDNISolone Sod Succ 125 MG/2 ML VIAL IVPUSH (22:13)
[2025-01-11] MEDS: guaiFEN/Codeine SF 200/20/10ML 10 ML LIQUID PO (22:22)
[2025-01-11] MEDS: Benzonatate 100 MG CAPSULE 200 MG PO (22:22)
--- NOTE | 2025-01-11 22:30 | PC.NURSE ---
Patient medicated per provider orders. Coughing frequently. Plan to reassess cough/discomfort, and if improvement is noted, plan for discharge per TIFFANIE Lowe. Care ongoing by this RN. 20g IV access established in left AC.
[2025-01-11 23:46] VITALS: BP 183/110; PULSE 83; RESP 20; TEMP 36.8; O2SAT 96
--- NOTE | 2025-01-11 23:49 | PC.NURSE ---
Natalia, ED provider informed of BP 183/110. Per patient she did not take Lisinopril 20 mg PO today. Patient denies chest pain/headache/SOB/no changes in vision, no new orders at this time.
[2025-01-11 23:52] VITALS: O2SAT 96
--- NOTE | 2025-01-11 23:52 | PC.NURSE ---
Per Natalia KUMAR to discharge patent with elevated BP, patient to take Lisinopril when she gets home.
[2025-01-12 00:08] VITALS: BP 183/110; PULSE 83; RESP 20; TEMP 36.8; O2SAT 96
--- NOTE | 2025-01-12 00:09 | PC.NURSE ---
Reviewed discharge instruction with pt. pt verbalized understanding, no respiratory distress, pt had a steady gait upon discharge, notified SHUBHAM Gordon
== END 2025-01-12 00:10 | disposition home or self-care (01) ==
PROVIDERS: Physician Assistant Medical; Emergency Provider Emergency Medicine Emergency Medical Services; PCP Internal Medicine
DX: J45.901 Unspecified asthma with (acute) exacerbation (principal); I10 Essential (primary) hypertension
CPT/HCPCS: 0241U; 71046; 80053; 83735; 84484; 85025; 85610; 85730; 93005; 94640; 96374; 99284; 99285; J2919

== ENCOUNTER → 2025-01-11 15:38 | Outpatient (BNV) | payer OTHER, SELFPAY ==
[2024-07-29 13:22] VITALS: BMI 30.3
== END ==
PROVIDERS: PCP Internal Medicine; Visit Provider Radiology Diagnostic Radiology
DX: R06.02 Shortness of breath (principal)
CPT/HCPCS: 71046

== ENCOUNTER → 2025-01-11 15:38 | Outpatient (BNV) | payer OTHER, SELFPAY ==
[2024-07-29 13:22] VITALS: BMI 30.3
== END ==
PROVIDERS: PCP Internal Medicine; Visit Provider Internal Medicine Cardiovascular Disease
DX: R07.9 Chest pain, unspecified (principal)
CPT/HCPCS: 93010

== ENCOUNTER 2025-01-19 09:03 | Outpatient (AMB) | payer OTHER, SELFPAY ==
[2024-07-29 13:22] VITALS: BMI 30.3
--- NOTE | 2025-01-19 09:09 | A.OFFPC_ITS ---
Vital Signs 01/19/25 09:10 Height 5 ft 2 in Weight 168 lb BMI 30.7 BP 130/86 Blood Pressure Location Lt brachial Position Sitting Pulse 68 Pulse Source Pulse Oximeter Pulse Oximetry (%) 98 Oxygen Delivery Method Room Air Intake Visit Reasons: 3 mo f/u w/ Dr. Whalen Corporate Recycling Manager Required: No Accompanied by: Self / Same As Patient Allergies pneumococcal vaccine [PNEUMOCOCCAL VACCINE] Allergy (Severe, Verified 01/19/25 09:10) SWELLING, rash atorvastatin [From LIPITOR] Allergy (Intermediate, Verified 01/19/25 09:10) LIP SWELLING, hives, lip swelling dupilumab [Dupixent] Allergy (Unknown, Verified 01/19/25 09:10) PUGH fluticasone [Advair Diskus] Allergy (Unknown, Verified 01/19/25 09:10) unknown Iodinated Contrast Media Allergy (Unknown, Verified 01/19/25 09:10) unknown metoprolol Allergy (Unknown, Verified 01/19/25 09:10) hives morphine Allergy (Unknown, Verified 01/19/25 09:10) RASH salmeterol [Advair Diskus] Allergy (Unknown, Verified 01/19/25 09:10) unknown verapamil Allergy (Unknown, Verified 01/19/25 09:10) Unknown Medication List - Last Reconciled 01/19/25 by Lakia Whalen MD albuterol sulfate 90 mcg/actuation 2 puffs inhalation Q6H PRN benzonatate 200 mg PO TID PRN betamethasone, augmented 0.05 % 1 appl topical BEDTIME PRN cane As directed codeine-guaifenesin 10-100 mg/5 mL 10 mL PO Q4-6H PRN 14 days epinephrine (EpiPen 2-Masoud) 0.3 mg (0.3 mL) IM Q4H PRN ezetimibe 10 mg PO DAILY fexofenadine 180 mg PO DAILY Incruse Ellipta 62.5 mcg/actuation (umeclidinium) 1 inh inhalation DAILY NS ipratropium-albuterol 0.5 mg-3 mg(2.5 mg base)/3 mL 3 mL inhalation Q6H PRN 30 days ketorolac 0.5% drps ophthalmic (eye) lisinopril 20 mg PO DAILY 90 days meloxicam 15 mg PO DAILY mepolizumab 100 mg subcut Q4W methocarbamol 500 mg PO BID PRN miscellaneous medical supply (Blood Pressure Cuff) Testing once a day mometasone 50 mcg/actuation (Nasonex 24hr Allergy) 2 sprays intranasal DAILY PRN prednisone 40 mg (2 x 20 mg) PO DAILY [shower hand rails. As directed] Tobacco use date assessed: 01/19/25 Fall risk assessment: No Falls in past year Last assessed Fall Risk: 01/19/25 Dental Screening Dental Screen Date: 01/19/25 Did you have a dental visit in the last 12 months?: Yes Did you have a dental problem in the last 6 months where you did not have access to dental care?: No Was dental information given to patient?: Patient has dentist [facility] Medical History Back pain Post-menopausal COVID-19 Chest pain Occult blood positive stool Left-sided chest pain Bilateral leg pain UTI (urinary tract infection) Bad odor of urine Dysuria Left leg pain Myalgia Lumbar spine pain Unsteady gait COVID-19 virus infection Chronic cough Asthma exacerbation Colon cancer screening Facial dermatitis Mass of arm Cellulitis, leg Overweight (BMI 25.0-29.9) Acute asthma exacerbation Adult general medical exam Screening for diabetes mellitus Bronchitis Allergic rhinitis Allergic rhinitis Hypercholesterolemia Hypertension Urinary incontinence Vitamin D deficiency Migraine Anxiety Osteoporosis Osteoarthritis, knee Lichen sclerosus Atrophic vaginitis Severe persistent allergic asthma Surgical History History of cardiac cath Family History Mother No problems noted. Sister No problems noted. Father No problems noted. Sister No problems noted. Social History Household Members: Spouse Housing: House Alcohol intake: never Patient Tobacco Use Status: Never used Tobacco e-Cigarette/Vaping Use: Never Used Second Hand Smoke Exposure: No Advance Directives Date on File: 05/16/23 service: No Current occupational status: unemployed Current occupation: Lt handed Cognitive needs: No Hearing needs: No Vision needs: Yes Female Reproductive History Menstrual Age of Menarche: 13 Questionnaire PHQ-9 Over the last 2 weeks, how often have you been bothered by any of the following problems? 1. Little interest or pleasure in doing things: not at all 2. Feeling down, depressed, or hopeless: not at all 3. Trouble falling or staying asleep, or sleeping too much: not at all 4. Feeling tired or having little energy: not at all 5. Poor appetite or overeating: not at all 6. Feeling bad about yourself - or that you are a failure or have let yourself or your family down: not at all 7. Trouble concentrating on things, such as reading the newspaper or watching television: not at all 8. Moving or speaking so slowly that other people could have noticed. Or the opposite - being so fidgety or restless that you have been moving around a lot more than usual: not at all 9. Thoughts that you would be better off or of hurting yourself in some way: not at all Total score: 0 Depression Screening Interpretation: Negative Depression Screening Done: Yes Source: Developed by Drs. Spike Hernandez, Ruth Ortega, Clint Esteves and colleagues, with an educational andrés from [employer]. Thrive Questionnaire Date Thrive assessed: 01/19/25 I am a: Patient What is your living situation today?: I have a steady place to live Within the past 12 months, did the food you bought not last and you didn't have the money to get more?: Never true Within the past 12 months, did you worry whether your food would run out before you got money to buy more?: Never true Do you have trouble paying for medicines?: No Do you have trouble getting transportation to medical appointments?: No Do you have trouble paying your heating and electricity bill?: No Do you have trouble taking care of your child, family member or friend?: No Do you have trouble with day-to-day activities such as bathing, preparing meals, shopping, managing finances, etc.?: No Are you currently unemployed and looking for a job?: No Are you interested in more education?: No Please select the resources that you would like help with: None Currently or been in a relationship where the following occur: No concerns reported THRIVE Score: 0 AUDIT C Alcohol Use Questionnaire (AUDIT-C) 1. How often do you have a drink containing alcohol?: Monthly or less 2. How many drinks containing alcohol do you have on a typical day when you are drinking?: 1 or 2 3. How often do you have six or more drinks on one occasion?: Never Total Score: 1 Score Reviewed/Action Taken: Yes AJAY-7 AMB Questionnaire AJAY-7 Date AJAY - 7 assessed: 01/19/25 Feeling nervous, anxious, or on edge: 0 = Not at all Not being able to stop or control worryin = Not at all Worrying too much about different things: 0 = Not at all Trouble relaxin = Not at all Being so restless that it is hard to sit still: 0 = Not at all Becoming easily annoyed or irritable: 0 = Not at all Feeling afraid as if something awful might happen: 0 = Not at all Total AJAY-7 score (0-4 normal; 5-9 mild; 10-14 moderate; 15-21 severe): 0 Source: Developed by Drs. Spike Hernandez, Ruth Ortega, Clint Esteves and colleagues, with an educational andrés from [employer]. Physical exam (Primary Care) Vital Signs: Last Vital Signs Pulse 68 01/19/25 09:10 BP 130/86 01/19/25 09:10 Pulse Ox 98 01/19/25 09:10 Oxygen Delivery Method Room Air 01/19/25 09:10 BMI result Body Mass Index 30.7 Tobacco/Smoking Status: Tobacco use Status Tobacco use date assessed 01/19/25 01/19/25 09:13 Patient Tobacco Use Status Never used Tobacco 01/19/25 09:13 e-Cigarette/Vaping Use Never Used 01/19/25 09:13 PHQ-9: PHQ-9 Score PHQ-9: Total score 0 01/19/25 09:58 Depression Screening Interpretation: Negative Thrive Assessment: Date of Thrive Assessment Date Thrive assessed 01/19/25 01/19/25 09:13 Currently or been in a relationship where the following occur: No concerns reported Const General: alert; No acute distress Eyes Conjunctivae: conjunctivae normal Resp Auscultation: clear to auscultation bilaterally Cardio Rate: regular rate Rhythm: regular rhythm GI Inspection: Yes normal to inspection Extrem General: Yes normal to inspection and No edema Coding Level of Care Code Est Pt Level 4 (30497) Complex EM visit Add On G2211 Diagnoses Severe persistent allergic asthma J45.50 Essential hypertension I10 Hypertension type: unspecified Hypercholesterolemia E78.00 Generalized anxiety disorder F41.1 Gastroesophageal reflux disease without esophagitis K21.9 Esophagitis presence: without esophagitis Obesity (BMI 30.0-34.9) E66.9 Lumbar spondylosis M47.816 Assessment & Plan Assessment & Plan (1) Severe persistent allergic asthma: Code(s): J45.50 - Severe persistent asthma, uncomplicated Category: Medical Plan: Is being followed up by Pulmonary and has been on an IV infusion of mepolizumab meanwhile patient has ipratropium albuterol nebulizer Incruse inhaler albuterol inhaler had problems with Advair (2) Hypertension: Comment: Cardiac catheterization July 2014 minimal coronary artery disease Code(s): I10 - Essential (primary) hypertension Category: Medical Qualifiers: Hypertension type: unspecified Qualified Code(s): I10 - Essential (primary) hypertension Plan: Continue with blood pressure medication. Decrease salt intake and exercise takes lisinopril 20 mg once a day (3) Hypercholesterolemia: Code(s): E78.00 - Pure hypercholesterolemia, unspecified Category: Medical Plan: Avoid fried foods, chicken skin, eggs, butter margarine, pastries and meat. Be it pork or beef they have a lot of cholesterol on Zetia as patient can not take the statin. (4) Generalized anxiety disorder: Code(s): F41.1 - Generalized anxiety disorder Category: Medical Plan: Continue with present medication (5) GERD (gastroesophageal reflux disease): Code(s): K21.9 - Gastro-esophageal reflux disease without esophagitis Category: Medical Qualifiers: Esophagitis presence: without esophagitis Qualified Code(s): K21.9 - Gastro-esophageal reflux disease without esophagitis Plan: Avoid the foods that causes that usually spicy foods, tomato products, juices, coffee, soda and foods that your sensitive to. After eating do not lie down, allow 3-4 hours before in lie down. And keep the head of bed above 30 degrees to avoid the acid from going up. (6) Obesity (BMI 30.0-34.9): Code(s): E66.9 - Obesity, unspecified Category: Medical Plan: Diet and exercise (7) Lumbar spondylosis: Code(s): M47.816 - Spondylosis without myelopathy or radiculopathy, lumbar region Category: Medical Plan: Patient goes to pain management and has been placed on muscle relaxant and anti- inflammatory Plan History of Present Illness The patient is a 69-year-old female presenting with a follow-up for her severe persistent allergic asthma. Her asthma management includes various inhalers and monoclonal antibody therapy but still results in exacerbations as evidenced by a recent ER visit. The patient's recent laboratory work revealed elevated LDL cholesterol, which is being treated with Zetia due to contraindications with statins. Management of her other conditions such as hypertension, hypercholesterolemia, and osteoporosis is ongoing with regular monitoring through clinical visits and follow-ups. She has an upcoming appointment with a filer finish to further evaluate and manage her asthma condition. Health Maintenance - Cologuard test due for colon cancer screening in 2022. - Mammogram up to date as of August 2024. - Bone density test current as of August 2023. - Cholesterol management including dietary and lifestyle modifications. Social History - No specific social determinants of health were discussed in the conversation. Review of Systems - Respiratory: Reports occasional coughing and tightness in the chest. Physical Exam - Respiratory- Breathing noted as less severe than before, but with some restriction. Results - Labs: Last blood work showed normal blood count, electrolytes, renal function, blood sugar, and liver function. Elevated LDL cholesterol noted at 151 mg/dL as of August 2024. Plan The focus will remain on managing the patient's severe persistent allergic asthma with current inhaler and monoclonal antibody therapy. Continuing with Zetia for hypercholesterolemia management, given statin intolerance, and lisinopril for blood pressure control. Reassessment of cholesterol levels is scheduled in three months following recent blood work. Pain management consultations will maintain current medication regimens for chronic low back pain. An EpiPen refill is pending, and lifestyle modifications for managing cholesterol and GERD are advised. Patient was informed and verbally consented to the use of an ambient scribe for clinic note documentation during this visit. Discussion Notes The patient was informed about the need to follow up with the filer finish in three days to address ongoing asthma issues. We discussed continuing with the current management plan for asthma, blood pressure, cholesterol, and pain. I advised on the importance of lifestyle modifications for managing cholesterol levels and emphasized careful monitoring of asthma symptoms to prevent exacerbations. The patient consented to the EpiPen refill due to impending expiration. We agreed to retest cholesterol levels in three months to monitor the response to Zetia. Follow-up instructions for regular visits and monitoring for any adverse reactions to medications and therapy were provided. Patient Instructions - Continue current medication regimen for asthma, hypertension, and cholesterol. - Follow up with the filer finish in three days for asthma management. - Dietary and exercise changes are important for managing GERD and cholesterol levels. - Refill and carry EpiPen; it's essential in emergencies. - Schedule cholesterol level retesting in three months. Orders: Orders Complete Blood Count Auto Diff 3 Months E78.00 - Pure hypercholesterolemia, unspecified Free T4 (Free Thyroxine) 3 Months E78.00 - Pure hypercholesterolemia, unspecified Lipid Panel 3 Months E78.00 - Pure hypercholesterolemia, unspecified Vitamin B12 and Folate 3 Months E78.00 - Pure hypercholesterolemia, unspecified Hemoglobin A1c 3 Months E78.00 - Pure hypercholesterolemia, unspecified Thyroid Stimulating Hormone 3 Months E78.00 - Pure hypercholesterolemia, unspecified Comprehensive Met. Panel 3 Months E78.00 - Pure hypercholesterolemia, unspecified Vitamin D 25-OH Total 3 Months E78.00 - Pure hypercholesterolemia, unspecified Medications: Refilled epinephrine (EpiPen 2-Masoud) 0.3 mg (0.3 mL) IM Q4H PRN 2 ea 1RF anaphylaxis
[2025-01-19 09:10] VITALS: BP 130/86; PULSE 68; O2SAT 98; BMI 30.7
--- OUTSIDE RECORDS SUMMARY | 2025-01-19 10:02 | XMS_ITS | Data Portability ---
Author Organization [employer], [employer] in - [employer] it Address [address] [place] [address] Assessment Encounter Date Assessment Date Assessment LastModified [...] trauma, edema, or any new medications. VSS. Thermodynamics Engineer on site reports neurovascularly intact to b/l [...] Updated DateTime 3 99 % 99 % 60312.6 g 98 [degF] 65 /min 16 /min [...] SNOMED-CT Code Diagnosis ICD10 Code Diagnosis Note [id number] Maddy Padilla MD Main - [facility] [address] [place] [phone] 09/06/2023 10:56:03 09/09/2023 12:47:11 Cramp in lower limb 912807000 R25.2 Health Concerns Section Related Observation LastModified by Organization Detai ls LastModified Time None Recorded Concern Status LastModified by Organization Details LastModified Time None Recorded Advance Directives Directive None Recorded Payers Encounter Date Sequence Insurance Name Policy Number Policy Akbar Covered Member ID Akbar Member ID Guarantor Name 09/06/2023 1 [facility] - DOS ON OR AFTER 2023 - MEDICARE [place]VANTAGE [place]ARE REPLACEMENT/ADV ANTAGE - PPO) Tita Morris [id number] Tita Morris Notes Date Note Type Note [...] .................. .................. .................. .................. .................. .................. ............... Thermodynamics Engineer Note From Douglas Zhou: Pt CO LLL [...] ............... Disposition: Fulfilled Maddy Padilla MD [address] [facility],[address] [facility], [place], [address], [employer] 09/06/2023 14:56:33 OBGyn Episode No OBEpisode recorded.
== END 2025-01-19 10:05 | disposition home or self-care (01) ==
LOC: HO.HMCH 09:04
PROVIDERS: PCP Internal Medicine; Visit Provider Internal Medicine
DX: J45.50 Severe persistent asthma, uncomplicated (principal); I10 Essential (primary) hypertension; E66.9 Obesity, unspecified; Z68.30 Body mass index [BMI] 30.0-30.9, adult; E78.00 Pure hypercholesterolemia, unspecified; F41.1 Generalized anxiety disorder; K21.9 Gastro-esophageal reflux disease without esophagitis; M47.816 Spondylosis without myelopathy or radiculopathy, lumbar region

== ENCOUNTER → 2025-01-19 09:03 | Outpatient (BNVA) | payer OTHER, SELFPAY ==
[2024-07-29 13:22] VITALS: BMI 30.3
== END ==
PROVIDERS: PCP Internal Medicine; Visit Provider Internal Medicine
DX: J45.50 Severe persistent asthma, uncomplicated (principal); I10 Essential (primary) hypertension; E78.00 Pure hypercholesterolemia, unspecified; F41.1 Generalized anxiety disorder; K21.9 Gastro-esophageal reflux disease without esophagitis; E66.9 Obesity, unspecified; Z68.30 Body mass index [BMI] 30.0-30.9, adult; M47.816 Spondylosis without myelopathy or radiculopathy, lumbar region; Z71.3 Dietary counseling and surveillance
CPT/HCPCS: 99212

== ENCOUNTER 2025-01-22 09:05 | Outpatient (AMB) | payer OTHER, SELFPAY ==
[2024-07-29 13:22] VITALS: BMI 30.3
[2025-01-22 09:08] VITALS: BP 132/78; PULSE 68; O2SAT 100; BMI 30.8
--- NOTE | 2025-01-22 09:08 | A.OFFVIS_ITS ---
Vital Signs 01/22/25 09:08 Height 5 ft 2 in Weight 168 lb 10.458 oz BMI 30.8 BP 132/78 Blood Pressure Location Rt brachial Position Sitting Pulse 68 Pulse Source Doppler Pulse Oximetry (%) 100 Oxygen Delivery Method Room Air Intake Visit Reasons: Asthma Allergies pneumococcal vaccine [PNEUMOCOCCAL VACCINE] Allergy (Severe, Verified 01/22/25 09:14) SWELLING, rash atorvastatin [From LIPITOR] Allergy (Intermediate, Verified 01/22/25 09:14) LIP SWELLING, hives, lip swelling dupilumab [Dupixent] Allergy (Unknown, Verified 01/22/25 09:14) PUGH fluticasone [Advair Diskus] Allergy (Unknown, Verified 01/22/25 09:14) unknown Iodinated Contrast Media Allergy (Unknown, Verified 01/22/25 09:14) unknown metoprolol Allergy (Unknown, Verified 01/22/25 09:14) hives morphine Allergy (Unknown, Verified 01/22/25 09:14) RASH salmeterol [Advair Diskus] Allergy (Unknown, Verified 01/22/25 09:14) unknown verapamil Allergy (Unknown, Verified 01/22/25 09:14) Unknown HPI HPI Asthma: Details: 69-year-old lady, lifetime nonsmoker, followed for severe persistent asthma with significant allergic component. Patient continues on her current regimen of Symbicort, Spiriva, Singulair, albuterol MDI, duo nebs, and Nucala with good baseline control of her symptoms. She did have a recent exacerbation treated with a course of prednisone, still not fully resolved. [facility] Medical History Back pain Post-menopausal COVID-19 Chest pain Occult blood positive stool Left-sided chest pain Bilateral leg pain UTI (urinary tract infection) Bad odor of urine Dysuria Left leg pain Myalgia Lumbar spine pain Unsteady gait COVID-19 virus infection Chronic cough Asthma exacerbation Colon cancer screening Facial dermatitis Mass of arm Cellulitis, leg Overweight (BMI 25.0-29.9) Acute asthma exacerbation Adult general medical exam Screening for diabetes mellitus Bronchitis Allergic rhinitis Allergic rhinitis Hypercholesterolemia Hypertension Urinary incontinence Vitamin D deficiency Migraine Anxiety Osteoporosis Osteoarthritis, knee Lichen sclerosus Atrophic vaginitis Severe persistent allergic asthma Surgical History History of cardiac cath Family History Mother No problems noted. Sister No problems noted. Father No problems noted. Sister No problems noted. Social History Household Members: Spouse Housing: House Alcohol intake: never Patient Tobacco Use Status: Never used Tobacco e-Cigarette/Vaping Use: Never Used Second Hand Smoke Exposure: No Advance Directives Date on File: 05/16/23 service: No Current occupational status: unemployed Current occupation: Lt handed Cognitive needs: No Hearing needs: No Vision needs: Yes Female Reproductive History Menstrual Age of Menarche: 13 Review of Systems Const Denies daytime sleepiness, Denies excessive sweating, Denies fatigue, Denies fever(s), Denies lethargy, Denies malaise, Denies night sweats, Denies snoring and Denies weight loss Eyes Denies blurry vision and Denies itchy eyes ENT Denies nasal congestion, Denies post nasal drip, Denies sinus pain, Denies sinus pressure and Denies other ( Thrush) Card Denies chest pain, Denies pedal edema, Denies dyspnea, Denies orthopnea and Denies paroxysmal nocturnal dyspnea Resp Denies cough, Denies hemoptysis, Denies excessive phlegm production, Denies dyspnea, Denies snoring and Denies wheezing GI Denies abdominal pain and Denies heartburn Musc Denies myalgias, Denies arthralgias and Denies joint swelling Skin/Breast Denies rash Neuro Denies memory loss and Denies seizure-like activity Psych Denies abnormal sleep pattern, Denies anxiety and Denies memory loss Endo Denies excessive sweating, Denies fatigue and Denies heat intolerance Jose G/Lymph Denies easy bruising Aller/Immun Denies itchy eyes, Denies seasonal rhinorrhea and Denies wheezing Physical Exam Vital Signs: Last Vital Signs Pulse 68 01/22/25 09:08 BP 132/78 01/22/25 09:08 Pulse Ox 100 01/22/25 09:08 Oxygen Delivery Method Room Air 01/22/25 09:08 BMI result Body Mass Index 30.8 Const General: no acute distress and alert Nutritional Appearance: not obese Orientation/consciousness: Other orientation findings ( oriented) HEENT Head: Yes atraumatic Eyes General: appearance normal, both eyes and all related structures Sclerae: sclerae normal EOM: EOMs intact bilaterally Neck Neck: Yes supple Lymphatic: no lymphadenopathy noted Resp Effort & Inspection: normal respiratory effort and no use of accessory muscles Auscultation: wheezes Cardio Rate: regular rate Rhythm: regular rhythm Heart sounds: no gallops, no murmurs and no rubs Skin General skin exam: other ( warm) Extrem General: No clubbing, No cyanosis and No edema Assessment & Plan Assessment & Plan (1) Severe persistent allergic asthma: Code(s): J45.50 - Severe persistent asthma, uncomplicated Category: Medical Plan: Baseline well controlled on current regimen of Nucala, Incruse, Symbicort, and albuterol MDI/duo nebs. Continue current regimen. Still with residual symptoms from recent exacerbation, will treat with a prednisone taper. (2) Environmental and seasonal allergies: Code(s): J30.89 - Other allergic rhinitis Category: Medical Plan: Well controlled on Nucala. Continue current regimen. Medications: New prednisone Take 4 tabs daily for 5 days, then go down by 1 tab every 5 days 10 mg PO DIRECTED 50 tabs 0RF prednisone Take 4 tabs daily for 5 days, then go down by 1 tab every 5 days 10 mg PO DIRECTED 50 tabs 1RF Refilled codeine-guaifenesin 10-100 mg/5 mL 10 mL PO Q4-6H 14 days PRN 473 mL 0RF flu symptoms Coding Level of Care Code Est Pt Level 4 (95981) Diagnoses Severe persistent allergic asthma J45.50 Environmental and seasonal allergies J30.89
== END 2025-01-22 09:34 | disposition home or self-care (01) ==
LOC: HO.HPS 09:06
PROVIDERS: PCP Internal Medicine; Visit Provider Internal Medicine Pulmonary Disease
DX: J45.50 Severe persistent asthma, uncomplicated (principal); J30.89 Other allergic rhinitis
CPT/HCPCS: 99214

== ENCOUNTER → 2025-01-22 09:05 | Outpatient (BNVA) | payer OTHER, SELFPAY ==
[2024-07-29 13:22] VITALS: BMI 30.3
== END ==
PROVIDERS: PCP Internal Medicine; Visit Provider Internal Medicine Pulmonary Disease
DX: J45.50 Severe persistent asthma, uncomplicated (principal); J30.89 Other allergic rhinitis; Z79.899 Other long term (current) drug therapy
CPT/HCPCS: 99212

== ENCOUNTER 2025-04-24 07:50 | Outpatient (REF) | payer OTHER, SELFPAY ==
[2024-07-29 13:22] VITALS: BMI 30.3
--- OUTSIDE RECORDS SUMMARY | 2025-04-24 07:53 | XMS_ITS | Data Portability ---
Author Organization [employer] [facility], [facility] Address [address] [place] [address] Assessment Encounter Date Assessment Date Assessment LastModified [...] trauma, edema, or any new medications. VSS. Cupola Operator Insulation on site reports neurovascularly intact to b/l [...] Updated DateTime 3 99 % 99 % 15452.6 g 98 [degF] 65 /min 16 /min [...] SNOMED-CT Code Diagnosis ICD10 Code Diagnosis Note [id number] Maddy Padilla MD Main - [facility] [address] [place] [phone] 09/06/2023 10:56:03 09/09/2023 12:47:11 Cramp in lower limb [id number] R25.2 Health Concerns Section Related Observation LastModified by Organization Detai ls LastModified Time None Recorded Concern Status LastModified by Organization Details LastModified Time None Recorded Advance Directives Directive None Recorded Payers Insurance Date Sequence Insurance Name Policy Number Policy Akbar Covered Member ID Akbar Member ID Guarantor Name 06/09/2024 1 [facility] - DOS ON OR AFTER 2023 - DUAL ELIGIBLE - JAIL OPTIONS AND ONE CARE (MEDICARE REPLACEMENT/ADV ANTAGE - HMO) Tita Morris [id number] [facility] [place] 06/09/2024 1 [facility] - DOS ON OR AFTER 2023 - MEDIC[place]/ADV ANTAGE - PPO) Tita Morris [id number] [facility] Notes Date Note Type Note Provider Name [...] .................. .................. .................. .................. .................. .................. ............... Cupola Operator Insulation Note From Douglas Zhou: Pt CO LLL [...] .................. ............... Disposition: Fulfilled Maddy Padilla MD [address] [place] [address],[address], [place], [address], [employer] 09/06/2023 14:56:33 OBGyn Episode No OBEpisode recorded.
[2025-04-24 08:17] LABS: MANUAL DIFF FLAG NO
[2025-04-24 08:32] LABS: Basophils Percent Auto 0.3 % (0-2); Eosinophils Absolute Auto 0.1 X10*3/uL (0.0-0.4); Eosinophils Percent Auto 0.9 % (0-4); Hematocrit 41.5 % (37.0-47.0); Hemoglobin 13.7 g/dl (12.0-16.0); Imm Gran Abs Auto 0.02 X10*3/uL (0.00-0.03); Imm Gran Pct Auto 0.3 % (0.0-0.4); Lymphocytes Absolute Auto 1.6 X10*3/uL (1.2-4.9); Mean Corpuscular Volume 87.7 fL (80.0-98.0); Monocytes Absolute Auto 0.4 X10*3/uL (0.1-1.2); Monocytes Percent Auto 7.4 % (2-11); Neutrophils Absolute Auto 3.7 x10*3/uL (2.0-8.3); Neutrophils Percent Auto 64.1 % (45-73); Platelet Count 260 X10*3/uL (160-400); Red Blood Count 4.73 X10*6/uL (4.20-5.50); Red Cell Distribution Width 13.5 % (11.0-16.0); White Blood Count 5.8 X10*3/uL (4.8-10.8)
[2025-04-24 09:10] LABS: Estimated Average Glucose 111 mg/dL; Hemoglobin A1c % 5.5 % (<6.0)
[2025-04-24 09:23] LABS: Alanine Aminotransferase 20 U/L (0-31); Albumin Level 4.2 g/dL (3.5-5.0); Alkaline Phosphatase 65 U/L (39-117); Anion Gap 11 (12-20); Aspartate Amino Transferase 23 U/L (5-31); Bilirubin Total 0.5 mg/dL (0.0-1.0); Blood Urea Nitrogen 21 mg/dL (9-16); Calcium 9.3 mg/dL (8.4-10.2); Carbon Dioxide 27 mmol/L (22-29); Chloride 106 mmol/L (96-108); Cholesterol 221 mg/dL (<200); Estimated Glomerular Filt Rate > 60; Glucose Random 90 mg/dL (60-115); HDL Cholesterol 45 mg/dL (>40); LDL Cholesterol Calculated 144 mg/dL (<100); Potassium 4.2 mmol/L (3.3-5.1); Sodium 140 mmol/L (135-145); Total Protein 7.1 g/dL (6.5-8.0); Triglycerides 160 mg/dL (<150)
[2025-04-24 09:47] LABS: Free T4 (Free Thyroxine) 1.06 ng/dL (0.71-1.85); Thyroid Stimulating Hormone 1.13 uIU/mL (0.32-4.0); Vitamin D 25-OH Total 37.1 ng/mL (>30)
[2025-04-24 09:56] LABS: Folate 9.2 ng/mL (> or = 4.0); Vitamin B12 374 pg/mL (200-900)
== END 2025-04-24 07:51 | disposition home or self-care (01) ==
LOC: HO.LAB 07:50
PROVIDERS: PCP Internal Medicine; Visit Provider Internal Medicine
DX: E78.00 Pure hypercholesterolemia, unspecified (principal); Z13.1 Encounter for screening for diabetes mellitus
CPT/HCPCS: 36415; 80053; 80061; 82306; 82607; 82746; 83036; 84439; 84443; 85025

== ENCOUNTER 2025-04-29 10:02 | Outpatient (AMB) | payer OTHER, SELFPAY ==
[2024-07-29 13:22] VITALS: BMI 30.3
--- NOTE | 2025-04-29 10:04 | MHC.PC.OV ---
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: No Accompanied by: Self / Same As Patient Allergies pneumococcal vaccine (PNEUMOCOCCAL VACCINE) Allergy (Severe, Verified 04/29/25 10:05) SWELLING, rash atorvastatin (From LIPITOR) Allergy (Intermediate, Verified 04/29/25 10:05) LIP SWELLING, hives, lip swelling dupilumab (Dupixent) Allergy (Unknown, Verified 04/29/25 10:05) PUGH fluticasone (Advair Diskus) Allergy (Unknown, Verified 04/29/25 10:05) unknown Iodinated Contrast Media Allergy (Unknown, Verified 04/29/25 10:05) unknown metoprolol Allergy (Unknown, Verified 04/29/25 10:05) hives morphine Allergy (Unknown, Verified 04/29/25 10:05) RASH salmeterol (Advair Diskus) Allergy (Unknown, Verified 04/29/25 10:05) unknown verapamil Allergy (Unknown, Verified 04/29/25 10:05) Unknown Tobacco use date assessed: 04/29/25 Fall risk assessment: No Falls in past year Last assessed Fall Risk: 04/29/25 Dental Screening Dental Screen Date: 04/29/25 Did you have a dental visit in the last 12 months?: Yes Did you have a dental problem in the last 6 months where you did not have access to dental care?: No Was dental information given to patient?: Patient has dentist HPI Asthma, hypercholesterol HPI Details Asking for a letter for stair/chair lift. May going to [place], need a letter for bringing, PAtient is asking letter for nebulizer machine. states was dizzy and nausea, 3 weeks , was sob at that time. [facility] Medical History Back pain Post-menopausal COVID-19 Chest pain Occult blood positive stool Left-sided chest pain Bilateral leg pain UTI (urinary tract infection) Bad odor of urine Dysuria Left leg pain Myalgia Lumbar spine pain Unsteady gait COVID-19 virus infection Chronic cough Asthma exacerbation Colon cancer screening Facial dermatitis Mass of arm Cellulitis, leg Overweight (BMI 25.0-29.9) Acute asthma exacerbation Adult general medical exam Screening for diabetes mellitus Bronchitis Allergic rhinitis Allergic rhinitis Hypercholesterolemia Hypertension Urinary incontinence Vitamin D deficiency Migraine Anxiety Osteoporosis Osteoarthritis, knee Lichen sclerosus Atrophic vaginitis Severe persistent allergic asthma Surgical History History of cardiac cath Family History Mother No problems noted. Sister No problems noted. Father No problems noted. Sister No problems noted. Social History Household Members: Spouse Housing: House Alcohol intake: never Patient Tobacco Use Status: Never used Tobacco e-Cigarette/Vaping Use: Never Used Second Hand Smoke Exposure: No Advance Directives Date on File: 05/16/23 service: No Current occupational status: unemployed Current occupation: Lt handed Cognitive needs: No Hearing needs: No Vision needs: Yes Female Reproductive History Menstrual Age of Menarche: 13 Questionnaire PHQ-9 Over the last 2 weeks, how often have you been bothered by any of the following problems? 1. Little interest or pleasure in doing things: not at all 2. Feeling down, depressed, or hopeless: not at all 3. Trouble falling or staying asleep, or sleeping too much: not at all 4. Feeling tired or having little energy: not at all 5. Poor appetite or overeating: not at all 6. Feeling bad about yourself - or that you are a failure or have let yourself or your family down: not at all 7. Trouble concentrating on things, such as reading the newspaper or watching television: not at all 8. Moving or speaking so slowly that other people could have noticed. Or the opposite - being so fidgety or restless that you have been moving around a lot more than usual: not at all 9. Thoughts that you would be better off or of hurting yourself in some way: not at all Total score: 0 Depression Screening Interpretation: Negative Depression Screening Done: Yes Source: Developed by Drs. Spike Hernandez, Ruth Ortega, Clint Esteves and colleagues, with an educational andrés from [employer]. Thrive Questionnaire Date Thrive assessed: 04/29/25 I am a: Patient What is your living situation today?: I have a steady place to live Within the past 12 months, did the food you bought not last and you didn't have the money to get more?: Never true Within the past 12 months, did you worry whether your food would run out before you got money to buy more?: Never true Do you have trouble paying for medicines?: No Do you have trouble getting transportation to medical appointments?: No Do you have trouble paying your heating and electricity bill?: No Do you have trouble taking care of your child, family member or friend?: No Do you have trouble with day-to-day activities such as bathing, preparing meals, shopping, managing finances, etc.?: No Are you currently unemployed and looking for a job?: No Are you interested in more education?: No Please select the resources that you would like help with: None Currently or been in a relationship where the following occur: No concerns reported THRIVE Score: 0 AUDIT C Alcohol Use Questionnaire (AUDIT-C) 1. How often do you have a drink containing alcohol?: Monthly or less 2. How many drinks containing alcohol do you have on a typical day when you are drinking?: 1 or 2 3. How often do you have six or more drinks on one occasion?: Never Total Score: 1 Score Reviewed/Action Taken: Yes AJAY-7 AMB Questionnaire AJAY-7 Date AJAY - 7 assessed: 04/29/25 Feeling nervous, anxious, or on edge: 0 = Not at all Not being able to stop or control worryin = Not at all Worrying too much about different things: 0 = Not at all Trouble relaxin = Not at all Being so restless that it is hard to sit still: 0 = Not at all Becoming easily annoyed or irritable: 0 = Not at all Feeling afraid as if something awful might happen: 0 = Not at all Total AJAY-7 score (0-4 normal; 5-9 mild; 10-14 moderate; 15-21 severe): 0 Source: Developed by Drs. Spike Hernandez, Ruth Ortega, Clint Esteves and colleagues, with an educational andrés from [employer]. Physical exam (Primary Care) Vital Signs: Last Vital Signs Pulse 66 06/19/25 10:05 BP 132/96 H 04/29/25 10:05 Pulse Ox 96 04/29/25 10:05 Oxygen Delivery Method Room Air 04/29/25 10:05 BMI result Body Mass Index 31.5 Tobacco/Smoking Status: Tobacco use Status Tobacco use date assessed 04/29/25 04/29/25 10:08 Patient Tobacco Use Status Never used Tobacco 04/29/25 10:08 e-Cigarette/Vaping Use Never Used 04/29/25 10:08 PHQ-9: PHQ-9 Score PHQ-9: Total score 0 04/29/25 10:24 Depression Screening Interpretation: Negative Thrive Assessment: Date of Thrive Assessment Date Thrive assessed 04/29/25 04/29/25 10:08 Currently or been in a relationship where the following occur: No concerns reported Const General: alert; No acute distress Eyes Conjunctivae: conjunctivae normal Resp Auscultation: clear to auscultation bilaterally Cardio Rate: regular rate Rhythm: regular rhythm GI Inspection: Yes normal to inspection Extrem General: Yes normal to inspection and No edema Coding Level of Care Code Est Pt Level 4 (11483) Complex EM visit Add On G2211 Diagnoses Severe persistent allergic asthma J45.50 Gastroesophageal reflux disease without esophagitis K21.9 Esophagitis presence: without esophagitis Obesity (BMI 30.0-34.9) E66.9 Hypercholesterolemia E78.00 Essential hypertension I10 Hypertension type: unspecified Generalized anxiety disorder F41.1 Assessment & Plan Assessment & Plan (1) Severe persistent allergic asthma: Code(s): J45.50 - Severe persistent asthma, uncomplicated Category: Medical Plan: Patient follows up with Pulmonary and receives Nucala, mepolizumab patient is on albuterol inhaler Incruse (2) GERD (gastroesophageal reflux disease): Code(s): K21.9 - Gastro-esophageal reflux disease without esophagitis Category: Medical Qualifiers: Esophagitis presence: without esophagitis Qualified Code(s): K21.9 - Gastro-esophageal reflux disease without esophagitis Plan: Avoid the foods that causes that usually spicy foods, tomato products, juices, coffee, soda and foods that your sensitive to. After eating do not lie down, allow 3-4 hours before in lie down. And keep the head of bed above 30 degrees to avoid the acid from going up. (3) Obesity (BMI 30.0-34.9): Code(s): E66.9 - Obesity, unspecified Category: Medical Plan: Diet and exercise (4) Hypercholesterolemia: Code(s): E78.00 - Pure hypercholesterolemia, unspecified Category: Medical Plan: Avoid fried foods, chicken skin, eggs, butter margarine, pastries and meat. Be it pork or beef they have a lot of cholesterol LDL goal of less than 130 and triglyceride of less than 150 patient is on Zetia (5) Hypertension: Comment: Cardiac catheterization July 2014 minimal coronary artery disease Code(s): I10 - Essential (primary) hypertension Category: Medical Qualifiers: Hypertension type: unspecified Qualified Code(s): I10 - Essential (primary) hypertension Plan: Continue with blood pressure medication. Decrease salt intake and exercise continue with lisinopril (6) Generalized anxiety disorder: Code(s): F41.1 - Generalized anxiety disorder Category: Medical Plan: Stable Plan History of Present Illness The patient is a 69-year-old female presenting for a follow-up visit. She has a history of severe persistent allergic asthma, which is currently managed with Nucala (mepolizumab) infusions under pulmonary care, along with Symbicort and albuterol inhalers. Her asthma was previously exacerbated, requiring prednisone treatment. The patient also has hypertension, which is managed with lisinopril. Her hypercholesterolemia is being treated with Zetia, with a goal to reduce LDL cholesterol to less than 130 mg/dL and triglycerides to less than 150 mg/dL. Recent lab results showed an LDL cholesterol level of 144 mg/dL and triglycerides at 160 mg/dL. The patient has a history of gastroesophageal reflux disease (GERD) and generalized anxiety disorder, both of which are being managed with lifestyle modifications and medications. She has osteoporosis, with the last bone density scan conducted in August 2023. The patient also has lumbar degenerative disc disease and bilateral knee osteoarthritis, which contribute to her mobility issues. Health Maintenance - Bone density scan conducted in August 2023 - Cholesterol management with a goal of LDL less than 130 mg/dL and triglycerides less than 150 mg/dL Social History Review of Systems - Respiratory: Reports dyspnea and dizziness, denies chest pain - Neurological: Reports dizziness and double vision, denies headaches - Cardiovascular: Reports elevated blood pressure, denies chest pain Physical Exam Results - Labs: Normal blood count, normal electrolytes, normal renal function, normal blood sugar, normal liver function, elevated LDL cholesterol at 144 mg/dL, triglycerides at 160 mg/dL - Imaging: Bone density scan in August 2023 Plan The patient's severe persistent allergic asthma will continue to be managed with Nucala mepolizumab) infusions, Symbicort, and albuterol inhalers. Her hypertension management will continue with lisinopril, and she is advised to monitor her blood pressure regularly at home. For hypercholesterolemia, the patient will continue on Zetia with a focus on achieving LDL cholesterol levels below 130 mg/dL and triglycerides below 150 mg/dL. Lifestyle modifications, including diet and exercise, are recommended to aid in cholesterol management. The patient's GERD and generalized anxiety disorder will continue to be managed with current medications and lifestyle adjustments. Osteoporosis management will be monitored with periodic bone density scans, with the last scan conducted in August 2023. For lumbar degenerative disc disease and bilateral knee osteoarthritis, the patient is advised to consider physical therapy and pain management strategies. Patient was informed and verbally consented to the use of an ambient scribe for clinic note documentation during this visit. Discussion Notes Patient Instructions - Continue using Nucala, Symbicort, and albuterol as prescribed for asthma management. - Monitor blood pressure regularly at home and continue taking lisinopril. - Follow a diet and exercise plan to help manage cholesterol levels. - Continue current medications and lifestyle adjustments for GERD and anxiety. - Consider physical therapy and pain management for lumbar and knee issues.
[2025-04-29 10:05] VITALS: BP 132/96; PULSE 66; O2SAT 96; BMI 31.5
--- OUTSIDE RECORDS SUMMARY | 2025-04-29 11:14 | XMS_ITS | Data Portability ---
Author Organization [employer]™ [facility], [facility] Address [address] [place] [address] Assessment Encounter Date Assessment Date Assessment LastModified [...] trauma, edema, or any new medications. VSS. Shop Clerk on site reports neurovascularly intact to b/l [...] Updated DateTime 3 99 % 99 % 08598.6 g 98 [degF] 65 /min 16 /min [...] SNOMED-CT Code Diagnosis ICD10 Code Diagnosis Note [id number] Maddy Padilla MD Main - [facility] [address] [place] [phone] 09/06/2023 10:56:03 09/09/2023 12:47:11 Cramp in lower limb 143535008 R25.2 Health Concerns Section Related Observation LastModified by Organization Detai ls LastModified Time None Recorded Concern Status LastModified by Organization Details LastModified Time None Recorded Advance Directives Directive None Recorded Payers Insurance Date Sequence Insurance Name Policy Number Policy Akbar Covered Member ID Akbar Member ID Guarantor Name 06/09/2024 1 [facility] - DOS ON OR AFTER 2023 - DUAL ELIGIBLE - JAIL OPTIONS AND ONE CARE (MEDICARE REPLACEMENT/ADV ANTAGE - HMO) [facility]ita Morris [id number] [facility] [place] 06/09/2024 1 [facility] - DOS ON OR AFTER 2023 - MEDICARE [place]VANTAGE [place] (MEDICARE REPLACEMENT/ADV ANTAGE - PPO) Tita Morris [id number] [facility] Notes Date Note Type Note Provider Name [...] .................. .................. .................. .................. .................. .................. ............... Shop Clerk Note From Douglas Zhou: Pt CO LLL [...] .................. ............... Disposition: Fulfilled Maddy Padilla MD [address] [place] [address],[address], [place], [address], [employer] [facility] 09/06/2023 14:56:33 OBGyn Episode No OBEpisode recorded.
== END 2025-04-29 10:48 | disposition home or self-care (01) ==
PROVIDERS: PCP Internal Medicine; Visit Provider Internal Medicine
DX: J45.50 Severe persistent asthma, uncomplicated (principal); K21.9 Gastro-esophageal reflux disease without esophagitis; E66.9 Obesity, unspecified; Z68.31 Body mass index [BMI] 31.0-31.9, adult; E78.00 Pure hypercholesterolemia, unspecified; I10 Essential (primary) hypertension; F41.1 Generalized anxiety disorder

== ENCOUNTER → 2025-04-29 10:02 | Outpatient (BNVA) | payer OTHER, SELFPAY ==
[2024-07-29 13:22] VITALS: BMI 30.3
== END ==
PROVIDERS: PCP Internal Medicine; Visit Provider Internal Medicine
DX: J45.50 Severe persistent asthma, uncomplicated (principal); E78.00 Pure hypercholesterolemia, unspecified; K21.9 Gastro-esophageal reflux disease without esophagitis; E66.9 Obesity, unspecified; I10 Essential (primary) hypertension; F41.1 Generalized anxiety disorder; M81.0 Age-related osteoporosis without current pathological fracture; M17.0 Bilateral primary osteoarthritis of knee; M51.369 Other intervertebral disc degeneration, lumbar region without mention of lumbar back pain or lower extremity pain; Z79.899 Other long term (current) drug therapy
CPT/HCPCS: 96127; 99212

== ENCOUNTER 2025-05-25 13:28 | Outpatient (AMB) | payer OTHER, SELFPAY ==
[2024-07-29 13:22] VITALS: BMI 30.3
[2025-05-25 13:57] VITALS: BP 111/67; PULSE 79; O2SAT 96; BMI 30.9
--- NOTE | 2025-05-25 13:57 | MHC.OFFVIS ---
Vital Signs 05/25/25 13:57 Height 5 ft 2 in Weight 169 lb BMI 30.9 BP 111/67 Blood Pressure Location Lt brachial Position Sitting Pulse 79 Pulse Source Pulse Oximeter Pulse Oximetry (%) 96 Oxygen Delivery Method Room Air Intake Visit Reasons: asthma Allergies pneumococcal vaccine (PNEUMOCOCCAL VACCINE) Allergy (Severe, Verified 05/25/25 14:02) SWELLING, rash atorvastatin (From LIPITOR) Allergy (Intermediate, Verified 05/25/25 14:02) LIP SWELLING, hives, lip swelling dupilumab (Dupixent) Allergy (Unknown, Verified 05/25/25 14:02) PUGH fluticasone (Advair Diskus) Allergy (Unknown, Verified 05/25/25 14:02) unknown Iodinated Contrast Media Allergy (Unknown, Verified 05/25/25 14:02) unknown metoprolol Allergy (Unknown, Verified 05/25/25 14:02) hives morphine Allergy (Unknown, Verified 05/25/25 14:02) RASH salmeterol (Advair Diskus) Allergy (Unknown, Verified 05/25/25 14:02) unknown verapamil Allergy (Unknown, Verified 05/25/25 14:02) Unknown HPI HPI asthma: Details: 69-year-old lady, lifetime nonsmoker, followed for severe persistent asthma with significant allergic component. Patient continues on her current regimen of Symbicort, Spiriva, Singulair, albuterol MDI, duo nebs, and Nucala with good baseline control of her symptoms. She complains of ongoing exacerbation over the last several days. [facility] Medical History Back pain Post-menopausal COVID-19 Chest pain Occult blood positive stool Left-sided chest pain Bilateral leg pain UTI (urinary tract infection) Bad odor of urine Dysuria Left leg pain Myalgia Lumbar spine pain Unsteady gait COVID-19 virus infection Chronic cough Asthma exacerbation Colon cancer screening Facial dermatitis Mass of arm Cellulitis, leg Overweight (BMI 25.0-29.9) Acute asthma exacerbation Adult general medical exam Screening for diabetes mellitus Bronchitis Allergic rhinitis Allergic rhinitis Hypercholesterolemia Hypertension Urinary incontinence Vitamin D deficiency Migraine Anxiety Osteoporosis Osteoarthritis, knee Lichen sclerosus Atrophic vaginitis Severe persistent allergic asthma Surgical History History of cardiac cath Family History Mother No problems noted. Sister No problems noted. Father No problems noted. Sister No problems noted. Social History Household Members: Spouse Housing: House Alcohol intake: never Patient Tobacco Use Status: Never used Tobacco e-Cigarette/Vaping Use: Never Used Second Hand Smoke Exposure: No Advance Directives Date on File: 05/16/23 service: No Current occupational status: unemployed Current occupation: Lt handed Cognitive needs: No Hearing needs: No Vision needs: Yes Female Reproductive History Menstrual Age of Menarche: 13 Review of Systems Const Denies daytime sleepiness, Denies excessive sweating, Denies fatigue, Denies fever(s), Denies lethargy, Denies malaise, Denies night sweats, Denies snoring and Denies weight loss Eyes Denies blurry vision and Denies itchy eyes ENT Denies nasal congestion, Denies post nasal drip, Denies sinus pain, Denies sinus pressure and Denies other ( Thrush) Card Denies chest pain, Denies pedal edema, Denies dyspnea, Denies orthopnea and Denies paroxysmal nocturnal dyspnea Resp Reports cough, Denies hemoptysis, Denies excessive phlegm production, Denies dyspnea, Denies snoring and Reports wheezing GI Denies abdominal pain and Denies heartburn Musc Denies myalgias, Denies arthralgias and Denies joint swelling Skin/Breast Denies rash Neuro Denies memory loss and Denies seizure-like activity Psych Denies abnormal sleep pattern, Denies anxiety and Denies memory loss Endo Denies excessive sweating, Denies fatigue and Denies heat intolerance Jose G/Lymph Denies easy bruising Aller/Immun Denies itchy eyes, Denies seasonal rhinorrhea and Reports wheezing Physical Exam Vital Signs: Last Vital Signs Pulse 79 05/25/25 13:57 BP 111/67 05/25/25 13:57 Pulse Ox 96 05/25/25 13:57 Oxygen Delivery Method Room Air 05/25/25 13:57 BMI result Body Mass Index 30.9 Const General: no acute distress and alert Nutritional Appearance: not obese Orientation/consciousness: Other orientation findings ( oriented) HEENT Head: Yes atraumatic Eyes General: appearance normal, both eyes and all related structures Sclerae: sclerae normal EOM: EOMs intact bilaterally Neck Neck: Yes supple Lymphatic: no lymphadenopathy noted Resp Effort & Inspection: normal respiratory effort and no use of accessory muscles Auscultation: clear to auscultation bilaterally Cardio Rate: regular rate Rhythm: regular rhythm Heart sounds: no gallops, no murmurs and no rubs Skin General skin exam: other ( warm) Extrem General: No clubbing, No cyanosis and No edema Assessment & Plan Assessment & Plan (1) Severe persistent allergic asthma: Code(s): J45.50 - Severe persistent asthma, uncomplicated Category: Medical Plan: Baseline well controlled on current regimen of Nucala, Incruse, duo nebs, and Symbicort. Continue current regimen. Now with mild allergic exacerbation, will treat with a course of prednisone and start on nasal ipratropium. (2) Environmental and seasonal allergies: Code(s): J30.89 - Other allergic rhinitis Category: Medical Plan: Well controlled on Nucala. Continue current regimen. Medications: New ipratropium bromide administer into each nostril 2 sprays intranasal TID-QID PRN 15 mL 3RF allergy symptoms prednisone 40 mg (2 x 20 mg) PO DAILY 10 tabs 0RF Coding Level of Care Code Est Pt Level 4 (67110) Complex EM visit Add On G2211 Diagnoses Severe persistent allergic asthma J45.50 Environmental and seasonal allergies J30.89
--- OUTSIDE RECORDS SUMMARY | 2025-05-25 14:51 | XMS_ITS | Patient Health Record ---
Author Organization [facility] Address [address] [place] [address] Care Team Providers Care Durable Medical Equipment Technician Name Role Phone Lakia Whalen MD Primary Care Provider Spike Mcelroy [phone] Allergies Allergen (clinical drug ingredient) Drug/Non Drug Allergy documented on EMR Reaction Allergy Type Onset Date Status morphine Morphine (uncoded) Unknown Allergy A ctive Reason For Referral No Information Plan Of Treatment No Information Insurance Providers Payer Name Payer Address Payer Phone Subscriber Number Group Number Insured Name Patient Relationship to Insured Coverage Start Date Coverage End Date [facility](N o referral needed) [address] [place] [address] [id number] MEKHI GAMBINO Self - patient is the insured Medical (General) History Medical History History ICD Code Colonoscopy, 2008, tubular adenoma Asthma Hyperlipidemia
--- OUTSIDE RECORDS SUMMARY | 2025-05-25 14:51 | XMS_ITS | Data Portability ---
Author Organization [facility] Address [address] [place] [address] Assessment Encounter Date Assessment Date Assessment LastModified [...] trauma, edema, or any new medications. VSS. Funeral Service Practitioner/Embalmer on site reports neurovascularly intact to b/l [...] Body temperature Heart rate Respiratory rate Systolic And Diastolic Provider Name and Address Organization Details Last Updated DateTime 3 99 % 99 % 64413.6 g 98 [degF] 65 /min 16 /min 183/118 mm[Hg] Not Available [facility] - production 3 [...] SNOMED-CT Code Diagnosis ICD10 Code Diagnosis Note [id number] Maddy Padilla MD Main - [facility] [address] [place] [phone] 09/06/2023 10:56:03 09/09/2023 12:47:11 Cramp in lower limb [id number] R25.2 Health Concerns Section Related Observation LastModified by Organization Detai ls LastModified Time None Recorded Concern Status LastModified by Organization Details LastModified Time None Recorded Advance Directives Directive None Recorded Payers Insurance Date Sequence Insurance Name Policy Number Policy Akbar Covered Member ID Akbar Member ID Guarantor Name 06/09/2024 1 [facility] - DOS ON OR AFTER 2023 - DUAL ELIGIBLE - DETENTION OPTIONS AND ONE CARE (MEDICARE REPLACEMENT/ADV ANTAGE - HMO) [facility]ita Morris [id number] [facility] [place] 06/09/2024 1 [facility] - DOS ON OR AFTER 2023 - MEDICARE [place]ANTAGE [place] (MEDICARE REPLACEMENT/ADV ANTAGE - PPO) Tita Morris [id number] [facility] Notes Date Note Type Note Provider Name [...] .................. .................. .................. .................. .................. .................. ............... Funeral Service Practitioner/Embalmer Note From Douglas Zhou: Pt CO LLL [...] .................. ............... Disposition: Fulfilled Maddy Padilla MD [address] [place] [address],[address], [place], [phone], [employer] 09/06/2023 14:56:33 OBGyn Episode No OBEpisode recorded.
== END 2025-05-25 14:13 | disposition home or self-care (01) ==
LOC: HO.HPS 13:29
PROVIDERS: PCP Internal Medicine; Visit Provider Internal Medicine Pulmonary Disease
DX: J45.50 Severe persistent asthma, uncomplicated (principal); J30.89 Other allergic rhinitis
CPT/HCPCS: 99214; G2211

== ENCOUNTER → 2025-05-25 13:28 | Outpatient (BNVA) | payer OTHER, SELFPAY ==
[2024-07-29 13:22] VITALS: BMI 30.3
== END ==
PROVIDERS: PCP Internal Medicine; Visit Provider Internal Medicine Pulmonary Disease
DX: J45.50 Severe persistent asthma, uncomplicated (principal); J30.89 Other allergic rhinitis
CPT/HCPCS: 99212

== ENCOUNTER 2025-06-11 12:45 | Outpatient (AMB) | payer OTHER, SELFPAY ==
[2024-07-29 13:22] VITALS: BMI 30.3
--- OUTSIDE RECORDS SUMMARY | 2025-06-11 12:47 | XMS_ITS | Patient Health Record ---
Author Organization [facility] [place] Address [address] [place], [place] [id number] Care Team Providers Care Brake Engineer Name Role Phone Lakia Whalen Primary Care Provider Yony Graham Unavailable [phone] Allergies Allergen (clinical drug ingredient) Drug/Non Drug Allergy documented on EMR Reaction Allergy Type Onset Date Status morphine Morphine Sulfate Unknown Drug Allergy Active Streptococcus pneumoniae type 1 capsular polysaccharide antigen / Streptococcus pneumoniae type 10A capsular polysaccharide antigen / Streptococcus pneumoniae type 11A capsular polysaccharide antigen / Streptococcus pneumoniae type 12F capsular polysaccharide antigen / Streptococcus pneumoniae type 14 capsular polysaccharide antigen / Streptococcus pneumoniae type 15B capsular polysaccharide antigen / Streptococcus pneumoniae type 17F capsular polysaccharide antigen / Streptococcus pneumoniae type 18C capsular polysaccharide antigen / Streptococcus pneumoniae type 19A capsular polysaccharide antigen / Streptococcus pneumoniae type 19F capsular polysaccharide antigen / Streptococcus pneumoniae type 2 capsular polysaccharide antigen / Streptococcus pneumoniae type 20 capsular polysaccharide antigen / Streptococcus pneumoniae type 22F capsular polysaccharide antigen / Streptococcus pneumoniae type 23F capsular polysaccharide antigen / Streptococcus pneumoniae type 3 capsular polysaccharide antigen / Streptococcus pneumoniae type 33F capsular polysaccharide antigen / Streptococcus pneumoniae type 4 capsular polysaccharide antigen / Streptococcus pneumoniae type 5 capsular polysaccharide antigen / Streptococcus pneumoniae type 6B capsular polysaccharide antigen / Streptococcus pneumoniae type 7F capsular polysaccharide antigen / Streptococcus pneumoniae type 8 capsular polysaccharide antigen / Streptococcus pneumoniae type 9N capsular polysaccharide antigen / Streptococcus pneumoniae type 9V capsular polysaccharide antigen Pneumovax 23 Unknown Drug Allergy Activ e Reason For Referral No Information Medications Medication SIG (Take, Route, Frequency, Duration) Notes Start Date End Date Status Fluticasone Propionate 50 MCG/ACT 1 spray in each nostril Nasally Once a day; Duration: 30 day(s) 03/03/2014 Active Albuterol Sulfate (2.5 MG/3ML) 0.083% 3 ml Inhalation Three times a day Active ProAir HFA 108 (90 Base) MCG/ACT 2 puffs as needed Inhalation every 4 hrs Active Advair Diskus 500-50 MCG/DOSE 1 puff Inhalation Twice a day; Duration: 30 days 03/03/2014 Active ProAir HFA 108 (90 Base) MCG/ACT 2 puffs as needed Inhalation every 4 hrs Active Claritin 10 MG 1 tablet Orally Once a day Active Fluticasone Propionate 50 MCG/ACT 1 spray in each nostril Nasally Once a day; Duration: 30 day(s) Active Advair Diskus 500-50 MCG/DOSE 1 puff Inhalation Twice a day; Duration: 30 days Active Montelukast Sodium 10 MG 1 tablet in the evening Orally Once a day; Duration: 30 day(s) 03/03/2014 Active Influenza Virus Vaccine Split Intramuscular fall 201209/11/2013 Acti ve Albuterol Sulfate (2.5 MG/3ML) 0.083% 3 ml Inhalation Three times a day Active Montelukast Sodium 10 MG 1 tablet in the evening Orally Once a day; Duration: 30 day(s) Active Problems Problem Type SNOMED Code ICD Code Onset Dates Problem Status W/U Status Risk Notes Problem Chronic diastolic heart failure (577702071) Chronic diastolic heart failure (428.32) Active confirmed Problem Allergic rhinitis due to allergen (19724867) Allergic rhinitis due to allergen (477.8) Active confirmed Problem Extrinsic asthma without status asthmaticus (62680720) Extrinsic asthma NOS (493.00) Active confirmed Problem Pulmonary hypertension, secondary (416.8) Active confirmed Problem Obesity (081746157) Obesity (BMI 30-39.9) (278.00) Active confirmed Problem Systolic murmur (70497067) Heart murmur, systolic (785.2) Active confirmed Plan Of Treatment Pending Test Test Name Order Date REGION 1 RESPIRATORY PROFILE 03/03/2014 REGION 1 RESPIRATORY PROFILE 04/07/2014 IgE 04/07/2014 IgE 03/03/2014 CHEST XRAY PA LAT 03/03/2014 Insurance Providers Payer Name Payer Address Payer Phone Subscriber Number Group Number Insured Name Patient Relationship to Insured Coverage Start Date Coverage End Date [address] [phone] [id number] Tita Morris Self - patient is the insured Medical (General) History Medical History History ICD Code Asthma 493.90 Rheumatic heart disease 391.9 Heart murmur, systolic 785.2 Allergic rhinitis due to allergen 477.8 GERD (gastroesophageal reflux disease) 5 30.81 Hypercholesterolemia 272.0 Colonic polyp 211.3 Hypertension 401.9 Hospitalization History Reason Date(Month/Year) Asthma exacerbation 02/2014
--- OUTSIDE RECORDS SUMMARY | 2025-06-11 12:47 | XMS_ITS | Patient Health Record ---
Author Organization [facility] Address [address] [place] [address] Care Team Providers Care Supervisor Carpenters Name Role Phone Lakia Whalen MD Primary Care Provider Spike Mcelroy [phone] Allergies Allergen (clinical drug ingredient) Drug/Non Drug Allergy documented on EMR Reaction Allergy Type Onset Date Status morphine Morphine (uncoded) Unknown Allergy A ctive Reason For Referral No Information Plan Of Treatment No Information Insurance Providers Payer Name Payer Address Payer Phone Subscriber Number Group Number Insured Name Patient Relationship to Insured Coverage Start Date Coverage End Date [facility](N o referral needed) [address] [place] [address] [id number] MEKHI GAMBINO Self - patient is the insured Medical (General) History Medical History History ICD Code Colonoscopy, 2008, tubular adenoma Asthma Hyperlipidemia
--- NOTE | 2025-06-11 12:53 | A.OFFVIS_ITS ---
Vital Signs 06/11/25 12:55 Height 5 ft 2 in Weight 162 lb BMI 29.6 BP 152/85 H Blood Pressure Location Rt brachial Position Sitting Respiration 16 Pulse 69 Pulse Source Pulse Oximeter Pulse Oximetry (%) 99 Oxygen Delivery Method Room Air Intake Visit Reasons: Follow Up/Inj. Discussion Packing Inspector Required: No Accompanied by: Self / Same As Patient Allergies pneumococcal vaccine (PNEUMOCOCCAL VACCINE) Allergy (Severe, Verified 06/11/25 12:58) SWELLING, rash atorvastatin (From LIPITOR) Allergy (Intermediate, Verified 06/11/25 12:58) LIP SWELLING, hives, lip swelling dupilumab (Dupixent) Allergy (Unknown, Verified 06/11/25 12:58) PUGH fluticasone (Advair Diskus) Allergy (Unknown, Verified 06/11/25 12:58) unknown Iodinated Contrast Media Allergy (Unknown, Verified 06/11/25 12:58) unknown metoprolol Allergy (Unknown, Verified 06/11/25 12:58) hives morphine Allergy (Unknown, Verified 06/11/25 12:58) RASH salmeterol (Advair Diskus) Allergy (Unknown, Verified 06/11/25 12:58) unknown verapamil Allergy (Unknown, Verified 06/11/25 12:58) Unknown HPI Comments Details: The patient is a 69-year-old female presenting with chronic back pain. The patient reports persistent back pain that has been ongoing for an unspecified duration. She has previously undergone physical therapy, which provided temporary relief, but the pain has since returned. The pain is exacerbated by certain weather conditions, particularly humidity, and is ass ociated with her chronic obstructive pulmonary disease (COPD) and asthma, which worsen the pain during coughing episodes. The patient describes the pain as being located primarily in the back, with o ccasional radiation to the ribs and bones, causing significant soreness and tenderness upon palpation. She has used lidocaine patches for pain relief, which have been somewhat effective, although they sometimes detach from the skin. - Onset: Persistent, unspecified duration - Quality: Soreness and tenderness - Location: Primarily in the back, with radiation to ribs and bones - Exacerbating factors: Humidity, coughing due to COPD and asthma - Relieving factors: Lidocaine patches, although they sometimes detach - Affect: Pain impacts daily activities, exacerbated by weather conditions - Analgesia: Uses lidocaine patches for pain relief - Adverse Effects: None reported from lidocaine patches, but they may detach - Activities of Daily Living: Pain affects mobility, particularly during coughi ng episodes - Aberrant Drug Related Behaviors: None reported PFSH Medical History Back pain Post-menopausal COVID-19 Chest pain Occult blood positive stool Left-sided chest pain Bilateral leg pain UTI (urinary tract infection) Bad odor of urine Dysuria Left leg pain Myalgia Lumbar spine pain Unsteady gait COVID-19 virus infection Chronic cough Asthma exacerbation Colon cancer screening Facial dermatitis Mass of arm Cellulitis, leg Overweight (BMI 25.0-29.9) Acute asthma exacerbation Adult general medical exam Screening for diabetes mellitus Bronchitis Allergic rhinitis Allergic rhinitis Hypercholesterolemia Hypertension Urinary incontinence Vitamin D deficiency Migraine Anxiety Osteoporosis Osteoarthritis, knee Lichen sclerosus Atrophic vaginitis Severe persistent allergic asthma Surgical History History of cardiac cath Family History Mother No problems noted. Sister No problems noted. Father No problems noted. Sister No problems noted. Social History Household Members: Spouse Housing: House Alcohol intake: never Patient Tobacco Use Status: Never used Tobacco e-Cigarette/Vaping Use: Never Used Second Hand Smoke Exposure: No Advance Directives Date on File: 05/16/23 service: No Current occupational status: unemployed Current occupation: Lt handed Cognitive needs: No Hearing needs: No Vision needs: Yes Female Reproductive History Menstrual Age of Menarche: 13 Review of Systems Const Details: - Respiratory: Reports dyspnea and coughing, exacerbated by COPD and asthma - Musculoskeletal: Reports chronic back pain with tenderness Physical Exam Exam Exam: General: awake, alert, oriented. Answers questions appropriately. Fully engaged in examination. Skin: warm, dry, intact HEENT: Normocephalic. Hearing intact. Cardiac: External chest normal in appearance. Respiratory: No cough, audible wheezing or stridor. Abdomen: without gross distension. MS: No obvious swelling or deformities. Able to transition from sit to stand unassisted. Ambulates with bilaterally normal heel strike and toe off Tenderness to midline lumbar vertebrae and lumbar paraspinal muscles Neurological: Oriented to person, place, time and situation. Thought process intact. No gait abnormalities appreciated. Psychiatric: Appropriate mood and affect. Good judgment and insight. Vital Signs: Last Vital Signs Pulse 69 06/11/25 12:55 Resp 16 06/11/25 12:55 BP 152/85 H 06/11/25 12:55 Pulse Ox 99 06/11/25 12:55 Oxygen Delivery Method Room Air 06/11/25 12:55 BMI result Body Mass Index 29.6 Assessment & Plan Assessment & Plan (1) Back pain: Code(s): M54.9 - Dorsalgia, unspecified Category: Medical (2) Lumbar degenerative disc disease: Code(s): M51.36 - Other intervertebral disc degeneration, lumbar region Category: Medical (3) Lumbar spondylosis: Code(s): M47.816 - Spondylosis without myelopathy or radiculopathy, lumbar region Category: Medical (4) Lumbar paraspinal muscle spasm: Code(s): M62.830 - Muscle spasm of back Category: Medical Plan The plan includes the use of a TENS machine to manage chronic back pain, which will be delivered to the patient's home. Pamphlet was given to the patient with instructions on use. We discussed diagnostic medial branch blocks if pain persists. Patient would require Ativan for any procedures as she has anxiety over injections. She would like to hold off injections at this time but will consider if pain does not on to the TENS unit. Patient was informed and verbally consented to the use of an ambient scribe for clinic note documentation during this visit. Patient Instructions: - Use the TENS machine as needed for pain relief. - continue with muscle relaxers as prescribed by PCP - follow up in the office if pain worsens to further discuss injections Coding Level of Care Code Est Pt Level 3 (23466) Complex EM visit Add On G2211 Diagnoses Back pain M54.9 Lumbar degenerative disc disease M51.36 Lumbar spondylosis M47.816 Lumbar paraspinal muscle spasm M62.830
[2025-06-11 12:55] VITALS: BP 152/85; PULSE 69; RESP 16; O2SAT 99; BMI 29.6
== END 2025-06-11 13:38 | disposition home or self-care (01) ==
PROVIDERS: PCP Internal Medicine; Visit Provider Registered Nurse Emergency
DX: M54.9 Dorsalgia, unspecified (principal); M51.369 Other intervertebral disc degeneration, lumbar region without mention of lumbar back pain or lower extremity pain; M47.816 Spondylosis without myelopathy or radiculopathy, lumbar region; M62.830 Muscle spasm of back
CPT/HCPCS: 99213; G2211

== ENCOUNTER → 2025-06-11 12:45 | Outpatient (BNVA) | payer OTHER, SELFPAY ==
[2024-07-29 13:22] VITALS: BMI 30.3
== END ==
PROVIDERS: PCP Internal Medicine; Visit Provider Registered Nurse Emergency
DX: M47.816 Spondylosis without myelopathy or radiculopathy, lumbar region (principal); M51.360 Other intervertebral disc degeneration, lumbar region with discogenic back pain only; M62.830 Muscle spasm of back; M54.9 Dorsalgia, unspecified
CPT/HCPCS: 99212

== ENCOUNTER 2025-06-30 13:20 | Outpatient (AMB) | payer OTHER, SELFPAY ==
[2024-07-29 13:22] VITALS: BMI 30.3
--- NOTE | 2025-06-30 13:21 | A.OFFPC_ITS ---
Intake Visit Reasons: ? Bronchitis Power Plant Inspector Required: No Flea Market Seller: Not Required per policy Accompanied by: Self / Same As Patient Allergies pneumococcal vaccine (PNEUMOCOCCAL VACCINE) Allergy (Severe, Verified 06/30/25 13:21) SWELLING, rash atorvastatin (From LIPITOR) Allergy (Intermediate, Verified 06/30/25 13:21) LIP SWELLING, hives, lip swelling dupilumab (Dupixent) Allergy (Unknown, Verified 06/30/25 13:21) PUGH fluticasone (Advair Diskus) Allergy (Unknown, Verified 06/30/25 13:21) unknown Iodinated Contrast Media Allergy (Unknown, Verified 06/30/25 13:21) unknown metoprolol Allergy (Unknown, Verified 06/30/25 13:21) hives morphine Allergy (Unknown, Verified 06/30/25 13:21) RASH salmeterol (Advair Diskus) Allergy (Unknown, Verified 06/30/25 13:21) unknown verapamil Allergy (Unknown, Verified 06/30/25 13:21) Unknown Medication List - Last Reconciled 06/30/25 by Lakia Whalen MD albuterol sulfate 90 mcg/actuation 2 puffs inhalation Q6H PRN azithromycin (Zithromax) For 250 mg dose pack: take 500 mg today (day 1), then 250 mg for 4 days (days 2-5) PO betamethasone, augmented 0.05 % 1 appl topical BEDTIME PRN cane As directed codeine-guaifenesin 10-100 mg/5 mL 10 mL PO Q4-6H PRN 14 days epinephrine (EpiPen 2-Masoud) 0.3 mg (0.3 mL) IM Q4H PRN ezetimibe 10 mg PO DAILY fexofenadine 180 mg PO DAILY Incruse Ellipta 62.5 mcg/actuation (umeclidinium) 1 inh inhalation DAILY NS lisinopril 20 mg PO DAILY 90 days meloxicam 15 mg PO DAILY mepolizumab 100 mg subcut Q4W methocarbamol 500 mg PO BID PRN miscellaneous medical supply (Blood Pressure Cuff) Testing once a day prednisone 4 tabs QD x 2 days then 3 tabs QD x 2 days then 2 tabs Qd x 2 days then 1 tab QD x 2 days PO daily; prednisone 40 mg (2 x 20 mg) PO DAILY [shower hand rails. As directed] [STAIR LIFT As directed] Tobacco use date assessed: 06/30/25 Fall risk assessment: No Falls in past year Last assessed Fall Risk: 06/30/25 Dental Screening Dental Screen Date: 04/29/25 HPI ? Bronchitis HPI Details cough for 1 week, no fevers, dry cough, feelsing sob, has been using albuterol PFSH Medical History (Updated 06/30/25 @ 15:38 by Lakia Whalen MD) Asthma exacerbation Back pain Post-menopausal COVID-19 Chest pain Occult blood positive stool Left-sided chest pain Bilateral leg pain UTI (urinary tract infection) Bad odor of urine Dysuria Left leg pain Myalgia Lumbar spine pain Unsteady gait COVID-19 virus infection Chronic cough Colon cancer screening Facial dermatitis Mass of arm Cellulitis, leg Overweight (BMI 25.0-29.9) Acute asthma exacerbation Adult general medical exam Screening for diabetes mellitus Bronchitis Allergic rhinitis Allergic rhinitis Hypercholesterolemia Hypertension Urinary incontinence Vitamin D deficiency Migraine Anxiety Osteoporosis Osteoarthritis, knee Lichen sclerosus Atrophic vaginitis Severe persistent allergic asthma Surgical History History of cardiac cath Family History Mother No problems noted. Sister No problems noted. Father No problems noted. Sister No problems noted. Social History Household Members: Spouse Housing: House Alcohol intake: never Patient Tobacco Use Status: Never used Tobacco e-Cigarette/Vaping Use: Never Used Second Hand Smoke Exposure: No Advance Directives Date on File: 05/16/23 service: No Current occupational status: unemployed Current occupation: Lt handed Cognitive needs: No Hearing needs: No Vision needs: Yes Female Reproductive History Menstrual Age of Menarche: 13 Questionnaire Thrive Questionnaire Date Thrive assessed: 04/29/25 AJAY-7 AMB Questionnaire AJAY-7 Date AJAY - 7 assessed: 04/29/25 Source: Developed by Drs. Spike Hernandez, Ruth Ortega, Clint Esteves and colleagues, with an educational andrés from [employer]. Physical exam (Primary Care) Tobacco/Smoking Status: Tobacco use Status Tobacco use date assessed 06/30/25 06/30/25 13:23 Patient Tobacco Use Status Never used Tobacco 06/30/25 13:23 e-Cigarette/Vaping Use Never Used 06/30/25 13:23 Thrive Assessment: Date of Thrive Assessment Date Thrive assessed 04/29/25 06/30/25 13:23 Telehealth Telehealth Telehealth Platform: Telephone Location of provider rendering services: practice address Location of patient: address on file Patient Identification confirmed using: Name, : Yes Telehealth method: voice only Patient verbally consented to treatment: Yes Patient verbally consented to billing insurance company: Yes Patient informed of any privacy concerns related to visit: Yes Minutes spent on Phone/Video with Pt.: 15 Coding Level of Care Code Tele Est Pt Level 3 (92487) Diagnoses Severe persistent allergic asthma J45.50 Asthma exacerbation J45.901 Assessment & Plan Assessment & Plan (1) Severe persistent allergic asthma: Code(s): J45.50 - Severe persistent asthma, uncomplicated Category: Medical (2) Asthma exacerbation: Code(s): J45.901 - Unspecified asthma with (acute) exacerbation Category: Medical Plan History of Present Illness The patient is a 70-year-old female presenting with an acute asthma exacerbation. She reports a severe dry cough for the past week, with associated chest tightness and nocturnal dyspnea. Increased use of her albuterol inhaler has been noted, with usage up to three times daily. Her medical history is significant for severe persistent allergic asthma, hypertension, hypercholesterolemia, generalized anxiety disorder, gastroesophageal reflux disease, and osteoporosis. She denies fever during this episode. Review of Systems - Respiratory: Reports severe dry cough and nocturnal dyspnea. Denies fever. Plan The patient will be prescribed prednisone to manage the acute asthma exacerbation, with instructions to take it with food to minimize gastrointestinal discomfort. An antibiotic will also be prescribed to address any potential underlying infection contributing to her symptoms. The patient is advised to monitor her symptoms closely and report any worsening or new symptoms. She is encouraged to maintain adequate hydration and to continue using her albuterol inhaler as needed. Patient was informed and verbally consented to the use of an ambient scribe for clinic note documentation during this visit. Discussion Notes I discussed with the patient the plan to prescribe prednisone and an antibiotic to manage her acute asthma exacerbation. I emphasized the importance of taking prednisone with food and monitoring her symptoms closely. The patient was advised to maintain hydration and to contact the clinic if her symptoms worsen or if she develops new symptoms. Patient Instructions - Take prednisone with food to avoid stomach upset. - Use the albuterol inhaler as needed, up to three times a day. - Monitor your symptoms and report any worsening or new symptoms to the clinic. - Drink plenty of water to stay hydrated. Medications: New prednisone 4 tabs QD x 2 days then 3 tabs QD x 2 days then 2 tabs Qd x 2 days then 1 tab QD x 2 days PO daily; 20 tabs 0RF J45.901 - Unspecified asthma with (acute) exacerbation, J45.909 - Unspecified asthma, uncomplicated azithromycin (Zithromax) For 250 mg dose pack: take 500 mg today (day 1), then 250 mg for 4 days (days 2-5) PO 6 tabs 0RF J45.901 - Unspecified asthma with (acute) exacerbation
--- OUTSIDE RECORDS SUMMARY | 2025-06-30 14:14 | XMS_ITS | Patient Health Record ---
Author Organization [facility] Address [address] [place], [place] [address] Care Team Providers Care Certified Histologic Technician Name Role Phone Lakia Whalen Primary Care Provider Yony Graham Unavailable [phone] Allergies Allergen (clinical drug ingredient) Drug/Non Drug [...] Risk Notes Problem Chronic diastolic heart failure (632356733) Chronic diastolic heart failure (428.32) Active confirmed Problem Allergic rhinitis due to allergen (24864504) Allergic rhinitis due to allergen (477.8) Active confirmed Problem Extrinsic asthma without status asthmaticus (87193119) Extrinsic asthma NOS (493.00) Active confirmed Problem Pulmonary hypertension, secondary (416.8) Active confirmed Problem Obesity (091164198) Obesity (BMI 30-39.9) (278.00) Active confirmed Problem Systolic murmur (85927398) Heart murmur, systolic (785.2) Active confirmed Plan Of Treatment Pending Test Test Name Order Date REGION 1 RESPIRATORY PROFILE 03/03/2014 REGION 1 RESPIRATORY PROFILE 04/07/2014 IgE 04/07/2014 IgE 03/03/2014 CHEST XRAY PA LAT 03/03/2014 Insurance Providers Payer Name Payer Address Payer Phone Subscriber Number Group Number Insured Name Patient Relationship to Insured Coverage Start Date Coverage End Date [address] [phone] [id number] Tita Morris Self - patient is the insured Medical (General) History Medical History History ICD Code Asthma 493.90 Rheumatic heart disease 391.9 Heart murmur, systolic 785.2 Allergic rhinitis due to allergen 477.8 GERD (gastroesophageal reflux disease) 5 30.81 Hypercholesterolemia 272.0 Colonic polyp 211.3 Hypertension 401.9 Hospitalization History Reason Date(Month/Year) Asthma exacerbation 02/2014
== END 2025-06-30 15:59 | disposition home or self-care (01) ==
LOC: HO.HMCH 13:20
PROVIDERS: PCP Internal Medicine; Visit Provider Internal Medicine
DX: J45.50 Severe persistent asthma, uncomplicated (principal); J45.901 Unspecified asthma with (acute) exacerbation

== ENCOUNTER 2025-07-16 10:16 | Outpatient (AMB) | payer OTHER, SELFPAY ==
[2024-07-29 13:22] VITALS: BMI 30.3
--- NOTE | 2025-07-16 10:32 | A.OFFVIS_ITS ---
Vital Signs 3 07/16/25 10:39 Height 5 ft 2 in Weight 170 lb BMI 31.1 BP 168/74 H Blood Pressure Location Lt brachial Position Sitting Pulse 63 Intake Visit Reasons: Benign lipomatous neoplasm Intake Note: Patient is seen in office for evaluation of a lipoma. Pt c/o: admits to lipoma on the right arm, onset 3 yrs, increase in size, hard to put on close due to how big it is, denies pain, discharge or other concerns Restoration Silversmith Required: No Accompanied by: Self / Same As Patient Allergies pneumococcal vaccine (PNEUMOCOCCAL VACCINE) Allergy (Severe, Verified 07/16/25 10:38) SWELLING, rash atorvastatin (From LIPITOR) Allergy (Intermediate, Verified 07/16/25 10:38) LIP SWELLING, hives, lip swelling dupilumab (Dupixent) Allergy (Unknown, Verified 07/16/25 10:38) PUGH fluticasone (Advair Diskus) Allergy (Unknown, Verified 07/16/25 10:38) unknown Iodinated Contrast Media Allergy (Unknown, Verified 07/16/25 10:38) unknown metoprolol Allergy (Unknown, Verified 07/16/25 10:38) hives morphine Allergy (Unknown, Verified 07/16/25 10:38) RASH salmeterol (Advair Diskus) Allergy (Unknown, Verified 07/16/25 10:38) unknown verapamil Allergy (Unknown, Verified 07/16/25 10:38) Unknown HPI Comments Details: 70-year-old female patient presenting for evaluation of a soft tissue mass of the right upper arm. She is uncertain how long the lump has been present but does feel a lump has increased in size in his causing some discomfort. She is now having difficulty with clothing because of the increased size of the lipoma in the upper arm. She denies any bleeding or discharge or history of trauma. She is requesting excision of this lesion. [facility] Medical History Asthma exacerbation Back pain Post-menopausal COVID-19 Chest pain Occult blood positive stool Left-sided chest pain Bilateral leg pain UTI (urinary tract infection) Bad odor of urine Dysuria Left leg pain Myalgia Lumbar spine pain Unsteady gait COVID-19 virus infection Chronic cough Colon cancer screening Facial dermatitis Mass of arm Cellulitis, leg Overweight (BMI 25.0-29.9) Acute asthma exacerbation Adult general medical exam Screening for diabetes mellitus Bronchitis Allergic rhinitis Allergic rhinitis Hypercholesterolemia Hypertension Urinary incontinence Vitamin D deficiency Migraine Anxiety Osteoporosis Osteoarthritis, knee Lichen sclerosus Atrophic vaginitis Severe persistent allergic asthma Surgical History History of cardiac cath Family History Mother No problems noted. Sister No problems noted. Father No problems noted. Sister No problems noted. Social History Household Members: Spouse Housing: House Alcohol intake: never Patient Tobacco Use Status: Never used Tobacco e-Cigarette/Vaping Use: Never Used Second Hand Smoke Exposure: No Advance Directives Date on File: 05/16/23 service: No Current occupational status: unemployed Current occupation: Lt handed Cognitive needs: No Hearing needs: No Vision needs: Yes Female Reproductive History Menstrual Age of Menarche: 13 Review of Systems Const All systems reviewed & are unremarkable except as noted in HPI and below Denies chills, Denies fever(s), Denies headache(s), Denies poor appetite and Denies weakness ENT Denies headache(s) Card Denies chest pain, Denies irregular heart rhythm, Denies palpitations and Denies dyspnea Resp Denies cough, Denies excessive phlegm production and Denies dyspnea GI Denies abdominal pain, Denies bloating, Denies change in bowel habits, Denies constipation, Denies heartburn, Denies diarrhea, Denies nausea and Denies vomiting Denies urinary frequency Musc Denies back pain, Denies muscle weakness and Denies numbness Skin/Breast Denies changing lesions and Denies unusual bruising Neuro Denies headache(s), Denies numbness, Denies paresthesias and Denies weakness Psych Denies anxiety and Denies depression Endo Denies palpitations Jose G/Lymph Denies lymphadenopathy Physical Exam Const General: cooperative and no acute distress Nutritional Appearance: well nourished Orientation/consciousness: patient oriented x3 Limitations: no limitations HEENT Head: Yes normocephalic and Yes atraumatic Ears: hearing grossly normal bilaterally Resp Effort & Inspection: normal respiratory effort, no audible wheezes, no cough and no respiratory distress Cardio Jugular venous distension: no JVD GI Inspection: Yes normal to inspection Skin Other: Warm, dry, no rash Neuro General: patient oriented x3 Extrem General: Yes no clubbing, cyanosis or edema Shoulder/upper arm images: 2 1. 7 x 5 cm soft tissue mass in the posterior right upper arm consistent with a lipoma of the subcutaneous tissue. No overlying skin changes appreciated. Assessment & Plan Assessment & Plan (1) Lipoma of upper arm: Code(s): D17.20 - Benign lipomatous neoplasm of skin and subcutaneous tissue of unspecified limb Category: Medical Plan 70-year-old female patient presenting with a large lipoma of the right upper arm measuring 7 x 5 cm. The patient has requested excision of this large lipoma and after discussion of the procedure, risks and alternatives, she consents to an excision of the right upper arm lipoma as a short-stay surgery. Coding Level of Care Code New Pt Level 4 (97154) Diagnoses Lipoma of upper arm D17.20
[2025-07-16 10:39] VITALS: BP 168/74; PULSE 63; BMI 31.1
--- OUTSIDE RECORDS SUMMARY | 2025-07-16 11:21 | XMS_ITS | Patient Health Record ---
Author Organization [facility] [place] Address [address] [place], [place] [id number] Care Team Providers Care Web Development Director Name Role Phone Lakia Whalen Primary Care Provider Yony Graham Unavailable [phone] Allergies Allergen (clinical drug ingredient) Drug/Non Drug [...] Risk Notes Problem Chronic diastolic heart failure (721057192) Chronic diastolic heart failure (428.32) Active confirmed Problem Allergic rhinitis due to allergen (75269305) Allergic rhinitis due to allergen (477.8) Active confirmed Problem Extrinsic asthma without status asthmaticus (90624612) Extrinsic asthma NOS (493.00) Active confirmed Problem Pulmonary hypertension, secondary (416.8) Active confirmed Problem Obesity (741185819) Obesity (BMI 30-39.9) (278.00) Active confirmed Problem Systolic murmur (39926972) Heart murmur, systolic (785.2) Active confirmed Plan Of Treatment Pending Test Test Name Order Date REGION 1 RESPIRATORY PROFILE 03/03/2014 REGION 1 RESPIRATORY PROFILE 04/07/2014 IgE 04/07/2014 IgE 03/03/2014 CHEST XRAY PA LAT 03/03/2014 Insurance Providers Payer Name Payer Address Payer Phone Subscriber Number Group Number Insured Name Patient Relationship to Insured Coverage Start Date Coverage End Date [address] [phone] [id number] Tita Morris Self - patient is the insured Medical (General) History Medical History History ICD Code Asthma 493.90 Rheumatic heart disease 391.9 Heart murmur, systolic 785.2 Allergic rhinitis due to allergen 477.8 GERD (gastroesophageal reflux disease) 5 30.81 Hypercholesterolemia 272.0 Colonic polyp 211.3 Hypertension 401.9 Hospitalization History Reason Date(Month/Year) Asthma exacerbation 02/2014
--- OUTSIDE RECORDS SUMMARY | 2025-07-16 11:21 | XMS_ITS | Patient Health Record ---
Author Organization [facility] Address [address] [place] [address] Care Team Providers Care Apron Operator Name Role Phone Lakia Whalen MD Primary Care Provider Spike Mcelroy [phone] Allergies Allergen (clinical drug ingredient) Drug/Non Drug Allergy documented on EMR Reaction Allergy Type Onset Date Status morphine Morphine (uncoded) Unknown Allergy A ctive Reason For Referral No Information Plan Of Treatment No Information Insurance Providers Payer Name Payer Address Payer Phone Subscriber Number Group Number Insured Name Patient Relationship to Insured Coverage Start Date Coverage End Date [facility](N o referral needed) [address] [place] [address] [id number] MEKHI GAMBINO Self - patient is the insured Medical (General) History Medical History History ICD Code Colonoscopy, 2008, tubular adenoma Asthma Hyperlipidemia
== END 2025-07-16 11:15 | disposition home or self-care (01) ==
LOC: HO.HGS 10:17
PROVIDERS: PCP Internal Medicine; Visit Provider Surgery
DX: D17.20 Benign lipomatous neoplasm of skin and subcutaneous tissue of unspecified limb (principal)
CPT/HCPCS: 99204

== ENCOUNTER → 2025-07-16 10:16 | Outpatient (BNVA) | payer OTHER, SELFPAY ==
[2024-07-29 13:22] VITALS: BMI 30.3
== END ==
PROVIDERS: PCP Internal Medicine; Visit Provider Surgery
DX: D17.21 Benign lipomatous neoplasm of skin and subcutaneous tissue of right arm (principal)
CPT/HCPCS: 99202

== ENCOUNTER 2025-07-28 14:17 | Outpatient (AMB) | payer OTHER, SELFPAY ==
[2025-07-26 13:31] VITALS: BMI 30.3
--- NOTE | 2025-07-28 14:23 | A.OFFPC_ITS ---
Vital Signs 07/28/25 14:24 07/28/25 15:00 Height 5 ft 2 in Weight 170 lb 8 oz BMI 31.2 BP 110/60 130/78 Blood Pressure Location Lt brachial Lt brachial Position Sitting Sitting Pulse 83 Pulse Source Pulse Oximeter Pulse Oximetry (%) 97 Oxygen Delivery Method Room Air Intake Visit Reasons: Excision lipoma right upper arm Credit Interviewer Required: No Accompanied by: Self / Same As Patient Allergies pneumococcal vaccine (PNEUMOCOCCAL VACCINE) Allergy (Severe, Verified 07/28/25 14:50) SWELLING, rash atorvastatin (From LIPITOR) Allergy (Intermediate, Verified 07/28/25 14:50) LIP SWELLING, hives, lip swelling dupilumab (Dupixent) Allergy (Unknown, Verified 07/28/25 14:50) PUGH fluticasone (Advair Diskus) Allergy (Unknown, Verified 07/28/25 14:50) unknown Iodinated Contrast Media Allergy (Unknown, Verified 07/28/25 14:50) unknown metoprolol Allergy (Unknown, Verified 07/28/25 14:50) hives morphine Allergy (Unknown, Verified 07/28/25 14:50) RASH salmeterol (Advair Diskus) Allergy (Unknown, Verified 07/28/25 14:50) unknown verapamil Allergy (Unknown, Verified 07/28/25 14:50) Unknown Medication List - Last Reconciled 07/28/25 by Angella Lua PA-C albuterol sulfate 90 mcg/actuation 2 puffs inhalation Q6H PRN cane As directed codeine-guaifenesin 10-100 mg/5 mL 10 mL PO Q4-6H PRN 14 days epinephrine (EpiPen 2-Masoud) 0.3 mg (0.3 mL) IM Q4H PRN ezetimibe 10 mg PO DAILY fexofenadine 180 mg PO DAILY Incruse Ellipta 62.5 mcg/actuation (umeclidinium) 1 inh inhalation DAILY NS lisinopril 20 mg PO DAILY 90 days meloxicam 15 mg PO DAILY mepolizumab 100 mg subcut Q4W methocarbamol 500 mg PO BID PRN miscellaneous medical supply (Blood Pressure Cuff) Testing once a day [shower hand rails. As directed] [STAIR LIFT As directed] Tobacco use date assessed: 06/30/25 Fall risk assessment: No Falls in past year Last assessed Fall Risk: 07/28/25 Dental Screening Dental Screen Date: 04/29/25 Did you have a dental visit in the last 12 months?: Yes Did you have a dental problem in the last 6 months where you did not have access to dental care?: No Was dental information given to patient?: Patient has dentist HPI Excision lipoma right upper arm HPI Details 70-year-old female with past medical his tory of lichen sclerosis, asthma, hypercholesterolemia, hypertension, generalized anxiety disorder, GERD coming in for preoperative visit. In review of the notes, patient was seen by General surgery 07/16/2025 for soft tissue mass of the right upper arm requesting excision. Plan for excision and short-stay surgery. Hypertension: Blood pressure in the office today 130/78 controlled on lisinopril 20 mg Asthma: Preoperative clearance visit coming up Patient has no history of [place], CVA, diabetes mellitus or CHF. History of cardiac cath for previous history of chest pain 2013 with minimal disease. [facility] Medical History Asthma exacerbation Back pain Post-menopausal COVID-19 Chest pain Occult blood positive stool Left-sided chest pain Bilateral leg pain UTI (urinary tract infection) Bad odor of urine Dysuria Left leg pain Myalgia Lumbar spine pain Unsteady gait COVID-19 virus infection Chronic cough Colon cancer screening Facial dermatitis Mass of arm Cellulitis, leg Overweight (BMI 25.0-29.9) Acute asthma exacerbation Adult general medical exam Screening for diabetes mellitus Bronchitis Allergic rhinitis Allergic rhinitis Hypercholesterolemia Hypertension Urinary incontinence Vitamin D deficiency Migraine Anxiety Osteoporosis Osteoarthritis, knee Lichen sclerosus Atrophic vaginitis Severe persistent allergic asthma Surgical History History of cardiac cath Family History Mother No problems noted. Sister No problems noted. Father No problems noted. Sister No problems noted. Social History Household Members: Spouse Housing: House Alcohol intake: never Patient Tobacco Use Status: Never used Tobacco e-Cigarette/Vaping Use: Never Used Second Hand Smoke Exposure: No Advance Directives Date on File: 05/16/23 service: No Current occupational status: unemployed Current occupation: Lt handed Cognitive needs: No Hearing needs: No Vision needs: Yes Female Reproductive History Menstrual Age of Menarche: 13 Questionnaire Thrive Questionnaire Date Thrive assessed: 04/29/25 AJAY-7 AMB Questionnaire AJAY-7 Date AJAY - 7 assessed: 04/29/25 Source: Developed by Drs. Spike Hernandez, Ruth Ortega, Clint Esteves and colleagues, with an educational andrés from [employer]. Review of Systems Const Denies body aches, Denies fatigue, Denies fever(s), Denies frequent falls, Denies headache(s) and Denies weakness Eyes Reports no additional complaints and Denies change in vision ENT Denies dizziness, Denies facial pain, Denies headache(s) and Denies nasal congestion Card Denies chest pain, Denies syncope, Denies irregular heart rhythm, Denies leg edema, Denies lightheadedness, Denies dyspnea and Reports dyspnea on exertion Resp Reports cough, Denies hemoptysis, Denies excessive phlegm production, Denies pain with cough, Denies dyspnea and Reports dyspnea on exertion GI Denies abdominal pain, Denies dyspepsia, Denies diarrhea, Denies nausea and Denies vomiting Denies urinary frequency, Denies dysuria, Denies urinary hesitancy and Denies urinary urgency Musc Denies back pain and Denies myalgias Skin/Breast Reports system reviewed and no additional complaints, except as documented Neuro Denies dizziness, Denies syncope, Denies frequent falls, Denies headache(s) and Denies weakness Psych Reports no additional complaints Endo Denies fatigue Physical exam (Primary Care) Vital Signs: Last Vital Signs Pulse 83 07/28/25 14:24 BP 130/78 07/28/25 15:00 Pulse Ox 97 07/28/25 14:24 Oxygen Delivery Method Room Air 07/28/25 14:24 BMI result Body Mass Index 31.2 Tobacco/Smoking Status: Tobacco use Status Tobacco use date assessed 06/30/25 07/28/25 14:31 Patient Tobacco Use Status Never used Tobacco 07/28/25 14:31 e-Cigarette/Vaping Use Never Used 07/28/25 14:31 Thrive Assessment: Date of Thrive Assessment Date Thrive assessed 04/29/25 07/28/25 14:31 Const General: cooperative, healthy appearing, comfortable and no acute distress Orientation/consciousness: patient oriented x3 HENMT Head: Yes normocephalic Ears: hearing grossly normal bilaterally General nose exam: Normal external nose present Eyes General: appearance normal, both eyes and all related structures Conjunctivae: conjunctivae normal Neck Neck: Yes full ROM and Yes no lymphadenopathy Resp Effort & Inspection: normal respiratory effort Auscultation: clear to auscultation bilaterally, no crackles, no rales, no rhonchi and no wheezes Cardio Rate: regular rate Rhythm: regular rhythm Skin General skin exam: no rashes or lesions noted Neuro General: patient oriented x3 Gait exam (Neuro): Normal gait present Extrem General: Yes normal to inspection, Yes full ROM and No edema Psych Affect: normal affect Attitude: cooperative Insight: Good insight present (Psych) Judgement: Good judgement present (Psych) Coding Level of Care Code Est Pt Level 3 (46887) Diagnoses Pre-op exam Z01.818 Assessment & Plan Assessment & Plan (1) Pre-op exam: Code(s): Z01.818 - Encounter for other preprocedural examination Category: Medical Plan: Regarding preop clearance, the patient is at moderate risk for proposed surgery due to age and comorbidities. Reviewed with the patient that no surgery is completely free of risk and that this examination is to assist the surgeon in reviewing informed consent. She was advised she can take all medications as prescribed up until the day of the procedure unless otherwise stated by the surg itz. She is currently awaiting pulmonary preoperative clearance. I did order for EKG and blood work which needs to be completed prior to preoperative clearance. Addendum will be added once pulmonology note as well as blood work and EKG has been reviewed. Plan This note was constructed using voice recognition software. While every effort has been made to ensure accuracy and epitaxial reactor technician, still areas may have been included sometimes these areas may affect the content or meeting of the given symptoms. Total time spent caring for the patient today was 20 minutes. This includes time spent before the visit reviewing the chart, time spent during the visit, and time spent after the visit and documentation. Patient was informed and verbally consented to the use of an ambient scribe for clinic note documentation during this visit. Orders: Orders Comprehensive Met. Panel Today Z01.818 - Encounter for other preprocedural examination Complete Blood Count Auto Diff Today Z01.818 - Encounter for other prepr ocedural examination ECG 12 lead EKG Today Z01.818 - Encounter for other preprocedural examination
[2025-07-28 14:24] VITALS: BP 110/60; PULSE 83; O2SAT 97; BMI 31.2
[2025-07-28 15:00] VITALS: BP 130/78
--- OUTSIDE RECORDS SUMMARY | 2025-07-28 18:03 | XMS_ITS | Patient Health Record ---
Author Organization [facility] Address [address] [place] [address] Care Team Providers Care Security Assistant Name Role Phone Lakia Whalen MD Primary Care Provider Spike Mcelroy [phone] Allergies Allergen (clinical drug ingredient) Drug/Non Drug Allergy documented on EMR Reaction Allergy Type Onset Date Status morphine Morphine (uncoded) Unknown Allergy A ctive Reason For Referral No Information Plan Of Treatment No Information Insurance Providers Payer Name Payer Address Payer Phone Subscriber Number Group Number Insured Name Patient Relationship to Insured Coverage Start Date Coverage End Date [facility](N o referral needed) [address] [place] [address] [id number] MEKHI GAMBINO Self - patient is the insured Medical (General) History Medical History History ICD Code Colonoscopy, 2008, tubular adenoma Asthma Hyperlipidemia
--- OUTSIDE RECORDS SUMMARY | 2025-07-28 18:03 | XMS_ITS | Patient Health Record ---
Author Organization [facility] [place] Address [address] [place], [place] [address] Care Team Providers Care Green Hide Inspector Name Role Phone Lakia Whalen Primary Care Provider Yony Graham Unavailable [phone] Allergies Allergen (clinical drug ingredient) Drug/Non Drug [...] Risk Notes Problem Chronic diastolic heart failure (858902046) Chronic diastolic heart failure (428.32) Active confirmed Problem Allergic rhinitis due to allergen (51632217) Allergic rhinitis due to allergen (477.8) Active confirmed Problem Extrinsic asthma without status asthmaticus (93596673) Extrinsic asthma NOS (493.00) Active confirmed Problem Pulmonary hypertension, secondary (416.8) Active confirmed Problem Obesity (481728880) Obesity (BMI 30-39.9) (278.00) Active confirmed Problem Systolic murmur (73019426) Heart murmur, systolic (785.2) Active confirmed Plan Of Treatment Pending Test Test Name Order Date REGION 1 RESPIRATORY PROFILE 03/03/2014 REGION 1 RESPIRATORY PROFILE 04/07/2014 IgE 04/07/2014 IgE 03/03/2014 CHEST XRAY PA LAT 03/03/2014 Insurance Providers Payer Name Payer Address Payer Phone Subscriber Number Group Number Insured Name Patient Relationship to Insured Coverage Start Date Coverage End Date [address] [phone] [id number] Tita Morris Self - patient is the insured Medical (General) History Medical History History ICD Code Asthma 493.90 Rheumatic heart disease 391.9 Heart murmur, systolic 785.2 Allergic rhinitis due to allergen 477.8 GERD (gastroesophageal reflux disease) 5 30.81 Hypercholesterolemia 272.0 Colonic polyp 211.3 Hypertension 401.9 Hospitalization History Reason Date(Month/Year) Asthma exacerbation 02/2014
== END 2025-07-28 14:38 | disposition home or self-care (01) ==
LOC: HO.HMCH 14:18
PROVIDERS: PCP Internal Medicine
DX: Z01.818 Encounter for other preprocedural examination (principal)

== ENCOUNTER → 2025-07-28 14:17 | Outpatient (BNVA) | payer OTHER, SELFPAY ==
[2025-07-26 13:31] VITALS: BMI 30.3
== END ==
PROVIDERS: PCP Internal Medicine
DX: Z01.818 Encounter for other preprocedural examination (principal); I10 Essential (primary) hypertension
CPT/HCPCS: 99212

== ENCOUNTER → 2025-08-04 07:32 | Outpatient (REF) | payer OTHER, SELFPAY ==
[2025-07-26 13:31] VITALS: BMI 30.3
--- OUTSIDE RECORDS SUMMARY | 2025-08-04 07:36 | XMS_ITS | Patient Health Record ---
Author Organization [facility] [place] Address [address] [place], [place] [address] Care Team Providers Care Weed Eradicator Name Role Phone Lakia Whalen Primary Care Provider Yony Graham Unavailable [phone] Allergies Allergen (clinical drug ingredient) Drug/Non Drug [...] Risk Notes Problem Chronic diastolic heart failure (384532550) Chronic diastolic heart failure (428.32) Active confirmed Problem Allergic rhinitis due to allergen (29991804) Allergic rhinitis due to allergen (477.8) Active confirmed Problem Extrinsic asthma without status asthmaticus (12055305) Extrinsic asthma NOS (493.00) Active confirmed Problem Pulmonary hypertension, secondary (416.8) Active confirmed Problem Obesity (997586014) Obesity (BMI 30-39.9) (278.00) Active confirmed Problem Systolic murmur (13521944) Heart murmur, systolic (785.2) Active confirmed Plan Of Treatment Pending Test Test Name Order Date REGION 1 RESPIRATORY PROFILE 03/03/2014 REGION 1 RESPIRATORY PROFILE 04/07/2014 IgE 04/07/2014 IgE 03/03/2014 CHEST XRAY PA LAT 03/03/2014 Insurance Providers Payer Name Payer Address Payer Phone Subscriber Number Group Number Insured Name Patient Relationship to Insured Coverage Start Date Coverage End Date [address] [phone] [id number] Tita Morris Self - patient is the insured Medical (General) History Medical History History ICD Code Asthma 493.90 Rheumatic heart disease 391.9 Heart murmur, systolic 785.2 Allergic rhinitis due to allergen 477.8 GERD (gastroesophageal reflux disease) 5 30.81 Hypercholesterolemia 272.0 Colonic polyp 211.3 Hypertension 401.9 Hospitalization History Reason Date(Month/Year) Asthma exacerbation 02/2014
--- OUTSIDE RECORDS SUMMARY | 2025-08-04 07:37 | XMS_ITS | Patient Health Record ---
Author Organization [facility] Address [address] [place] [address] Care Team Providers Care Product Scientist Name Role Phone Lakia Whalen MD Primary Care Provider Spike Mcelroy [phone] Allergies Allergen (clinical drug ingredient) Drug/Non Drug Allergy documented on EMR Reaction Allergy Type Onset Date Status morphine Morphine (uncoded) Unknown Allergy A ctive Reason For Referral No Information Plan Of Treatment No Information Insurance Providers Payer Name Payer Address Payer Phone Subscriber Number Group Number Insured Name Patient Relationship to Insured Coverage Start Date Coverage End Date [facility](N o referral needed) [address] [place] [id number] MEKHI GAMBINO Self - patient is the insured Medical (General) History Medical History History ICD Code Colonoscopy, 2008, tubular adenoma Asthma Hyperlipidemia
[2025-08-04 07:48] LABS: MANUAL DIFF FLAG NO
--- NOTE | 2025-08-04 07:53 | ECG_ITS ---
Test Reason : Z01.818 - Encounter for other preprocedural examination Blood Pressure : */* mmHG Vent. Rate : 63 BPM Atrial Rate : 63 BPM P-R Int : 136 ms QRS Dur : 84 ms QT Int : 412 ms P-R-T Axes : * 34 41 degrees QTcB Int : 421 ms Normal sinus rhythm Normal ECG When compared with ECG of 11-Jan-2025 15:53, Vent. rate has decreased by 31 bpm Referred By: Angella Lua Electronically Signed By: Filipe Paul
[2025-08-04 09:11] LABS: Hematocrit 42.7 % (37.0-47.0); Hemoglobin 13.9 g/dl (12.0-16.0); Imm Gran Abs Auto 0.02 X10*3/uL (0.00-0.03); Imm Gran Pct Auto 0.3 % (0.0-0.4); Lymphocytes Absolute Auto 1.9 X10*3/uL (1.2-4.9); Mean Corpuscular HGB Conc 32.6 g/dl (31.0-35.0); Mean Corpuscular Hemoglobin 28.2 pg (27.0-33.0); Mean Corpuscular Volume 86.6 fL (80.0-98.0); NRBC Abs Auto 0.000 X10*3/uL (0.0-0.012); NRBC Pct Auto 0.0 /100WBC (0.0-0.2); Platelet Count 291 X10*3/uL (160-400); Red Blood Count 4.93 X10*6/uL (4.20-5.50); White Blood Count 6.5 X10*3/uL (4.8-10.8)
[2025-08-04 09:40] LABS: Alanine Aminotransferase 23 U/L (0-31); Albumin Level 4.4 g/dL (3.5-5.0); Alkaline Phosphatase 75 U/L (39-117); Anion Gap 11 (12-20); Aspartate Amino Transferase 24 U/L (5-31); Blood Urea Nitrogen 16 mg/dL (9-16); Calcium 9.5 mg/dL (8.4-10.2); Carbon Dioxide 25 mmol/L (22-29); Chloride 107 mmol/L (96-108); Estimated Glomerular Filt Rate > 60; Potassium 4.2 mmol/L (3.3-5.1); Sodium 139 mmol/L (135-145); Total Protein 7.6 g/dL (6.5-8.0)
== END ==
LOC: HO.CARD 07:32
PROVIDERS: PCP Internal Medicine
DX: Z01.810 Encounter for preprocedural cardiovascular examination (principal); Z01.818 Encounter for other preprocedural examination; J45.50 Severe persistent asthma, uncomplicated; J30.89 Other allergic rhinitis
CPT/HCPCS: 36415; 80053; 85025; 93005; 99212

== ENCOUNTER → 2025-08-04 07:53 | Outpatient (BNV) | payer OTHER, SELFPAY ==
[2025-07-26 13:31] VITALS: BMI 30.3
== END ==
PROVIDERS: PCP Internal Medicine; Visit Provider Internal Medicine Cardiovascular Disease
DX: Z01.810 Encounter for preprocedural cardiovascular examination (principal)
CPT/HCPCS: 93010

== ENCOUNTER 2025-08-04 09:17 | Outpatient (AMB) | payer OTHER, SELFPAY ==
[2025-07-26 13:31] VITALS: BMI 30.3
[2025-08-04 09:22] VITALS: BP 102/67; PULSE 94; O2SAT 96; BMI 31.1
--- NOTE | 2025-08-04 09:22 | A.OFFVIS_ITS ---
Vital Signs 08/04/25 09:22 Height 5 ft 2 in Weight 170 lb BMI 31.1 BP 102/67 Blood Pressure Location Lt brachial Position Sitting Pulse 94 Pulse Source Pulse Oximeter Pulse Oximetry (%) 96 Oxygen Delivery Method Room Air Intake Visit Reasons: Preop for General surgery Allergies pneumococcal vaccine (PNEUMOCOCCAL VACCINE) Allergy (Severe, Verified 08/04/25 09:29) SWELLING, rash atorvastatin (From LIPITOR) Allergy (Intermediate, Verified 08/04/25 09:29) LIP SWELLING, hives, lip swelling dupilumab (Dupixent) Allergy (Unknown, Verified 08/04/25 09:29) PUGH fluticasone (Advair Diskus) Allergy (Unknown, Verified 08/04/25 09:29) unknown Iodinated Contrast Media Allergy (Unknown, Verified 08/04/25 09:29) unknown metoprolol Allergy (Unknown, Verified 08/04/25 09:29) hives morphine Allergy (Unknown, Verified 08/04/25 09:29) RASH salmeterol (Advair Diskus) Allergy (Unknown, Verified 08/04/25 09:29) unknown verapamil Allergy (Unknown, Verified 08/04/25 09:29) Unknown HPI HPI Preop for General surgery: Details: 70-year-old lady, lifetime nonsmoker, followed for severe persistent asthma with significant allergic component. Patient continues on her current regimen of Symbicort, Spiriva, Singulair, albuterol MDI, duo nebs, and Nucala with worsening control of her symptoms, she particularly complains of nocturnal symptoms including nonproductive cough. She denies recent exacerbations. [facility] Medical History Asthma exacerbation Back pain Post-menopausal COVID-19 Chest pain Occult blood positive stool Left-sided chest pain Bilateral leg pain UTI (urinary tract infection) Bad odor of urine Dysuria Left leg pain Myalgia Lumbar spine pain Unsteady gait COVID-19 virus infection Chronic cough Colon cancer screening Facial dermatitis Mass of arm Cellulitis, leg Overweight (BMI 25.0-29.9) Acute asthma exacerbation Adult general medical exam Screening for diabetes mellitus Bronchitis Allergic rhinitis Allergic rhinitis Hypercholesterolemia Hypertension Urinary incontinence Vitamin D deficiency Migraine Anxiety Osteoporosis Osteoarthritis, knee Lichen sclerosus Atrophic vaginitis Severe persistent allergic asthma Surgical History History of cardiac cath Family History Mother No problems noted. Sister No problems noted. Father No problems noted. Sister No problems noted. Social History Household Members: Spouse Housing: House Alcohol intake: never Patient Tobacco Use Status: Never used Tobacco e-Cigarette/Vaping Use: Never Used Second Hand Smoke Exposure: No Advance Directives Date on File: 05/16/23 service: No Current occupational status: unemployed Current occupation: Lt handed Cognitive needs: No Hearing needs: No Vision needs: Yes Female Reproductive History Menstrual Age of Menarche: 13 Review of Systems Const Denies daytime sleepiness, Denies excessive sweating, Denies fatigue, Denies fever(s), Denies lethargy, Denies malaise, Denies night sweats, Denies snoring and Denies weight loss Eyes Denies blurry vision and Denies itchy eyes ENT Denies nasal congestion, Denies post nasal drip, Denies sinus pain, Denies sinus pressure and Denies other ( Thrush) Card Denies chest pain, Denies pedal edema, Denies dyspnea, Denies orthopnea and Denies paroxysmal nocturnal dyspnea Resp Reports cough, Denies hemoptysis, Denies excessive phlegm production, Denies dyspnea, Denies snoring and Reports wheezing GI Denies abdominal pain and Denies heartburn Musc Denies myalgias, Denies arthralgias and Denies joint swelling Skin/Breast Denies rash Neuro Denies memory loss and Denies seizure-like activity Psych Denies abnormal sleep pattern, Denies anxiety and Denies memory loss Endo Denies excessive sweating, Denies fatigue and Denies heat intolerance Jose G/Lymph Denies easy bruising Aller/Immun Denies itchy eyes, Denies seasonal rhinorrhea and Reports wheezing Physical Exam Vital Signs: Last Vital Signs Pulse 94 08/04/25 09:22 BP 102/67 08/04/25 09:22 Pulse Ox 96 08/04/25 09:22 Oxygen Delivery Method Room Air 08/04/25 09:22 BMI result Body Mass Index 31.1 Const General: no acute distress and alert Nutritional Appearance: not obese Orientation/consciousness: Other orientation findings ( oriented) HEENT Head: Yes atraumatic Eyes General: appearance normal, both eyes and all related structures Sclerae: sclerae normal EOM: EOMs intact bilaterally Neck Neck: Yes supple Lymphatic: no lymphadenopathy noted Resp Effort & Inspection: normal respiratory effort and no use of accessory muscles Auscultation: clear to auscultation bilaterally Cardio Rate: regular rate Rhythm: regular rhythm Heart sounds: no gallops, no murmurs and no rubs Skin General skin exam: other ( warm) Extrem General: No clubbing, No cyanosis and No edema Assessment & Plan Assessment & Plan (1) Severe persistent allergic asthma: Code(s): J45.50 - Severe persistent asthma, uncomplicated Category: Medical Plan: Reasonable, but slowly worsening control on a current regimen of Nucala, Incruse, and Symbicort. Will add theophylline. (2) Environmental and seasonal allergies: Code(s): J30.89 - Other allergic rhinitis Category: Medical Plan: Well controlled on Nucala. Continue current regimen. (3) Encounter for preoperative pulmonary examination: Code(s): Z01.811 - Encounter for preprocedural respiratory examination Category: Medical Plan: At this time patient is at low risk for pulmonary perioperative complications for the proposed right shoulder/arm surgery either under general anesthesia or monitored anesthesia care. Coding Level of Care Code Est Pt Level 4 (25140) Complex EM visit Add On G2211 Diagnoses Severe persistent allergic asthma J45.50 Environmental and seasonal allergies J30.89 Encounter for preoperative pulmonary examination Z01.811
== END 2025-08-04 09:45 | disposition home or self-care (01) ==
LOC: HO.HPS 09:17
PROVIDERS: PCP Internal Medicine; Visit Provider Internal Medicine Pulmonary Disease
DX: J45.50 Severe persistent asthma, uncomplicated (principal); J30.89 Other allergic rhinitis; Z01.811 Encounter for preprocedural respiratory examination
CPT/HCPCS: 99214; G2211

== ENCOUNTER 2025-08-12 05:46 | Day surgery (SDC) | payer OTHER, SELFPAY ==
[2025-07-26 13:31] VITALS: BMI 30.3
[2025-08-10 09:46] VITALS: BMI 31.1
--- NOTE | 2025-08-11 08:45 | HO.ANESPROP2 ---
Documented by User: Cristiane Salcido NP 08/11/25 08:49 HPI - Anesthesia Eval Consult details Narrative: 70yo F for Right Excision Lipoma, upper arm Pulmo optimized. [place] [facility] [place] for asthma Medically optimized per PCP 2023 cardiac w/u for L sided chest pain - neg echo and stress echo, previous cath 2013 with only minimal luminel irreg. CP thought to be msk. [facility] Active Problems Active Problems: All Active Problems Encounter for preoperative pulmonary examination (Acute) Lipoma of upper arm (Acute) Asthma exacerbation (Acute) Lipoma (Acute) Pre-op exam (Acute) Lumbar paraspinal muscle spasm (Acute) Lumbar spondylosis (Acute) Back pain (Acute) Precordial chest pain (Acute) Lumbar degenerative disc disease (Acute) Osteoarthritis of knees, bilateral (Acute) Hematuria (Acute) Osteoporosis (Acute) Annual physical exam (Acute) Multiple nevi (Acute) Obesity (BMI 30.0-34.9) (Acute) GERD (gastroesophageal reflux disease) (Acute) Generalized anxiety disorder (Acute) Osteoarthritis of right knee (Acute) Allergic rhinitis (Acute) Hypercholesterolemia (Acute) Hypertension (Acute) Severe persistent allergic asthma (Acute) Lichen sclerosus (Acute) Environmental and seasonal allergies (Acute) Past Medical History Medical History Asthma exacerbation Back pain Post-menopausal COVID-19 Chest pain Occult blood positive stool Left-sided chest pain Bilateral leg pain UTI (urinary tract infection) Bad odor of urine Dysuria Left leg pain Myalgia Lumbar spine pain Unsteady gait COVID-19 virus infection Chronic cough Colon cancer screening Facial dermatitis Mass of arm Cellulitis, leg Overweight (BMI 25.0-29.9) Acute asthma exacerbation Adult general medical exam Screening for diabetes mellitus Bronchitis Allergic rhinitis Allergic rhinitis Hypercholesterolemia Hypertension Urinary incontinence Vitamin D deficiency Migraine Anxiety Osteoporosis Osteoarthritis, knee Lichen sclerosus Atrophic vaginitis Severe persistent allergic asthma Family History Family History Mother No problems noted. Sister No problems noted. Father No problems noted. Sister No problems noted. Surgical History Surgical History History of right cataract surgery History of left cataract surgery History of cardiac cath Social History Social History Household Members: Spouse Housing: House Are you a primary account executive healthcare to a significant other at home: No Do you presently have visiting nurse or other home services: No Alcohol intake: never Patient Tobacco Use Status: Never used Tobacco e-Cigarette/Vaping Use: Never Used Second Hand Smoke Exposure: No Use of substances other than those prescribed or required for medical reasons: No Have you been hit, kicked, punched, or otherwise hurt by someone within the past year? If so, by whom?: No Are you DNR?: No Advance Directives: No Advance Directives Information Provided: Yes Advance Directives Date on File: 05/16/23 Poor oral hygiene: No service: No Current occupational status: unemployed Current occupation: Lt handed Cognitive needs: No Hearing needs: No Vision needs: Yes Meds Allergies Allergy/AdvReac Type Severity Reaction Status Date / Time pneumococcal vaccine Allergy Severe SWELLING, Verified 08/04/25 09:29 (PNEUMOCOCCAL VACCINE) rash atorvastatin (From LIPITOR) Allergy Intermediate LIP Verified 08/04/25 09:29 SWELLING, hives, lip swelling morphine Allergy Intermediate RASH Verified 08/12/25 06:16 dupilumab (Dupixent) Allergy Mild PUGH Verified 08/12/25 06:16 fluticasone (Advair Diskus) Allergy Mild Rash Verified 08/12/25 06:16 Iodinated Contrast Media Allergy Mild Rash Verified 08/12/25 06:16 metoprolol Allergy Mild hives Verified 08/12/25 06:16 salmeterol (Advair Diskus) Allergy Mild Drowsy Verified 08/12/25 06:16 verapamil Allergy Mild Redness of Verified 08/12/25 06:16 Skin Exam Height,Weight and Vital Signs: Height 5 ft 2 in Weight 77.111 kg Pertinent Lab Results Pertinent Lab Results: Laboratory Tests 08/04/25 07:47 WBC 6.5 Hgb 13.9 Hct 42.7 Plt Count 291 Sodium 139 Potassium 4.2 Chloride 107 Carbon Dioxide 25 BUN 16 Creatinine 0.83 Narrative Narrative: EKG 07/2025 Vent. Rate : 63 BPM Atrial Rate : 63 BPM P-R Int : 136 ms QRS Dur : 84 ms QT Int : 412 ms P-R-T Axes : * 34 41 degrees QTcB Int : 421 ms Normal sinus rhythm Normal ECG When compared with ECG of 11-Jan-2025 15:53, Vent. rate has decreased by 31 bpm An echocardiogram done 12/02/2023 showed EF 60-65%, no valve abnormalities, no regional wall motion abnormalities and grade 1 diastolic dysfunction. An exercise stress echo done 12/10/2023 showed exercise over 5 minutes with shortness of breath, no EKG or echo evidence of ischemia. Assessment and Plan Assessment Anesthesia Assessment: Chart Reviewed Documented by User: Terry Machado MD 08/12/25 07:14 [facility] Past Medical History Medical History Asthma exacerbation Back pain Post-menopausal COVID-19 Chest pain Occult blood positive stool Left-sided chest pain Bilateral leg pain UTI (urinary tract infection) Bad odor of urine Dysuria Left leg pain Myalgia Lumbar spine pain Unsteady gait COVID-19 virus infection Chronic cough Colon cancer screening Facial dermatitis Mass of arm Cellulitis, leg Overweight (BMI 25.0-29.9) Acute asthma exacerbation Adult general medical exam Screening for diabetes mellitus Bronchitis Allergic rhinitis Allergic rhinitis Hypercholesterolemia Hypertension Urinary incontinence Vitamin D deficiency Migraine Anxiety Osteoporosis Osteoarthritis, knee Lichen sclerosus Atrophic vaginitis Severe persistent allergic asthma Family History Family History Mother No problems noted. Sister No problems noted. Father No problems noted. Sister No problems noted. Family history of problems with anesthesia: No Surgical History Surgical History History of right cataract surgery History of left cataract surgery History of cardiac cath History of Problems with Anesthesia: No Social History Social History Household Members: Spouse Housing: House Are you a primary account executive healthcare to a significant other at home: No Do you presently have visiting nurse or other home services: No Alcohol intake: never Patient Tobacco Use Status: Never used Tobacco e-Cigarette/Vaping Use: Never Used Second Hand Smoke Exposure: No Use of substances other than those prescribed or required for medical reasons: No Have you been hit, kicked, punched, or otherwise hurt by someone within the past year? If so, by whom?: No Are you DNR?: No Advance Directives: No Advance Directives Information Provided: Yes Advance Directives Date on File: 05/16/23 Poor oral hygiene: No service: No Current occupational status: unemployed Current occupation: Lt handed Cognitive needs: No Hearing needs: No Vision needs: Yes Meds Allergies Allergy/AdvReac Type Severity Reaction Status Date / Time pneumococcal vaccine Allergy Severe SWELLING, Verified 08/04/25 09:29 (PNEUMOCOCCAL VACCINE) rash atorvastatin (From LIPITOR) Allergy Intermediate LIP Verified 08/04/25 09:29 SWELLING, hives, lip swelling morphine Allergy Intermediate RASH Verified 08/12/25 06:16 dupilumab (Dupixent) Allergy Mild PUGH Verified 08/12/25 06:16 fluticasone (Advair Diskus) Allergy Mild Rash Verified 08/12/25 06:16 Iodinated Contrast Media Allergy Mild Rash Verified 08/12/25 06:16 metoprolol Allergy Mild hives Verified 08/12/25 06:16 salmeterol (Advair Diskus) Allergy Mild Drowsy Verified 08/12/25 06:16 verapamil Allergy Mild Redness of Verified 08/12/25 06:16 Skin Exam Exam Date and Time: 08/12/2025 Airway Mallampati Class: II TM Dist: >3cm Neck ROM: Full Heart: RRR Lungs: ctab vesicular Assessment and Plan Assessment Anesthesia Assessment: Anesthesia Plan Discussed Final Anesthetic Review Family History of Problems with Anesthesia: No History of Problems with Anesthesia: No NPO: Yes ASA Class: III Final Preanesthetic Review: No Changes in Pt Med Stat, Meds/Allgs Chart Reviewed, Consent Obtained/Reviewed and Anes Risks/Benef Reviewed Patient Risk: Intermediate Procedure Risk: Low Anesthetic Plan Anesthetic Plan: GA Disposition: Standard PACU
[2025-08-12] VITALS (10 sets, daily range): BP systolic 134–161; BP diastolic 76–80; PULSE 60–102; RESP 15–21; TEMP 36.3–36.6; O2SAT 95–98; BMI 30.9
[2025-08-12] MEDS: Lactated Ringers 1,000 ML 100 ML IVCONT (06:42)
[2025-08-12] MEDS: Albuterol Sulfate (0.083%) 2.5 MG/3 ML VIAL.NEB INHALE ×2 (07:23→08:34)
--- NOTE | 2025-08-12 07:27 | MHC.SHP ---
Pre-Procedural Eval Section A - 24 Hr Update-Section A only Date of Service: 08/12/25 The patient is an INPATIENT: No Changes since office visit: Yes Patient answered all questions; No Cold of Flu in the past 2 weeks, No New Medical Problems and No Changes in Medication The patient has been examined within 24 hours of the surgical procedure. The History & Physical has been completed within 30 days and I have reviewed it.: Yes Section B - Complete if H&P > 30 days Chief Complaint: lipoma right upper arm Allergies: Allergies Allergy/AdvReac Type Severity Reaction Status Date / Time pneumococcal vaccine Allergy Severe SWELLING, Verified 08/04/25 09:29 (PNEUMOCOCCAL VACCINE) rash atorvastatin (From LIPITOR) Allergy Intermediate LIP Verified 08/04/25 09:29 SWELLING, hives, lip swelling morphine Allergy Intermediate RASH Verified 08/12/25 06:16 dupilumab (Dupixent) Allergy Mild PUGH Verified 08/12/25 06:16 fluticasone (Advair Diskus) Allergy Mild Rash Verified 08/12/25 06:16 Iodinated Contrast Media Allergy Mild Rash Verified 08/12/25 06:16 metoprolol Allergy Mild hives Verified 08/12/25 06:16 salmeterol (Advair Diskus) Allergy Mild Drowsy Verified 08/12/25 06:16 verapamil Allergy Mild Redness of Verified 08/12/25 06:16 Skin Plan Diagnosis/Plan: Unchanged I have reviewed the history and physical and performed a pertinent physical examination on my patient. No changes have occurred unless specified. Time Spent With Patient Time: Total time managing care of this patient today ____ minutes.
--- NOTE | 2025-08-12 08:10 | W.PM.OPN ---
Operative Note Operative Note Date of Service: 08/12/25 Narrative: Preoperative diagnosis: Lipoma right upper arm Postoperative diagnosis: Same Procedure: Excision lipoma right upper arm Surgeon: Fritz Barnes MD Development Disability Specialist: Emiliano Morton PA-C, NITZA MartinezS Anesthesia: General LMA Indications for procedure: 70-year-old female patient presenting with a 13 cm round lipoma of the right upper arm which is increasing in size and causing discomfort Operative findings: Lipoma right upper arm at least 13 cm Specimen: Lipoma right upper arm Estimated blood loss: Less than 2 mL Complications: None Procedure details: Patient was brought to the OR and placed in a supine position. After administering general anesthesia she was placed in a left lateral decubitus position. The skin over the right upper arm was prepped with ChloraPrep and draped in a sterile fashion. A surgical time-out was called the consent confirmed. Patient received preoperative antibiotics and Venodyne boots were in place. Local anesthesia consisting of 0.5% Sensorcaine was infiltrated over the lipoma. Incision was made in the longitudinal fashion and carried out through subcutaneous tissue up to the lipoma. A combination of sharp and blunt dissection was used to mobilize the lipoma from the surrounding subcutaneous tissue. Hemostasis was assured using electrocautery. The lipoma was passed off the table and sent to pathology for further examination. Wounds were irrigated with saline solution and suctioned dry. Deep subcutaneous tissue was reapproximated using interrupted 3-0 Polysorb sutures. Dermis was reapproximated using interrupted 3-0 Polysorb sutures. Skin was then closed using a running subcuticular 4-0 Polysorb suture. Sterile dressings consisting of Steri-Strips, 4 x 4 gauze and Tegaderm were then applied. The patient tolerated the procedure well. Sponge, instrument, and needle counts reported as correct. The patient was transferred to PACU in stable condition.
[2025-08-12] MEDS: Albuterol/Iprat 2.5/0.5MG 3 ML AMPUL.NEB INHALE (08:24)
== END 2025-08-12 09:59 | disposition home or self-care (01) ==
PROVIDERS: PCP Internal Medicine; Visit Provider Surgery
PROC: (CPT 24071; principal; 2025-08-12 07:30)
DX: D17.21 Benign lipomatous neoplasm of skin and subcutaneous tissue of right arm (principal); M79.10 Myalgia, unspecified site; J45.50 Severe persistent asthma, uncomplicated; R26.81 Unsteadiness on feet; I10 Essential (primary) hypertension; M81.0 Age-related osteoporosis without current pathological fracture; E78.00 Pure hypercholesterolemia, unspecified; E66.3 Overweight; Z68.31 Body mass index [BMI] 31.0-31.9, adult; R30.0 Dysuria; L90.0 Lichen sclerosus et atrophicus; F41.1 Generalized anxiety disorder; Z79.51 Long term (current) use of inhaled steroids; Z99.89 Dependence on other enabling machines and devices; Z79.899 Other long term (current) drug therapy; Z88.8 Allergy status to other drugs, medicaments and biological substances; Z88.5 Allergy status to narcotic agent; Z91.041 Radiographic dye allergy status; Z56.0 Unemployment, unspecified
CPT/HCPCS: 24071; 88304; 94640; J0690; J1100; J2003; J2371; J2405; J2704; J3010

== ENCOUNTER → 2025-08-12 05:46 | Outpatient (BNV) | payer OTHER, SELFPAY ==
[2025-07-26 13:31] VITALS: BMI 30.3
== END ==
PROVIDERS: PCP Internal Medicine; Visit Provider Surgery
DX: D17.21 Benign lipomatous neoplasm of skin and subcutaneous tissue of right arm (principal)
CPT/HCPCS: 11406

== ENCOUNTER 2025-08-24 14:10 | Outpatient (AMB) | payer OTHER, SELFPAY ==
[2025-07-26 13:31] VITALS: BMI 30.3
--- NOTE | 2025-08-24 14:13 | MHC.OFFVIS ---
Vital Signs 08/24/25 14:19 Weight 172 lb BP 143/81 H Blood Pressure Location Lt brachial Position Sitting Pulse 74 Intake Visit Reasons: S/P excision lipoma Rt. upper arm Intake Note: Patient here s/p WLE of lipoma on Rt upper arm. Patient c/o: no concerns. Reports incision healing well. Steri strips removed without incident. WLE (JAK): 08-12-2025 Analytical Technician Required: No Accompanied by: Self / Same As Patient Allergies pneumococcal vaccine (PNEUMOCOCCAL VACCINE) Allergy (Severe, Verified 08/24/25 14:19) SWELLING, rash atorvastatin (From LIPITOR) Allergy (Intermediate, Verified 08/24/25 14:19) LIP SWELLING, hives, lip swelling morphine Allergy (Intermediate, Verified 08/24/25 14:19) RASH dupilumab (Dupixent) Allergy (Mild, Verified 08/24/25 14:19) PUGH fluticasone (Advair Diskus) Allergy (Mild, Verified 08/24/25 14:19) Rash Iodinated Contrast Media Allergy (Mild, Verified 08/24/25 14:19) Rash metoprolol Allergy (Mild, Verified 08/24/25 14:19) hives salmeterol (Advair Diskus) Allergy (Mild, Verified 08/24/25 14:19) Drowsy verapamil Allergy (Mild, Verified 08/24/25 14:19) Redness of Skin HPI HPI S/P excision lipoma Rt. upper arm: Details: Doing very well. Denies pain except to touch sometimes. Denies any bleeding or discharge. Overall feels well. No other concerns PFSH Medical History (Updated 08/24/25 @ 14:26 by Emiliano Morton PA-C) Asthma exacerbation Back pain Post-menopausal COVID-19 Chest pain Occult blood positive stool Left-sided chest pain Bilateral leg pain UTI (urinary tract infection) Bad odor of urine Dysuria Left leg pain Myalgia Lumbar spine pain Unsteady gait COVID-19 virus infection Chronic cough Colon cancer screening Facial dermatitis Mass of arm Cellulitis, leg Overweight (BMI 25.0-29.9) Acute asthma exacerbation Adult general medical exam Screening for diabetes mellitus Bronchitis Allergic rhinitis Allergic rhinitis Hypercholesterolemia Hypertension Urinary incontinence Vitamin D deficiency Migraine Anxiety Osteoporosis Osteoarthritis, knee Lichen sclerosus Atrophic vaginitis Severe persistent allergic asthma Surgical History (Updated 08/24/25 @ 08:03 by CASANDRA Mendiola) Hx of surgical procedure (08/12/25) History of right cataract surgery History of left cataract surgery History of cardiac cath Family History Mother No problems noted. Sister No problems noted. Father No problems noted. Sister No problems noted. Social History Household Members: Spouse Housing: House Are you a primary rn coronary care unit to a significant other at home: No Do you presently have visiting nurse or other home services: No Alcohol intake: never Comment: counts correct Patient Tobacco Use Status: Never used Tobacco e-Cigarette/Vaping Use: Never Used Second Hand Smoke Exposure: No Advance Directives Date on File: 05/16/23 service: No Current occupational status: unemployed Current occupation: Lt handed Cognitive needs: No Hearing needs: No Vision needs: Yes Female Reproductive History Menstrual Age of Menarche: 13 Review of Systems Const All systems reviewed & are unremarkable except as noted in HPI and below Physical Exam Vital Signs: Last Vital Signs Pulse 74 08/24/25 14:19 BP 143/81 H 08/24/25 14:19 Const General: comfortable and no acute distress Extrem Other: Right posterior upper arm excision site. Appears well healed, incision site clean dry and intact. No surrounding erythema, some deep induration likely scarring of tissue. No palpable fluid collection, mildly tender to palpation Assessment & Plan Assessment & Plan (1) Lipoma: Comment: right arm; s/p excision 08/12/2025 Dr. Barnes Code(s): D17.9 - Benign lipomatous neoplasm, unspecified Category: Medical Qualifiers: Lipoma location: upper extremity Laterality: right Qualified Code(s): D17.21 - Benign lipomatous neoplasm of skin and subcutaneous tissue of right arm Plan 70-year-old female following up after excision of lipoma on right posterior upper arm with Dr. Barnes on 08/12/2025. She has no concerns. Is happy that this is gone. Denies pain except to touch occasionally. There has been no drainage, no fevers at home. Excision site appears well healed, incision site is clean dry and intact, no surrounding erythema no discharge or fluid collection, no concern for infection at this time. We reviewed the pathology report showing lipoma, no atypia noted. Patient no longer requiring follow up, can follow up as needed with any concerns in the future. Coding Level of Care Code Est Pt Level 3 (43528) Diagnoses Lipoma of right upper extremity D17.21 Lipoma location: upper extremity Laterality: right
[2025-08-24 14:19] VITALS: BP 143/81; PULSE 74
--- OUTSIDE RECORDS SUMMARY | 2025-08-24 17:09 | XMS_ITS | Patient Health Record ---
Author Organization [facility] Address [address] [place] [address] Care Team Providers Care Booking Supervisor Name Role Phone Lakia Whalen MD Primary Care Provider Spike Mcelroy [phone] Allergies Allergen (clinical drug ingredient) Drug/Non Drug Allergy documented on EMR Reaction Allergy Type Onset Date Status morphine Morphine (uncoded) Unknown Allergy A ctive Reason For Referral No Information Plan Of Treatment No Information Insurance Providers Payer Name Payer Address Payer Phone Subscriber Number Group Number Insured Name Patient Relationship to Insured Coverage Start Date Coverage End Date [facility](N o referral needed) [address] [place] [address] [id number] GAMBINO Self - patient is the insured Medical (General) History Medical History History ICD Code Colonoscopy, 2008, tubular adenoma Asthma Hyperlipidemia
--- OUTSIDE RECORDS SUMMARY | 2025-08-24 17:09 | XMS_ITS | Patient Health Record ---
Author Organization [facility] [place] Address [address] [place], [place] [id number] Care Team Providers Care Numerical Control Nesting Operator Name Role Phone Lakia Whalen Primary Care Provider Yony Graham Unavailable [phone] Allergies Allergen (clinical drug ingredient) Drug/Non Drug Allergy documented on EMR Reaction Allergy Type Onset Date Status Morphine Sulfate Unknown Drug Allergy Active Streptococcus [...] Risk Notes Problem Chronic diastolic heart failure (482227501) Chronic diastolic heart failure (428.32) Active confirmed Problem Allergic rhinitis due to allergen (51550710) Allergic rhinitis due to allergen (477.8) Active confirmed Problem Extrinsic asthma without status asthmaticus (59917678) Extrinsic asthma NOS (493.00) Active confirmed Problem Pulmonary hypertension, secondary (416.8) Active confirmed Problem Obesity (769106389) Obesity (BMI 30-39.9) (278.00) Active confirmed Problem Systolic murmur (25134314) Heart murmur, systolic (785.2) Active confirmed Plan Of Treatment Pending Test Test Name Order Date REGION 1 RESPIRATORY PROFILE 03/03/2014 REGION 1 RESPIRATORY PROFILE 04/07/2014 IgE 04/07/2014 IgE 03/03/2014 CHEST XRAY PA LAT 03/03/2014 Insurance Providers Payer Name Payer Address Payer Phone Subscriber Number Group Number Insured Name Patient Relationship to Insured Coverage Start Date Coverage End Date [address] [phone] [id number] Tita Morris Self - patient is the insured Medical (General) History Medical History History ICD Code Asthma 493.90 Rheumatic heart disease 391.9 Heart murmur, systolic 785.2 Allergic rhinitis due to allergen 477.8 GERD (gastroesophageal reflux disease) 5 30.81 Hypercholesterolemia 272.0 Colonic polyp 211.3 Hypertension 401.9 Hospitalization History Reason Date(Month/Year) Asthma exacerbation 02/2014
== END 2025-08-24 14:21 | disposition home or self-care (01) ==
LOC: HO.HGS 14:11
PROVIDERS: PCP Internal Medicine
DX: D17.21 Benign lipomatous neoplasm of skin and subcutaneous tissue of right arm (principal)
CPT/HCPCS: 99213

== ENCOUNTER → 2025-08-24 14:10 | Outpatient (BNVA) | payer OTHER, SELFPAY ==
[2025-07-26 13:31] VITALS: BMI 30.3
== END ==
PROVIDERS: PCP Internal Medicine
DX: Z98.890 Other specified postprocedural states (principal); D17.21 Benign lipomatous neoplasm of skin and subcutaneous tissue of right arm
CPT/HCPCS: 99212

== ENCOUNTER 2025-08-31 08:21 | Outpatient (AMB) | payer OTHER, SELFPAY ==
[2025-07-26 13:31] VITALS: BMI 30.3
--- OUTSIDE RECORDS SUMMARY | 2025-08-31 08:30 | XMS_ITS | Patient Health Record ---
Author Organization [facility] [place] Address [address] [place], [place] [address] Care Team Providers Care Rehabilitation Engineer Name Role Phone Lakia Whalen Primary Care Provider Yony Graham Unavailable [phone] Allergies Allergen (clinical drug ingredient) Drug/Non Drug [...] End Date Status Fluticasone Propionate 50 MCG/ACT Suspension 1 spray in each nostril Nasally Once a day; Duration: 30 day(s) 03/03/2014 Active Albuterol Sulfate (2.5 MG/3ML) 0.083% Nebulization Solution 3 ml Inhalation Three times a day Active ProAir HFA 108 (90 Base) MCG/ACT Aerosol Solution 2 puffs as needed Inhalation every 4 hrs Active Advair Diskus 500-50 MCG/DOSE Aerosol Powder Breath Activated 1 puff Inhalation Twice a day; Duration: 30 days 03/03/2014 Active ProAir HFA 108 (90 Base) MCG/ACT Aerosol Solution 2 puffs as needed Inhalation every 4 hrs Active Claritin 10 MG Tablet 1 tablet Orally Once a day Active Fluticasone Propionate 50 MCG/ACT Suspension 1 spray in each nostril Nasally Once a day; Duration: 30 day(s) Active Advair Diskus 500-50 MCG/DOSE Aerosol Powder Breath Activated 1 puff Inhalation Twice a day; Duration: 30 days Active Montelukast Sodium 10 MG Tablet 1 tablet in the evening Orally Once a day; Duration: 30 day(s) 03/03/2014 Active Influenza Virus Vaccine Split Injectable Intramuscular fall 201209/11/2013 Active Albuterol Sulfate (2.5 MG/3ML) 0.083% Nebulization Solution 3 ml Inhalation Three times a day Active Montelukast Sodium 10 MG Tablet 1 tablet in the evening Orally Once a day; Duration: 30 day(s) Active Social History Social History Additional Details Category Social Info Options Details Social History 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 exposure: None Alcohol: Rare Recreational drug use: None Marital status Problems Problem Type SNOMED Code ICD Code Onset Dates Problem Status W/U Status Risk Notes Problem Chronic diastolic heart failure (719528260) Chronic diastolic heart failure (428.32) Active confirmed Problem Allergic rhinitis due to allergen (71203469) Allergic rhinitis due to allergen (477.8) Active confirmed Problem Extrinsic asthma without status asthmaticus (36840042) Extrinsic asthma NOS (493.00) Active confirmed Problem Pulmonary hypertension, secondary (416.8) Active confirmed Problem Obesity (994152904) Obesity (BMI 30-39.9) (278.00) Active confirmed Problem Systolic murmur (04286627) Heart murmur, systolic (785.2) Active confirmed Plan Of Treatment Pending Test Test Name Order Date REGION 1 RESPIRATORY PROFILE 03/03/2014 REGION 1 RESPIRATORY PROFILE 04/07/2014 IgE 04/07/2014 IgE 03/03/2014 CHEST XRAY PA LAT 03/03/2014 Insurance Providers Payer Name Payer Address Payer Phone Subscriber Number Group Number Insured Name Patient Relationship to Insured Coverage Start Date Coverage End Date [facility] [place] [phone] [id number] Tita Morris Self - patient is the insured Medical (General) History Medical History History ICD Code Asthma 493.90 Rheumatic heart disease 391.9 Heart murmur, systolic 785.2 Allergic rhinitis due to allergen 477.8 GERD (gastroesophageal reflux disease) 5 30.81 Hypercholesterolemia 272.0 Colonic polyp 211.3 Hypertension 401.9 Hospitalization History Reason Date(Month/Year) Asthma exacerbation 02/2014
--- OUTSIDE RECORDS SUMMARY | 2025-08-31 08:30 | XMS_ITS | Patient Health Record ---
Author Organization [facility] Address [address] [place] [address] Care Team Providers Care Freight Conductor Name Role Phone Lakia Whalen MD Primary Care Provider Spike Mcelroy [phone] Allergies Allergen (clinical drug ingredient) Drug/Non Drug Allergy documented on EMR Reaction Allergy Type Onset Date Status morphine Morphine (uncoded) Unknown Allergy A ctive Reason For Referral No Information Plan Of Treatment No Information Insurance Providers Payer Name Payer Address Payer Phone Subscriber Number Group Number Insured Name Patient Relationship to Insured Coverage Start Date Coverage End Date [facility](N o referral needed) [address] [place] [address] [id number] MEKHI GAMBINO Self - patient is the insured Medical (General) History Medical History History ICD Code Colonoscopy, 2008, tubular adenoma Asthma Hyperlipidemia
--- OUTSIDE RECORDS SUMMARY | 2025-08-31 08:30 | XMS_ITS | Data Portability ---
Author Organization [facility] Address [address] [place] [address] Assessment Encounter Date Assessment Date Assessment LastModified [...] trauma, edema, or any new medications. VSS. Applications Intern on site reports neurovascularly intact to b/l [...] Updated DateTime 3 99 % 99 % 60759.6 g 98 [degF] 65 /min 16 /min [...] Diagnosis SNOMED-CT Code Diagnosis ICD10 Code Diagnosis IMO Codes Diagnosis Note [id number] Maddy Padilla MD Main - [facility] [address] [place] [phone] 09/06/2023 10:56:03 09/09/2023 12:47:11 Cramp in lower limb [id number] R25.2 Health Concerns Section Related Observation LastModified by Organization Detai ls LastModified Time None Recorded Concern Status LastModified by Organization Details LastModified Time None Recorded Advance Directives Directive None Recorded Payers Insurance Date Sequence Insurance Name Policy Number Policy Akbar Covered Member ID Akbar Member ID Guarantor Name 06/09/2024 1 [facility] - DOS ON OR AFTER 2023 - DUAL ELIGIBLE - PRISON OPTIONS AND ONE CARE (MEDICARE REPLACEMENT/ADV ANTAGE - HMO) Tita Morris [id number] Tita Morris 06/09/2024 1 [facility] - DOS ON OR AFTER 2023 - MEDICARE [place]VANTAGE [place] (MEDICARE REPLACEMENT/ADV ANTAGE - PPO) Tita Morris [id number] Tita Morris Notes Date Note Type Note [...] .................. .................. .................. .................. .................. .................. ............... Applications Intern Note From Douglas Zhou: Pt CO LLL [...] .................. ............... Disposition: Fulfilled Maddy Padilla MD [address] [place] [address],[address], [place], [address], [facility] 09/06/2023 14:56:33 OBGyn Episode No OBEpisode recorded.
--- NOTE | 2025-08-31 08:47 | A.OFFPC_ITS ---
Vital Signs 08/31/25 08:48 Height 5 ft 2 in Weight 170 lb 8 oz BMI 31.2 BP 124/80 Blood Pressure Location Lt brachial Position Sitting Pulse 66 Pulse Source Pulse Oximeter Temp 96.9 F Temp Source Temporal Artery Scan Pulse Oximetry (%) 97 Oxygen Delivery Method Room Air Intake Visit Reasons: Follow Up Intake Note: Patient is here to follow up on HTN, Hypercholesterolemia, Asthma. Pt requesting for LOAN OFFICER ASSISTANT referral to Daylin Healy([facility]). Computed Tomography Technologist Required: No Agricultural Chemicals Inspector: Not Required per policy Accompanied by: Self / Same As Patient Allergies pneumococcal vaccine (PNEUMOCOCCAL VACCINE) Allergy (Severe, Verified 08/31/25 08:48) SWELLING, rash atorvastatin (From LIPITOR) Allergy (Intermediate, Verified 08/31/25 08:48) LIP SWELLING, hives, lip swelling morphine Allergy (Intermediate, Verified 08/31/25 08:48) RASH dupilumab (Dupixent) Allergy (Mild, Verified 08/31/25 08:48) PUGH fluticasone (Advair Diskus) Allergy (Mild, Verified 08/31/25 08:48) Rash Iodinated Contrast Media Allergy (Mild, Verified 08/31/25 08:48) Rash metoprolol Allergy (Mild, Verified 08/31/25 08:48) hives salmeterol (Advair Diskus) Allergy (Mild, Verified 08/31/25 08:48) Drowsy verapamil Allergy (Mild, Verified 08/31/25 08:48) Redness of Skin Tobacco use date assessed: 08/31/25 Fall risk assessment: No Falls in past year Last assessed Fall Risk: 08/31/25 Dental Screening Dental Screen Date: 04/29/25 HPI Follow Up HPI Details complains of memory problem and MMSE [facility] Medical History (Updated 08/31/25 @ 09:15 by Lakia Whalen MD) Colon cancer screening Asthma exacerbation Back pain Post-menopausal COVID-19 Chest pain Occult blood positive stool Left-sided chest pain Bilateral leg pain UTI (urinary tract infection) Bad odor of urine Dysuria Left leg pain Myalgia Lumbar spine pain Unsteady gait COVID-19 virus infection Chronic cough Facial dermatitis Mass of arm Cellulitis, leg Overweight (BMI 25.0-29.9) Acute asthma exacerbation Adult general medical exam Screening for diabetes mellitus Bronchitis Allergic rhinitis Allergic rhinitis Hypercholesterolemia Hypertension Urinary incontinence Vitamin D deficiency Migraine Anxiety Osteoporosis Osteoarthritis, knee Lichen sclerosus Atrophic vaginitis Severe persistent allergic asthma Surgical History (Updated 08/31/25 @ 08:55 by CASANDRA Orona) History of arthroplasty of left shoulder Hx of surgical procedure (08/12/25) History of right cataract surgery History of left cataract surgery History of cardiac cath Family History Mother No problems noted. Sister No problems noted. Father No problems noted. Sister No problems noted. Social History Household Members: Spouse Housing: House Are you a primary floor care technician to a significant other at home: No Do you presently have visiting nurse or other home services: No Alcohol intake: never Comment: counts correct Patient Tobacco Use Status: Never used Tobacco e-Cigarette/Vaping Use: Never Used Second Hand Smoke Exposure: No Advance Directives Date on File: 05/16/23 service: No Current occupational status: unemployed Current occupation: Lt handed Cognitive needs: No Hearing needs: No Vision needs: Yes Female Reproductive History Menstrual Age of Menarche: 13 Questionnaire Thrive Questionnaire Date Thrive assessed: 04/29/25 AJAY-7 AMB Questionnaire AJAY-7 Date AJAY - 7 assessed: 04/29/25 Source: Developed by Drs. Spike Hernandez, Ruth Ortega, Clint Esteves and colleagues, with an educational andrés from [employer]. Physical exam (Primary Care) Vital Signs: Last Vital Signs Temp 96.9 F 08/31/25 08:48 Pulse 66 08/31/25 08:48 BP 124/80 08/31/25 08:48 Pulse Ox 97 08/31/25 08:48 Oxygen Delivery Method Room Air 08/31/25 08:48 BMI result Body Mass Index 31.2 Tobacco/Smoking Status: Tobacco use Status Tobacco use date assessed 08/31/25 08/31/25 08:51 Patient Tobacco Use Status Never used Tobacco 08/31/25 08:51 e-Cigarette/Vaping Use Never Used 08/31/25 08:51 Thrive Assessment: Date of Thrive Assessment Date Thrive assessed 04/29/25 08/31/25 08:51 Const General: alert; No acute distress Eyes Conjunctivae: conjunctivae normal Resp Auscultation: clear to auscultation bilaterally Cardio Rate: regular rate Rhythm: regular rhythm GI Inspection: Yes normal to inspection Extrem General: Yes normal to inspection and No edema Office Procedures Flu Questionnaire Does the patient have a severe egg allergy?: No Does the patient have severe life threatening allergies?: No Does the patient have a fever or illness today?: No Has the patient ever had Guillain-Baker Syndrome?: No Has the patient ever had any past reaction to a flu shot?: No Immunizations Fluarix [id number] (PF) 45 mcg (15 mcg x 3)/0.5 mL IM syringe Performing Provider: Lakia Whalen MD [facility] Administered by: Mague Louis CMA on 08/31/25 09:27 Dose Route Admin Location Dispensed Lot Number Expiration Date [employer]DC Bak[employer] Decorator 0.5 mL IM Left Deltoid 0.5 mL [id number] 05/10/26 [id number] [employer] VIS Given Date VIS Provided VIS Publication Date 08/31/25 Single Vaccine 24 Eligibility Eligibility Date Funding Source Not [facility] Eligible 08/31/25 Private Coding Level of Care Code Est Pt Level 4 (24495) Complex EM visit Add On G2211 Diagnoses Essential hypertension I10 Hypertension type: unspecified Osteoporosis M81.0 Obesity (BMI 30.0-34.9) E66.9 Gastroesophageal reflux disease without esophagitis K21.9 Esophagitis presence: without esophagitis Lipoma of right upper extremity D17.21 Laterality: right Lipoma location: upper extremity Severe persistent allergic asthma J45.50 Breast cancer screening by mammogram Z12.31 Cervical cancer screening Z12.4 Memory deficit R41.3 Assessment & Plan Assessment & Plan (1) Hypertension: Comment: Cardiac catheterization July 2014 minimal coronary artery disease Code(s): I10 - Essential (primary) hypertension Category: Medical Qualifiers: Hypertension type: unspecified Qualified Code(s): I10 - Essential (primary) hypertension Plan: Continue with blood pressure medication. Decrease salt intake and exercise on lisinopril 20 mg once a day (2) Osteoporosis: Comment: July 2021 bone density, August 2023 Code(s): M81.0 - Age-related osteoporosis without current pathological fracture Category: Medical Plan: Reminded about bone density (3) Obesity (BMI 30.0-34.9): Code(s): E66.9 - Obesity, unspecified Category: Medical Plan: Diet and exercise (4) GERD (gastroesophageal reflux disease): Code(s): K21.9 - Gastro-esophageal reflux disease without esophagitis Category: Medical Qualifiers: Esophagitis presence: without esophagitis Qualified Code(s): K21.9 - Gastro-esophageal reflux disease without esophagitis Plan: Avoid the foods that causes that usually spicy foods, tomato products, juices, coffee, soda and foods that your sensitive to. After eating do not lie down, allow 3-4 hours before in lie down. And keep the head of bed above 30 degrees to avoid the acid from going up. (5) Lipoma: Comment: right arm; s/p excision 08/12/2025 Dr. Barnes Code(s): D17.9 - Benign lipomatous neoplasm, unspecified Category: Medical Qualifiers: Laterality: right Lipoma location: upper extremity Qualified Code(s): D17.21 - Benign lipomatous neoplasm of skin and subcutaneous tissue of right arm Plan: Status post excision August 2025 right arm (6) Severe persistent allergic asthma: Code(s): J45.50 - Severe persistent asthma, uncomplicated Category: Medical Plan: Patient is being followed up by Pulmonary added theophylline on Incruse and albuterol and Nucala. Patient states cannot tolerate theophylline (7) Breast cancer screening by mammogram: Code(s): Z12.31 - Encounter for screening mammogram for malignant neoplasm of breast Category: Medical Plan: Reminded mouth mammogram (8) Cervical cancer screening: Code(s): Z12.4 - Encounter for screening for malignant neoplasm of cervix Category: Medical (9) Memory deficit: Code(s): R41.3 - Other amnesia Category: Medical Plan: MMSE 26/30 Plan History of Present Illness The patient is a 70-year-old female presenting for a follow-up visit after a preoperative evaluation in July. The patient has a history of asthma, managed with medications including theophylline, Incruse, albuterol, and Nucala. She reported adverse effects from theophylline, leading her to discontinue its use. The patient has severe persistent hypertension, managed with lisinopril 20 mg daily. Hypercholesterolemia is noted, with the last cholesterol test in April showing an LDL of 144 mg/dL and triglycerides of 160 mg/dL. The patient has generalized anxiety disorder and gastroesophageal reflux disease (GERD), with GERD management discussed during the visit. Osteoporosis is part of her medical history, with the last bone density test conducted in August 2023. The patient has degenerative disc disease and a lipoma in the right upper arm, for which she is following up with a surgeon. Preventative care measures include a colon cancer screening with Cologuard, last done in July 2022, and a mammogram, which is up to date but due this month. Health Maintenance - Colon cancer screening with Cologuard, last done in July 2022 - Mammogram, up to date and due this month - Bone density test, last conducted in August 2023 - Flu shot recommended and administered during the visit Social History Review of Systems - Respiratory: Reports asthma, managed with medications. Denies current dyspnea or wheezing. - Neurological: Reports occasional forgetfulness and difficulty expressing thoughts. Denies numbness or weakness. Physical Exam Results - Labs: Normal blood count, no anemia, normal electrolytes, normal renal function, normal blood sugar, normal liver function (August 04) - Cholesterol test: LDL 144 mg/dL, triglycerides 160 mg/dL (April) Plan Patient was informed and verbally consented to the use of an ambient scribe for clinic note documentation during this visit. 1. Asthma The patient's asthma is managed with theophylline, Incruse, albuterol, and Nucala. She reported adverse effects from theophylline, leading to its discontinuation. 2. Severe Persistent Hypertension Hypertension is managed with lisinopril 20 mg daily. 3. Hypercholesterolemia The patient's last cholesterol test showed an LDL of 144 mg/dL and triglycerides of 160 mg/dL. 4. Generalized Anxiety Disorder The patient has generalized anxiety disorder, which is part of her medical history. 5. Gastroesophageal Reflux Disease (Gerd) GERD management was discussed during the visit. 6. Osteoporosis The patient has osteoporosis, with the last bone density test conducted in August 2023. 7. Degenerative Disc Disease The patient has degenerative disc disease, which is part of her medical history. 8. Lipoma The patient is following up with a surgeon for a lipoma in the right upper arm. 9. Preventative Care Preventative care measures include a colon cancer screening with Cologuard, last done in July 2022, and a mammogram, which is up to date but due this month. A flu shot was recommended and administered during the visit. Discussion Notes During the visit, we discussed the management of the patient's asthma, including the discontinuation of theophylline due to adverse effects. We also reviewed her hypertension management with lisinopril and her cholesterol levels, which require monitoring. Preventative care measures such as the flu shot, mammogram, and colon cancer screening were addressed, ensuring the patient is up to date with her health maintenance. Patient Instructions - Continue current asthma medications, but discontinue theophylline due to side effects. - Take lisinopril 20 mg daily for hypertension management. - Schedule and complete a mammogram this month. - Complete colon cancer screening with Cologuard if not already done. - Receive the flu shot today. Orders: Orders XR DEXA axial skeleton Today M81.0 - Age-related osteoporosis without current pathological fracture CT head/brain wo IV con Today R41.3 - Other amnesia MM tomosynthesis screening BI Today Z12.31 - Encounter for screening mammogram for malignant neoplasm of breast Influenza [id number] Immunization Today Z23 - Encounter for immunization Referrals TRANSPORT NURSE Referral Z12.4 - Encounter for screening for malignant neoplasm of c ervix Cologuard Test Z12.11 - Encounter for screening for malignant neoplasm of colon Neuropsychiatry Referral R41.3 - Other amnesia
[2025-08-31 08:48] VITALS: BP 124/80; PULSE 66; TEMP 36.1; O2SAT 97; BMI 31.2
== END 2025-08-31 09:30 | disposition home or self-care (01) ==
LOC: HO.HMCH 08:22
PROVIDERS: PCP Internal Medicine; Visit Provider Internal Medicine
DX: I10 Essential (primary) hypertension (principal); Z68.31 Body mass index [BMI] 31.0-31.9, adult; J45.50 Severe persistent asthma, uncomplicated; E66.9 Obesity, unspecified; M81.0 Age-related osteoporosis without current pathological fracture; K21.9 Gastro-esophageal reflux disease without esophagitis; D17.21 Benign lipomatous neoplasm of skin and subcutaneous tissue of right arm; Z12.31 Encounter for screening mammogram for malignant neoplasm of breast; R41.3 Other amnesia; Z23 Encounter for immunization

== ENCOUNTER → 2025-08-31 08:21 | Outpatient (BNVA) | payer OTHER, SELFPAY ==
[2025-07-26 13:31] VITALS: BMI 30.3
== END ==
PROVIDERS: PCP Internal Medicine; Visit Provider Internal Medicine
DX: I10 Essential (primary) hypertension (principal); M81.0 Age-related osteoporosis without current pathological fracture; E66.9 Obesity, unspecified; K21.9 Gastro-esophageal reflux disease without esophagitis; D17.21 Benign lipomatous neoplasm of skin and subcutaneous tissue of right arm; J45.50 Severe persistent asthma, uncomplicated; R41.3 Other amnesia; E78.00 Pure hypercholesterolemia, unspecified; F41.1 Generalized anxiety disorder; Z23 Encounter for immunization
CPT/HCPCS: 90471; 90656; 99212

== ENCOUNTER 2025-09-01 07:55 | Outpatient (REF) | payer OTHER, SELFPAY ==
[2025-07-26 13:31] VITALS: BMI 30.3
--- NOTE | ~2025-09-01 | MM_ITS ---
EXAMINATION: MM SCREENING DIGITAL BREAST TOMOSYNTHESIS, BILATERAL CLINICAL INFORMATION: Screening. Asymptomatic. COMPARISON: Mammography: Comparison is made with available priors TECHNIQUE: Digital breast mammography with tomosynthesis is performed in both the craniocaudal and mediolateral oblique views along with computer-aided detection (CAD). FINDINGS: There are scattered areas of fibroglandular density. Right: Asymmetry superior breast middle to posterior depth on MLO view. No suspicious calcifications or other abnormal findings. Left: There are no significant masses, abnormal calcifications, or other abnormalities. MM/MM tomosynthesis screening BI IMPRESSION: Additional imaging is recommended ASSESSMENT: BI-RADS Category 0: Incomplete - Need additional Imaging Evaluation RECOMMENDATION: 1. Additional views of the right breast. 2. Targeted ultrasound if warranted after review of the additional views. 3. Radiology department staff will contact the patient for additional imaging. Additional Imaging required Electronically signed by: Ashlie Jaramillo DO 09/03/2025 05:31 PM EDT
--- NOTE | ~2025-09-01 | MM_ITS ---
EXAMINATION: DXA BONE DENSITY AXIAL HISTORY: M81.0 - Age-related osteoporosis without current pathological fracture TECHNIQUE: [facility] Dual energy absorptiometry (DEXA) of the lumbar spine, total left hip, and femoral neck was performed. COMPARISON: Comparison is made with the prior examination dated 08/20/2023. FINDINGS: The bone mineral density of the lumbar spine is 0.858 g/cm2, corresponding to a T-score of -2.7, and a Z-score of -1.4. This is indicative of osteoporosis. This represents a BMD change of 3.0% compared to the prior exam. This is not statistically significant. The bone mineral density of the left total hip is 1.041 g/cm2, corresponding to a T-score of 0.3, and a Z-score of 1.4. This is indicative of normal bone mineral density. This represents a BMD change of 3.4% compared to the prior exam. This is statistically significant. The bone mineral density of the left femoral neck is 0.974 g/cm2, corresponding to a T-score of -0.5, and a Z-score of 1.0. This is indicative of normal bone mineral density. This represents a BMD change of -3.7% compared to the prior exam. MM/XR DEXA axial skeleton IMPRESSION: Based on bone mineral density, and according to World Health Organization (WHO) criteria, the diagnosis is consistent with osteoporosis. Statistically, 68% of repeat scans fall within 1 SD (+/- 0.010 g/cm2 for AP spine L1-L4) and 1 SD (+/- 0.012 g/cm2 for femur total) FRAX is a trademark of the [employer] [place] [employer] Metabolic Bone Disease, a World Health Organization (WHO) Collaborating Center. Electronically signed by: Spike Dorado MD 09/01/2025 08:46 AM EDT
--- OUTSIDE RECORDS SUMMARY | 2025-09-01 07:58 | XMS_ITS | Patient Health Record ---
Author Organization [facility] Address [address] [place] [address] Care Team Providers Care Import Customer Service Manager Name Role Phone Lakia Whalen MD Primary Care Provider Spike Mcelroy [phone] Allergies Allergen (clinical drug ingredient) Drug/Non Drug Allergy documented on EMR Reaction Allergy Type Onset Date Status morphine Morphine (uncoded) Unknown Allergy A ctive Reason For Referral No Information Plan Of Treatment No Information Insurance Providers Payer Name Payer Address Payer Phone Subscriber Number Group Number Insured Name Patient Relationship to Insured Coverage Start Date Coverage End Date [facility](N o referral needed) [address] [place] [address] [id number] MEKHI GAMBINO Self - patient is the insured Medical (General) History Medical History History ICD Code Colonoscopy, 2008, tubular adenoma Asthma Hyperlipidemia
--- OUTSIDE RECORDS SUMMARY | 2025-09-01 07:58 | XMS_ITS | Patient Health Record ---
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 exposure: None Alcohol: Rare Recreational drug use: None Marital status Problems Problem Type SNOMED Code ICD Code Onset Dates Problem Status W/U Status Risk Notes Problem Chronic diastolic heart failure (893268420) Chronic diastolic heart failure (428.32) Active confirmed Problem Allergic rhinitis due to allergen (18143373) Allergic rhinitis due to allergen (477.8) Active confirmed Problem Extrinsic asthma without status asthmaticus (99237293) Extrinsic asthma NOS (493.00) Active confirmed Problem Pulmonary hypertension, secondary (416.8) Active confirmed Problem Obesity (962809459) Obesity (BMI 30-39.9) (278.00) Active confirmed Problem Systolic murmur (44027151) Heart murmur, systolic (785.2) Active confirmed Plan Of Treatment Pending Test Test Name Order Date REGION 1 RESPIRATORY PROFILE 03/03/2014 REGION 1 RESPIRATORY PROFILE 04/07/2014 IgE 04/07/2014 IgE 03/03/2014 CHEST XRAY PA LAT 03/03/2014 Insurance Providers Payer Name Payer Address Payer Phone Subscriber Number Group Number Insured Name Patient Relationship to Insured Coverage Start Date Coverage End Date [facility] [place] [phone] [id number] Tita Morris Self - patient is the insured Medical (General) History Medical History History ICD Code Asthma 493.90 Rheumatic heart disease 391.9 Heart murmur, systolic 785.2 Allergic rhinitis due to allergen 477.8 GERD (gastroesophageal reflux disease) 5 30.81 Hypercholesterolemia 272.0 Colonic polyp 211.3 Hypertension 401.9 Hospitalization History Reason Date(Month/Year) Asthma exacerbation 02/2014
== END 2025-09-01 07:56 | disposition home or self-care (01) ==
LOC: HO.MAMMO 07:55
PROVIDERS: Visit Provider Internal Medicine
DX: Z12.31 Encounter for screening mammogram for malignant neoplasm of breast (principal); M81.0 Age-related osteoporosis without current pathological fracture
CPT/HCPCS: 77063; 77067; 77080

== ENCOUNTER → 2025-09-01 08:15 | Outpatient (BNV) | payer OTHER, SELFPAY ==
[2025-07-26 13:31] VITALS: BMI 30.3
== END ==
PROVIDERS: Visit Provider Radiology Diagnostic Radiology
DX: E28.39 Other primary ovarian failure (principal)
CPT/HCPCS: 77080

== ENCOUNTER 2025-09-08 08:49 | Outpatient (AMB) | payer OTHER, SELFPAY ==
[2025-07-26 13:31] VITALS: BMI 30.3
--- NOTE | 2025-09-08 09:25 | A.OFFVIS_ITS ---
Vital Signs 09/08/25 09:28 Height 5 ft 2 in Weight 170 lb BMI 31.1 BP 122/76 Intake Visit Reasons: vaginal itching Intake Note: using terrasil ointment that she bought on [employer], has shown some relief with the itching Flexible Shaft Winder: Flexible Shaft Winder Present (Namita) Allergies pneumococcal vaccine (PNEUMOCOCCAL VACCINE) Allergy (Severe, Verified 09/08/25 09:27) SWELLING, rash atorvastatin (From LIPITOR) Allergy (Intermediate, Verified 09/08/25 09:27) LIP SWELLING, hives, lip swelling morphine Allergy (Intermediate, Verified 09/08/25 09:27) RASH dupilumab (Dupixent) Allergy (Mild, Verified 09/08/25 09:27) PUGH fluticasone (Advair Diskus) Allergy (Mild, Verified 09/08/25 09:27) Rash Iodinated Contrast Media Allergy (Mild, Verified 09/08/25 09:27) Rash metoprolol Allergy (Mild, Verified 09/08/25 09:27) hives salmeterol (Advair Diskus) Allergy (Mild, Verified 09/08/25 09:27) Drowsy verapamil Allergy (Mild, Verified 09/08/25 09:27) Redness of Skin HPI Comments Details: Patient is here today with concerns of vulvar itching >2wks. History of lichen sclerosus. She purchased Terrisil from [employer] [employer] for the last few days. [facility], [facility] Medical History (Updated 08/31/25 @ 09:15 by Lakia Whalen MD) Colon cancer screening Asthma exacerbation Back pain Post-menopausal COVID-19 Chest pain Occult blood positive stool Left-sided chest pain Bilateral leg pain UTI (urinary tract infection) Bad odor of urine Dysuria Left leg pain Myalgia Lumbar spine pain Unsteady gait COVID-19 virus infection Chronic cough Facial dermatitis Mass of arm Cellulitis, leg Overweight (BMI 25.0-29.9) Acute asthma exacerbation Adult general medical exam Screening for diabetes mellitus Bronchitis Allergic rhinitis Allergic rhinitis Hypercholesterolemia Hypertension Urinary incontinence Vitamin D deficiency Migraine Anxiety Osteoporosis Osteoarthritis, knee Lichen sclerosus Atrophic vaginitis Severe persistent allergic asthma Surgical History (Updated 08/31/25 @ 08:55 by CASANDRA Orona) History of arthroplasty of left shoulder Hx of surgical procedure (08/12/25) History of right cataract surgery History of left cataract surgery History of cardiac cath Family History Mother No problems noted. Sister No problems noted. Father No problems noted. Sister No problems noted. Social History Household Members: Spouse Housing: House Are you a primary personal care assistant to a significant other at home: No Do you presently have visiting nurse or other home services: No Alcohol intake: never Comment: counts correct Patient Tobacco Use Status: Never used Tobacco e-Cigarette/Vaping Use: Never Used Second Hand Smoke Exposure: No Advance Directives Date on File: 05/16/23 service: No Current occupational status: unemployed Current occupation: Lt handed Cognitive needs: No Hearing needs: No Vision needs: Yes Female Reproductive History Menstrual Age of Menarche: 13 Review of Systems Const All systems reviewed & are unremarkable except as noted in HPI and below Physical Exam Vital Signs: Last Vital Signs BP 122/76 09/08/25 09:28 BMI result Body Mass Index 31.1 Const General: cooperative, healthy appearing and no acute distress Orientation/consciousness: patient oriented x3 GI Inspection: Yes normal to inspection Palpation (GI): Soft to palpation and Other GI palpation findings present (Nontender) Rectal Exam - Female: visual inspection normal Other: External hyperpigmentation-Citlaly clitoral, bilateral upper labia, and perineal region, no lesions, or thickening. General: Yes bladder normal to palpation External Female Exam: normal external appearance (hypopigmentation-periclitoral, upper ivet. labial minora, perineum) and normal appearance of the urethra Speculum Exam - Vagina: normal appearance of the vagina, normal palpation, normal vaginal discharge and vagina atrophic Speculum Exam - Cervix: normal appearance of the cervix and normal palpation Bimanual exam- vagina & uterus: normal bimanual exam, normal palpation, uterine size normal, bladder normal to palpation, normal palpation, uterine shape normal and non-tender Bimanual Exam- Adnexa, other: normal adnexae Neuro General: patient oriented x3 Assessment & Plan Assessment & Plan (1) Lichen sclerosus: Code(s): L90.0 - Lichen sclerosus et atrophicus Category: Medical Plan: BV panel obtained await results for final plan of care. Plan Counseled regarding skin care and use of medication and tapering dosing, plan recheck in 2-3 months. The patient expressed understanding and agreement with the plan of care. All of her questions and concerns were addressed to the best of my ability. This note is constructed using voice recognition software. While every effort has been made to ensure accuracy, account maintenance representative errors may have been included. Orders: Orders Bacterial Vaginosis Panel Today N89.8 - Other specified noninflammatory disorders of vagina Medications: New clobetasol 0.05% Use at bedtime x2 weeks then every other day x2 weeks then twice a week. Not to be used with other corticosteroids in the same area. Apply a thin coat to the area as directed at visit 1 g topical .twice weekly 45 grams 1RF 90 days Coding Level of Care Code Est Pt Level 3 (63472) Diagnoses Lichen sclerosus L90.0
[2025-09-08 09:28] VITALS: BP 122/76; BMI 31.1
--- OUTSIDE RECORDS SUMMARY | 2025-09-08 09:38 | XMS_ITS | Patient Health Record ---
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 exposure: None Alcohol: Rare Recreational drug use: None Marital status Problems Problem Type SNOMED Code ICD Code Onset Dates Problem Status W/U Status Risk Notes Problem Chronic diastolic heart failure (019542513) Chronic diastolic heart failure (428.32) Active confirmed Problem Allergic rhinitis due to allergen (25524018) Allergic rhinitis due to allergen (477.8) Active confirmed Problem Extrinsic asthma without status asthmaticus (43310122) Extrinsic asthma NOS (493.00) Active confirmed Problem Pulmonary hypertension, secondary (416.8) Active confirmed Problem Obesity (682470291) Obesity (BMI 30-39.9) (278.00) Active confirmed Problem Systolic murmur (89865684) Heart murmur, systolic (785.2) Active confirmed Plan Of Treatment Pending Test Test Name Order Date REGION 1 RESPIRATORY PROFILE 03/03/2014 REGION 1 RESPIRATORY PROFILE 04/07/2014 IgE 04/07/2014 IgE 03/03/2014 CHEST XRAY PA LAT 03/03/2014 Insurance Providers Payer Name Payer Address Payer Phone Subscriber Number Group Number Insured Name Patient Relationship to Insured Coverage Start Date Coverage End Date [facility] [place] [phone] [id number] Tita Morris Self - patient is the insured Medical (General) History Medical History History ICD Code Asthma 493.90 Rheumatic heart disease 391.9 Heart murmur, systolic 785.2 Allergic rhinitis due to allergen 477.8 GERD (gastroesophageal reflux disease) 5 30.81 Hypercholesterolemia 272.0 Colonic polyp 211.3 Hypertension 401.9 Hospitalization History Reason Date(Month/Year) Asthma exacerbation 02/2014
--- OUTSIDE RECORDS SUMMARY | 2025-09-08 09:39 | XMS_ITS | Patient Health Record ---
Author Organization [facility] Address [address] [place] [address] Care Team Providers Care Grey Roll Man Name Role Phone Lakia Whalen MD Primary Care Provider Spike Mcelroy [phone] Allergies Allergen (clinical drug ingredient) Drug/Non Drug Allergy documented on EMR Reaction Allergy Type Onset Date Status morphine Morphine (uncoded) Unknown Allergy A ctive Reason For Referral No Information Plan Of Treatment No Information Insurance Providers Payer Name Payer Address Payer Phone Subscriber Number Group Number Insured Name Patient Relationship to Insured Coverage Start Date Coverage End Date [facility](N o referral needed) [address] [place] [address] [id number] MEKHI GAMBINO Self - patient is the insured Medical (General) History Medical History History ICD Code Colonoscopy, 2008, tubular adenoma Asthma Hyperlipidemia
== END 2025-09-08 12:03 | disposition home or self-care (01) ==
LOC: HO.HWS 08:49
PROVIDERS: Visit Provider Advanced Practice Midwife
DX: L90.0 Lichen sclerosus et atrophicus (principal)
CPT/HCPCS: 99213

== ENCOUNTER 2025-09-08 08:49 | Outpatient (REF) | payer OTHER, SELFPAY ==
[2025-07-26 13:31] VITALS: BMI 30.3
--- OUTSIDE RECORDS SUMMARY | 2025-09-08 12:18 | XMS_ITS | Data Portability ---
Author Organization [facility] Address [address] [place] [address] Assessment Encounter Date Assessment Date Assessment LastModified [...] trauma, edema, or any new medications. VSS. Tank Cleaning Supervisor on site reports neurovascularly intact to b/l [...] Updated DateTime 3 99 % 99 % 02256.6 g 98 [degF] 65 /min 16 /min [...] ICD10 Code Diagnosis IMO Codes Diagnosis Note [id number] Maddy Padilla MD Main - [facility] [address] [place] [phone] 09/06/2023 10:56:03 09/09/2023 12:47:11 Cramp in lower limb [id number] R25.2 Health Concerns Section Related Observation LastModified by Organization Detai ls LastModified Time None Recorded Concern Status LastModified by Organization Details LastModified Time None Recorded Advance Directives Directive None Recorded Payers Insurance Date Sequence Insurance Name Policy Number Policy Akbar Covered Member ID Akbar Member ID Guarantor Name 06/09/2024 1 [facility] - DOS ON OR AFTER 2023 - DUAL ELIGIBLE - CARE HOME OPTIONS AND ONE CARE (MEDICARE REPLACEMENT/ADV ANTAGE - HMO) Tita Morris [id number] Tita Morris 06/09/2024 1 [facility] - DOS ON OR AFTER 2023 - MEDICARE [place]VANTAGE [place] (MEDICARE REPLACEMENT/ADV ANTAGE - PPO) Tita Morris [id number] Tita Morris Notes Date Note Type Note [...] .................. .................. .................. .................. .................. .................. ............... Tank Cleaning Supervisor Note From Douglas Zhou: Pt CO LLL [...] .................. ............... Disposition: Fulfilled Maddy Padilla MD [address] [place] [address],[address], [place], [address], [facility] 09/06/2023 14:56:33 OBGyn Episode No OBEpisode recorded.
[2025-09-09 04:59] LABS: Bacterial Vaginosis PCR NEGATIVE (Negative); Candida Group PCR NOT DETECTED (Not Detect); Candida glab krusei PCR NOT DETECTED (Not Detect); Trichomonas vaginalis PCR NOT DETECTED (Not Detect)
== END 2025-09-08 08:50 | disposition home or self-care (01) ==
LOC: HO.LAB 08:49
PROVIDERS: Visit Provider Advanced Practice Midwife
DX: L90.0 Lichen sclerosus et atrophicus (principal); Z20.2 Contact with and (suspected) exposure to infections with a predominantly sexual mode of transmission
CPT/HCPCS: 81515; 99212

== ENCOUNTER 2025-09-30 09:03 | Outpatient (AMB) | payer OTHER, SELFPAY ==
[2025-07-26 13:31] VITALS: BMI 30.3
[2025-09-30 09:19] VITALS: BP 144/84; PULSE 64; O2SAT 98; BMI 30.7
--- NOTE | 2025-09-30 09:19 | MHC.OFFVIS ---
Vital Signs 09/30/25 09:19 Height 5 ft 2 in Weight 168 lb BMI 30.7 BP 144/84 H Blood Pressure Location Lt brachial Position Sitting Pulse 64 Pulse Source Pulse Oximeter Pulse Oximetry (%) 98 Oxygen Delivery Method Room Air Intake Visit Reasons: Asthma Allergies pneumococcal vaccine (PNEUMOCOCCAL VACCINE) Allergy (Severe, Verified 09/30/25 09:23) SWELLING, rash atorvastatin (From LIPITOR) Allergy (Intermediate, Verified 09/30/25 09:23) LIP SWELLING, hives, lip swelling morphine Allergy (Intermediate, Verified 09/30/25 09:23) RASH dupilumab (Dupixent) Allergy (Mild, Verified 09/30/25 09:23) PUGH fluticasone (Advair Diskus) Allergy (Mild, Verified 09/30/25 09:23) Rash Iodinated Contrast Media Allergy (Mild, Verified 09/30/25 09:23) Rash metoprolol Allergy (Mild, Verified 09/30/25 09:23) hives salmeterol (Advair Diskus) Allergy (Mild, Verified 09/30/25 09:23) Drowsy verapamil Allergy (Mild, Verified 09/30/25 09:23) Redness of Skin HPI HPI Asthma: Details: 70-year-old lady, lifetime nonsmoker, followed for severe persistent asthma with significant allergic component. Patient continues on her current regimen of Symbicort, Spiriva, Singulair, albuterol MDI, duo nebs, and Nucala with reasonable control of her symptoms. After the last office visit she was tried on theophylline, but was not able to tolerate it. She denies acute exacerbations. [facility] Medical History (Updated 08/31/25 @ 09:15 by Lakia Whalen MD) Colon cancer screening Asthma exacerbation Back pain Post-menopausal COVID-19 Chest pain Occult blood positive stool Left-sided chest pain Bilateral leg pain UTI (urinary tract infection) Bad odor of urine Dysuria Left leg pain Myalgia Lumbar spine pain Unsteady gait COVID-19 virus infection Chronic cough Facial dermatitis Mass of arm Cellulitis, leg Overweight (BMI 25.0-29.9) Acute asthma exacerbation Adult general medical exam Screening for diabetes mellitus Bronchitis Allergic rhinitis Allergic rhinitis Hypercholesterolemia Hypertension Urinary incontinence Vitamin D deficiency Migraine Anxiety Osteoporosis Osteoarthritis, knee Lichen sclerosus Atrophic vaginitis Severe persistent allergic asthma Surgical History (Updated 08/31/25 @ 08:55 by CASANDRA Oron[place]) History of arthroplasty of left shoulder Hx of surgical procedure (08/12/25) History of right cataract surgery History of left cataract surgery History of cardiac cath Family History Mother No problems noted. Sister No problems noted. Father No problems noted. Sister No problems noted. Social History Household Members: Spouse Housing: House Are you a primary palliative care physician to a significant other at home: No Do you presently have visiting nurse or other home services: No Alcohol intake: never Comment: counts correct Patient Tobacco Use Status: Never used Tobacco e-Cigarette/Vaping Use: Never Used Second Hand Smoke Exposure: No Advance Directives Date on File: 05/16/23 service: No Current occupational status: unemployed Current occupation: Lt handed Cognitive needs: No Hearing needs: No Vision needs: Yes Female Reproductive History Menstrual Age of Menarche: 13 Review of Systems Const Denies daytime sleepiness, Denies excessive sweating, Denies fatigue, Denies fever(s), Denies lethargy, Denies malaise, Denies night sweats, Denies snoring and Denies weight loss Eyes Denies blurry vision and Denies itchy eyes ENT Denies nasal congestion, Denies post nasal drip, Denies sinus pain, Denies sinus pressure and Denies other ( Thrush) Card Denies chest pain, Denies pedal edema, Denies dyspnea, Denies orthopnea and Denies paroxysmal nocturnal dyspnea Resp Denies cough, Denies hemoptysis, Denies excessive phlegm production, Denies dyspnea, Denies snoring and Denies wheezing GI Denies abdominal pain and Denies heartburn Musc Denies myalgias, Denies arthralgias and Denies joint swelling Skin/Breast Denies rash Neuro Denies memory loss and Denies seizure-like activity Psych Denies abnormal sleep pattern, Denies anxiety and Denies memory loss Endo Denies excessive sweating, Denies fatigue and Denies heat intolerance Jose G/Lymph Denies easy bruising Aller/Immun Denies itchy eyes, Denies seasonal rhinorrhea and Denies wheezing Physical Exam Vital Signs: Last Vital Signs Pulse 64 09/30/25 09:19 BP 144/84 H 09/30/25 09:19 Pulse Ox 98 09/30/25 09:19 Oxygen Delivery Method Room Air 09/30/25 09:19 BMI result Body Mass Index 30.7 Const General: no acute distress and alert Nutritional Appearance: not obese Orientation/consciousness: Other orientation findings ( oriented) HEENT Head: Yes atraumatic Eyes General: appearance normal, both eyes and all related structures Sclerae: sclerae normal EOM: EOMs intact bilaterally Neck Neck: Yes supple Lymphatic: no lymphadenopathy noted Resp Effort & Inspection: normal respiratory effort and no use of accessory muscles Auscultation: clear to auscultation bilaterally Cardio Rate: regular rate Rhythm: regular rhythm Heart sounds: no gallops, no murmurs and no rubs Skin General skin exam: other ( warm) Extrem General: No clubbing, No cyanosis and No edema Assessment & Plan Assessment & Plan (1) Severe persistent allergic asthma: Code(s): J45.50 - Severe persistent asthma, uncomplicated Category: Medical Plan: Reasonable control on current regimen of Nucala, Incruse, Symbicort, and albuterol MDI. Continue current regimen. (2) Environmental and seasonal allergies: Code(s): J30.89 - Other allergic rhinitis Category: Medical Plan: Well controlled on Nucala and nasal ipratropium. Continue current regimen. Medications: New albuterol sulfate 90 mcg/actuation (Ventolin HFA) 2 puffs inhalation Q4-6H PRN 1 ea 6RF shortness of breath or wheezing epinephrine 1 spray intranasal ONCE PRN 2 ea 3RF anaphylaxis Discontinued albuterol sulfate 90 mcg/actuation Discontinued Reason: Doctor's Order 2 puffs inhalation Q6H PRN 17 ea 0RF for wheezing J45.50 - Severe persistent asthma, uncomplicated theophylline ER Discontinued Reason: Doctor's Order 450 mg PO DAILY 30 tabs 6RF Coding Level of Care Code Est Pt Level 4 (52393) Diagnoses Severe persistent allergic asthma J45.50 Environmental and seasonal allergies J30.89
== END 2025-09-30 09:46 | disposition home or self-care (01) ==
LOC: HO.HPS 09:04
PROVIDERS: PCP Internal Medicine; Visit Provider Internal Medicine Pulmonary Disease
DX: J45.50 Severe persistent asthma, uncomplicated (principal); J30.89 Other allergic rhinitis
CPT/HCPCS: 99214

== ENCOUNTER → 2025-09-30 09:03 | Outpatient (BNVA) | payer OTHER, SELFPAY ==
[2025-07-26 13:31] VITALS: BMI 30.3
== END ==
PROVIDERS: PCP Internal Medicine; Visit Provider Internal Medicine Pulmonary Disease
DX: J45.50 Severe persistent asthma, uncomplicated (principal); J30.89 Other allergic rhinitis
CPT/HCPCS: 99212

== ENCOUNTER 2025-10-11 10:51 | Outpatient (AMB) | payer OTHER, SELFPAY ==
[2025-07-26 13:31] VITALS: BMI 30.3
--- NOTE | 2025-10-11 10:59 | A.OFFPC_ITS ---
Vital Signs 10/11/25 11:00 Height 5 ft 2 in Weight 168 lb BMI 30.7 BP 144/82 H Blood Pressure Location Lt brachial Position Sitting Pulse 78 Pulse Source Pulse Oximeter Pulse Oximetry (%) 98 Oxygen Delivery Method Room Air Intake Visit Reasons: Headaches, ear pain Allergies pneumococcal vaccine (PNEUMOCOCCAL VACCINE) Allergy (Severe, Verified 10/11/25 11:00) SWELLING, rash atorvastatin (From LIPITOR) Allergy (Intermediate, Verified 10/11/25 11:00) LIP SWELLING, hives, lip swelling morphine Allergy (Intermediate, Verified 10/11/25 11:00) RASH dupilumab (Dupixent) Allergy (Mild, Verified 10/11/25 11:00) PUGH fluticasone (Advair Diskus) Allergy (Mild, Verified 10/11/25 11:00) Rash Iodinated Contrast Media Allergy (Mild, Verified 10/11/25 11:00) Rash metoprolol Allergy (Mild, Verified 10/11/25 11:00) hives salmeterol (Advair Diskus) Allergy (Mild, Verified 10/11/25 11:00) Drowsy verapamil Allergy (Mild, Verified 10/11/25 11:00) Redness of Skin Tobacco use date assessed: 08/31/25 Fall risk assessment: No Falls in past year Last assessed Fall Risk: 10/11/25 Dental Screening Dental Screen Date: 04/29/25 HPI Headaches, ear pain HPI Details L ear pain, wind sound with discharge and pain then R ringing sound, went to pharmacy bought isopropyl alcohol and anhydrous glycerin -d rying aid. HPI Comments History of Present Illness Details History of Present Illness The patient is a 70 year old individual presenting with bilateral ear pain. The symptoms began on Saturday, starting in the left ear with tinnitus described as a wing sound, which progressed to pain, a sensation of fluid, and itching. The following day, the patient experienced a ringing sensation in the right ear as well. The patient tried iudw-[id number]-lyzsmfb ear drops which provided some relief, but continues to experience significant pain at night, associated with headaches. Associated symptoms include sneezing, significant headaches, back pain, coughing, and poor sleep. The patient denies any recent swimming or underwater activities and reports no sick contacts at home. Past medical history is notable for obesity, severe persistent allergic asthma, hypertension, hypercholesterolemia, and generalized anxiety disorder. For allergies, the patient is taking fexofenadine 180 mg and using a nasal spray. Health Maintenance - The patient has a follow-up appointmen t scheduled for a mammogram on October 26. Social History - The patient lives with the patient's amparo collier, who is currently well. - Denies having any pets at home. Results - Labs: Blood work from August 04 s howed a normal blood count. [facility] Medical History (Updated 10/11/25 @ 11:22 by Lakia Whalen MD) Colon cancer screening Asthma exacerbation Back pain Post-menopausal COVID-19 Chest pain Occult blood positive stool Left-sided chest pain Bilateral leg pain UTI (urinary tract infection) Bad odor of urine Dysuria Left leg pain Myalgia Lumbar spine pain Unsteady gait COVID-19 virus infection Chronic cough Facial dermatitis Mass of arm Cellulitis, leg Overweight (BMI 25.0-29.9) Acute asthma exacerbation Adult general medical exam Screening for diabetes mellitus Bronchitis Allergic rhinitis Allergic rhinitis Hypercholesterolemia Hypertension Urinary incontinence Vitamin D deficiency Migraine Anxiety Osteoporosis Osteoarthritis, knee Lichen sclerosus Atrophic vaginitis Severe persistent allergic asthma Surgical History (Updated 08/31/25 @ 08:55 by CASANDRA Orona) History of arthroplasty of left shoulder Hx of surgical procedure (08/12/25) History of right cataract surgery History of left cataract surgery History of cardiac cath Family History Mother No problems noted. Sister No problems noted. Father No problems noted. Sister No problems noted. Social History Household Members: Spouse Housing: House Are you a primary customer care associate to a significant other at home: No Do you presently have visiting nurse or other home services: No Alcohol intake: never Comment: counts correct Patient Tobacco Use Status: Never used Tobacco Tobacco use type: Cigarette e-Cigarette/Vaping Use: Never Used Second Hand Smoke Exposure: No Advance Directives Date on File: 05/16/23 service: No Current occupational status: unemployed Current occupation: Lt handed Cognitive needs: No Hearing needs: No Vision needs: Yes Female Reproductive History Menstrual Age of Menarche: 13 Questionnaire Thrive Questionnaire Date Thrive assessed: 04/29/25 AJAY-7 AMB Questionnaire AJAY-7 Date AJAY - 7 assessed: 04/29/25 Source: Developed by DrsAng Hernandez, Ruth Ortega, Clint Esteves and colleagues, with an educational andrés from [employer]. Review of Systems Narrative Review of Systems - Constitutional: Reports poor sleep quality. - HEENT: Reports bilateral otalgia, tinnitus, a sensation of fluid in the left ear, and aural pruritus. - HEENT: Reports sneezing and feeling congested in the sinuses. - Neurological: Reports significant headaches. - Respiratory: Reports cough. - Musculoskeletal: Reports back pain. Physical exam (Primary Care) Vital Signs: Last Vital Signs Pulse 78 10/11/25 11:00 BP 144/82 H 10/11/25 11:00 Pulse Ox 98 10/11/25 11:00 Oxygen Delivery Method Room Air 10/11/25 11:00 BMI result Body Mass Index 30.7 Tobacco/Smoking Status: Tobacco use Status Tobacco use date assessed 08/31/25 10/11/25 11:00 Patient Tobacco Use Status Never used Tobacco 10/11/25 11:00 Tobacco use type Cigarette 10/11/25 11:00 e-Cigarette/Vaping Use Never Used 10/11/25 11:00 Thrive Assessment: Date of Thrive Assessment Date Thrive assessed 04/29/25 10/11/25 11:00 Narrative Physical Exam - HEENT: External auditory canals are clean bilaterally on otoscopy. - HEENT: No tenderness to palpation of the pinna or tragus bilaterally. - Head/Face: Tenderness noted on palpation over sinus areas, with the patient reporting a sensation of congestion. - Respiratory: Lungs auscultated. Const General: alert; No acute distress Eyes Conjunctivae: conjunctivae normal Resp Auscultation: clear to auscultation bilaterally Cardio Rate: regular rate Rhythm: regular rhythm GI Inspection: Yes normal to inspection Extrem General: Yes normal to inspection and No edema Coding Level of Care Code Est Pt Level 3 (82775) Diagnoses Severe persistent allergic asthma J45.50 Sinusitis J32.9 Assessment & Plan Assessment & Plan (1) Severe persistent allergic asthma: Code(s): J45.50 - Severe persistent asthma, uncomplicated Category: Medical Plan: Continue with Incruse and albuterol inhaler (2) Sinusitis: Code(s): J32.9 - Chronic sinusitis, unspecified Category: Medical Plan: Discussed on getting the CT scan of the sinuses Plan Plan Patient was informed and verbally consented to the use of an ambient scribe for clinic note documentation during this visit. 1. Acute Sinusitis, Unspecified The patient's symptoms of otalgia, sinus pressure, and headache are attributed to acute sinusitis, likely secondary to an allergic flare. The physical exam is notable for tenderness over the sinus areas and a normal outer ear exam, ruling out otitis externa. A course of Zithromax will be prescribed to treat for a potential bacterial component. A CT scan of the sinuses will be ordered to further evaluate the extent of the condition. 2. Allergic Rhinitis, Unspecified The patient's underlying allergies are considered a significant contributing factor to the current sinus congestion and subsequent Eustachian tube dysfunction. The patient was advised to continue using fexofenadine 180mg and a nasal spray regularly, emphasizing that consistent use is required for efficacy. 3. Otalgia, Bilateral The patient's bilateral ear pain and tinnitus are assessed as secondary to Eustachian tube dysfunction from sinusitis and allergies. The physical exam ruled out an outer ear infection. Management is focused on treating the underlying sinus and allergy issues. Discussion Notes I explained to the patient that the physical examination of the external ears was normal, and there was no sign of an outer ear infection. I used a diagram to illustrate the anatomy of the ear, explaining how allergies and sinus congestion can block the Eustachian tube, leading to pressure and pain. We discussed that the OTC drops the patient used are for drying the ear canal and are not an antibiotic. I recommended a course of antibiotics (Zithromax) to treat a likely sinus infection, and the patient confirmed no known allergies to this medication. I informed the patient that a CT scan of the sinuses would be ordered for a more detailed evaluation. I advised the patient on the importance of regular, daily use of allergy medications, including the nasal spray, for them to be effective. We also confirmed the patient's upcoming mammogram appointment. Patient Instructions - An antibiotic (Zithromax) has been sent to your pharmacy. - Please take it as directed to treat the sinus infection. - A CT scan of your sinuses has been ordered. - The imaging facility will call you to schedule the appointment. - Continue taking your allergy medication (fexofenadine) and using your nasal spray every day. - It is important to use these regularly for them to work properly. - Your ear pain and ringing are most likely caused by the sinus and allergy issues. - These symptoms should slowly get better as we treat the infection. - Please remember to attend your mammogram appointment on October 26. Orders: Orders CT sinus wo IV con Today J32.9 - Chronic sinusitis, unspecified Medications: New azithromycin (Zithromax) For 250 mg dose pack: take 500 mg today (day 1), then 250 mg for 4 days (days 2-5) PO 6 tabs 0RF J32.9 - Chronic sinusitis, unspecified
[2025-10-11 11:00] VITALS: BP 144/82; PULSE 78; O2SAT 98; BMI 30.7
== END 2025-10-11 11:25 | disposition home or self-care (01) ==
LOC: HO.HMCH 10:52
PROVIDERS: PCP Internal Medicine; Visit Provider Internal Medicine
DX: J45.50 Severe persistent asthma, uncomplicated (principal); J32.9 Chronic sinusitis, unspecified

== ENCOUNTER → 2025-10-11 10:51 | Outpatient (BNVA) | payer OTHER, SELFPAY ==
[2025-07-26 13:31] VITALS: BMI 30.3
== END ==
PROVIDERS: PCP Internal Medicine; Visit Provider Internal Medicine
DX: H92.03 Otalgia, bilateral (principal); J45.50 Severe persistent asthma, uncomplicated; F41.1 Generalized anxiety disorder; I10 Essential (primary) hypertension; E78.00 Pure hypercholesterolemia, unspecified; J32.9 Chronic sinusitis, unspecified
CPT/HCPCS: 99212

== ENCOUNTER 2025-10-26 12:44 | Outpatient (REF) | payer OTHER, SELFPAY ==
[2025-07-26 13:31] VITALS: BMI 30.3
--- NOTE | ~2025-10-26 | US_ITS ---
EXAMINATION(S): 1. MM DIAGNOSTIC DIGITAL BREAST TOMOSYNTHESIS, RIGHT 2. TARGETED ULTRASOUND OF THE RIGHT BREAST CLINICAL INFORMATION: Callback from screening for right breast asymmetry in the superior breast middle to posterior depth on the MLO view. COMPARISON: Comparison made to multiple prior, most recent September 01, 2025, and most remote March 31, 2016. TECHNIQUE: Digital breast tomosynthesis is performed in full field ML 90 degrees along with computer-aided detection (CAD). Synthesized 2D images are generated from the tomosynthesis. Spot compression tomosynthesis were obtained. FINDINGS: BREAST COMPOSITION: There are scattered areas of fibroglandular density. RIGHT BREAST: Previously seen asymmetry in the upper breast middle/posterior depth is pliable with spot compression. On today's images, the appearance of the local parenchyma is similar to multiple prior studies as far back as 2015, and most likely represented overlapping fibroglandular breast tissue. Targeted ultrasound of the right breast was performed at the location of the mammographic finding throughout the upper outer quadrant. The survey did not reveal suspicious sonographic findings. US/US Breast RT Limited Mamm Only IMPRESSION: RIGHT BREAST: Negative, no evidence of malignancy. Normal interval follow-up is recommended in 12 months. ASSESSMENT: BI-RADS: Category 1: Negative RECOMMENDATION: 1 year F/U Results were provided to the patient at time of visit by the technologist. This patient's information was entered into a reminder system with a target due date for their next mammogram. Electronically signed by: Natalya Mcintyre MD 10/26/2025 01:51 PM [facility]
--- OUTSIDE RECORDS SUMMARY | 2025-10-26 16:30 | XMS_ITS | Data Portability ---
Author Organization [employer] Address [address] [place] [address] Assessment Encounter Date Assessment Date Assessment LastModified [...] trauma, edema, or any new medications. VSS. Steel Roller on site reports neurovascularly intact to b/l [...] t Available Vitals Date Recorded Oxygen saturation Body weight Body temperature Heart rate Respiratory rate Systolic And Diastolic Provider Name and Address Organization Details Last Updated DateTime 3 99 % 61753.6 g 98 [degF] 65 /min 16 /min [...] ICD10 Code Diagnosis IMO Codes Diagnosis Note [id number] Maddy Padilla MD Main - [facility] [address] [place] [phone] 09/06/2023 10:56:03 09/09/2023 12:47:11 Cramp in lower limb [id number] R25.2 Health Concerns Section Related Observation LastModified by Organization Detai ls LastModified Time None Recorded Concern Status LastModified by Organization Details LastModified Time None Recorded Advance Directives Directive None Recorded Payers Insurance Date Sequence Insurance Name Policy Number Policy Akbar Covered Member ID Akbar Member ID Guarantor Name 06/09/2024 1 [facility] - DOS ON OR AFTER 2023 - DUAL ELIGIBLE - RETIREMENT OPTIONS AND ONE CARE (MEDICARE REPLACEMENT/ADV ANTAGE - HMO) [facility]ita Morris [id number] [facility] 06/09/2024 1 [facility] - DOS ON OR AFTER 2023 - MEDICARE [place]VANTAGE [place] (MEDICARE REPLACEMENT/ADV ANTAGE - PPO) Tita Morris [id number] [facility] Notes Date Note Type Note Provider [...] .................. .................. .................. .................. .................. .................. ............... Steel Roller Note From Douglas Zhou: Pt CO LLL [...] .................. ............... Disposition: Fulfilled Maddy Padilla MD [address] [place] [address],[facility] [facility], [place], [phone], [employer] [place] 09/06/2023 14:56:33 OBGyn Episode No OBEpisode recorded.
--- OUTSIDE RECORDS SUMMARY | 2025-10-26 16:30 | XMS_ITS | Patient Health Record ---
Author Organization [facility] Address [address] [place] [address] Care Team Providers Care Auditor In Charge Name Role Phone Lakia Whalen MD Primary Care Provider Spike Mcleroy [phone] Allergies Allergen (clinical drug ingredient) Drug/Non Drug Allergy documented on EMR Reaction Allergy Type Onset Date Status morphine Morphine (uncoded) Unknown Allergy A ctive Reason For Referral No Information Plan Of Treatment No Information Insurance Providers Payer Name Payer Address Payer Phone Subscriber Number Group Number Insured Name Patient Relationship to Insured Coverage Start Date Coverage End Date [facility](N o referral needed) [address] [place] [address] [id number] MEKHI GAMBINO Self - patient is the insured Medical (General) History Medical History History ICD Code Colonoscopy, 2008, tubular adenoma Asthma Hyperlipidemia
--- OUTSIDE RECORDS SUMMARY | 2025-10-26 16:30 | XMS_ITS | Patient Health Record ---
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 exposure: None Alcohol: Rare Recreational drug use: None Marital status Problems Problem Type SNOMED Code ICD Code Onset Dates Problem Status W/U Status Risk Notes Problem Chronic diastolic heart failure (414230570) Chronic diastolic heart failure (428.32) Active confirmed Problem Allergic rhinitis due to allergen (38359788) Allergic rhinitis due to allergen (477.8) Active confirmed Problem Extrinsic asthma without status asthmaticus (71528149) Extrinsic asthma NOS (493.00) Active confirmed Problem Pulmonary hypertension, secondary (416.8) Active confirmed Problem Obesity (061338854) Obesity (BMI 30-39.9) (278.00) Active confirmed Problem Systolic murmur (51253835) Heart murmur, systolic (785.2) Active confirmed Plan Of Treatment Pending Test Test Name Order Date REGION 1 RESPIRATORY PROFILE 03/03/2014 REGION 1 RESPIRATORY PROFILE 04/07/2014 IgE 04/07/2014 IgE 03/03/2014 CHEST XRAY PA LAT 03/03/2014 Insurance Providers Payer Name Payer Address Payer Phone Subscriber Number Group Number Insured Name Patient Relationship to Insured Coverage Start Date Coverage End Date [facility] [place] [place] [phone] [id number] Tita Morris Self - patient is the insured Medical (General) History Medical History History ICD Code Asthma 493.90 Rheumatic heart disease 391.9 Heart murmur, systolic 785.2 Allergic rhinitis due to allergen 477.8 GERD (gastroesophageal reflux disease) 5 30.81 Hypercholesterolemia 272.0 Colonic polyp 211.3 Hypertension 401.9 Hospitalization History Reason Date(Month/Year) Asthma exacerbation 02/2014
== END 2025-10-26 12:45 | disposition home or self-care (01) ==
LOC: HO.MAMMO 12:44
PROVIDERS: PCP Internal Medicine; Visit Provider Internal Medicine
DX: N64.89 Other specified disorders of breast (principal)
CPT/HCPCS: 76642; 77061; 77065

== ENCOUNTER → 2025-10-26 13:00 | Outpatient (BNV) | payer OTHER, SELFPAY ==
[2025-07-26 13:31] VITALS: BMI 30.3
== END ==
PROVIDERS: PCP Internal Medicine; Visit Provider Radiology Body Imaging
DX: R92.8 Other abnormal and inconclusive findings on diagnostic imaging of breast (principal)
CPT/HCPCS: 76642; 77065; G0279